=== PATIENT | female | born 1965 | race American Indian/Alaskan Native ===

== ENCOUNTER 2021-01-27 16:50 | Inpatient (IN) | payer OTHER, SELFPAY ==
--- NOTE | 2021-01-27 17:47 | XRay Report ---
CHEST 1 VIEW 01/27/2021 5:25 PM INDICATION / CLINICAL INFORMATION: Altered Mental Status, covid +. COMPARISON: None available. FINDINGS: SUPPORT DEVICES: None. HEART / MEDIASTINUM: The cardiac silhouette is mildly enlarged. There is mild aortic atherosclerosis. LUNGS / PLEURA: No significant pulmonary abnormality. No significant pleural effusion. No pneumothora x. ADDITIONAL FINDINGS: No significant additional findings. IMPRESSION: Mild cardiomegaly without other acute findings. Signer Name: Ronnell Joseph MD Signed: 01/27/2021 5:42 PM Workstation Name: [id number]
[2021-01-27 17:48] LABS: Basophils % (Auto) 0.6 % (0.0-1.8); Eosinophils % (Auto) 0.1 % (0.0-4.3); Hematocrit 28.6 % (30.3-42.9); Hemoglobin 8.6 gm/dl (10.1-14.3); Lymphocytes # (Auto) 0.7 K/mm3 (1.2-5.4); Lymphocytes % (Auto) 8.4 % (13.4-35.0); Mean Corpuscular HGB Conc 30 % (30-34); Mean Corpuscular Volume 75 fl (79-97); Monocytes # (Auto) 0.6 K/mm3 (0.0-0.8); Monocytes % (Auto) 7.2 % (0.0-7.3); Platelet Count 314 K/mm3 (140-440); Red Blood Count 3.83 M/mm3 (3.65-5.03); Red Cell Distribution Width 16.3 % (13.2-15.2)
[2021-01-27 17:57] LABS: INR 1.15 (0.87-1.13); Partial Thromboplastin Time 25.2 Sec. (24.2-36.6)
[2021-01-27 18:07] LABS: Albumin 3.6 g/dL (3.9-5); C-Reactive Protein 6.7 mg/dL (0.00-1.30); Calcium 6.6 mg/dL (8.4-10.2)
--- NOTE | 2021-01-27 18:15 | Cat Scan Report ---
CT head/brain wo con INDICATION / CLINICAL INFORMATION: 55 years Female; Altered Mental Status covid +. TECHNIQUE: Routine CT head without contrast. All CT scans at this location are performed using CT dos e reduction for ALARA by means of automated exposure control. COMPARISON: None. 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 Otherwise, no acute hemorrhage, mass effect, midline shift, hydrocephalus, or acute, large territori al infarct. No signs of significant atrophy or chronic infarct. There are mild areas of decreased attenuation in the white matter of the cerebral hemispheres. These are nonspecific findings and may be related to microangiopathy (hypertension, diabetes, atheroscleros is), given the patient's age. CRANIOCERVICAL JUNCTION: No significant abnormality. ORBITS: No significant abnormality of visualized orbits. SINUSES / MASTOIDS: Mild to moderate mucosal thickening in the ethmoids. Small mucous retention cyst/ polyps are seen in the maxillary antrum on the left. ADDITIONAL FINDINGS: None. IMPRESSION: 1. No focal mass, hemorrhage, hydrocephalus, or acute, large territorial infarct. 2. 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 Follow-up with diffusion imaging by MRI, as cli nically warranted. Signer Name: Obey Wright MD, III Signed: 01/27/2021 6:10 PM Workstation Name: [email or web address]USMiranda
[2021-01-27] MEDS ORDERED: ASPIRIN 81 MG TAB CHEW PO ONE (18:17)
--- NOTE | 2021-01-27 18:20 | Emergency Department Report ---
ED General Adult HPI - General Chief complaint: Altered Mental Status Stated complaint: im fine i have covid PUI?: Yes Time Seen by Provider: 01/27/21 16:56 Source: patient, EMS ( EMS documentation not available at time of chart dictation ), RN notes reviewed Mode of arrival: Stretcher Limitations: Altered Mental Status - History of Present Illness Initial comments: The patient was evaluated in the emergency department for symptoms described in the history of present illness. He/she was evaluated in the context of the global COVID-19 pandemic, which necessitated consideration that the patient might be at risk for infection with the virus that causes COVID-19. Institutional protocols and algorithms that pertain to the evaluation of patients at risk for COVID-19 are in a state of rapid change based on information released by regulatory bodies including the CDC and federal and state organizations. These policies and algorithms were followed during the patient's care in the emergency department. Please note that these policies, procedures and recommendations changed on a rapid basis. During the entire history and physical examination I had on complete personal protective equipment. The patient is a 55-year-old female. She is not known to myself previously. She tells me she was diagnosed with Covid on 01/20/2021. She is brought to the hospital by emergency medical services apparently because of erratic and unusual behavior. The patient is not currently accompanied by friends or family at this time for collateral information or additional history. The patient herself denies physical pain. She states that she was "fine", and that she went to [place] last week ([place]), has not received her Covid vaccination, and was subsequently diagnosed with COVID-19 last week. She endorses feeling generally weak, but she denies physical pain, she denies headache, neck pain, chest pain, abdominal pain, shortness of breath. Family felt that the patient was not acting her normal self (they are not avail able for me to interview at this time), and nursing team indicates the patient thinks it is 2008, and believes that Santosh Barnes is the current president. The patient told me that she lives at home with her 57-year-old daughter, Romelia, and she believes that this is an individual who called 911. The patient does not describe the qualitative nature of her symptoms, exacerbating factors, relieving factors, or aggravating factors. Her last known well time is not explicitly known at this time. She denies urinary symptoms. -: unknown - Related Data Allergies Allergy/AdvReac Type Severity Reaction Status Date / Time No Known Allergies Allergy Verified 01/27/21 18:08 ED Review of Systems ROS: Stated complaint: AMS/POSITIVE COVID Other details as noted in HPI Comment: Unobtainable due to pts medical conditions Constitutional: malaise, weakness. denies: fever Eyes: denies: eye discharge, vision change ENT: denies: epistaxis Respiratory: cough, shortness of breath Cardiovascular: denies: chest pain Gastrointestinal: denies: abdominal pain Genitourinary: denies: dysuria Musculoskeletal: myalgia Neurological: weakness, confusion. denies: headache ED Past Medical Hx - Past Medical History Previous Medical History?: Yes Hx Hypertension: Yes - Social History Smoking Status: Current Some Day Smoker ED Physical Exam - General Limitations: Other (The patient is awake, and alert to name. She knows that she is in the hospital.) General appearance: in no apparent distress, anxious, obese - Head Head exam: Present: atraumatic, normocephalic - Eye Eye exam: Present: normal appearance, EOMI. Absent: nystagmus - ENT ENT exam: Present: normal exam, normal orophraynx, mucous membranes moist, normal external ear exam - Neck Neck exam: Present: normal inspection, full ROM. Absent: tenderness, meningismus - Respiratory Respiratory exam: Present: other (Pulmonary auscultation not performed secondary to lack of disposable stethoscope). Absent: stridor - Cardiovascular Cardiovascular Exam: Present: regular rate (Regular rate and rhythm noted on radiation monitor. Auscultation not performed secondary to lack of disposable stethoscope), normal rhythm - GI/Abdominal GI/Abdominal exam: Present: soft. Absent: distended, tenderness, guarding, rebound, rigid, pulsatile mass - Extremities Exam Extremities exam: Present: normal inspection, full ROM, other (2+ pulses noted in the bilateral upper and lower extremities. There is no palpable cord. negative Homans sign. Muscular compartments are soft. The pelvis is stable.). Absent: pedal edema, calf tenderness - Back Exam Back exam: Present: normal inspection, full ROM. Absent: tenderness, CVA tenderness (R), CVA tenderness (L), paraspinal tenderness, vertebral tenderness - Neurological Exam Neurological exam: Present: alert (The patient is alert to name. She thinks is 2008. She does not know the day of the week. She believes that Santosh Barnes is the president.), other (No facial droop. Tongue midline. Extraocular movements intact bilaterally. Facial sensation intact to light touch in V1, V2, V3 distribution bilaterally. 5 and a 5 strength in 4 extremities. Sensation intact to light touch in 4 extremities.) - Psychiatric Psychiatric exam: Present: anxious - Skin Skin exam: Present: warm, dry, intact, normal color. Absent: rash ED Course Vital Signs 01/27/21 01/27/21 01/27/21 16:58 17:25 17:31 Temperature 98.2 F Pulse Rate 96 H 98 H Respiratory 18 18 Rate Blood Pressure 152/77 O2 Sat by Pulse 93 99 98 Oximetry 01/27/21 01/27/21 01/27/21 17:46 18:03 18:15 Temperature Pulse Rate 93 H Respiratory 17 16 16 Rate Blood Pressure O2 Sat by Pulse 98 97 Oximetry 01/27/21 01/27/21 01/27/21 18:31 18:45 19:01 Temperature Pulse Rate 97 H Respiratory 15 17 20 Rate Blood Pressure 155/101 159/79 O2 Sat by Pulse 99 97 93 Oximetry 01/27/21 01/27/21 01/27/21 19:15 19:31 19:45 Temperature Pulse Rate 93 H 94 H 91 H Respiratory 19 19 18 Rate Blood Pressure 159/79 165/87 155/101 O2 Sat by Pulse 98 99 98 Oximetry 01/27/21 01/27/21 01/27/21 20:00 20:15 20:31 Temperature Pulse Rate 106 H 85 107 H Respiratory 20 17 27 H Rate Blood Pressure 135/81 132/81 170/92 O2 Sat by Pulse 100 98 98 Oximetry 01/27/21 01/27/21 01/27/21 20:51 21:01 21:11 Temperature Pulse Rate 95 H 95 H 94 H Respiratory 15 17 17 Rate Blood Pressure 170/92 175/93 175/93 O2 Sat by Pulse 99 99 97 Oximetry 01/27/21 21:30 Temperature 98.2 F Pulse Rate 106 H Respiratory 24 Rate Blood Pressure 168/92 O2 Sat by Pulse 100 Oximetry - Reevaluation(s) Reevaluation #1: 01/27/21 18:22 Differential diagnosis, including but not limited to: Covid, bacteremia, viremia, pneumonia, urinary tract infection Assessment and plan: 55-year-old female, who was afebrile, with reassuring vital signs, no meningeal signs, with a nonfocal neurologic and motor/sensory examination, presenting with nonspecific alteration in mental status, with an exact last known well time that is not known. Her examination and history at this time and not suggestive of acute bacterial meningitis. Her examination at this time is not suggestive of a large vessel occlusion. Her last known well time is not explicitly known, therefore, this patient is not a TPA candidate. I recommended admission to the medical service for diagnostic and supportive care. I discussed this plan of care with the patient. She is amenable to this plan of care. We will discussed with the hospital physician once initial diagnostics have resulted. Continue supplemental oxygen, administer aspirin, give steroids empirically. Order Covid labs to risk stratify for cytokine storm. 01/27/21 18:30 Patient is found to have evidence of renal insufficiency, metabolic acidosis, hyperkalemia, azotemia, and uremia. Have requested emergent nephrology consultation. We will treat her medically. Newman catheter ordered. We will admit to the medical service once initial diagnostics have resulted. Altered mental status is likely secondary to uremic encephalopathy, as well as metabolic acidosis Elevated troponin is likely a type II troponin leak. Suspect that this is a Covid related Renal insufficiency and uremic encephalopathy. 01/27/21 18:31 01/27/21 18:32 01/27/21 18:45 Contacted nephrology on-call, Dr. Deshpande. Have discussed the patient's history, physical, laboratory studies, diagnostic imaging studies, and overall clinical impressions. He recommends D5 whole water, with 3 A of sodium bicarb, running at 100 cc an hour. We agreed to treat the patient's hyperkalemia 5.5 medically. Newman catheter ordered, and renal ultrasound ordered as per his recommendation. He indicates he would like to see how patient does after a vigorous medical resuscitation, prior to committing this patient to hemodialysis. Patient has clear lungs at this time. I will defer to the inpatient team to follow-up on repeat laboratory studies, as well as renal ultrasound. Hospital physician, Dr. Mary Marsh to admit to [facility] 01/27/21 19:20 Patient's daughter has contacted the hospital, [phone]; Ms. Romelia bower She tells me the patient has been acting erratically over the past few days to weeks. The patient fell and hit her head a few weeks ago. The patient's primary care doctor is Dr. Stoddard She believes the patient takes a water pill, states no known allergies, and that the patient has no history of renal insufficiency that she is aware of. Discussed patient's history, laboratory studies and imaging studies with patient's daughter. She has articulated understanding. At the moment, she will stay home, as she is currently sick with Covid, and has not been cleared to visit. All questions answered. Daughter endorses understanding. ED Medical Decision Making - Lab Data Result diagrams: 01/28/21 05:38 01/28/21 05:38 Vital Signs 01/27/21 01/27/21 01/27/21 16:58 17:25 17:31 Temperature 98.2 F Pulse Rate 96 H 98 H Respiratory 18 18 Rate Blood Pressure 152/77 O2 Sat by Pulse 93 99 98 Oximetry 01/27/21 18:03 Temperature Pulse Rate Respiratory 16 Rate Blood Pressure O2 Sat by Pulse Oximetry Lab Results 01/27/21 01/27/21 01/27/21 Range/Units 17:23 17:23 17:23 [place] % (Auto) 7.2 (0.0-7.3) % Eos % (Auto) 0.1 (0.0-4.3) % [place] # (Auto) 0.6 (0.0-0.8) K/mm3 Eos # (Auto) 0.0 (0.0-0.4) K/mm3 Baso # (Auto) 0.0 (0.0-0.1) K/mm3 Seg Neutrophils % 83.7 H (40.0-70.0) % Seg Neutrophils # 6.9 (1.8-7.7) K/mm3 PT 15.2 H (12.2-14.9) Sec. INR 1.15 H (0.87-1.13) APTT 25.2 (24.2-36.6) Sec. D-Dimer 826.21 H (0-234) ng/mlDDU Sodium 144 (137-145) mmol/L Potassium 5.5 H (3.6-5.0) mmol/L Chloride 106.5 (98-107) mmol/L Glucose 106 H (65-100) mg/dL Lactic Acid (0.7-2.0) mmol/L Calcium 6.6 L (8.4-10.2) mg/dL Magnesium 2.10 (1.7-2.3) mg/dL Total Bilirubin 0.20 (0.1-1.2) mg/dL AST 13 (5-40) units/L ALT 6 L (7-56) units/L Alkaline Phosphatase 157 H (35-129) units/L Ammonia (25-60) umol/L Lactate Dehydrogenase 357 H (91-180) units/L Total Creatine Kinase 322 H (30-135) units/L C-Reactive Protein 6.70 H (0.00-1.30) mg/dL Total Protein 7.0 (6.3-8.2) g/dL Albumin 3.6 L (3.9-5) g/dL Albumin/Globulin Ratio 1.1 % TSH (0.270-4.200) mlU/mL Salicylates (2.8-20.0) mg/dL Acetaminophen (10.0-30.0) ug/mL Plasma/Serum Alcohol (0-0.07) % 01/27/21 01/27/21 01/27/21 Range/Units 17:23 17:23 17:23 [place] % (Auto) (0.0-7.3) % Eos % (Auto) (0.0-4.3) % [place] # (Auto) (0.0-0.8) K/mm3 Eos # (Auto) (0.0-0.4) K/mm3 Baso # (Auto) (0.0-0.1) K/mm3 Seg Neutrophils % (40.0-70.0) % Seg Neutrophils # (1.8-7.7) K/mm3 PT (12.2-14.9) Sec. INR (0.87-1.13) APTT (24.2-36.6) Sec. D-Dimer (0-234) ng/mlDDU Sodium (137-145) mmol/L Potassium (3.6-5.0) mmol/L Chloride (98-107) mmol/L Glucose (65-100) mg/dL Lactic Acid 1.50 (0.7-2.0) mmol/L Calcium (8.4-10.2) mg/dL Magnesium (1.7-2.3) mg/dL Total Bilirubin (0.1-1.2) mg/dL AST (5-40) units/L ALT (7-56) units/L Alkaline Phosphatase (35-129) units/L Ammonia 19.0 L (25-60) umol/L Lactate Dehydrogenase (91-180) units/L Total Creatine Kinase (30-135) units/L C-Reactive Protein (0.00-1.30) mg/dL Total Protein (6.3-8.2) g/dL Albumin (3.9-5) g/dL Albumin/Globulin Ratio % TSH 1.180 (0.270-4.200) mlU/mL Salicylates (2.8-20.0) mg/dL Acetaminophen (10.0-30.0) ug/mL Plasma/Serum Alcohol (0-0.07) % 01/27/21 01/27/21 01/27/21 Range/Units 17:23 17:23 17:23 [place] % (Auto) (0.0-7.3) % Eos % (Auto) (0.0-4.3) % [place] # (Auto) (0.0-0.8) K/mm3 Eos # (Auto) (0.0-0.4) K/mm3 Baso # (Auto) (0.0-0.1) K/mm3 Seg Neutrophils % (40.0-70.0) % Seg Neutrophils # (1.8-7.7) K/mm3 PT (12.2-14.9) Sec. INR (0.87-1.13) APTT (24.2-36.6) Sec. D-Dimer (0-234) ng/mlDDU Sodium (137-145) mmol/L Potassium (3.6-5.0) mmol/L Chloride (98-107) mmol/L Glucose (65-100) mg/dL Lactic Acid (0.7-2.0) mmol/L Calcium (8.4-10.2) mg/dL Magnesium (1.7-2.3) mg/dL Total Bilirubin (0.1-1.2) mg/dL AST (5-40) units/L ALT (7-56) units/L Alkaline Phosphatase (35-129) units/L Ammonia (25-60) umol/L Lactate Dehydrogenase (91-180) units/L Total Creatine Kinase (30-135) units/L C-Reactive Protein (0.00-1.30) mg/dL Total Protein (6.3-8.2) g/dL Albumin (3.9-5) g/dL Albumin/Globulin Ratio % TSH (0.270-4.200) mlU/mL Salicylates < 0.3 L (2.8-20.0) mg/dL Acetaminophen 5.0 L (10.0-30.0) ug/mL Plasma/Serum Alcohol < 0.01 (0-0.07) % Lab Results 01/27/21 01/27/21 01/27/21 Range/Units 17:23 17:23 17:23 WBC 8.2 (4.5-11.0) K/mm3 RBC 3.83 (3.65-5.03) M/mm3 Hgb 8.6 L (10.1-14.3) gm/dl Hct 28.6 L (30.3-42.9) % MCV 75 L (79-97) fl MCH 22 L (28-32) pg MCHC 30 (30-34) % RDW 16.3 H (13.2-15.2) % Plt Count 314 (140-440) K/mm3 Lymph % (Auto) 8.4 L (13.4-35.0) % [place] % (Auto) 7.2 (0.0-7.3) % Eos % (Auto) 0.1 (0.0-4.3) % Baso % (Auto) 0.6 (0.0-1.8) % Lymph # (Auto) 0.7 L (1.2-5.4) K/mm3 [place] # (Auto) 0.6 (0.0-0.8) K/mm3 Eos # (Auto) 0.0 (0.0-0.4) K/mm3 Baso # (Auto) 0.0 (0.0-0.1) K/mm3 Seg Neutrophils % 83.7 H (40.0-70.0) % Seg Neutrophils # 6.9 (1.8-7.7) K/mm3 PT 15.2 H (12.2-14.9) Sec. INR 1.15 H (0.87-1.13) APTT 25.2 (24.2-36.6) Sec. D-Dimer 826.21 H (0-234) ng/mlDDU Sodium 144 (137-145) mmol/L Potassium 5.5 H (3.6-5.0) mmol/L Chloride 106.5 (98-107) mmol/L Carbon Dioxide 6 L* (22-30) mmol/L Anion Gap 37 mmol/L BUN 122 H (7-17) mg/dL Creatinine 15.9 H (0.6-1.2) mg/dL Estimated GFR 3 ml/min BUN/Creatinine Ratio 8 % Glucose 106 H (65-100) mg/dL Lactic Acid (0.7-2.0) mmol/L Calcium 6.6 L (8.4-10.2) mg/dL Magnesium 2.10 (1.7-2.3) mg/dL Ferritin (10.0-200.0) ng/mL Total Bilirubin 0.20 (0.1-1.2) mg/dL AST 13 (5-40) units/L ALT 6 L (7-56) units/L Alkaline Phosphatase 157 H (35-129) units/L Ammonia (25-60) umol/L Lactate Dehydrogenase 357 H (91-180) units/L Total Creatine Kinase 322 H (30-135) units/L Troponin T 0.143 H* (0.00-0.029) ng/mL C-Reactive Protein 6.70 H (0.00-1.30) mg/dL Total Protein 7.0 (6.3-8.2) g/dL Albumin 3.6 L (3.9-5) g/dL Albumin/Globulin Ratio 1.1 % TSH (0.270-4.200) mlU/mL Salicylates (2.8-20.0) mg/dL Acetaminophen (10.0-30.0) ug/mL Plasma/Serum Alcohol (0-0.07) % 01/27/21 01/27/21 01/27/21 Range/Units 17:23 17:23 17:23 WBC (4.5-11.0) K/mm3 RBC (3.65-5.03) M/mm3 Hgb (10.1-14.3) gm/dl Hct (30.3-42.9) % MCV (79-97) fl MCH (28-32) pg MCHC (30-34) % RDW (13.2-15.2) % Plt Count (140-440) K/mm3 Lymph % (Auto) (13.4-35.0) % [place] % (Auto) (0.0-7.3) % Eos % (Auto) (0.0-4.3) % Baso % (Auto) (0.0-1.8) % Lymph # (Auto) (1.2-5.4) K/mm3 [place] # (Auto) (0.0-0.8) K/mm3 Eos # (Auto) (0.0-0.4) K/mm3 Baso # (Auto) (0.0-0.1) K/mm3 Seg Neutrophils % (40.0-70.0) % Seg Neutrophils # (1.8-7.7) K/mm3 PT (12.2-14.9) Sec. INR (0.87-1.13) APTT (24.2-36.6) Sec. D-Dimer (0-234) ng/mlDDU Sodium (137-145) mmol/L Potassium (3.6-5.0) mmol/L Chloride (98-107) mmol/L Carbon Dioxide (22-30) mmol/L Anion Gap mmol/L BUN (7-17) mg/dL Creatinine (0.6-1.2) mg/dL Estimated GFR ml/min BUN/Creatinine Ratio % Glucose (65-100) mg/dL Lactic Acid 1.50 (0.7-2.0) mmol/L Calcium (8.4-10.2) mg/dL Magnesium (1.7-2.3) mg/dL Ferritin (10.0-200.0) ng/mL Total Bilirubin (0.1-1.2) mg/dL AST (5-40) units/L ALT (7-56) units/L Alkaline Phosphatase (35-129) units/L Ammonia 19.0 L (25-60) umol/L Lactate Dehydrogenase (91-180) units/L Total Creatine Kinase (30-135) units/L Troponin T (0.00-0.029) ng/mL C-Reactive Protein (0.00-1.30) mg/dL Total Protein (6.3-8.2) g/dL Albumin (3.9-5) g/dL Albumin/Globulin Ratio % TSH 1.180 (0.270-4.200) mlU/mL Salicylates (2.8-20.0) mg/dL Acetaminophen (10.0-30.0) ug/mL Plasma/Serum Alcohol (0-0.07) % 01/27/21 01/27/21 01/27/21 Range/Units 17:23 17:23 17:23 WBC (4.5-11.0) K/mm3 RBC (3.65-5.03) M/mm3 Hgb (10.1-14.3) gm/dl Hct (30.3-42.9) % MCV (79-97) fl MCH (28-32) pg MCHC (30-34) % RDW (13.2-15.2) % Plt Count (140-440) K/mm3 Lymph % (Auto) (13.4-35.0) % [place] % (Auto) (0.0-7.3) % Eos % (Auto) (0.0-4.3) % Baso % (Auto) (0.0-1.8) % Lymph # (Auto) (1.2-5.4) K/mm3 [place] # (Auto) (0.0-0.8) K/mm3 Eos # (Auto) (0.0-0.4) K/mm3 Baso # (Auto) (0.0-0.1) K/mm3 Seg Neutrophils % (40.0-70.0) % Seg Neutrophils # (1.8-7.7) K/mm3 PT (12.2-14.9) Sec. INR (0.87-1.13) APTT (24.2-36.6) Sec. D-Dimer (0-234) ng/mlDDU Sodium (137-145) mmol/L Potassium (3.6-5.0) mmol/L Chloride (98-107) mmol/L Carbon Dioxide (22-30) mmol/L Anion Gap mmol/L BUN (7-17) mg/dL Creatinine (0.6-1.2) mg/dL Estimated GFR ml/min BUN/Creatinine Ratio % Glucose (65-100) mg/dL Lactic Acid (0.7-2.0) mmol/L Calcium (8.4-10.2) mg/dL Magnesium (1.7-2.3) mg/dL Ferritin (10.0-200.0) ng/mL Total Bilirubin (0.1-1.2) mg/dL AST (5-40) units/L ALT (7-56) units/L Alkaline Phosphatase (35-129) units/L Ammonia (25-60) umol/L Lactate Dehydrogenase (91-180) units/L Total Creatine Kinase (30-135) units/L Troponin T (0.00-0.029) ng/mL C-Reactive Protein (0.00-1.30) mg/dL Total Protein (6.3-8.2) g/dL Albumin (3.9-5) g/dL Albumin/Globulin Ratio % TSH (0.270-4.200) mlU/mL Salicylates < 0.3 L (2.8-20.0) mg/dL Acetaminophen 5.0 L (10.0-30.0) ug/mL Plasma/Serum Alcohol < 0.01 (0-0.07) % / Range/Units 17:23 WBC (4.5-11.0) K/mm3 RBC (3.65-5.03) M/mm3 Hgb (10.1-14.3) gm/dl Hct (30.3-42.9) % MCV (79-97) fl MCH (28-32) pg MCHC (30-34) % RDW (13.2-15.2) % Plt Count (140-440) K/mm3 Lymph % (Auto) (13.4-35.0) % [place] % (Auto) (0.0-7.3) % Eos % (Auto) (0.0-4.3) % Baso % (Auto) (0.0-1.8) % Lymph # (Auto) (1.2-5.4) K/mm3 [place] # (Auto) (0.0-0.8) K/mm3 Eos # (Auto) (0.0-0.4) K/mm3 Baso # (Auto) (0.0-0.1) K/mm3 Seg Neutrophils % (40.0-70.0) % Seg Neutrophils # (1.8-7.7) K/mm3 PT (12.2-14.9) Sec. INR (0.87-1.13) APTT (24.2-36.6) Sec. D-Dimer (0-234) ng/mlDDU Sodium (137-145) mmol/L Potassium (3.6-5.0) mmol/L Chloride (98-107) mmol/L Carbon Dioxide (22-30) mmol/L Anion Gap mmol/L BUN (7-17) mg/dL Creatinine (0.6-1.2) mg/dL Estimated GFR ml/min BUN/Creatinine Ratio % Glucose (65-100) mg/dL Lactic Acid (0.7-2.0) mmol/L Calcium (8.4-10.2) mg/dL Magnesium (1.7-2.3) mg/dL Ferritin 404.7 H (10.0-200.0) ng/mL Total Bilirubin (0.1-1.2) mg/dL AST (5-40) units/L ALT (7-56) units/L Alkaline Phosphatase (35-129) units/L Ammonia (25-60) umol/L Lactate Dehydrogenase (91-180) units/L Total Creatine Kinase (30-135) units/L Troponin T (0.00-0.029) ng/mL C-Reactive Protein (0.00-1.30) mg/dL Total Protein (6.3-8.2) g/dL Albumin (3.9-5) g/dL Albumin/Globulin Ratio % TSH (0.270-4.200) mlU/mL Salicylates (2.8-20.0) mg/dL Acetaminophen (10.0-30.0) ug/mL Plasma/Serum Alcohol (0-0.07) % - EKG Data -: EKG Interpreted by [facility] EKG shows normal: sinus rhythm Rate: normal - EKG Data When compared to previous EKG there are: previous EKG unavailable 01/27/21 18:21 EKG interpreted at 17: 28 Sinus rhythm, 89 bpm. Normal P wave axis. QTC prolonged, 500 ms. Poor R wave progression. Motion artifact. Borderline left ventricular hypertrophy. Abnormal EKG. Not a STEMI. No prior for comparison. - Radiology Data Radiology results: report reviewed, image reviewed CT head/brain wo con INDICATION / CLINICAL INFORMATION: 55 years Female; Altered Mental Status covid +. TECHNIQUE: Routine CT head without contrast. All CT scans at this location are performed using CT dose reduction for ALARA by ar ans of automated exposure control. COMPARISON: None. FINDINGS: BRAIN / INTRACRANIAL CONTENTS: Small, branch PICA infarcts are seen in the left cerebellar [id number] without diffusion imaging by MRI. Otherwise, no acute hemorrhage, mass effect, midline shift, hydrocephalus, or a cute, large territorial infarct. No signs of significant atrophy or chronic infarct. There are mild areas of decreased attenuation in the white matter of the cerebral hemispheres. These are nonspecific findings and may be related to microangiopathy (hypertension, diabetes, atherosclerosis), given the patient's age. CRANIOCERVICAL JUNCTION: No significant abnormality. ORBITS: No significant abnormality of visualized orbits. SINUSES / MASTOIDS: Mild to moderate mucosal thickening in the ethmoids. Small mucous retention cyst/polyps are seen in the maxillary antrum on the left. ADDITIONAL FINDINGS: None. IMPRESSION: 1. No focal mass, hemorrhage, hydrocephalus, or acute, large territorial infarct. 2. 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 Follow-up with diffusion imaging by MRI, as clinically warranted. Signer Name: Obey Wright MD, III Signed: 01/27/2021 5:10 PM Workstation Name: [id number] [id number] CHEST 1 VIEW 01/27/2021 5:25 PM INDICATION / CLINICAL INFORMATION: Altered Mental Status, covid +. COMPARISON: None available. FINDINGS: SUPPORT DEVICES: None. HEART / MEDIASTINUM: The cardiac silhouette is mildly enlarged. There is mild aortic atherosclerosis. LUNGS / PLEURA: No significant pulmonary abnormality. No significant pleural effusion. No pneumothorax. ADDITIONAL FINDINGS: No significant additional findings. IMPRESSION: Mild cardiomegaly without other acute findings. Signer Name: Ronnell Joseph MD Signed: 01/27/2021 4:42 PM Workstation Name: [id number] Critical care time in (mins) excluding proc time.: 65 Critical care attestation.: If time is entered above; I have spent that time in minutes in the direct care of this critically ill patient, excluding procedure time. ED Disposition Clinical Impression: Suspected 2019 novel coronavirus infection, Acute encephalopathy, Metabolic acidosis, Acute renal insufficiency, Hyperkalemia, Azotemia, Uremia Disposition: DC09 OP ADMIT IP TO THIS HOSP Is pt being admited?: Yes Does the pt Need Aspirin: No Condition: Serious
[2021-01-27] MEDS ORDERED: dexAMETHasone 4 MG/ML VIAL IV ONE (18:30)
[2021-01-27] MEDS ORDERED: LACTATED RINGERS 1,000 ML IV ONE (18:32)
[2021-01-27 18:41] LABS: Chol/HDL Ratio 3.77 %
[2021-01-27] MEDS ORDERED: DEXTROSE 50% IN WATER (25GM) 50 ML SYRINGE IV ONE (18:41)
[2021-01-27] MEDS ORDERED: ALBUTEROL 2.5 MG/3 ML NEBU IH ONE (18:41)
[2021-01-27] MEDS ORDERED: SODIUM POLYSTYRENE 15 GM/60 ML ORAL LIQD PO ONE (18:41)
[2021-01-27] MEDS ORDERED: DEXTROSE 50% IN WATER (25GM) 50 ML SYRINGE IV PRN (18:41)
[2021-01-27] MEDS ORDERED: INSULIN REGULAR, HUMAN 100 UNITS/1 ML IV ONE (18:41)
[2021-01-27] MEDS ORDERED: CALCIUM GLUCONATE 1,000 MG in SODIUM CHLORIDE 0.9% 100 ML IV ONE (19:00)
[2021-01-27] MEDS ORDERED: SODIUM BICARBONATE 150 MEQ in DEXTROSE 5% IN WATER 1,000 ML IV SCH (19:00)
--- NOTE | 2021-01-27 21:19 | History and Physical Report ---
History of Present Illness Date of examination: 01/27/21 Date of admission: 01/27/21 18:47 Chief complaint: Altered Sensorium for one day History of present illness: 55-year-old female with past medical history significant for hypertension and chronic kidney disease comes in for altered sensorium. Patient was diagnosed with Covid 1 week ago on January 20, 2021. Patient brought by EMS for erratic and unusual behavior. No family at this point. Patient talks appropriately but that does not make sense. She states that she has chronic kidney disease but does not know who her kidney physician needs and when she was diagnosed with chronic kidney disease. Patient is alert but confused. Patient says that it is year 2008 and the current president is Santosh Barnes. No exacerbating or relieving factors. Patient did well after the Covid infection. No nausea vomit ing diarrhea or altered sense of smel or taste. No fever or chills. No muscle aches. In the ER patient was found to have a high creatinine of around 16 and BUN more than 100 - Past Medical History Previous Medical History?: Yes --Hypertension: Yes CKD Surgical history unavailable - Social History Smoking Status: Current Smoker Family history Htn Review of Systems ROS: Stated complaint: AMS/POSITIVE COVID Other details as noted in HPI Comment: Unobtainable due to pts medical conditions Constitutional: malaise, weakness. denies: fever Eyes: denies: eye discharge, vision change ENT: denies: epistaxis Respiratory: cough, shortness of breath Cardiovascular: denies: chest pain Gastrointestinal: denies: abdominal pain Genitourinary: denies: dysuria Musculoskeletal: myalgia Neurological: weakness, confusion. denies: headache Medications and Allergies Allergies Allergy/AdvReac Type Severity Reaction Status Date / Time No Known Allergies Allergy Verified 01/27/21 18:08 Active Meds: Active Medications Dextrose (Dextrose 50% In Water (25gm) 50 Ml Syringe) 50 ml IV Q30MIN PRN; Protocol PRN Reason: Hypoglycemia Sodium Bicarbonate 150 meq/ (Dextrose) 1,150 mls @ 100 mls/hr IV DIRECT MONICA Last Admin: 01/27/21 20:16 Dose: 100 mls/hr Documented by: Exam - Constitutional Vitals: Temp Pulse Resp BP Pulse Ox 98.2 F 107 H 27 H 170/92 98 01/27/21 16:58 01/27/21 20:31 01/27/21 20:31 01/27/21 20:31 01/27/21 20:31 General appearance: Present: no acute distress, well-nourished - EENT Eyes: Present: PERRL ENT: hearing intact, clear oral mucosa - Neck Neck: Present: supple, normal ROM - Respiratory Respiratory effort: normal Respiratory: bilateral: CTA - Cardiovascular Heart rate: 78 Rhythm: regular Heart Sounds: Present: S1 & S2. Absent: rub, click - Extremities Extremities: no ischemia, pulses intact, pulses symmetrical, No edema Peripheral Pulses: within normal limits - Abdominal General gastrointestinal: Present: soft, non-tender, non-distended, normal bowel sounds Female genitourinary: Present: normal - Rectal Rectal Exam: deferred - Integumentary Integumentary: Present: clear, warm, dry - Musculoskeletal Musculoskeletal: gait normal, strength equal bilaterally - Psychiatric Psychiatric: appropriate mood/affect, other (Altered sensorium) - Neurologic Neurologic: CNII-XII intact, moves all extremities, other (Alert but not oriente d to time. Oriented to place and person.) - Allied Health Allied health notes reviewed: nursing, case management HEART Score - HEART Score Troponin: Troponin T 0.143 ng/mL (0.00-0.029) H* 01/27/21 17:23 Results - Labs CBC & Chem 7: 01/27/21 17:23 01/27/21 17:23 Labs: Laboratory Last Values WBC 8.2 K/mm3 (4.5-11.0) 01/27/21 17:23 RBC 3.83 M/mm3 (3.65-5.03) 01/27/21 17:23 Hgb 8.6 gm/dl (10.1-14.3) L 01/27/21 17:23 Hct 28.6 % (30.3-42.9) L 01/27/21 17:23 MCV 75 fl (79-97) L 01/27/21 17:23 MCH 22 pg (28-32) L 01/27/21 17:23 MCHC 30 % (30-34) 01/27/21 17:23 RDW 16.3 % (13.2-15.2) H 01/27/21 17:23 Plt Count 314 K/mm3 (140-440) 01/27/21 17:23 Lymph % (Auto) 8.4 % (13.4-35.0) L 01/27/21 17:23 [place] % (Auto) 7.2 % (0.0-7.3) 01/27/21 17:23 Eos % (Auto) 0.1 % (0.0-4.3) 01/27/21 17:23 Baso % (Auto) 0.6 % (0.0-1.8) 01/27/21 17:23 Lymph # (Auto) 0.7 K/mm3 (1.2-5.4) L 01/27/21 17:23 [place] # (Auto) 0.6 K/mm3 (0.0-0.8) 01/27/21 17:23 Eos # (Auto) 0.0 K/mm3 (0.0-0.4) 01/27/21 17:23 Baso # (Auto) 0.0 K/mm3 (0.0-0.1) 01/27/21 17:23 Seg Neutrophils % 83.7 % (40.0-70.0) H 01/27/21 17:23 Seg Neutrophils # 6.9 K/mm3 (1.8-7.7) 01/27/21 17:23 PT 15.2 Sec. (12.2-14.9) H 01/27/21 17:23 INR 1.15 (0.87-1.13) H 01/27/21 17:23 APTT 25.2 Sec. (24.2-36.6) 01/27/21 17:23 D-Dimer 826.21 ng/mlDDU (0-234) H 01/27/21 17:23 Sodium 144 mmol/L (137-145) 01/27/21 17:23 Potassium 5.5 mmol/L (3.6-5.0) H 01/27/21 17:23 Chloride 106.5 mmol/L (98-107) 01/27/21 17:23 Carbon Dioxide 6 mmol/L (22-30) L* 01/27/21 17:23 Anion Gap 37 mmol/L 01/27/21 17:23 BUN 122 mg/dL (7-17) H 01/27/21 17:23 Creatinine 15.9 mg/dL (0.6-1.2) H 01/27/21 17:23 Estimated GFR 3 ml/min 01/27/21 17:23 BUN/Creatinine Ratio 8 % 01/27/21 17:23 Glucose 106 mg/dL (65-100) H 01/27/21 17:23 Lactic Acid 1.50 mmol/L (0.7-2.0) 01/27/21 17:23 Calcium 6.6 mg/dL (8.4-10.2) L 01/27/21 17:23 Magnesium 2.10 mg/dL (1.7-2.3) 01/27/21 17:23 Ferritin 404.7 ng/mL (10.0-200.0) H 01/27/21 17:23 Total Bilirubin 0.20 mg/dL (0.1-1.2) 01/27/21 17:23 AST 13 units/L (5-40) 01/27/21 17:23 ALT 6 units/L (7-56) L 01/27/21 17:23 Alkaline Phosphatase 157 units/L (35-129) H 01/27/21 17:23 Ammonia 19.0 umol/L (25-60) L 01/27/21 17:23 Lactate Dehydrogenase 357 units/L (91-180) H 01/27/21 17:23 Total Creatine Kinase 322 units/L (30-135) H 01/27/21 17:23 Troponin T 0.143 ng/mL (0.00-0.029) H* 01/27/21 17:23 C-Reactive Protein 6.70 mg/dL (0.00-1.30) H 01/27/21 17:23 Total Protein 7.0 g/dL (6.3-8.2) 01/27/21 17:23 Albumin 3.6 g/dL (3.9-5) L 01/27/21 17:23 Albumin/Globulin Ratio 1.1 % 01/27/21 17:23 Triglycerides 173 mg/dL (2-149) H 01/27/21 17:23 Cholesterol 181 mg/dL (50-199) 01/27/21 17:23 LDL Cholesterol Direct 101 mg/dL (50-130) 01/27/21 17:23 HDL Cholesterol 48 mg/dL (40-59) 01/27/21 17:23 Cholesterol/HDL Ratio 3.77 % 01/27/21 17:23 TSH 1.180 mlU/mL (0.270-4.200) 01/27/21 17:23 Salicylates < 0.3 mg/dL (2.8-20.0) L 01/27/21 17:23 Acetaminophen 5.0 ug/mL (10.0-30.0) L 01/27/21 17:23 Plasma/Serum Alcohol < 0.01 % (0-0.07) 01/27/21 17:23 Short CBC 01/27/21 Range/Units 17:23 WBC 8.2 (4.5-11.0) K/mm3 Hgb 8.6 L (10.1-14.3) gm/dl Hct 28.6 L (30.3-42.9) % Plt Count 314 (140-440) K/mm3 [facility] 01/27/21 17:23 Sodium 144 Potassium 5.5 H Chloride 106.5 Carbon Dioxide 6 L* BUN 122 H Creatinine 15.9 H Glucose 106 H Calcium 6.6 L Cardiac Enzymes 01/27/21 Range/Units 17:23 Total Creatine Kinase 322 H (30-135) units/L Troponin T 0.143 H* (0.00-0.029) ng/mL Liver Function 01/27/21 Range/Units 17:23 Total Bilirubin 0.20 (0.1-1.2) mg/dL AST 13 (5-40) units/L ALT 6 L (7-56) units/L Alkaline Phosphatase 157 H (35-129) units/L Albumin 3.6 L (3.9-5) g/dL Short CBC 01/27/21 Range/Units 17:23 WBC 8.2 (4.5-11.0) K/mm3 Hgb 8.6 L (10.1-14.3) gm/dl Hct 28.6 L (30.3-42.9) % Plt Count 314 (140-440) K/mm3 [facility] 01/27/21 17:23 Sodium 144 Potassium 5.5 H Chloride 106.5 Carbon Dioxide 6 L* BUN 122 H Creatinine 15.9 H Glucose 106 H Calcium 6.6 L Cardiac Enzymes 01/27/21 Range/Units 17:23 Total Creatine Kinase 322 H (30-135) units/L Troponin T 0.143 H* (0.00-0.029) ng/mL Liver Function 01/27/21 Range/Units 17:23 Total Bilirubin 0.20 (0.1-1.2) mg/dL AST 13 (5-40) units/L ALT 6 L (7-56) units/L Alkaline Phosphatase 157 H (35-129) units/L Albumin 3.6 L (3.9-5) g/dL Microbiology: Microbiology 01/27/21 17:23 Peripheral/Venous Blood Culture - Preliminary Culture in Progress 01/27/21 17:23 Peripheral/Venous Blood Culture - Preliminary Culture in Progress - Imaging and Cardiology EKG: report reviewed (Sinus rhythm no acute ST-T wave changes) CT Scan - head: report reviewed Imaging and Cardiology: Chest x-ray Mild cardiomegaly without other acute findings Head CT No focal mass hemorrhage hydrocephalus or acute large territorial infarct Small right PICA infarct suggested on the left. Follow-up with diffusion imaging by MRI as clinically warranted. Assessment and Plan Advance Directives: Yes (Full code) VTE prophylaxis?: Chemical Plan of care discussed with patient/family: Yes - Patient Problems (1) Uremic encephalopathy Current Visit: Yes Status: Acute Plan to address problem: Altered sensorium secondary to high creatinine and uremia Also severe metabolic acidosis secondary to uremia (2) End-stage renal disease needing dialysis Current Visit: Yes Status: Acute Plan to address problem: Newly diagnosed end-stage renal disease There may be some acute component Renal ultrasound IV fluids for 12 hours and then stop Patient may need a Vas-Cath and hemodialysis Dr. Scott MILLER consulted (3) Azotemia Current Visit: Yes Status: Acute Plan to address problem: Patient will need hemodialysis for visualization of encephalopathy (4) Hyperkalemia Current Visit: Yes Status: Acute (5) Metabolic acidosis Current Visit: Yes Status: Acute Plan to address problem: Hemodialysis for now (6) Suspected 2019 novel coronavirus infection Current Visit: Yes Status: Acute Plan to address problem: Patient was coronavirus positive last week on 01/20/2021 Patient has no shortness of breath Comfortable on room air We will get coronavirus PCR Consult ID if necessary (7) Hypertension Current Visit: Yes Status: Acute Qualifiers: Hypertension type: primary hypertension Qualified Code(s): I10 - Essential (primary) hypertension Plan to address problem: Newly diagnosed hypertension Patient started on hydralazine 50 mg every 8 hours Add other antihypertensives as necessary (8) Hyperkalemia Current Visit: Yes Status: Acute Plan to address problem: Treated in the emergency room with Kayexalate and calcium gluconate and sodium bicarbonate (9) Anemia Current Visit: Yes Status: Chronic Qualifiers: Anemia type: due to chronic kidney disease Chronic kidney disease stage: stage 5, not on chronic dialysis Qualified Code(s): N18.5 - Chronic kidney disease, stage 5; D63.1 - Anemia in chronic kidney disease Plan to address problem: Anemia secondary to chronic kidney disease and end-stage renal disease (10) DVT prophylaxis Current Visit: Yes Status: Acute Plan to address problem: On heparin and GI prophylaxis
[2021-01-27] MEDS ORDERED: ONDANSETRON 4 MG/2 ML INJ IV PRN (21:27)
[2021-01-27] MEDS ORDERED: ACETAMINOPHEN 325 MG TAB PO PRN (21:27)
[2021-01-27] MEDS ORDERED: oxyCODONE /ACETAMINOPHEN 5-325MG TAB PO PRN (21:29)
[2021-01-27] MEDS ORDERED: METOCLOPRAMIDE 10 MG/2 ML INJ IV PRN (21:29)
[2021-01-27] MEDS ORDERED: SODIUM CHLORIDE 0.9% 1000 ML 1,000 ML IV SCH (21:30)
[2021-01-27] MEDS: HEPARIN 5,000 UNIT/1 ML VIAL SUB-Q SCH (22:23)
[2021-01-27] MEDS: FAMOTIDINE 20 MG/2 ML INJ IV SCH (22:23)
[2021-01-28 06:34] LABS: Hematocrit 21.1 % (30.3-42.9); Hemoglobin 6.7 gm/dl (10.1-14.3); Mean Corpuscular HGB Conc 32 % (30-34); Mean Corpuscular Volume 73 fl (79-97); Platelet Count 278 K/mm3 (140-440); Red Cell Distribution Width 15.1 % (13.2-15.2)
[2021-01-28 06:42] LABS: Albumin 2.9 g/dL (3.9-5); Calcium 6.1 mg/dL (8.4-10.2)
[2021-01-28 06:48] LABS: % Iron Saturation 20.14 %
[2021-01-28] MEDS ORDERED: ENOXAPARIN 30 MG/0.3 ML INJ SUB-Q SCH (10:00)
--- NOTE | 2021-01-28 10:07 | Progress Note ---
Assessment and Plan Assessment and plan: -- Uremic encephalopathy Current Visit: Yes Status: Acute Plan to address problem: Altered sensorium secondary to high creatinine and uremia Also severe metabolic acidosis secondary to uremia --End-stage renal disease needing dialysis Current Visit: Yes Status: Acute Newly diagnosed end-stage renal disease Vas-Cath placement, initiated hemodialysis Renal ultrasound Nephrology following --Hyperkalemia Current Visit: Yes Status: Acute Resolved, hemodialysis after dialysis catheter placement -- Metabolic acidosis Current Visit: Yes Status: Acute Nephrology following , initiating hemodialysis --PUI/high suspicion for COVID-19 Current Visit: Yes Status: Acute Patient was coronavirus positive last week on 01/20/2021 Rog[place] PCR test requested Contact and droplet isolation Patient is asymptomatic ID consult if needed -- Hypertension Current Visit: Yes Status: Acute Newly diagnosed hypertension Patient started on hydralazine 50 mg every 8 hours Add other antihypertensives as necessary --Anemia of chronic disease Current Visit: Yes Status: Chronic Anemia secondary to chronic kidney disease and end-stage renal disease Procrit during dialysis, ferrous sulfate, monitor H&H, transfuse as needed -- prophylaxis Current Visit: Yes Status: Acute On heparin and GI prophylaxis We will closely monitor the patient and adjust management as needed Supervisor [employer] recommendations noted and appreciated Plan of care reviewed with the patient and her nurse History Interval history: I have seen and examined the patient at the bedside Patient's chart and medications reviewed Patient was admitted with uremic encephalopathy Vascular consulted for permacath placement Nephrology following Vital signs noted Hospitalist Physical - Constitutional Vitals: Temp Pulse Resp BP Pulse Ox 98.1 F 91 H 16 175/93 97 01/28/21 04:55 01/28/21 04:55 01/28/21 04:55 01/28/21 05:03 01/28/21 05:03 General appearance: Present: no acute distress, well-nourished - EENT Eyes: Present: PERRL, EOM intact - Neck Neck: Present: supple, normal ROM - Respiratory Respiratory effort: normal Respiratory: bilateral: diminished, rales, negative: rhonchi, wheezing - Cardiovascular Rhythm: regular Heart Sounds: Present: S1 & S2 - Extremities Extremities: no ischemia, No edema - Abdominal General gastrointestinal: soft, non-tender, non-distended, normal bowel sounds - Integumentary Integumentary: Present: clear, warm - Psychiatric Psychiatric: appropriate mood/affect, cooperative - Neurologic Neurologic: CNII-XII intact, moves all extremities HEART Score - HEART Score Troponin: Troponin T 0.143 ng/mL (0.00-0.029) H* 01/27/21 17:23 Results - Labs CBC & Chem 7: 01/28/21 05:38 01/28/21 05:38 Labs: Laboratory Last Values WBC 4.3 K/mm3 (4.5-11.0) L 01/28/21 05:38 RBC 2.90 M/mm3 (3.65-5.03) L 01/28/21 05:38 Hgb 6.7 gm/dl (10.1-14.3) L 01/28/21 05:38 Hct 21.1 % (30.3-42.9) L D 01/28/21 05:38 MCV 73 fl (79-97) L 01/28/21 05:38 MCH 23 pg (28-32) L 01/28/21 05:38 MCHC 32 % (30-34) 01/28/21 05:38 RDW 15.1 % (13.2-15.2) 01/28/21 05:38 Plt Count 278 K/mm3 (140-440) 01/28/21 05:38 Lymph % (Auto) Profiling Machine Setup Operator 01/28/21 05:38 [place] % (Auto) Profiling Machine Setup Operator 01/28/21 05:38 Eos % (Auto) Profiling Machine Setup Operator 01/28/21 05:38 Baso % (Auto) Profiling Machine Setup Operator 01/28/21 05:38 Lymph # (Auto) Profiling Machine Setup Operator 01/28/21 05:38 [place] # (Auto) Profiling Machine Setup Operator 01/28/21 05:38 Eos # (Auto) Profiling Machine Setup Operator 01/28/21 05:38 Baso # (Auto) Profiling Machine Setup Operator 01/28/21 05:38 Seg Neutrophils % Profiling Machine Setup Operator 01/28/21 05:38 Seg Neutrophils # Profiling Machine Setup Operator 01/28/21 05:38 PT 15.2 Sec. (12.2-14.9) H 01/27/21 17:23 INR 1.15 (0.87-1.13) H 01/27/21 17:23 APTT 25.2 Sec. (24.2-36.6) 01/27/21 17:23 D-Dimer 826.21 ng/mlDDU (0-234) H 01/27/21 17:23 Sodium 142 mmol/L (137-145) 01/28/21 05:38 Potassium 4.2 mmol/L (3.6-5.0) D 01/28/21 05:38 Chloride 104.4 mmol/L (98-107) 01/28/21 05:38 Carbon Dioxide 12 mmol/L (22-30) L 01/28/21 05:38 Anion Gap 30 mmol/L 01/28/21 05:38 BUN 117 mg/dL (7-17) H 01/28/21 05:38 Creatinine 14.8 mg/dL (0.6-1.2) H 01/28/21 05:38 Estimated GFR 3 ml/min 01/28/21 05:38 BUN/Creatinine Ratio 8 % 01/28/21 05:38 Glucose 129 mg/dL (65-100) H 01/28/21 05:38 Hemoglobin A1c 5.3 % (4-6) 01/27/21 17:23 Lactic Acid 1.50 mmol/L (0.7-2.0) 01/27/21 17:23 Calcium 6.1 mg/dL (8.4-10.2) L 01/28/21 05:38 Magnesium 2.10 mg/dL (1.7-2.3) 01/27/21 17:23 Iron 28 ug/dL (37-170) L 01/28/21 05:38 TIBC 139 mcg/dL (250-450) L 01/28/21 05:38 % Saturation 20.14 % 01/28/21 05:38 Transferrin 124 mg/dl (192-382) L 01/28/21 05:38 Ferritin 404.7 ng/mL (10.0-200.0) H 01/27/21 17:23 Total Bilirubin 0.20 mg/dL (0.1-1.2) 01/28/21 05:38 AST 11 units/L (5-40) 01/28/21 05:38 ALT 5 units/L (7-56) L 01/28/21 05:38 Alkaline Phosphatase 127 units/L (35-129) 01/28/21 05:38 Ammonia 19.0 umol/L (25-60) L 01/27/21 17:23 Lactate Dehydrogenase 357 units/L (91-180) H 01/27/21 17:23 Total Creatine Kinase 322 units/L (30-135) H 01/27/21 17:23 Troponin T 0.143 ng/mL (0.00-0.029) H* 01/27/21 17:23 C-Reactive Protein 6.70 mg/dL (0.00-1.30) H 01/27/21 17:23 Total Protein 5.9 g/dL (6.3-8.2) L 01/28/21 05:38 Albumin 2.9 g/dL (3.9-5) L 01/28/21 05:38 Albumin/Globulin Ratio 1.0 % 01/28/21 05:38 Triglycerides 173 mg/dL (2-149) H 01/27/21 17:23 Cholesterol 181 mg/dL (50-199) 01/27/21 17:23 LDL Cholesterol Direct 101 mg/dL (50-130) 01/27/21 17:23 HDL Cholesterol 48 mg/dL (40-59) 01/27/21 17:23 Cholesterol/HDL Ratio 3.77 % 01/27/21 17:23 Vitamin B12 2000 pg/mL (211-911) H 01/28/21 05:38 TSH 1.180 mlU/mL (0.270-4.200) 01/27/21 17:23 Salicylates < 0.3 mg/dL (2.8-20.0) L 01/27/21 17:23 Acetaminophen 5.0 ug/mL (10.0-30.0) L 01/27/21 17:23 Plasma/Serum Alcohol < 0.01 % (0-0.07) 01/27/21 17:23 Microbiology: Microbiology 01/27/21 17:23 Peripheral/Venous Blood Culture - Preliminary Culture in Progress 01/27/21 17:23 Peripheral/Venous Blood Culture - Preliminary Culture in Progress Newman/IV: Voiding Method Toilet Active Medications - Current Medications Current Medications: Generic Name Dose Route Start Last Admin Trade Name Freq PRN Reason Stop Dose Admin Acetaminophen 650 mg 01/27/21 21:27 Acetaminophen 325 Mg Tab PO Q4H PRN Pain MILD(1-3)/Fever >100.5/MALCOLM Dextrose 50 ml 01/27/21 18:41 Dextrose 50% In Water (25gm) 50 Ml Syringe IV Q30MIN PRN Hypoglycemia Protocol Famotidine 10 mg 01/27/21 22:00 01/27/21 22:23 Famotidine 20 Mg/2 Ml Inj IV 10 mg BID MONICA Administration Heparin Sodium (Porcine) 5,000 unit 01/27/21 22:00 01/27/21 22:23 Heparin 5,000 Unit/1 Ml Vial SUB-Q 5,000 unit Q12HR MONICA Administration Sodium Bicarbonate 150 meq/ 1,150 mls @ 100 mls/hr 01/27/21 19:00 01/27/21 20:16 Dextrose IV 100 mls/hr DIRECT MONICA Administration Sodium Chloride 1,000 mls @ 75 mls/hr 01/27/21 21:30 01/28/21 05:55 Nacl 0.9% 1000 Ml IV 01/28/21 21:00 75 mls/hr DIRECT MONICA Administration Metoclopramide HCl 10 mg 01/27/21 21:29 Metoclopramide 10 Mg/2 Ml Inj IV Q6H PRN Nausea And Vomiting Ondansetron HCl 4 mg 01/27/21 21:27 Ondansetron 4 Mg/2 Ml Inj IV Q8H PRN Nausea And Vomiting Oxycodone/Acetaminophen 1 tab 01/27/21 21:29 Oxycodone /Acetaminophen 5-325mg Tab PO Q6H PRN Pain, Moderate (4-6) Sodium Chloride 10 ml 01/27/21 22:00 01/27/21 22:24 Sodium Chloride 0.9% 10 Ml Flush Syringe IV 10 ml BID MONICA Administration Sodium Chloride 10 ml 01/27/21 21:27 Sodium Chloride 0.9% 10 Ml Flush Syringe IV PRN PRN LINE FLUSH Nutrition/Malnutrition Assess - Dietary Evaluation Nutrition/Malnutrition Findings: Nutrition Notes Start: 01/28/21 08:54 Freq: Status: Active Protocol: Document 01/28/21 08:54 MARCO (Rec: 01/28/21 08:58 MARCO [id number]) Nutrition Notes Need for Assessment generated from: disc inspector,MST Initial or Follow up Assessment Current Diagnosis CKD (stage V CKD),Hypertension Other Pertinent Diagnosis Uremic encephalopathy, r/o COVID-19 Current Diet Renal Labs/Tests BUN 117 Cr 14.8 Ca 6.1 (adjusted Ca 6.98) Pertinent Medications Reviewed Height 5 ft 5 in Weight 64.7 kg [place] Body Weight (kg) 56.81 BMI 23.7 Weight Status Appropriate Subjective/Other Information Pt screened for malnutrition risk. Pt confused at this time; newly diagnosed ESRD requiring dialysis. Burn Absent Trauma Absent Minimum of two criteria No #1 Nutrition Diagnosis Predicted suboptimal energy intake Etiology uremia As Evidenced by Signs and Symptoms pt admitted with confusion and newly diagnosed ESRD Is patient on ventilator? No Is Patient Ambulatory and/or Out of Bed Yes REE-([facility]-ambulatory/OOB) [ 1602.744 [id number]] Calculation Used for Recommendations [facility] Additional Notes Pro needs >1.2g/kg: >78g/day Fluid needs 1-1.5L/day Nutrition Intervention Change Diet Order: Continue current diet order Goal #1 PO intake to meet at least 75% energy and pro needs Anticipated Discharge Needs: Renal diet Follow-Up By: 01/31/21 Additional Comments F/U: intakes
[2021-01-28] MEDS: HEPARIN 5,000 UNIT/1 ML VIAL SUB-Q SCH ×2 (10:12→22:56)
--- NOTE | 2021-01-28 10:21 | Electrocardiograph Report ---
[facility] Test Date: 2021-01-27 Test Time: 17:28:56 Pat Name: MAULIK FOWLER Department: Room: A364 1 Gender: F [employer]: [place] : 1965 Requested By: ROSCOE GRAY Order Number: [id number] Reading MD: Mina Pacheco Measurements Intervals [place] Rate: 89 P: 58 GA: 132 QRS: 31 QRSD: 79 T: 103 QT: 411 QTc: 500 Interpretive Statements Sinus rhythm Probable left atrial enlargement Probable LVH with secondary repol abnrm No previous ECG available for comparison Electronically Signed On 01-28-2021 10:21:30 EDT by Mina Pacheco
--- NOTE | 2021-01-28 10:26 | Consultation ---
History of Present Illness - Reason for Consult Consult date: 01/28/21 chronic renal failure Requesting physician: ROSCOE GRAY - History of Present Illness 55-year-old lady admitted on account of altered mental status. Patient noted by family to have erratic behavior. She has a history of hypertension and chronic kidney disease stage unknown. She was diagnosed with COVID-19 January 20 but her condition worsened and so she was brought to the hospital for further management. 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 I reviewed multidisciplinary notes and discussed with staff and physicians as needed. Past History Past Medical History: hypertension, renal failure Past Surgical History: Other (Unable to obtain) Social history: other (Unable to obtain) Family history: other (Unable to obtain) Medications and Allergies Allergies Allergy/AdvReac Type Severity Reaction Status Date / Time No Known Allergies Allergy Verified 01/27/21 18:08 Active Meds: Active Medications Acetaminophen (Acetaminophen 325 Mg Tab) 650 mg PO Q4H PRN PRN Reason: Pain MILD(1-3)/Fever >100.5/MALCOLM Dextrose (Dextrose 50% In Water (25gm) 50 Ml Syringe) 50 ml IV Q30MIN PRN; Protocol PRN Reason: Hypoglycemia Famotidine (Famotidine 20 Mg/2 Ml Inj) 10 mg IV BID MONICA Last Admin: 01/27/21 22:23 Dose: 10 mg Documented by: Heparin Sodium (Porcine) (Heparin 5,000 Unit/1 Ml Vial) 5,000 unit SUB-Q Q12HR MONICA Last Admin: 01/28/21 10:12 Dose: 5,000 unit Documented by: Sodium Bicarbonate 150 meq/ (Dextrose) 1,150 mls @ 100 mls/hr IV DIRECT MONICA Last Admin: 01/27/21 20:16 Dose: 100 mls/hr Documented by: Sodium Chloride (Nacl 0.9% 1000 Ml) 1,000 mls @ 75 mls/hr IV DIRECT MONICA Stop: 01/28/21 21:00 Last Admin: 01/28/21 05:55 Dose: 75 mls/hr Documented by: Metoclopramide HCl (Metoclopramide 10 Mg/2 Ml Inj) 10 mg IV Q6H PRN PRN Reason: Nausea And Vomiting Ondansetron HCl (Ondansetron 4 Mg/2 Ml Inj) 4 mg IV Q8H PRN PRN Reason: Nausea And Vomiting Oxycodone/Acetaminophen (Oxycodone /Acetaminophen 5-325mg Tab) 1 tab PO Q6H PRN PRN Reason: Pain, Moderate (4-6) Sodium Chloride (Sodium Chloride 0.9% 10 Ml Flush Syringe) 10 ml IV BID MONICA Last Admin: 01/27/21 22:24 Dose: 10 ml Documented by: Sodium Chloride (Sodium Chloride 0.9% 10 Ml Flush Syringe) 10 ml IV PRN PRN PRN Reason: LINE FLUSH Review of Systems ROS unobtainable: due to mental status Exam - Vital Signs Vital signs: Vital Signs Temp BP Pulse Ox 98.2 F 152/77 93 01/27/21 16:58 01/27/21 16:58 01/27/21 16:58 - Physical Exam Narrative exam: I patient was not examined at the bedside today due to personal protective equipment preservation during the COVID-19 pandemic Results - Lab Results 01/28/21 05:38 01/28/21 05:38 Most recent lab results Calcium 6.1 mg/dL (8.4-10.2) L 01/28/21 05:38 Magnesium 2.10 mg/dL (1.7-2.3) 01/27/21 17:23 Assessment and Plan - Patient Problems (1) Chronic kidney disease, stage 5 Current Visit: Yes Status: Acute Plan to address problem: Chronic kidney disease presumably secondary to hypertensive nephrosclerosis. Unclear if patient has progressed to stage V or if this is acute on chronic kidney disease Covid associated nephropathy. Get urine studies. Get renal ultrasound. Patient needs dialysis given hyperkalemia, metabolic acidosis and uremic encephalopathy. Consulted vascular for access placement. Will initiate dialysis thereafter. (2) Hypocalcemia Current Visit: Yes Status: Acute Plan to address problem: Supplement calcium. Check serum intact PTH (3) Uremic encephalopathy Current Visit: Yes Status: Acute Plan to address problem: Hemodialysis for solute clearance (4) Hyperkalemia Current Visit: Yes Status: Acute Plan to address problem: Hyperkalemia treated medically. Dialyze today. Follow-up potassium (5) Metabolic acidosis Current Visit: Yes Status: Acute Plan to address problem: Uremic acidosis. Hemodialysis (6) Hypertensive chronic kidney disease with stage 5 chronic kidney disease or end stage renal disease Current Visit: Yes Status: Acute Plan to address problem: Follow-up blood pressure (7) Pneumonia due to COVID-19 virus Current Visit: Yes Status: Acute Plan to address problem: IV/ Dexamethasone Supplemental oxygen/Respiratory support as needed Proning as tolerated Remdesevir Prophylactic anticoagulation Trend inflammatory markers to assess disease progression and prognosis. Management by infectious disease (8) Anemia Current Visit: Yes Status: Chronic Qualifiers: Anemia type: due to chronic kidney disease Chronic kidney disease stage: stage 5, not on chronic dialysis Qualified Code(s): N18.5 - Chronic kidney disease, stage 5; D63.1 - Anemia in chronic kidney disease Plan to address problem: Check iron stores. Give erythropoietin on dialysis. pRBC Transfusion per Primary attending
[2021-01-28] MEDS ORDERED: EPOETIN ALFA-EPBX 20,000 UNIT/1 ML VIAL IV PRN (11:06)
[2021-01-28] MEDS ORDERED: HEPARIN 10,000 UNIT/1 ML VIAL IV PRN (11:06)
[2021-01-28] MEDS ORDERED: SODIUM CHLORIDE 0.9% 100 ML IV PRN (11:06)
--- NOTE | 2021-01-28 11:40 | Ultrasound Report ---
ULTRASOUND RENAL ULTRASOUND BLADDER RESIDUAL INDICATION / CLINICAL INFORMATION: oliver. COMPARISON: None available. FINDINGS: RIGHT KIDNEY: Length = 6.5 cm. [normal > 9 cm] - Parenchymal Thickness = 1.3 cm. [normal > 1.5 cm] - Echogenicity: Increased - Hydronephrosis: None. - Cyst or mass: No significant abnormality. - Stones: None seen. LEFT KIDNEY: Length = 9.0 cm. [normal > 9 cm] - Parenchymal Thickness = 1.3 cm. [normal > 1.5 cm] - Echogenicity: Increased - Hydronephrosis: None. - Cyst or mass: 1.8 cm cyst near mid pole. - Stones: None seen. URINARY BLADDER: The bladder is only partially distended. Prevoid bladder volume measures 50 cc. Smal l post void residual measures 38 cc. No gross bladder abnormality or mass. FREE FLUID: None. ADDITIONAL FINDINGS: None. IMPRESSION: Atrophic and echogenic kidneys consistent with nonspecific chronic renal parenchymal disease. No hyd ronephrosis. 1.8 cm simple left renal cyst. Small post void residual measuring 38 cc. Signer Name: Andrew James Jr, MD Signed: 01/28/2021 11:36 AM Workstation Name: [id number]
--- NOTE | 2021-01-28 11:44 | Consultation ---
History of Present Illness - Reason for Consult Consult date: 01/28/21 Permacath Insertion Requesting physician: MARYAN BENNETT - History of Present Illness The patient is a 55-year-old female with a past medical history significant for hypertension and a report of renal insufficiency although she states she was not followed by a assistant corporate secretary. She recently went on a trip to [place] with her family and upon returning she states one of the family members was diagnosed with COVID-19. She was contacted by the family member and all family members began to get tested and had resulting positive test. She eventually had a positive test results approximately 1 week ago. She began having some mental status changes, by report from her family who stated she was not acting right so the called 911 and the patient was transported to [facility] [place] emergency department. Upon arrival the patient was found to be in renal failure with an increased creatinine and a BUN greater than 100. She currently denies any pain, fever, chill, or shortness of breath. She has no additional complaints at this time. Past History Past Medical History: hypertension, renal failure, other (COVID-19) Past Surgical History: No surgical history Social history: lives with family, smoking Medications and Allergies Allergies Allergy/AdvReac Type Severity Reaction Status Date / Time No Known Allergies Allergy Verified 01/27/21 18:08 Active Meds: Active Medications Acetaminophen (Acetaminophen 325 Mg Tab) 650 mg PO Q4H PRN PRN Reason: Pain MILD(1-3)/Fever >100.5/MALCOLM Dextrose (Dextrose 50% In Water (25gm) 50 Ml Syringe) 50 ml IV Q30MIN PRN; Protocol PRN Reason: Hypoglycemia Famotidine (Famotidine 20 Mg/2 Ml Inj) 10 mg IV BID [facility] Last Admin: 01/27/21 22:23 Dose: 10 mg Documented by: Heparin Sodium (Porcine) (Heparin 5,000 Unit/1 Ml Vial) 5,000 unit SUB-Q Q12HR [facility] Last Admin: 01/28/21 10:12 Dose: 5,000 unit Documented by: Heparin Sodium (Porcine) (Heparin 10,000 Unit/1 Ml Vial) 5,000 unit IV HANNAH PRN PRN Reason: hemodialysis Sodium Bicarbonate 150 meq/ (Dextrose) 1,150 mls @ 100 mls/hr IV DIRECT [facility] Last Admin: 01/27/21 20:16 Dose: 100 mls/hr Documented by: Sodium Chloride (Nacl 0.9% 1000 Ml) 1,000 mls @ 75 mls/hr IV DIRECT MONICA Stop: 01/28/21 21:00 Last Admin: 01/28/21 05:55 Dose: 75 mls/hr Documented by: Sodium Chloride (Nacl 0.9%) 100 mls @ 999 mls/hr IV HANNAH PRN PRN Reason: Hypotension Metoclopramide HCl (Metoclopramide 10 Mg/2 Ml Inj) 10 mg IV Q6H PRN PRN Reason: Nausea And Vomiting Ondansetron HCl (Ondansetron 4 Mg/2 Ml Inj) 4 mg IV Q8H PRN PRN Reason: Nausea And Vomiting Oxycodone/Acetaminophen (Oxycodone /Acetaminophen 5-325mg Tab) 1 tab PO Q6H PRN PRN Reason: Pain, Moderate (4-6) Sodium Chloride (Sodium Chloride 0.9% 10 Ml Flush Syringe) 10 ml IV BID [facility] Last Admin: 01/27/21 22:24 Dose: 10 ml Documented by: Sodium Chloride (Sodium Chloride 0.9% 10 Ml Flush Syringe) 10 ml IV PRN PRN PRN Reason: LINE FLUSH Review of Systems All systems: negative Exam - Constitutional Vitals: Temp Pulse Resp BP Pulse Ox 98.1 F 91 H 16 175/93 97 01/28/21 04:55 01/28/21 04:55 01/28/21 04:55 01/28/21 05:03 01/28/21 05:03 General appearance: Present: no acute distress - Neck Neck: Present: supple - Respiratory Respiratory effort: normal - Cardiovascular Rhythm: regular - Extremities Extremities: no ischemia, pulses intact - Abdominal General gastrointestinal: Present: soft, non-tender - Rectal Rectal Exam: deferred - Psychiatric Psychiatric: appropriate mood/affect Results - Labs CBC & Chem 7: 01/28/21 05:38 01/28/21 05:38 Labs: Abnormal lab results 01/27/21 01/27/21 01/27/21 Range/Units 17:23 17:23 17:23 WBC (4.5-11.0) K/mm3 RBC (3.65-5.03) M/mm3 Hgb 8.6 L (10.1-14.3) gm/dl Hct 28.6 L (30.3-42.9) % MCV 75 L (79-97) fl MCH 22 L (28-32) pg RDW 16.3 H (13.2-15.2) % Lymph % (Auto) 8.4 L (13.4-35.0) % Lymph # (Auto) 0.7 L (1.2-5.4) K/mm3 Seg Neutrophils % 83.7 H (40.0-70.0) % PT 15.2 H (12.2-14.9) Sec. INR 1.15 H (0.87-1.13) D-Dimer 826.21 H (0-234) ng/mlDDU Potassium 5.5 H (3.6-5.0) mmol/L Carbon Dioxide 6 L* (22-30) mmol/L BUN 122 H (7-17) mg/dL Creatinine 15.9 H (0.6-1.2) mg/dL Glucose 106 H (65-100) mg/dL Calcium 6.6 L (8.4-10.2) mg/dL Iron (37-170) ug/dL TIBC (250-450) mcg/dL Transferrin (192-382) mg/dl Ferritin (10.0-200.0) ng/mL ALT 6 L (7-56) units/L Alkaline Phosphatase 157 H (35-129) units/L Ammonia (25-60) umol/L Lactate Dehydrogenase 357 H (91-180) units/L Total Creatine Kinase 322 H (30-135) units/L Troponin T 0.143 H* (0.00-0.029) ng/mL C-Reactive Protein 6.70 H (0.00-1.30) mg/dL Total Protein (6.3-8.2) g/dL Albumin 3.6 L (3.9-5) g/dL Triglycerides 173 H (2-149) mg/dL Vitamin B12 (211-911) pg/mL Salicylates (2.8-20.0) mg/dL Acetaminophen (10.0-30.0) ug/mL 01/27/21 01/27/21 01/27/21 Range/Units 17:23 17:23 17:23 WBC (4.5-11.0) K/mm3 RBC (3.65-5.03) M/mm3 Hgb (10.1-14.3) gm/dl Hct (30.3-42.9) % MCV (79-97) fl MCH (28-32) pg RDW (13.2-15.2) % Lymph % (Auto) (13.4-35.0) % Lymph # (Auto) (1.2-5.4) K/mm3 Seg Neutrophils % (40.0-70.0) % PT (12.2-14.9) Sec. INR (0.87-1.13) D-Dimer (0-234) ng/mlDDU Potassium (3.6-5.0) mmol/L Carbon Dioxide (22-30) mmol/L BUN (7-17) mg/dL Creatinine (0.6-1.2) mg/dL Glucose (65-100) mg/dL Calcium (8.4-10.2) mg/dL Iron (37-170) ug/dL TIBC (250-450) mcg/dL Transferrin (192-382) mg/dl Ferritin (10.0-200.0) ng/mL ALT (7-56) units/L Alkaline Phosphatase (35-129) units/L Ammonia 19.0 L (25-60) umol/L Lactate Dehydrogenase (91-180) units/L Total Creatine Kinase (30-135) units/L Troponin T (0.00-0.029) ng/mL C-Reactive Protein (0.00-1.30) mg/dL Total Protein (6.3-8.2) g/dL Albumin (3.9-5) g/dL Triglycerides (2-149) mg/dL Vitamin B12 (211-911) pg/mL Salicylates < 0.3 L (2.8-20.0) mg/dL Acetaminophen 5.0 L (10.0-30.0) ug/mL 01/27/21 01/28/21 01/28/21 Range/Units 17:23 05:38 05:38 WBC (4.5-11.0) K/mm3 RBC (3.65-5.03) M/mm3 Hgb (10.1-14.3) gm/dl Hct (30.3-42.9) % MCV (79-97) fl MCH (28-32) pg RDW (13.2-15.2) % Lymph % (Auto) (13.4-35.0) % Lymph # (Auto) (1.2-5.4) K/mm3 Seg Neutrophils % (40.0-70.0) % PT (12.2-14.9) Sec. INR (0.87-1.13) D-Dimer (0-234) ng/mlDDU Potassium (3.6-5.0) mmol/L Carbon Dioxide (22-30) mmol/L BUN (7-17) mg/dL Creatinine (0.6-1.2) mg/dL Glucose (65-100) mg/dL Calcium (8.4-10.2) mg/dL Iron 28 L (37-170) ug/dL TIBC 139 L (250-450) mcg/dL Transferrin 124 L (192-382) mg/dl Ferritin 404.7 H (10.0-200.0) ng/mL ALT (7-56) units/L Alkaline Phosphatase (35-129) units/L Ammonia (25-60) umol/L Lactate Dehydrogenase (91-180) units/L Total Creatine Kinase (30-135) units/L Troponin T (0.00-0.029) ng/mL C-Reactive Protein (0.00-1.30) mg/dL Total Protein (6.3-8.2) g/dL Albumin (3.9-5) g/dL Triglycerides (2-149) mg/dL Vitamin B12 2000 H (211-911) pg/mL Salicylates (2.8-20.0) mg/dL Acetaminophen (10.0-30.0) ug/mL 01/28/21 01/28/21 Range/Units 05:38 05:38 WBC 4.3 L (4.5-11.0) K/mm3 RBC 2.90 L (3.65-5.03) M/mm3 Hgb 6.7 L (10.1-14.3) gm/dl Hct 21.1 L D (30.3-42.9) % MCV 73 L (79-97) fl MCH 23 L (28-32) pg RDW (13.2-15.2) % Lymph % (Auto) (13.4-35.0) % Lymph # (Auto) (1.2-5.4) K/mm3 Seg Neutrophils % (40.0-70.0) % PT (12.2-14.9) Sec. INR (0.87-1.13) D-Dimer (0-234) ng/mlDDU Potassium (3.6-5.0) mmol/L Carbon Dioxide 12 L (22-30) mmol/L BUN 117 H (7-17) mg/dL Creatinine 14.8 H (0.6-1.2) mg/dL Glucose 129 H (65-100) mg/dL Calcium 6.1 L (8.4-10.2) mg/dL Iron (37-170) ug/dL TIBC (250-450) mcg/dL Transferrin (192-382) mg/dl Ferritin (10.0-200.0) ng/mL ALT 5 L (7-56) units/L Alkaline Phosphatase (35-129) units/L Ammonia (25-60) umol/L Lactate Dehydrogenase (91-180) units/L Total Creatine Kinase (30-135) units/L Troponin T (0.00-0.029) ng/mL C-Reactive Protein (0.00-1.30) mg/dL Total Protein 5.9 L (6.3-8.2) g/dL Albumin 2.9 L (3.9-5) g/dL Triglycerides (2-149) mg/dL Vitamin B12 (211-911) pg/mL Salicylates (2.8-20.0) mg/dL Acetaminophen (10.0-30.0) ug/mL Assessment and Plan The patient is a 55-year old female with COVID-19 and renal failure. She is in need of urgent hemodialysis and requires a permacath. She has been given the risk, benefits, and alternative procedures and has decides to proceed.
[2021-01-28] MEDS: FAMOTIDINE 20 MG/2 ML INJ IV SCH ×2 (12:23→22:57)
[2021-01-28] MEDS ORDERED: MIDAZOLAM 2 MG/2 ML INJ ONE (14:29)
[2021-01-28] MEDS ORDERED: fentaNYL 100 MCG/2 ML INJ ONE (14:29)
[2021-01-28] MEDS ORDERED: HEPARIN/NS 5000 UNIT/500ML 500 ML IR ONE (14:30)
[2021-01-28] MEDS ORDERED: LIDOCAINE (2%) 20 MG/1 ML VIAL 20 ML MDV INFILTRATI ONE (14:30)
[2021-01-28] MEDS ORDERED: SODIUM CHLORIDE 0.9% 250ML 250 ML ONE (14:31)
[2021-01-28] MEDS: HEPARIN 10,000 UNITS/10 ML VIAL ONE ×3 (15:04→15:09)
--- NOTE | 2021-01-28 15:43 | Operative Report ---
Operative Report Operative Report: Date of procedure: 01/28/2021 Pre-operative diagnosis: Acute on Chronic Renal Failure Post-operative diagnosis: Same Procedure(s): 1. Ultrasound-Guided Access Right Internal Vein 2. Placement of 19 cm GlidePath Permacath 3. Radiologic Supervision with Interpretation 4. Monitored Moderate Sedation (Total Anesthesia Time: 24 Minutes) Surgeon: Rafat Cook MD Mechanical Test Engineer: None Anesthesia: Local/Monitored Moderate Sedation Total Anesthesia Time: 24 Minutes EBL: Minimal Counts: Correct Complications: None Condition: Stable Findings: Successful placement of right IJ permacath with the distal tip in the right atrium and no evidence of pneumothorax at the completion of the case. Specimen: None Indication: The patient is a 55-year old female with acute on chronic renal failure who requires urgent dialysis. She is in need of a permacath. She has been given the risk, benefits, and alternative procedures and consented to the procedure. Description of Procedure: The patient was brought to the livestock laborer and laid in supine position and the right neck and chest were prepped and draped in normal sterile fashion. Ultrasound was used to identify the right internal jugular vein and the overlying skin and soft tissue was anesthetized with lidocaine. An 11 blade was used to make a small stab incision and a 21-gauge micropuncture needle was used with ultrasound guidance to enter the right internal jugular vein. A 0.018 micropuncture wire was advanced into the inferior vena cava under fluoroscopy and after removing the needle the micropuncture sheath was advanced into the internal jugular vein by Seldinger technique. The wire and inner cannula were removed and a 0.035 J-wire was advanced into the inferior vena cava under direct fluoroscopic visualization. The tract was serially dilated up to a 16 Qatari peel-away safety sheath. An exit site on the chest was then chosen and the presumed tunnel was anesthetized with lidocaine. A small stab incision was made on the chest and then the permacath was connected to the tunneler and pulled antegrade through the tunnel. The J-wire and inner cannula from the SafeSheath were removed and the catheter was inserted into the safe sheath. The safe sheath was then peeled away while advancing the catheter. The catheter was positioned under fluoroscopy with the distal tip in the right atrium. Once in adequate position, both ports were aspirated, flushed, and primed with the appropriate amount of heparin. The neck incision was then closed with 4-0 Monocryl in interrupted subcuticular fashion and dressed with Dermabond. The permacath was secured in place with a 2-0 Ethilon in interrupted fashion and dressed with a sterile dressing. Final fluoroscopy demonstrated the catheter was in adequate position with the distal tip in the right atrium and no evidence of pneumothorax. The patient tolerated the procedure well. All sponge, needle, and instrument counts were correct. The patient was taken to recovery in stable condition.
[2021-01-28 19:53] LABS: Hepatitis B Surface Antigen Non-Reactive (Negative); Hepatitis C Virus Antibody Non-Reactive (NonReactive)
[2021-01-29 07:17] LABS: Hematocrit 21.8 % (30.3-42.9); Hemoglobin 6.9 gm/dl (10.1-14.3); Mean Corpuscular HGB Conc 32 % (30-34); Mean Corpuscular Volume 73 fl (79-97); Platelet Count 264 K/mm3 (140-440); Red Cell Distribution Width 14.6 % (13.2-15.2)
[2021-01-29 07:24] LABS: Calcium 6.2 mg/dL (8.4-10.2)
[2021-01-29] MEDS ORDERED: METOCLOPRAMIDE 10 MG/2 ML INJ IV PRN (08:00)
[2021-01-29] MEDS: FAMOTIDINE 10 MG TAB PO SCH ×2 (09:01→22:49)
[2021-01-29] MEDS: HEPARIN 5,000 UNIT/1 ML VIAL SUB-Q SCH ×2 (09:01→22:50)
--- NOTE | 2021-01-29 09:59 | Progress Note ---
Assessment and Plan Assessment and plan: --COVID-19 test positive continue isolation precautions, oxygen evaluation, inflammatory markers, ID consult Prone positioning Home O2 evaluation, discharge Patient is saturating well on room air No indication for remdesivir --Anemia of chronic disease Hb 6.9 today Current Visit: Yes Status: Chronic Anemia secondary to chronic kidney disease and end-stage renal disease, Procrit during dialysis, ferrous sulfate, monitor H&H, transfuse as needed If Hb remains less than 7 tomorrow, will transfuse 1 unit of PRBC during d ialysis Closely monitor H&H -- Uremic encephalopathy Current Visit: Yes Status: Acute Plan to address problem: Altered sensorium secondary to high creatinine and uremia Also severe metabolic acidosis secondary to uremia --End-stage renal disease needing dialysis Current Visit: Yes Status: Acute Newly diagnosed end-stage renal disease Vas-Cath placement, initiated hemodialysis Renal ultrasound Nephrology following --Hyperkalemia Current Visit: Yes Status: Acute Resolved, hemodialysis after dialysis catheter placement -- Metabolic acidosis Current Visit: Yes Status: Acute Nephrology following , initiating hemodialysis --COVID-19 positive Current Visit: Yes Status: Acute Patient was coronavirus positive last week on 01/20/2021 Rogel PCR test requested Contact and droplet isolation Patient is asymptomatic ID consult if needed -- Hypertension Current Visit: Yes Status: Acute Newly diagnosed hypertension Patient started on hydralazine 50 mg every 8 hours Add other antihypertensives as necessary -- prophylaxis Current Visit: Yes Status: Acute On heparin and GI prophylaxis We will closely monitor the patient and adjust management as needed Consulting Project Director recommendations noted and appreciated Plan of care reviewed with the patient and her nurse History Interval history: I have seen and examined the patient at the bedside Patient's chart and medications reviewed COVID-19 positive Isolation precautions and PPE protocol strictly followed Vital signs noted Hospitalist Physical - Constitutional Vitals: Temp Pulse Resp BP Pulse Ox 97.5 F L 60 16 138/90 97 01/28/21 22:49 01/28/21 22:49 01/28/21 22:49 01/28/21 22:49 01/28/21 22:49 General appearance: Present: no acute distress, well-nourished - EENT Eyes: Present: PERRL, EOM intact - Neck Neck: Present: supple, normal ROM - Respiratory Respiratory effort: normal Respiratory: bilateral: diminished, rhonchi, negative: rales, wheezing - Cardiovascular Rhythm: regular Heart Sounds: Present: S1 & S2 - Extremities Extremities: no ischemia, No edema - Abdominal General gastrointestinal: soft, non-tender, non-distended, normal bowel sounds - Integumentary Integumentary: Present: clear, warm - Psychiatric Psychiatric: appropriate mood/affect, cooperative - Neurologic Neurologic: CNII-XII intact, moves all extremities HEART Score - HEART Score Troponin: Troponin T 0.143 ng/mL (0.00-0.029) H* 01/27/21 17:23 Results - Labs CBC & Chem 7: 01/29/21 06:24 01/29/21 06:24 Labs: Laboratory Last Values WBC 6.1 K/mm3 (4.5-11.0) 01/29/21 06:24 RBC 3.00 M/mm3 (3.65-5.03) L 01/29/21 06:24 Hgb 6.9 gm/dl (10.1-14.3) L 01/29/21 06:24 Hct 21.8 % (30.3-42.9) L 01/29/21 06:24 MCV 73 fl (79-97) L 01/29/21 06:24 MCH 23 pg (28-32) L 01/29/21 06:24 MCHC 32 % (30-34) 01/29/21 06:24 RDW 14.6 % (13.2-15.2) 01/29/21 06:24 Plt Count 264 K/mm3 (140-440) 01/29/21 06:24 Lymph % (Auto) [place] 01/28/21 05:38 [place] % (Auto) [place] 01/28/21 05:38 Eos % (Auto) [place] 01/28/21 05:38 Baso % (Auto) [place] 01/28/21 05:38 Lymph # (Auto) [place] 01/28/21 05:38 [place] # (Auto) [place] 01/28/21 05:38 Eos # (Auto) [place] 01/28/21 05:38 Baso # (Auto) [place] 01/28/21 05:38 Seg Neutrophils % [place] 01/28/21 05:38 Seg Neutrophils # [place] 01/28/21 05:38 PT 15.2 Sec. (12.2-14.9) H 01/27/21 17:23 INR 1.15 (0.87-1.13) H 01/27/21 17:23 APTT 25.2 Sec. (24.2-36.6) 01/27/21 17:23 D-Dimer 826.21 ng/mlDDU (0-234) H 01/27/21 17:23 Sodium 145 mmol/L (137-145) 01/29/21 06:24 Potassium 3.1 mmol/L (3.6-5.0) L D 01/29/21 06:24 Chloride 103.8 mmol/L (98-107) 01/29/21 06:24 Carbon Dioxide 21 mmol/L (22-30) L D 01/29/21 06:24 Anion Gap 23 mmol/L 01/29/21 06:24 BUN 62 mg/dL (7-17) H 01/29/21 06:24 Creatinine 9.9 mg/dL (0.6-1.2) H 01/29/21 06:24 Estimated GFR 5 ml/min 01/29/21 06:24 BUN/Creatinine Ratio 6 % 01/29/21 06:24 Glucose 110 mg/dL (65-100) H 01/29/21 06:24 Hemoglobin A1c 5.3 % (4-6) 01/27/21 17:23 Lactic Acid 1.50 mmol/L (0.7-2.0) 01/27/21 17:23 Calcium 6.2 mg/dL (8.4-10.2) L 01/29/21 06:24 Magnesium 2.10 mg/dL (1.7-2.3) 01/27/21 17:23 Iron 28 ug/dL (37-170) L 01/28/21 05:38 TIBC 139 mcg/dL (250-450) L 01/28/21 05:38 % Saturation 20.14 % 01/28/21 05:38 Transferrin 124 mg/dl (192-382) L 01/28/21 05:38 Ferritin 404.7 ng/mL (10.0-200.0) H 01/27/21 17:23 Total Bilirubin 0.20 mg/dL (0.1-1.2) 01/28/21 05:38 AST 11 units/L (5-40) 01/28/21 05:38 ALT 5 units/L (7-56) L 01/28/21 05:38 Alkaline Phosphatase 127 units/L (35-129) 01/28/21 05:38 Ammonia 19.0 umol/L (25-60) L 01/27/21 17:23 Lactate Dehydrogenase 357 units/L (91-180) H 01/27/21 17:23 Total Creatine Kinase 322 units/L (30-135) H 01/27/21 17:23 Troponin T 0.143 ng/mL (0.00-0.029) H* 01/27/21 17:23 C-Reactive Protein 6.70 mg/dL (0.00-1.30) H 01/27/21 17:23 Total Protein 5.9 g/dL (6.3-8.2) L 01/28/21 05:38 Albumin 2.9 g/dL (3.9-5) L 01/28/21 05:38 Albumin/Globulin Ratio 1.0 % 01/28/21 05:38 Triglycerides 173 mg/dL (2-149) H 01/27/21 17:23 Cholesterol 181 mg/dL (50-199) 01/27/21 17:23 LDL Cholesterol Direct 101 mg/dL (50-130) 01/27/21 17:23 HDL Cholesterol 48 mg/dL (40-59) 01/27/21 17:23 Cholesterol/HDL Ratio 3.77 % 01/27/21 17:23 Vitamin B12 2000 pg/mL (211-911) H 01/28/21 05:38 Procalcitonin 1.57 ng/mL (<0.15) 01/27/21 17:23 TSH 1.180 mlU/mL (0.270-4.200) 01/27/21 17:23 PTH Intact 1617 pg/mL (15-65) H 01/28/21 18:42 Salicylates < 0.3 mg/dL (2.8-20.0) L 01/27/21 17:23 Acetaminophen 5.0 ug/mL (10.0-30.0) L 01/27/21 17:23 Plasma/Serum Alcohol < 0.01 % (0-0.07) 01/27/21 17:23 Coronavirus (PCR) Positive (Negative) A 01/27/21 Unknown Hepatitis A IgM Ab Non-reactive (NonReactive) 01/28/21 18:42 Hep Bs Antigen Non-reactive (Negative) 01/28/21 18:42 Hep B Core IgM Ab Non-reactive (NonReactive) 01/28/21 18:42 Hepatitis C Antibody Non-reactive (NonReactive) 01/28/21 18:42 Microbiology: Microbiology 01/27/21 17:23 Peripheral/Venous Blood Culture - Preliminary NO GROWTH AFTER 24 HOURS 01/27/21 17:23 Peripheral/Venous Blood Culture - Preliminary NO GROWTH AFTER 24 HOURS Newman/IV: Voiding Method Toilet Active Medications - Current Medications Current Medications: Generic Name Dose Route Start Last Admin Trade Name Freq PRN Reason Stop Dose Admin Acetaminophen 650 mg 01/27/21 21:27 Acetaminophen 325 Mg Tab PO Q4H PRN Pain MILD(1-3)/Fever >100.5/MALCOLM Dextrose 50 ml 01/27/21 18:41 Dextrose 50% In Water (25gm) 50 Ml Syringe IV Q30MIN PRN Hypoglycemia Protocol Famotidine 10 mg 01/29/21 10:00 01/29/21 09:01 Famotidine 10 Mg Tab PO 10 mg BID MONICA Administration Heparin Sodium (Porcine) 5,000 unit 01/27/21 22:00 01/29/21 09:01 Heparin 5,000 Unit/1 Ml Vial SUB-Q 5,000 unit Q12HR MONICA Administration Heparin Sodium (Porcine) 5,000 unit 01/28/21 11:06 Heparin 10,000 Unit/1 Ml Vial IV HANNAH PRN hemodialysis Sodium Bicarbonate 150 meq/ 1,150 mls @ 100 mls/hr 01/27/21 19:00 01/27/21 20:16 Dextrose IV 100 mls/hr DIRECT MONICA Administration Sodium Chloride 100 mls @ 999 mls/hr 01/28/21 11:06 Nacl 0.9% IV HANNAH PRN Hypotension Metoclopramide HCl 2.5 mg 01/29/21 08:00 Metoclopramide 10 Mg/2 Ml Inj IV Q6H PRN Nausea And Vomiting Ondansetron HCl 4 mg 01/27/21 21:27 Ondansetron 4 Mg/2 Ml Inj IV Q8H PRN Nausea And Vomiting Oxycodone/Acetaminophen 1 tab 01/27/21 21:29 Oxycodone /Acetaminophen 5-325mg Tab PO Q6H PRN Pain, Moderate (4-6) Sodium Chloride 10 ml 01/27/21 22:00 01/29/21 09:01 Sodium Chloride 0.9% 10 Ml Flush Syringe IV 10 ml BID MONICA Administration Sodium Chloride 10 ml 01/27/21 21:27 Sodium Chloride 0.9% 10 Ml Flush Syringe IV PRN PRN LINE FLUSH Nutrition/Malnutrition Assess - Dietary Evaluation Nutrition/Malnutrition Findings: Nutrition Notes Start: 01/28/21 08:54 Freq: Status: Active Protocol: Document 01/28/21 08:54 MARCO (Rec: 01/28/21 08:58 MARCO [id number]) Nutrition Notes Need for Assessment generated from: cigar bander,MST Initial or Follow up Assessment Current Diagnosis CKD (stage V CKD),Hypertension Other Pertinent Diagnosis Uremic encephalopathy, r/o COVID-19 Current Diet Renal Labs/Tests BUN 117 Cr 14.8 Ca 6.1 (adjusted Ca 6.98) Pertinent Medications Reviewed Height 5 ft 5 in Weight 64.7 kg [place] Body Weight (kg) 56.81 BMI 23.7 Weight Status Appropriate Subjective/Other Information Pt screened for malnutrition risk. Pt confused at this time; newly diagnosed ESRD requiring dialysis. Burn Absent Trauma Absent Minimum of two criteria No #1 Nutrition Diagnosis Predicted suboptimal energy intake Etiology uremia As Evidenced by Signs and Symptoms pt admitted with confusion and newly diagnosed ESRD Is patient on ventilator? No Is Patient Ambulatory and/or Out of Bed Yes REE-([facility]-ambulatory/OOB) [ 1602.744 [id number]] Calculation Used for Recommendations [facility] Additional Notes Pro needs >1.2g/kg: >78g/day Fluid needs 1-1.5L/day Nutrition Intervention Change Diet Order: Continue current diet order Goal #1 PO intake to meet at least 75% energy and pro needs Anticipated Discharge Needs: Renal diet Follow-Up By: 01/31/21 Additional Comments F/U: intakes
[2021-01-29 11:05] LABS: Band Neutrophils # (Manual) 0.1 K/mm3; Hypochromasia 1+; Platelet Estimate Consistent w Auto; Total Cells Counted 100
--- NOTE | 2021-01-29 11:13 | Progress Note ---
Assessment and Plan - Patient Problems (1) Chronic kidney disease, stage 5 Current Visit: Yes Status: Acute Plan to address problem: Chronic kidney disease presumably secondary to hypertensive nephrosclerosis. Unclear if patient has progressed to stage V or if this is acute on chronic kidney disease Covid associated nephropathy. Get urine studies. Get renal ultrasound. Dialysis started on January 28 for hyperkalemia, metabolic acidosis and uremic encephalopathy. Tolerated treatment with no complications. Continue dialysis and follow-up work-up (2) Hypocalcemia Current Visit: Yes Status: Acute Plan to address problem: Supplement calcium. Start calcitriol since PTH is extremely high (3) Uremic encephalopathy Current Visit: Yes Status: Acute Plan to address problem: Hemodialysis for solute clearance (4) Hyperkalemia Current Visit: Yes Status: Acute Plan to address problem: Hyperkalemia treated medically. Improved with dialysis. Follow-up potassium (5) Metabolic acidosis Current Visit: Yes Status: Acute Plan to address problem: Uremic acidosis. Improved with dialysis. Continue hemodialysis (6) Hypertensive chronic kidney disease with stage 5 chronic kidney disease or end stage renal disease Current Visit: Yes Status: Acute Plan to address problem: Follow-up blood pressure (7) Pneumonia due to COVID-19 virus Current Visit: Yes Status: Acute Plan to address problem: IV/ Dexamethasone Supplemental oxygen/Respiratory support as needed Proning as tolerated Remdesevir Prophylactic anticoagulation Trend inflammatory markers to assess disease progression and prognosis. Management by infectious disease (8) Anemia Current Visit: Yes Status: Chronic Qualifiers: Anemia type: due to chronic kidney disease Chronic kidney disease stage: stage 5, not on chronic dialysis Qualified Code(s): N18.5 - Chronic kidney disease, stage 5; D63.1 - Anemia in chronic kidney disease Plan to address problem: Check iron stores. Give erythropoietin on dialysis. pRBC Transfusion per Primary attending (9) Secondary hyperparathyroidism (of renal origin) Current Visit: Yes Status: Acute Plan to address problem: PTH 1617. Start calcitriol and follow-up PTH at the outpatient dialysis clinic Subjective Date of service: 01/29/21 Principal diagnosis: End-stage renal disease Interval history: Patient was not evaluated at the bedside today due to the COVID-19 status to limit exposure of the consulting bullard operator and also for PPE preservation during the COVID-19 pandemic. I reviewed multidisciplinary notes and discussed with staff and physicians as needed. Objective - Exam Narrative Exam: I patient was not examined at the bedside today due to personal protective equipment preservation during the COVID-19 pandemic - Lab 01/29/21 06:24 01/29/21 06:24 Most recent lab results Calcium 6.2 mg/dL (8.4-10.2) L 01/29/21 06:24 Magnesium 2.10 mg/dL (1.7-2.3) 01/27/21 17:23 Medications & Allergies - Medications Allergies/Adverse Reactions: Allergies No Known Allergies Allergy (Verified 01/27/21 18:08) Home Medications: Home Medications Medication Instructions Recorded Confirmed Last Taken Type Furosemide [Lasix] 40 mg PO QDAY 01/29/21 01/29/21 Unknown History Meloxicam [Mobic] 15 mg PO QDAY 01/29/21 01/29/21 Unknown History Active Medications: Generic Name Dose Route Start Last Admin Trade Name Freq PRN Reason Stop Dose Admin Acetaminophen 650 mg 01/27/21 21:27 Acetaminophen 325 Mg Tab PO Q4H PRN Pain MILD(1-3)/Fever >100.5/MALCOLM Dextrose 50 ml 01/27/21 18:41 Dextrose 50% In Water (25gm) 50 Ml Syringe IV Q30MIN PRN Hypoglycemia Protocol Famotidine 10 mg 01/29/21 10:00 01/29/21 09:01 Famotidine 10 Mg Tab PO 10 mg BID MONICA Administration Heparin Sodium (Porcine) 5,000 unit 01/27/21 22:00 01/29/21 09:01 Heparin 5,000 Unit/1 Ml Vial SUB-Q 5,000 unit Q12HR MONICA Administration Heparin Sodium (Porcine) 5,000 unit 01/28/21 11:06 Heparin 10,000 Unit/1 Ml Vial IV HANNAH PRN hemodialysis Sodium Bicarbonate 150 meq/ 1,150 mls @ 100 mls/hr 01/27/21 19:00 01/27/21 20:16 Dextrose IV 100 mls/hr DIRECT MONICA Administration Sodium Chloride 100 mls @ 999 mls/hr 01/28/21 11:06 Nacl 0.9% IV HANNAH PRN Hypotension Metoclopramide HCl 2.5 mg 01/29/21 08:00 Metoclopramide 10 Mg/2 Ml Inj IV Q6H PRN Nausea And Vomiting Ondansetron HCl 4 mg 01/27/21 21:27 Ondansetron 4 Mg/2 Ml Inj IV Q8H PRN Nausea And Vomiting Oxycodone/Acetaminophen 1 tab 01/27/21 21:29 Oxycodone /Acetaminophen 5-325mg Tab PO Q6H PRN Pain, Moderate (4-6) Sodium Chloride 10 ml 01/27/21 22:00 01/29/21 09:01 Sodium Chloride 0.9% 10 Ml Flush Syringe IV 10 ml BID MONICA Administration Sodium Chloride 10 ml 01/27/21 21:27 Sodium Chloride 0.9% 10 Ml Flush Syringe IV PRN PRN LINE FLUSH
[2021-01-29] MEDS: CALCITRIOL 0.5 MCG CAP PO SCH (17:52)
--- NOTE | 2021-01-30 08:49 | Progress Note ---
Assessment and Plan - Patient Problems (1) Chronic kidney disease, stage 5 Current Visit: Yes Status: Acute Plan to address problem: Chronic kidney disease presumably secondary to hypertensive nephrosclerosis. Unclear if patient has progressed to stage V or if this is acute on chronic kidney disease Covid associated nephropathy. Get urine studies. Get renal ultrasound. Dialysis started on January 28 for hyperkalemia, metabolic acidosis and uremic encephalopathy. Tolerated treatment with no complications. Continue dialysis and follow-up work-up (2) Hypocalcemia Current Visit: Yes Status: Acute Plan to address problem: Supplement calcium. Dialyze on a high calcium bath. Started on calcitriol since PTH is extremely high (3) Uremic encephalopathy Current Visit: Yes Status: Acute Plan to address problem: Hemodialysis for solute clearance (4) Hyperkalemia Current Visit: Yes Status: Acute Plan to address problem: Hyperkalemia treated medically. Improved with dialysis. Follow-up potassium (5) Metabolic acidosis Current Visit: Yes Status: Acute Plan to address problem: Uremic acidosis. Improved with dialysis. Continue hemodialysis (6) Hypertensive chronic kidney disease with stage 5 chronic kidney disease or end stage renal disease Current Visit: Yes Status: Acute Plan to address problem: Follow-up blood pressure (7) Pneumonia due to COVID-19 virus Current Visit: Yes Status: Acute Plan to address problem: IV/ Dexamethasone Supplemental oxygen/Respiratory support as needed Proning as tolerated Remdesevir Prophylactic anticoagulation Trend inflammatory markers to assess disease progression and prognosis. Management by infectious disease (8) Anemia Current Visit: Yes Status: Chronic Qualifiers: Anemia type: due to chronic kidney disease Chronic kidney disease stage: stage 5, not on chronic dialysis Qualified Code(s): N18.5 - Chronic kidney disease, stage 5; D63.1 - Anemia in chronic kidney disease Plan to address problem: Check iron stores. Give erythropoietin on dialysis. pRBC Transfusion per Primary attending (9) Secondary hyperparathyroidism (of renal origin) Current Visit: Yes Status: Acute Plan to address problem: PTH 1617. Started on calcitriol and follow-up PTH at the outpatient dialysis clinic Subjective Date of service: 01/30/21 Principal diagnosis: End-stage renal disease Interval history: Patient was not evaluated at the bedside today due to the COVID-19 status to limit exposure of the consulting movement assembler and also for PPE preservation during the COVID-19 pandemic. I reviewed multidisciplinary notes and discussed with staff and physicians as needed. Objective - Exam Narrative Exam: I patient was not examined at the bedside today due to personal protective equipment preservation during the COVID-19 pandemic - Vital Signs Vital signs: Vital Signs - 12hr 01/30/21 01/30/21 06:16 06:20 Temperature 98.4 F Pulse Rate 86 Respiratory 18 Rate Blood Pressure 149/98 [Left] O2 Sat by Pulse 96 Oximetry - Lab 01/30/21 15:14 01/30/21 08:51 Most recent lab results Calcium 6.2 mg/dL (8.4-10.2) L 01/29/21 06:24 Magnesium 2.10 mg/dL (1.7-2.3) 01/27/21 17:23 Medications & Allergies - Medications Allergies/Adverse Reactions: Allergies No Known Allergies Allergy (Verified 01/27/21 18:08) Home Medications: Home Medications Medication Instructions Recorded Confirmed Last Taken Type Furosemide [Lasix] 40 mg PO QDAY 01/29/21 01/29/21 Unknown History Meloxicam [Mobic] 15 mg PO QDAY 01/29/21 01/29/21 Unknown History Active Medications: Generic Name Dose Route Start Last Admin Trade Name Freq PRN Reason Stop Dose Admin Acetaminophen 650 mg 01/27/21 21:27 Acetaminophen 325 Mg Tab PO Q4H PRN Pain MILD(1-3)/Fever >100.5/MALCOLM Calcitriol 0.5 mcg 01/29/21 12:00 01/29/21 17:52 Calcitriol 0.5 Mcg Cap PO 0.5 mcg QDAY MONICA Administration Dextrose 50 ml 01/27/21 18:41 Dextrose 50% In Water (25gm) 50 Ml Syringe IV Q30MIN PRN Hypoglycemia Protocol Famotidine 10 mg 01/29/21 10:00 01/29/21 22:49 Famotidine 10 Mg Tab PO 10 mg BID MONICA Administration Heparin Sodium (Porcine) 5,000 unit 01/27/21 22:00 01/29/21 22:50 Heparin 5,000 Unit/1 Ml Vial SUB-Q 5,000 unit Q12HR MONICA Administration Heparin Sodium (Porcine) 5,000 unit 01/28/21 11:06 Heparin 10,000 Unit/1 Ml Vial IV HANNAH PRN hemodialysis Sodium Bicarbonate 150 meq/ 1,150 mls @ 100 mls/hr 01/27/21 19:00 01/27/21 20:16 Dextrose IV 100 mls/hr DIRECT MONICA Administration Sodium Chloride 100 mls @ 999 mls/hr 01/28/21 11:06 Nacl 0.9% IV HANNAH PRN Hypotension Metoclopramide HCl 2.5 mg 01/29/21 08:00 Metoclopramide 10 Mg/2 Ml Inj IV Q6H PRN Nausea And Vomiting Ondansetron HCl 4 mg 01/27/21 21:27 Ondansetron 4 Mg/2 Ml Inj IV Q8H PRN Nausea And Vomiting Oxycodone/Acetaminophen 1 tab 01/27/21 21:29 Oxycodone /Acetaminophen 5-325mg Tab PO Q6H PRN Pain, Moderate (4-6) Sodium Chloride 10 ml 01/27/21 22:00 01/29/21 22:54 Sodium Chloride 0.9% 10 Ml Flush Syringe IV 10 ml BID MONICA Administration Sodium Chloride 10 ml 01/27/21 21:27 Sodium Chloride 0.9% 10 Ml Flush Syringe IV PRN PRN LINE FLUSH
[2021-01-30 09:57] LABS: Calcium 5.8 mg/dL (8.4-10.2)
[2021-01-30] MEDS: FAMOTIDINE 10 MG TAB PO SCH ×2 (09:59→22:32)
[2021-01-30] MEDS: HEPARIN 5,000 UNIT/1 ML VIAL SUB-Q SCH ×2 (09:59→22:32)
[2021-01-30] MEDS: CALCITRIOL 0.5 MCG CAP PO SCH (09:59)
[2021-01-30] MEDS: CALCIUM CARBONATE 500 MG TAB CHEW PO SCH ×2 (10:00→22:33)
[2021-01-30] MEDS ORDERED: POTASSIUM CHLORIDE ER 20 MEQ TAB PO NR (10:30)
--- NOTE | 2021-01-30 11:30 | Progress Note ---
Assessment and Plan Assessment and plan: --COVID-19 test positive continue isolation precautions, oxygen evaluation, inflammatory markers, ID consult Prone positioning Home O2 evaluation, discharge Patient is saturating well on room air No indication for remdesivir --Elevated D-dimers; COVID-19 check VQ scan to evaluate for PE Check lower extremity venous Doppler, to rule out DVT --Anemia of chronic disease Hb 6.9 today Current Visit: Yes Status: Chronic Anemia secondary to chronic kidney disease and end-stage renal disease, Procrit during dialysis, ferrous sulfate, monitor H&H, transfuse as needed If Hb remains less than 7 tomorrow, will transfuse 1 unit of PRBC during dialysis Closely monitor H&H -- Uremic encephalopathy Current Visit: Yes Status: Acute Altered sensorium secondary to high creatinine and uremia Also severe metabolic acidosis secondary to uremia. --Encephalopathy, abnormal CT head Check MRI without contrast --End-stage renal disease needing dialysis Current Visit: Yes Status: Acute Newly diagnosed end-stage renal disease Vas-Cath placement, initiated hemodialysis Renal ultrasound, Nephrology following --Hyperkalemia Current Visit: Yes Status: Acute Resolved, hemodialysis after dialysis catheter placement -- Metabolic acidosis Current Visit: Yes Status: Acute Nephrology following , initiating hemodialysis --COVID-19 positive Current Visit: Yes Status: Acute Patient was coronavirus positive last week on 01/20/2021 Rogel PCR test requested Contact and droplet isolation Patient is asymptomatic ID consult if needed -- Hypertension Current Visit: Yes Status: Acute Newly diagnosed hypertension Patient started on hydralazine 50 mg every 8 hours Add other antihypertensives as necessary -- prophylaxis Current Visit: Yes Status: Acute On heparin and GI prophylaxis We will closely monitor the patient and adjust management as needed Teletype Telegrapher recommendations noted and appreciated Plan of care reviewed with the patient and her nurse 01/30/2021; follow ID evaluation recommendations Elevated D-dimers,, lower extremity Doppler to rule out PE and DVT We will closely monitor the patient and adjust management as needed Plan of care reviewed with the patient and her nurse History Interval history: Have seen and examined the patient at the bedside Strict isolation precautions and PPE protocols followed per COVID-19 guidelines Patient feels slightly better saturating well room air No hypoxia ESRD on hemodialysis, Vital signs noted Hospitalist Physical - Constitutional Vitals: Temp Pulse Resp BP Pulse Ox 98.4 F 86 18 149/98 96 01/30/21 06:20 01/30/21 06:16 01/30/21 06:20 01/30/21 06:20 01/30/21 06:16 General appearance: Present: no acute distress, well-nourished - EENT Eyes: Present: PERRL, EOM intact - Neck Neck: Present: supple, normal ROM - Respiratory Respiratory effort: normal Respiratory: bilateral: diminished, negative: rales, rhonchi, wheezing - Cardiovascular Rhythm: regular - Extremities Extremities: no ischemia, No edema - Abdominal General gastrointestinal: soft, non-tender, non-distended, normal bowel sounds - Integumentary Integumentary: Present: clear, warm - Psychiatric Psychiatric: appropriate mood/affect, cooperative - Neurologic Neurologic: CNII-XII intact, moves all extremities HEART Score - HEART Score Troponin: Troponin T 0.143 ng/mL (0.00-0.029) H* 01/27/21 17:23 Results - Labs CBC & Chem 7: 01/30/21 15:14 01/30/21 08:51 Labs: Laboratory Last Values WBC 6.1 K/mm3 (4.5-11.0) 01/29/21 06:24 RBC 3.00 M/mm3 (3.65-5.03) L 01/29/21 06:24 Hgb 6.9 gm/dl (10.1-14.3) L 01/29/21 06:24 Hct 21.8 % (30.3-42.9) L 01/29/21 06:24 MCV 73 fl (79-97) L 01/29/21 06:24 MCH 23 pg (28-32) L 01/29/21 06:24 MCHC 32 % (30-34) 01/29/21 06:24 RDW 14.6 % (13.2-15.2) 01/29/21 06:24 Plt Count 264 K/mm3 (140-440) 01/29/21 06:24 Lymph % (Auto) Electrical Engineering Director 01/28/21 05:38 Graves % (Auto) Electrical Engineering Director 01/28/21 05:38 Eos % (Auto) Electrical Engineering Director 01/28/21 05:38 Baso % (Auto) Electrical Engineering Director 01/28/21 05:38 Lymph # (Auto) Electrical Engineering Director 01/28/21 05:38 Graves # (Auto) Electrical Engineering Director 01/28/21 05:38 Eos # (Auto) Electrical Engineering Director 01/28/21 05:38 Baso # (Auto) Electrical Engineering Director 01/28/21 05:38 Add Manual Diff Complete 01/29/21 06:24 Total Counted 100 01/29/21 06:24 Seg Neutrophils % Electrical Engineering Director 01/28/21 05:38 Seg Neuts % (Manual) 84.0 % (40.0-70.0) H 01/29/21 06:24 Band Neutrophils % 2.0 % 01/29/21 06:24 Lymphocytes % (Manual) 5.0 % (13.4-35.0) L 01/29/21 06:24 Reactive Lymphs % (Man) 1.0 % 01/29/21 06:24 Monocytes % (Manual) 4.0 % (0.0-7.3) 01/29/21 06:24 Eosinophils % (Manual) 3.0 % (0.0-4.3) 01/29/21 06:24 Metamyelocytes % 1.0 % 01/29/21 06:24 Nucleated RBC % 1.0 % (0.0-0.9) H 01/29/21 06:24 Seg Neutrophils # Electrical Engineering Director 01/28/21 05:38 Seg Neutrophils # Man 5.1 K/mm3 (1.8-7.7) 01/29/21 06:24 Band Neutrophils # 0.1 K/mm3 01/29/21 06:24 Lymphocytes # (Manual) 0.3 K/mm3 (1.2-5.4) L 01/29/21 06:24 Abs React Lymphs (Man) 0.1 K/mm3 01/29/21 06:24 Monocytes # (Manual) 0.2 K/mm3 (0.0-0.8) 01/29/21 06:24 Eosinophils # (Manual) 0.2 K/mm3 (0.0-0.4) 01/29/21 06:24 Basophils # (Manual) 0.0 K/mm3 (0.0-0.1) 01/29/21 06:24 Metamyelocytes # 0.1 K/mm3 01/29/21 06:24 Myelocytes # 0.0 K/mm3 01/29/21 06:24 Promyelocytes # 0.0 K/mm3 01/29/21 06:24 Blast Cells # 0.0 K/mm3 01/29/21 06:24 WBC Morphology Not Reportable 01/29/21 06:24 Hypersegmented Neuts Not Reportable 01/29/21 06:24 Hyposegmented Neuts Not Reportable 01/29/21 06:24 Hypogranular Neuts Not Reportable 01/29/21 06:24 Smudge Cells Not Reportable 01/29/21 06:24 Toxic Granulation Not Reportable 01/29/21 06:24 Toxic Vacuolation Not Reportable 01/29/21 06:24 Dohle Bodies Not Reportable 01/29/21 06:24 Pelger-Huet Anomaly Not Reportable 01/29/21 06:24 Papa Rods Not Reportable 01/29/21 06:24 Platelet Estimate Consistent w auto 01/29/21 06:24 Clumped Platelets Not Reportable 01/29/21 06:24 Plt Clumps, EDTA Not Reportable 01/29/21 06:24 Large Platelets Not Reportable 01/29/21 06:24 Giant Platelets Not Reportable 01/29/21 06:24 Platelet Satelliting Not Reportable 01/29/21 06:24 Plt Morphology Comment Not Reportable 01/29/21 06:24 RBC Morphology Not Reportable 01/29/21 06:24 Dimorphic RBCs Not Reportable 01/29/21 06:24 Polychromasia Not Reportable 01/29/21 06:24 Hypochromasia 1+ 01/29/21 06:24 Poikilocytosis Not Reportable 01/29/21 06:24 Anisocytosis Not Reportable 01/29/21 06:24 Microcytosis Few 01/29/21 06:24 Macrocytosis Not Reportable 01/29/21 06:24 Spherocytes Not Reportable 01/29/21 06:24 Pappenheimer Bodies Not Reportable 01/29/21 06:24 Sickle Cells Not Reportable 01/29/21 06:24 Target Cells Not Reportable 01/29/21 06:24 Tear Drop Cells Not Reportable 01/29/21 06:24 Ovalocytes Not Reportable 01/29/21 06:24 Helmet Cells Not Reportable 01/29/21 06:24 [place] Bodies Not Reportable 01/29/21 06:24 [place] Rings Not Reportable 01/29/21 06:24 [place] Cells Not Reportable 01/29/21 06:24 Bite Cells Not Reportable 01/29/21 06:24 Crenated Cell Not Reportable 01/29/21 06:24 Elliptocytes Not Reportable 01/29/21 06:24 Acanthocytes (Spur) Not Reportable 01/29/21 06:24 Rouleaux Not Reportable 01/29/21 06:24 Hemoglobin C Crystals Not Reportable 01/29/21 06:24 Schistocytes Not Reportable 01/29/21 06:24 Malaria parasites Not Reportable 01/29/21 06:24 [place] Bodies Not Reportable 01/29/21 06:24 Hem Pathologist Commnt No 01/29/21 06:24 PT 15.2 Sec. (12.2-14.9) H 01/27/21 17:23 INR 1.15 (0.87-1.13) H 01/27/21 17:23 APTT 25.2 Sec. (24.2-36.6) 01/27/21 17:23 D-Dimer 826.21 ng/mlDDU (0-234) H 01/27/21 17:23 Sodium 141 mmol/L (137-145) 01/30/21 08:51 Potassium 3.2 mmol/L (3.6-5.0) L 01/30/21 08:51 Chloride 99.9 mmol/L (98-107) 01/30/21 08:51 Carbon Dioxide 27 mmol/L (22-30) 01/30/21 08:51 Anion Gap 17 mmol/L 01/30/21 08:51 BUN 28 mg/dL (7-17) H 01/30/21 08:51 Creatinine 6.0 mg/dL (0.6-1.2) H 01/30/21 08:51 Estimated GFR 9 ml/min 01/30/21 08:51 BUN/Creatinine Ratio 5 % 01/30/21 08:51 Glucose 96 mg/dL (65-100) 01/30/21 08:51 Hemoglobin A1c 5.3 % (4-6) 01/27/21 17:23 Lactic Acid 1.50 mmol/L (0.7-2.0) 01/27/21 17:23 Calcium 5.8 mg/dL (8.4-10.2) L* 01/30/21 08:51 Magnesium 2.10 mg/dL (1.7-2.3) 01/27/21 17:23 Iron 28 ug/dL (37-170) L 01/28/21 05:38 TIBC 139 mcg/dL (250-450) L 01/28/21 05:38 % Saturation 20.14 % 01/28/21 05:38 Transferrin 124 mg/dl (192-382) L 01/28/21 05:38 Ferritin 404.7 ng/mL (10.0-200.0) H 01/27/21 17:23 Total Bilirubin 0.20 mg/dL (0.1-1.2) 01/28/21 05:38 AST 11 units/L (5-40) 01/28/21 05:38 ALT 5 units/L (7-56) L 01/28/21 05:38 Alkaline Phosphatase 127 units/L (35-129) 01/28/21 05:38 Ammonia 19.0 umol/L (25-60) L 01/27/21 17:23 Lactate Dehydrogenase 357 units/L (91-180) H 01/27/21 17:23 Total Creatine Kinase 322 units/L (30-135) H 01/27/21 17:23 Troponin T 0.143 ng/mL (0.00-0.029) H* 01/27/21 17:23 C-Reactive Protein 6.70 mg/dL (0.00-1.30) H 01/27/21 17:23 Total Protein 5.9 g/dL (6.3-8.2) L 01/28/21 05:38 Albumin 2.9 g/dL (3.9-5) L 01/28/21 05:38 Albumin/Globulin Ratio 1.0 % 01/28/21 05:38 Triglycerides 173 mg/dL (2-149) H 01/27/21 17:23 Cholesterol 181 mg/dL (50-199) 01/27/21 17:23 LDL Cholesterol Direct 101 mg/dL (50-130) 01/27/21 17:23 HDL Cholesterol 48 mg/dL (40-59) 01/27/21 17:23 Cholesterol/HDL Ratio 3.77 % 01/27/21 17:23 Vitamin B12 2000 pg/mL (211-911) H 01/28/21 05:38 Procalcitonin 1.57 ng/mL (<0.15) 01/27/21 17:23 TSH 1.180 mlU/mL (0.270-4.200) 01/27/21 17:23 PTH Intact 1617 pg/mL (15-65) H 01/28/21 18:42 Salicylates < 0.3 mg/dL (2.8-20.0) L 01/27/21 17:23 Acetaminophen 5.0 ug/mL (10.0-30.0) L 01/27/21 17:23 Plasma/Serum Alcohol < 0.01 % (0-0.07) 01/27/21 17:23 Coronavirus (PCR) Positive (Negative) A 01/27/21 Unknown Hepatitis A IgM Ab Non-reactive (NonReactive) 01/28/21 18:42 Hep Bs Antigen Non-reactive (Negative) 01/28/21 18:42 Hep B Core IgM Ab Non-reactive (NonReactive) 01/28/21 18:42 Hepatitis C Antibody Non-reactive (NonReactive) 01/28/21 18:42 Microbiology: Microbiology 01/27/21 17:23 Peripheral/Venous Blood Culture - Preliminary NO GROWTH AFTER 48 HOURS 01/27/21 17:23 Peripheral/Venous Blood Culture - Preliminary NO GROWTH AFTER 48 HOURS Newman/IV: Voiding Method Toilet Active Medications - Current Medications Current Medications: Generic Name Dose Route Start Last Admin Trade Name Freq PRN Reason Stop Dose Admin Acetaminophen 650 mg 01/27/21 21:27 Acetaminophen 325 Mg Tab PO Q4H PRN Pain MILD(1-3)/Fever >100.5/MALCOLM Calcitriol 0.5 mcg 01/29/21 12:00 01/30/21 09:59 Calcitriol 0.5 Mcg Cap PO 0.5 mcg QDAY MONICA Administration Calcium Carbonate/Glycine 500 mg 01/30/21 10:30 Calcium Carbonate 500 Mg Tab Chew PO BID MONICA Dextrose 50 ml 01/27/21 18:41 Dextrose 50% In Water (25gm) 50 Ml Syringe IV Q30MIN PRN Hypoglycemia Protocol Famotidine 10 mg 01/29/21 10:00 01/30/21 09:59 Famotidine 10 Mg Tab PO 10 mg BID MONICA Administration Heparin Sodium (Porcine) 5,000 unit 01/27/21 22:00 01/30/21 09:59 Heparin 5,000 Unit/1 Ml Vial SUB-Q 5,000 unit Q12HR MONICA Administration Heparin Sodium (Porcine) 5,000 unit 01/28/21 11:06 Heparin 10,000 Unit/1 Ml Vial IV HANNAH PRN hemodialysis Sodium Bicarbonate 150 meq/ 1,150 mls @ 100 mls/hr 01/27/21 19:00 01/27/21 20:16 Dextrose IV 100 mls/hr DIRECT MONICA Administration Sodium Chloride 100 mls @ 999 mls/hr 01/28/21 11:06 Nacl 0.9% IV HANNAH PRN Hypotension Metoclopramide HCl 2.5 mg 01/29/21 08:00 Metoclopramide 10 Mg/2 Ml Inj IV Q6H PRN Nausea And Vomiting Ondansetron HCl 4 mg 01/27/21 21:27 Ondansetron 4 Mg/2 Ml Inj IV Q8H PRN Nausea And Vomiting Oxycodone/Acetaminophen 1 tab 01/27/21 21:29 Oxycodone /Acetaminophen 5-325mg Tab PO Q6H PRN Pain, Moderate (4-6) Potassium Chloride 40 meq 01/30/21 10:30 Potassium Chloride Er 20 Meq Tab PO 01/30/21 13:00 ONCE@1030 NR Sodium Chloride 10 ml 01/27/21 22:00 01/30/21 10:00 Sodium Chloride 0.9% 10 Ml Flush Syringe IV 10 ml BID MONICA Administration Sodium Chloride 10 ml 01/27/21 21:27 Sodium Chloride 0.9% 10 Ml Flush Syringe IV PRN PRN LINE FLUSH Nutrition/Malnutrition Assess - Dietary Evaluation Nutrition/Malnutrition Findings: Nutrition Notes Start: 01/28/21 08:54 Freq: Status: Active Protocol: Document 01/28/21 08:54 MARCO (Rec: 01/28/21 08:58 MARCO [id number]) Nutrition Notes Need for Assessment generated from: hot dipper,MST Initial or Follow up Assessment Current Diagnosis CKD (stage V CKD),Hypertension Other Pertinent Diagnosis Uremic encephalopathy, r/o COVID-19 Current Diet Renal Labs/Tests BUN 117 Cr 14.8 Ca 6.1 (adjusted Ca 6.98) Pertinent Medications Reviewed Height 5 ft 5 in Weight 64.7 kg [place] Body Weight (kg) 56.81 BMI 23.7 Weight Status Appropriate Subjective/Other Information Pt screened for malnutrition risk. Pt confused at this time; newly diagnosed ESRD requiring dialysis. Burn Absent Trauma Absent Minimum of two criteria No #1 Nutrition Diagnosis Predicted suboptimal energy intake Etiology uremia As Evidenced by Signs and Symptoms pt admitted with confusion and newly diagnosed ESRD Is patient on ventilator? No Is Patient Ambulatory and/or Out of Bed Yes REE-([facility]-ambulatory/OOB) [ 1602.744 [id number]] Calculation Used for Recommendations [facility] Additional Notes Pro needs >1.2g/kg: >78g/day Fluid needs 1-1.5L/day Nutrition Intervention Change Diet Order: Continue current diet order Goal #1 PO intake to meet at least 75% energy and pro needs Anticipated Discharge Needs: Renal diet Follow-Up By: 01/31/21 Additional Comments F/U: intakes
[2021-01-30 15:52] LABS: Hematocrit 22.3 % (30.3-42.9); Hemoglobin 6.9 gm/dl (10.1-14.3)
[2021-01-30 16:13] LABS: C-Reactive Protein 5.5 mg/dL (0.00-1.30)
--- NOTE | 2021-01-30 17:20 | Consultation ---
History of Present Illness - Reason for Consult Consult date: 01/30/21 COVID Requesting physician: ZACH TORO - History of Present Illness 55-year-old female with history of hypertension and chronic kidney disease admitted on 01/27/2021 secondary to altered mental status, erratic behavior, incoherent speech for unclear period of this time. She reports that she went to [place], [place] for vacation on 01/08/2021 and was exposed to COVID-19 during a family reunion. It seems like she tested positive for COVID-19 as an outpatient however is unclear how long ago. On arrival, temperature 98.2, HR 96, RR 18, O2 sat 93%, BP 152/77. Initial WBC 8.2. Hemoglobin 8.6. Platelets 314. D-dimer 826--> 3764. Creatinine 15.9. Potassium 5.5. Troponin 0 0.143. CRP 6.7. Ferritin 404. Procalcitonin 1.57. SARS-CoV-2 PCR positive. Blood culture 01/27/2021 no growth today. Chest x-ray shows mild cardiomegaly. CT of the head shows small PICA infarctions on the left. Patient is currently on room air. Review of Systems: Unable to obtain due to altered mental status. Past History Past Medical History: hypertension, renal failure Past Surgical History: Other (Unable to obtain) Social history: other (Unable to obtain) Family history: other (Unable to obtain) Medications and Allergies Allergies Allergy/AdvReac Type Severity Reaction Status Date / Time No Known Allergies Allergy Verified 01/27/21 18:08 Home Medications Medication Instructions Recorded Confirmed Last Taken Type Furosemide [Lasix] 40 mg PO QDAY 01/29/21 01/29/21 Unknown History Meloxicam [Mobic] 15 mg PO QDAY 01/29/21 01/29/21 Unknown History Active Meds: Active Medications Acetaminophen (Acetaminophen 325 Mg Tab) 650 mg PO Q4H PRN PRN Reason: Pain MILD(1-3)/Fever >100.5/MALCOLM Calcitriol (Calcitriol 0.5 Mcg Cap) 0.5 mcg PO QDAY [facility] Last Admin: 01/30/21 09:59 Dose: 0.5 mcg Documented by: Calcium Carbonate/Glycine (Calcium Carbonate 500 Mg Tab Chew) 500 mg PO BID [facility] Last Admin: 01/30/21 10:00 Dose: 500 mg Documented by: Dextrose (Dextrose 50% In Water (25gm) 50 Ml Syringe) 50 ml IV Q30MIN PRN; Prot ocol PRN Reason: Hypoglycemia Famotidine (Famotidine 10 Mg Tab) 10 mg PO BID [facility] Last Admin: 01/30/21 09:59 Dose: 10 mg Documented by: Heparin Sodium (Porcine) (Heparin 5,000 Unit/1 Ml Vial) 5,000 unit SUB-Q Q12HR [facility] Last Admin: 01/30/21 09:59 Dose: 5,000 unit Documented by: Heparin Sodium (Porcine) (Heparin 10,000 Unit/1 Ml Vial) 5,000 unit IV HANNAH PRN PRN Reason: hemodialysis Sodium Bicarbonate 150 meq/ (Dextrose) 1,150 mls @ 100 mls/hr IV DIRECT [facility] Last Admin: 01/27/21 20:16 Dose: 100 mls/hr Documented by: Sodium Chloride (Nacl 0.9%) 100 mls @ 999 mls/hr IV HANNAH PRN PRN Reason: Hypotension Metoclopramide HCl (Metoclopramide 10 Mg/2 Ml Inj) 2.5 mg IV Q6H PRN PRN Reason: Nausea And Vomiting Ondansetron HCl (Ondansetron 4 Mg/2 Ml Inj) 4 mg IV Q8H PRN PRN Reason: Nausea And Vomiting Oxycodone/Acetaminophen (Oxycodone /Acetaminophen 5-325mg Tab) 1 tab PO Q6H PRN PRN Reason: Pain, Moderate (4-6) Sodium Chloride (Sodium Chloride 0.9% 10 Ml Flush Syringe) 10 ml IV BID [facility] Last Admin: 01/30/21 10:00 Dose: 10 ml Documented by: Sodium Chloride (Sodium Chloride 0.9% 10 Ml Flush Syringe) 10 ml IV PRN PRN PRN Reason: LINE FLUSH Physical Examination - Physical Exam Narrative exam: General appearance: Alert in NAD pleasant Eyes: anicteric sclerae, moist conjunctivae; no lid-lag; PERRLA HENT: Normocephalic, Atraumatic; normal external ears, nares open, oropharynx clear Neck: supple, tracheal midline, no JVD Lungs: CTA, with normal respiratory effort and no intercostal retractions CV: RRR no murmur Abdomen: Soft, non-tender; no masses or hepatosplenomegaly Extremities: no edema, no cyanosis Skin: No rash. Psych: no agitated Neuro: alert and confused. - Constitutional Vitals: Vital Signs Temp Pulse Resp BP Pulse Ox 98.9 F 89 18 170/95 96 01/30/21 11:34 01/30/21 11:34 01/30/21 11:34 01/30/21 11:34 01/30/21 11:34 Temperature -Last 24 Hours Temperature 98.9 F Temperature 98.4 F Results - Labs CBC & Chem 7: 01/30/21 15:14 01/30/21 08:51 Labs: Abnormal lab results 01/30/21 01/30/21 01/30/21 Range/Units 08:51 15:14 15:14 Hgb 6.9 L (10.1-14.3) gm/dl Hct 22.3 L (30.3-42.9) % D-Dimer 3764.21 H (0-234) ng/mlDDU Potassium 3.2 L (3.6-5.0) mmol/L BUN 28 H (7-17) mg/dL Creatinine 6.0 H (0.6-1.2) mg/dL Calcium 5.8 L* (8.4-10.2) mg/dL Ferritin (10.0-200.0) ng/mL Lactate Dehydrogenase (91-180) units/L C-Reactive Protein (0.00-1.30) mg/dL 01/30/21 01/30/21 Range/Units 15:14 15:14 Hgb (10.1-14.3) gm/dl Hct (30.3-42.9) % D-Dimer (0-234) ng/mlDDU Potassium (3.6-5.0) mmol/L BUN (7-17) mg/dL Creatinine (0.6-1.2) mg/dL Calcium (8.4-10.2) mg/dL Ferritin 442.8 H (10.0-200.0) ng/mL Lactate Dehydrogenase 338 H (91-180) units/L C-Reactive Protein 5.50 H (0.00-1.30) mg/dL Assessment and Plan Cultures: SARS-CoV-2 PCR positive. Blood culture 01/27/2021 no growth today. Assessment: 55-year-old female with history of hypertension and chronic kidney disease admitted on 01/27/2021 secondary to altered mental status, erratic be havior, incoherent speech for unclear period of this time: #COVID-19 infection: Of unclear duration. Patient was exposed to COVID-19 during a family reunion in [facility] on 01/08/2021. Patient can not elaborate about symptoms, she reports that she tested positive for COVID-19 before. Inflammatory markers CRP 6.7. Ferritin 404. D-dimer 826--> 3764. Should evaluate for PE. Patient is not hypoxic. Currently on room air. Noted elevated procalcitonin 1.57 likely due to renal failure. Patient without fever. #Acute on chronic renal failure: Initial creatinine 15.9, potassium 5.5. P atient started on hemodialysis. 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 Recommendations: -Obtain 6 minutes oximetry walking test -No indication for remdesivir or dexamethasone, patient is not hypoxic, also unclear duration of symptoms. -Evaluation for pulmonary embolism, elevated D-dimer -Neurology consult for CVA -Renal on board for IRASEMA on CKD requiring dialysis, PermCath was placed Will follow. Amina Moya MD Infectious Diseases Library Manager [facility] ([facility] M [phone] O [phone]
[2021-01-30] MEDS ORDERED: SODIUM CHLORIDE 0.9% 500 ML 500 ML IV SCH (17:56)
--- NOTE | 2021-01-30 19:25 | Progress Note ---
Assessment and Plan Assessment and plan: --Anemia of chronic disease Hb 6.9 today Current Visit: Yes Status: Chronic Transfused 1 unit of PRBC, check H&H and transfuse additional PRBC as neede Procrit during dialysis, ferrous sulfate, monitor H&H, transfuse as needed If Hb remains less than 7 tomorrow, will transfuse 1 unit of PRBC during dialysis Closely monitor H&H --COVID-19 test positive continue isolation precautions, oxygen evaluation, inflammatory markers, ID consult Prone positioning Home O2 evaluation, discharge Patient is saturating well on room air No indication for remdesivir --Elevated D-dimers; COVID-19 check VQ scan to evaluate for PE Check lower extremity venous Doppler, to rule out DVT -- Uremic encephalopathy Current Visit: Yes Status: Acute Altered sensorium secondary to high creatinine and uremia Also severe metabolic acidosis secondary to uremia. --Encephalopathy, abnormal CT head Check MRI without contrast --End-stage renal disease needing dialysis Current Visit: Yes Status: Acute Newly diagnosed end-stage renal disease Vas-Cath placement, initiated hemodialysis Renal ultrasound, Nephrology following --Hyperkalemia Current Visit: Yes Status: Acute Resolved, hemodialysis after dialysis catheter placement -- Metabolic acidosis Current Visit: Yes Status: Acute Nephrology following , initiating hemodialysis --COVID-19 positive Current Visit: Yes Status: Acute Patient was coronavirus positive last week on 01/20/2021 Alejandre PCR test requested Contact and droplet isolation Patient is asymptomatic ID consult if needed -- Hypertension Current Visit: Yes Status: Acute Newly diagnosed hypertension Patient started on hydralazine 50 mg every 8 hours Add other antihypertensives as necessary --DVT prophylaxis Current Visit: Yes Status: Acute On heparin and GI prophylaxis We will closely monitor the patient and adjust management as needed Sales And Service Associate recommendations noted and appreciated Plan of care reviewed with the patient and her nurse Brief history; 55-year-old female patient was admitted with uremic encephalopathy end-stage renal disease Nephrology evaluated initiated hemodialysis, patient is PUI alejandre PCR test is positive, inflammatory markers are high Patient is being treated per protocols of COVID-19, ID and nephrology following 01/30/2021; follow ID evaluation recommendations Elevated D-dimers,, lower extremity Doppler to rule out PE and DVT 01/31/2021; patient received 1 unit PRBC for anemia, monitor H&H Also schedule for VQ scan and lower extremity venous Doppler to rule out PE and DVT As patient is Covid positive and very high D-dimers Abnormal CT scan on admission for encephalopathy Requested MRI brain without contrast Disposition; follow MRI, follow VQ scan History Interval history: I have seen and examined the patient at the bedside Patient's chart and medications reviewed Strict isolation precautions and PPE protocols followed Patient complains of some shortness of breath Vital signs noted Hospitalist Physical - Constitutional Vitals: Temp Pulse Resp BP Pulse Ox 98.6 F 83 18 182/108 99 01/30/21 16:08 01/30/21 16:08 01/30/21 16:08 01/30/21 16:08 01/30/21 16:08 General appearance: Present: mild distress, well-nourished - EENT Eyes: Present: PERRL, EOM intact - Neck Neck: Present: supple, normal ROM - Respiratory Respiratory effort: normal Respiratory: bilateral: diminished, rhonchi, negative: rales, wheezing - Cardiovascular Rhythm: regular Heart Sounds: Present: S1 & S2 - Extremities Extremities: no ischemia, No edema - Abdominal General gastrointestinal: soft, non-tender, non-distended, normal bowel sounds - Integumentary Integumentary: Present: clear, warm - Psychiatric Psychiatric: appropriate mood/affect, cooperative - Neurologic Neurologic: moves all extremities HEART Score - HEART Score Troponin: Troponin T 0.143 ng/mL (0.00-0.029) H* 01/27/21 17:23 Results - Labs CBC & Chem 7: 01/30/21 15:14 01/30/21 08:51 Labs: Laboratory Last Values WBC 6.1 K/mm3 (4.5-11.0) 01/29/21 06:24 RBC 3.00 M/mm3 (3.65-5.03) L 01/29/21 06:24 Hgb 6.9 gm/dl (10.1-14.3) L 01/30/21 15:14 Hct 22.3 % (30.3-42.9) L 01/30/21 15:14 MCV 73 fl (79-97) L 01/29/21 06:24 MCH 23 pg (28-32) L 01/29/21 06:24 MCHC 32 % (30-34) 01/29/21 06:24 RDW 14.6 % (13.2-15.2) 01/29/21 06:24 Plt Count 264 K/mm3 (140-440) 01/29/21 06:24 Lymph % (Auto) Medical Grade Sho[place] 01/28/21 05:38 [place] % (Auto) Medical Grade Shoemaker 01/28/21 05:38 Eos % (Auto) Medical Grade Shoemaker 01/28/21 05:38 Baso % (Auto) Medical Grade Shoemaker 01/28/21 05:38 Lymph # (Auto) Medical Grade Shoemaker 01/28/21 05:38 [place] # (Auto) Medical Grade Shoemaker 01/28/21 05:38 Eos # (Auto) Medical Grade Shoemaker 01/28/21 05:38 Baso # (Auto) Medical Grade Shoemaker 01/28/21 05:38 Add Manual Diff Complete 01/29/21 06:24 Total Counted 100 01/29/21 06:24 Seg Neutrophils % Medical Grade Shoemaker 01/28/21 05:38 Seg Neuts % (Manual) 84.0 % (40.0-70.0) H 01/29/21 06:24 Band Neutrophils % 2.0 % 01/29/21 06:24 Lymphocytes % (Manual) 5.0 % (13.4-35.0) L 01/29/21 06:24 Reactive Lymphs % (Man) 1.0 % 01/29/21 06:24 Monocytes % (Manual) 4.0 % (0.0-7.3) 01/29/21 06:24 Eosinophils % (Manual) 3.0 % (0.0-4.3) 01/29/21 06:24 Metamyelocytes % 1.0 % 01/29/21 06:24 Nucleated RBC % 1.0 % (0.0-0.9) H 01/29/21 06:24 Seg Neutrophils # Medical Grade Shoemaker 01/28/21 05:38 Seg Neutrophils # Man 5.1 K/mm3 (1.8-7.7) 01/29/21 06:24 Band Neutrophils # 0.1 K/mm3 01/29/21 06:24 Lymphocytes # (Manual) 0.3 K/mm3 (1.2-5.4) L 01/29/21 06:24 Abs React Lymphs (Man) 0.1 K/mm3 01/29/21 06:24 Monocytes # (Manual) 0.2 K/mm3 (0.0-0.8) 01/29/21 06:24 Eosinophils # (Manual) 0.2 K/mm3 (0.0-0.4) 01/29/21 06:24 Basophils # (Manual) 0.0 K/mm3 (0.0-0.1) 01/29/21 06:24 Metamyelocytes # 0.1 K/mm3 01/29/21 06:24 Myelocytes # 0.0 K/mm3 01/29/21 06:24 Promyelocytes # 0.0 K/mm3 01/29/21 06:24 Blast Cells # 0.0 K/mm3 01/29/21 06:24 WBC Morphology Not Reportable 01/29/21 06:24 Hypersegmented Neuts Not Reportable 01/29/21 06:24 Hyposegmented Neuts Not Reportable 01/29/21 06:24 Hypogranular Neuts Not Reportable 01/29/21 06:24 Smudge Cells Not Reportable 01/29/21 06:24 Toxic Granulation Not Reportable 01/29/21 06:24 Toxic Vacuolation Not Reportable 01/29/21 06:24 Dohle Bodies Not Reportable 01/29/21 06:24 Pelger-Huet Anomaly Not Reportable 01/29/21 06:24 Papa Rods Not Reportable 01/29/21 06:24 Platelet Estimate Consistent w auto 01/29/21 06:24 Clumped Platelets Not Reportable 01/29/21 06:24 Plt Clumps, EDTA Not Reportable 01/29/21 06:24 Large Platelets Not Reportable 01/29/21 06:24 Giant Platelets Not Reportable 01/29/21 06:24 Platelet Satelliting Not Reportable 01/29/21 06:24 Plt Morphology Comment Not Reportable 01/29/21 06:24 RBC Morphology Not Reportable 01/29/21 06:24 Dimorphic RBCs Not Reportable 01/29/21 06:24 Polychromasia Not Reportable 01/29/21 06:24 Hypochromasia 1+ 01/29/21 06:24 Poikilocytosis Not Reportable 01/29/21 06:24 Anisocytosis Not Reportable 01/29/21 06:24 Microcytosis Few 01/29/21 06:24 Macrocytosis Not Reportable 01/29/21 06:24 Spherocytes Not Reportable 01/29/21 06:24 Pappenheimer Bodies Not Reportable 01/29/21 06:24 Sickle Cells Not Reportable 01/29/21 06:24 Target Cells Not Reportable 01/29/21 06:24 Tear Drop Cells Not Reportable 01/29/21 06:24 Ovalocytes Not Reportable 01/29/21 06:24 Helmet Cells Not Reportable 01/29/21 06:24 [place] Bodies Not Reportable 01/29/21 06:24 [place] Rings Not Reportable 01/29/21 06:24 Samm Cells Not Reportable 01/29/21 06:24 Bite Cells Not Reportable 01/29/21 06:24 Crenated Cell Not Reportable 01/29/21 06:24 Elliptocytes Not Reportable 01/29/21 06:24 Acanthocytes (Spur) Not Reportable 01/29/21 06:24 Rouleaux Not Reportable 01/29/21 06:24 Hemoglobin C Crystals Not Reportable 01/29/21 06:24 Schistocytes Not Reportable 01/29/21 06:24 Malaria parasites Not Reportable 01/29/21 06:24 [place] Bodies Not Reportable 01/29/21 06:24 Hem Pathologist Commnt No 01/29/21 06:24 PT 15.2 Sec. (12.2-14.9) H 01/27/21 17:23 INR 1.15 (0.87-1.13) H 01/27/21 17:23 APTT 25.2 Sec. (24.2-36.6) 01/27/21 17:23 D-Dimer 3764.21 ng/mlDDU (0-234) H 01/30/21 15:14 Sodium 141 mmol/L (137-145) 01/30/21 08:51 Potassium 3.2 mmol/L (3.6-5.0) L 01/30/21 08:51 Chloride 99.9 mmol/L (98-107) 01/30/21 08:51 Carbon Dioxide 27 mmol/L (22-30) 01/30/21 08:51 Anion Gap 17 mmol/L 01/30/21 08:51 BUN 28 mg/dL (7-17) H 01/30/21 08:51 Creatinine 6.0 mg/dL (0.6-1.2) H 01/30/21 08:51 Estimated GFR 9 ml/min 07/22/21 08:51 BUN/Creatinine Ratio 5 % 01/30/21 08:51 Glucose 96 mg/dL (65-100) 01/30/21 08:51 Hemoglobin A1c 5.3 % (4-6) 01/27/21 17:23 Lactic Acid 1.50 mmol/L (0.7-2.0) 01/27/21 17:23 Calcium 5.8 mg/dL (8.4-10.2) L* 01/30/21 08:51 Magnesium 2.10 mg/dL (1.7-2.3) 01/27/21 17:23 Iron 28 ug/dL (37-170) L 01/28/21 05:38 TIBC 139 mcg/dL (250-450) L 01/28/21 05:38 % Saturation 20.14 % 01/28/21 05:38 Transferrin 124 mg/dl (192-382) L 01/28/21 05:38 Ferritin 442.8 ng/mL (10.0-200.0) H 01/30/21 15:14 Total Bilirubin 0.20 mg/dL (0.1-1.2) 01/28/21 05:38 AST 11 units/L (5-40) 01/28/21 05:38 ALT 5 units/L (7-56) L 01/28/21 05:38 Alkaline Phosphatase 127 units/L (35-129) 01/28/21 05:38 Ammonia 19.0 umol/L (25-60) L 01/27/21 17:23 Lactate Dehydrogenase 338 units/L (91-180) H 01/30/21 15:14 Total Creatine Kinase 322 units/L (30-135) H 01/27/21 17:23 Troponin T 0.143 ng/mL (0.00-0.029) H* 01/27/21 17:23 C-Reactive Protein 5.50 mg/dL (0.00-1.30) H 01/30/21 15:14 Total Protein 5.9 g/dL (6.3-8.2) L 01/28/21 05:38 Albumin 2.9 g/dL (3.9-5) L 01/28/21 05:38 Albumin/Globulin Ratio 1.0 % 01/28/21 05:38 Triglycerides 173 mg/dL (2-149) H 01/27/21 17:23 Cholesterol 181 mg/dL (50-199) 01/27/21 17:23 LDL Cholesterol Direct 101 mg/dL (50-130) 01/27/21 17:23 HDL Cholesterol 48 mg/dL (40-59) 01/27/21 17:23 Cholesterol/HDL Ratio 3.77 % 01/27/21 17:23 Vitamin B12 2000 pg/mL (211-911) H 01/28/21 05:38 Procalcitonin 1.57 ng/mL (<0.15) 01/27/21 17:23 TSH 1.180 mlU/mL (0.270-4.200) 01/27/21 17:23 PTH Intact 1617 pg/mL (15-65) H 01/28/21 18:42 Salicylates < 0.3 mg/dL (2.8-20.0) L 01/27/21 17:23 Acetaminophen 5.0 ug/mL (10.0-30.0) L 01/27/21 17:23 Plasma/Serum Alcohol < 0.01 % (0-0.07) 01/27/21 17:23 Coronavirus (PCR) Positive (Negative) A 01/27/21 Unknown Hepatitis A IgM Ab Non-reactive (NonReactive) 01/28/21 18:42 Hep Bs Antigen Non-reactive (Negative) 01/28/21 18:42 Hep B Core IgM Ab Non-reactive (NonReactive) 01/28/21 18:42 Hepatitis C Antibody Non-reactive (NonReactive) 01/28/21 18:42 Blood Type O POSITIVE 01/30/21 18:19 Antibody Screen Negative 01/30/21 18:19 Crossmatch See Detail 01/30/21 18:19 Microbiology: Microbiology 01/27/21 17:23 Peripheral/Venous Blood Culture - Preliminary NO GROWTH AFTER 72 HOURS 01/27/21 17:23 Peripheral/Venous Blood Culture - Preliminary NO GROWTH AFTER 72 HOURS Newman/IV: Voiding Method Toilet Active Medications - Current Medications Current Medications: Generic Name Dose Route Start Last Admin Trade Name Freq PRN Reason Stop Dose Admin Acetaminophen 650 mg 01/27/21 21:27 Acetaminophen 325 Mg Tab PO Q4H PRN Pain MILD(1-3)/Fever >100.5/MALCOLM Calcitriol 0.5 mcg 01/29/21 12:00 01/30/21 09:59 Calcitriol 0.5 Mcg Cap PO 0.5 mcg QDAY MONICA Administration Calcium Carbonate/Glycine 500 mg 01/30/21 10:30 01/30/21 10:00 Calcium Carbonate 500 Mg Tab Chew PO 500 mg BID MONICA Administration Dextrose 50 ml 01/27/21 18:41 Dextrose 50% In Water (25gm) 50 Ml Syringe IV Q30MIN PRN Hypoglycemia Protocol Famotidine 10 mg 01/29/21 10:00 01/30/21 09:59 Famotidine 10 Mg Tab PO 10 mg BID MONICA Administration Heparin Sodium (Porcine) 5,000 unit 01/27/21 22:00 01/30/21 09:59 Heparin 5,000 Unit/1 Ml Vial SUB-Q 5,000 unit Q12HR MONICA Administration Heparin Sodium (Porcine) 5,000 unit 01/28/21 11:06 Heparin 10,000 Unit/1 Ml Vial IV HANNAH PRN hemodialysis Sodium Bicarbonate 150 meq/ 1,150 mls @ 100 mls/hr 01/27/21 19:00 01/27/21 20:16 Dextrose IV 100 mls/hr DIRECT MONICA Administration Sodium Chloride 100 mls @ 999 mls/hr 01/28/21 11:06 Nacl 0.9% IV HANNAH PRN Hypotension Sodium Chloride 500 mls @ 0 mls/hr 01/30/21 17:56 Nacl 0.9% 500 Ml IV 01/31/21 17:55 ONCE MONICA As Directed Metoclopramide HCl 2.5 mg 01/29/21 08:00 Metoclopramide 10 Mg/2 Ml Inj IV Q6H PRN Nausea And Vomiting Ondansetron HCl 4 mg 01/27/21 21:27 Ondansetron 4 Mg/2 Ml Inj IV Q8H PRN Nausea And Vomiting Oxycodone/Acetaminophen 1 tab 01/27/21 21:29 Oxycodone /Acetaminophen 5-325mg Tab PO Q6H PRN Pain, Moderate (4-6) Sodium Chloride 10 ml 01/27/21 22:00 01/30/21 10:00 Sodium Chloride 0.9% 10 Ml Flush Syringe IV 10 ml BID MONICA Administration Sodium Chloride 10 ml 01/27/21 21:27 Sodium Chloride 0.9% 10 Ml Flush Syringe IV PRN PRN LINE FLUSH Nutrition/Malnutrition Assess - Dietary Evaluation Nutrition/Malnutrition Findings: Nutrition Notes Start: 01/28/21 08:54 Freq: Status: Active Protocol: Document 01/28/21 08:54 MARCO (Rec: 01/28/21 08:58 MARCO [id number]) Nutrition Notes Need for Assessment generated from: art installer,MST Initial or Follow up Assessment Current Diagnosis CKD (stage V CKD),Hypertension Other Pertinent Diagnosis Uremic encephalopathy, r/o COVID-19 Current Diet Renal Labs/Tests BUN 117 Cr 14.8 Ca 6.1 (adjusted Ca 6.98) Pertinent Medications Reviewed Height 5 ft 5 in Weight 64.7 kg [place] Body Weight (kg) 56.81 BMI 23.7 Weight Status Appropriate Subjective/Other Information Pt screened for malnutrition risk. Pt confused at this time; newly diagnosed ESRD requiring dialysis. Burn Absent Trauma Absent Minimum of two criteria No #1 Nutrition Diagnosis Predicted suboptimal energy intake Etiology uremia As Evidenced by Signs and Symptoms pt admitted with confusion and newly diagnosed ESRD Is patient on ventilator? No Is Patient Ambulatory and/or Out of Bed Yes REE-([place] Jeor-ambulatory/OOB) [ 1602.744 [id number]] Calculation Used for Recommendations [place] Jeor Additional Notes Pro needs >1.2g/kg: >78g/day Fluid needs 1-1.5L/day Nutrition Intervention Change Diet Order: Continue current diet order Goal #1 PO intake to meet at least 75% energy and pro needs Anticipated Discharge Needs: Renal diet Follow-Up By: 01/31/21 Additional Comments F/U: intakes
[2021-01-30] MEDS ORDERED: hydrALAZINE 20 MG/1 ML INJ IV ONE (21:00)
[2021-01-30] MEDS ORDERED: hydrALAZINE 20 MG/1 ML INJ IV PRN (21:35)
[2021-01-30] MEDS: FUROSEMIDE 40 MG TAB PO SCH (22:32)
[2021-01-31] MEDS ORDERED: hydrALAZINE 20 MG/1 ML INJ IV ONE (06:18)
--- NOTE | 2021-01-31 08:45 | XRay Report ---
CHEST 1 VIEW INDICATION: For lung scan comparison, elevated d-dimer, rule out pulmonary embolus, Covid patient. COMPARISON: 01/27/2021 FINDINGS: Support devices: A right IJ permacath has been inserted since the previous exam which terminates in g ood position at the cavoatrial junction. Heart: Stable mild cardiomegaly. Lungs/Pleura: The lungs are clear with no evidence for infiltrate, pleural fluid or pneumothorax. Additional findings: None. IMPRESSION: No acute findings. Stable mild cardiomegaly. Lungs clear. Signer Name: Andrew James Jr, MD Signed: 01/31/2021 8:40 AM Workstation Name: [id number]
--- NOTE | 2021-01-31 08:52 | Progress Note ---
Assessment and Plan - Patient Problems (1) Chronic kidney disease, stage 5 Current Visit: Yes Status: Acute Plan to address problem: Chronic kidney disease presumably secondary to hypertensive nephrosclerosis. Unclear if patient has progressed to stage V or if this is acute on chronic kidney disease Covid associated nephropathy. Get urine studies. Get renal ultrasound. Dialysis started on January 28 for hyperkalemia, metabolic acidosis and uremic encephalopathy. Tolerated treatment with no complications. Continue dialysis and follow-up work-up. Arrange outpatient dialysis at [facility] though will temporarily have to go to a COVID-19 clinic. (2) Hypocalcemia Current Visit: Yes Status: Acute Plan to address problem: Supplement calcium. Dialyze on a high calcium bath. Started on calcitriol since PTH is extremely high (3) Uremic encephalopathy Current Visit: Yes Status: Acute Plan to address problem: Hemodialysis for solute clearance (4) Hyperkalemia Current Visit: Yes Status: Acute Plan to address problem: Hyperkalemia treated medically. Improved with dialysis. Follow-up potassium (5) Metabolic acidosis Current Visit: Yes Status: Acute Plan to address problem: Uremic acidosis. Improved with dialysis. Continue hemodialysis (6) Hypertensive chronic kidney disease with stage 5 chronic kidney disease or end stage renal disease Current Visit: Yes Status: Acute Plan to address problem: Follow-up blood pressure (7) Pneumonia due to COVID-19 virus Current Visit: Yes Status: Acute Plan to address problem: IV/ Dexamethasone Supplemental oxygen/Respiratory support as needed Proning as tolerated Remdesevir Prophylactic anticoagulation Trend inflammatory markers to assess disease progression and prognosis. Management by infectious disease (8) Anemia Current Visit: Yes Status: Chronic Qualifiers: Anemia type: due to chronic kidney disease Chronic kidney disease stage: stage 5, not on chronic dialysis Qualified Code(s): N18.5 - Chronic kidney disease, stage 5; D63.1 - Anemia in chronic kidney disease Plan to address problem: Check iron stores. Give erythropoietin on dialysis. pRBC Transfusion per Primary attending (9) Secondary hyperparathyroidism (of renal origin) Current Visit: Yes Status: Acute Plan to address problem: PTH 1617. Started on calcitriol and follow-up PTH at the outpatient dialysis clinic Subjective Date of service: 01/31/21 Principal diagnosis: End-stage renal disease Interval history: Patient was seen lying in bed. She has no complaints. She appears uncomfortable. She is not dyspneic at rest. While being evaluated, she became nauseated and started vomiting. Nurse provided assistance. Objective - Exam Narrative Exam: Middle-aged -[place] female lying in bed in no acute distress but appears uncomfortable HEENT: NCAT, pink conjunctiva Neck: Supple, no venous distention CVS: S1S2 RRR with no murmur, rub or gallop Chest: Clear to auscultation Abdomen: Protuberant, soft, nontender, no organomegaly, bowel sounds are present Extremities: Trace edema Genitourinary deferred Skin warm and dry Neuro: Awake, a bit dull, - Vital Signs Vital signs: Vital Signs - 12hr 01/30/21 01/30/21 01/31/21 21:10 21:45 02:41 Temperature 97.9 F 97.8 F Pulse Rate 93 H 87 Respiratory 16 18 Rate Blood Pressure 173/110 176/108 Blood Pressure 167/104 [Left] O2 Sat by Pulse 96 98 Oximetry 01/31/21 01/31/21 01/31/21 04:03 04:18 04:48 Temperature 97.8 F 98.0 F 98.0 F Pulse Rate 87 76 79 Respiratory 18 18 18 Rate Blood Pressure 167/104 174/111 174/107 Blood Pressure [Left] O2 Sat by Pulse 98 98 98 Oximetry 01/31/21 01/31/21 01/31/21 05:18 05:48 06:48 Temperature 98.0 F 98.1 F 98.3 F Pulse Rate 81 85 83 Respiratory 18 18 20 Rate Blood Pressure 170/112 155/100 160/110 Blood Pressure [Left] O2 Sat by Pulse 96 98 97 Oximetry 01/31/21 07:30 Temperature 98 F Pulse Rate 81 Respiratory 20 Rate Blood Pressure 146/83 Blood Pressure [Left] O2 Sat by Pulse 98 Oximetry - Lab 01/30/21 15:14 01/30/21 08:51 Most recent lab results Calcium 5.8 mg/dL (8.4-10.2) L* 01/30/21 08:51 Magnesium 2.10 mg/dL (1.7-2.3) 01/27/21 17:23 Medications & Allergies - Medications Allergies/Adverse Reactions: Allergies No Known Allergies Allergy (Verified 01/27/21 18:08) Home Medications: Home Medications Medication Instructions Recorded Confirmed Last Taken Type Furosemide [Lasix] 40 mg PO QDAY 01/29/21 01/29/21 Unknown History Meloxicam [Mobic] 15 mg PO QDAY 01/29/21 01/29/21 Unknown History Active Medications: Generic Name Dose Route Start Last Admin Trade Name Tamara PRN Reason Stop Dose Admin Acetaminophen 650 mg 01/27/21 21:27 Acetaminophen 325 Mg Tab PO Q4H PRN Pain MILD(1-3)/Fever >100.5/MALCOLM Calcitriol 0.5 mcg 01/29/21 12:00 01/30/21 09:59 Calcitriol 0.5 Mcg Cap PO 0.5 mcg QDAY MONICA Administration Calcium Carbonate/Glycine 500 mg 01/30/21 10:30 01/30/21 22:33 Calcium Carbonate 500 Mg Tab Chew PO 500 mg BID MONICA Administration Dextrose 50 ml 01/27/21 18:41 Dextrose 50% In Water (25gm) 50 Ml Syringe IV Q30MIN PRN Hypoglycemia Protocol Famotidine 10 mg 01/29/21 10:00 01/30/21 22:32 Famotidine 10 Mg Tab PO 10 mg BID MONICA Administration Furosemide 40 mg 01/30/21 22:00 01/30/21 22:32 Furosemide 40 Mg Tab PO 40 mg QDAY MONICA Administration Heparin Sodium (Porcine) 5,000 unit 01/27/21 22:00 01/30/21 22:32 Heparin 5,000 Unit/1 Ml Vial SUB-Q 5,000 unit Q12HR MONICA Administration Heparin Sodium (Porcine) 5,000 unit 01/28/21 11:06 Heparin 10,000 Unit/1 Ml Vial IV HANNAH PRN hemodialysis Hydralazine HCl 5 mg 01/30/21 21:35 Hydralazine 20 Mg/1 Ml Inj IV Q4H PRN Hypertension Sodium Bicarbonate 150 meq/ 1,150 mls @ 100 mls/hr 01/27/21 19:00 01/27/21 20:16 Dextrose IV 100 mls/hr DIRECT MONICA Administration Sodium Chloride 100 mls @ 999 mls/hr 01/28/21 11:06 Nacl 0.9% IV HANNAH PRN Hypotension Sodium Chloride 500 mls @ 0 mls/hr 01/30/21 17:56 Nacl 0.9% 500 Ml IV 01/31/21 17:55 ONCE MONICA As Directed Metoclopramide HCl 2.5 mg 01/29/21 08:00 Metoclopramide 10 Mg/2 Ml Inj IV Q6H PRN Nausea And Vomiting Ondansetron HCl 4 mg 01/27/21 21:27 Ondansetron 4 Mg/2 Ml Inj IV Q8H PRN Nausea And Vomiting Oxycodone/Acetaminophen 1 tab 01/27/21 21:29 Oxycodone /Acetaminophen 5-325mg Tab PO Q6H PRN Pain, Moderate (4-6) Sodium Chloride 10 ml 01/27/21 22:00 01/30/21 22:54 Sodium Chloride 0.9% 10 Ml Flush Syringe IV 10 ml BID MONICA Administration Sodium Chloride 10 ml 01/27/21 21:27 01/30/21 22:40 Sodium Chloride 0.9% 10 Ml Flush Syringe IV 10 ml PRN PRN Administration LINE FLUSH
[2021-01-31] MEDS: FUROSEMIDE 40 MG TAB PO SCH (10:00)
[2021-01-31] MEDS: CALCITRIOL 0.5 MCG CAP PO SCH (10:00)
[2021-01-31] MEDS: CALCIUM CARBONATE 500 MG TAB CHEW PO SCH ×2 (10:00→21:37)
[2021-01-31] MEDS: HEPARIN 5,000 UNIT/1 ML VIAL SUB-Q SCH ×2 (10:00→21:37)
[2021-01-31] MEDS: FAMOTIDINE 10 MG TAB PO SCH ×2 (10:00→21:37)
--- NOTE | 2021-01-31 11:12 | Magnetic Resonance Report ---
MR brain wo con INDICATION / CLINICAL INFORMATION: 55 years Female; Encephalopathy/abnormal CT head/evaluate CVA. TECHNIQUE: Multiplanar, multisequence MR images of the brain were obtained. COMPARISON: CT-01/27/2021 FINDINGS: BRAIN / INTRACRANIAL CONTENTS: Punctate focus of increased diffusion signal is seen in the deep white matter near the frontal horn the right lateral ventricle. This finding is mildly positive on the ADC map, suggesting acute/early subacute ischemia. There may be a similar, subtle finding in the white m atter near the frontal horn the left lateral ventricle. Punctate focus of similar type finding is see n in the white matter just superior to the gangliocapsular region, at the level of the body of the ri ght lateral ventricle. Susceptibility weighted imaging demonstrates scattered punctate foci of decreased signal, predominant ly peripheral in location. However, mild involvement of the gangliocapsular regions noted. Amyloid an giopathy would be the most likely etiology. Multiple cavernous malformations or even hypertensive sena rohemorrhages could be considered as well. Multiple, small, branch PICA infarcts suggested bilaterally. None of these are acute on diffusion galo ging. Otherwise No acute hemorrhage, mass effect, midline shift, hydrocephalus, or acute, large territorial infarct. No chronic infarct or atrophy. There are moderate, somewhat confluent areas of increased signal intensity on FLAIR imaging in the wh ite matter of the cerebral hemispheres, as well as the gangliocapsular regions. These are nonspecific findings and may be related to microangiopathy (hypertension, diabetes, atherosclerosis), given the patient's age. CRANIOCERVICAL JUNCTION: No significant abnormality. VASCULAR FLOW-VOIDS: No significant abnormality. ORBITS: No significant abnormality of visualized orbits. SINUSES / MASTOIDS: Moderate opacification of the ethmoids seen today. Mucous tension cyst seen in th e left maxillary antrum. ADDITIONAL FINDINGS: None. IMPRESSION: 1. A few punctate foci of ischemia suggested. Embolic phenomenon should be considered. 2. Findings would suggest amyloid angiopathy, as described above. Signer Name: Obey Wright MD, III Signed: 01/31/2021 11:07 AM Workstation Name: [id number]
--- NOTE | 2021-01-31 11:13 | Nuclear Medicine Report ---
NUCLEAR MEDICINE PERFUSION LUNG SCAN INDICATION / CLINICAL INFORMATION: Elevated D-dimers/rule out PE/Covid patient. TECHNIQUE: 5.0 mCi of Tc-99m MAA were given by IV. COMPARISON: Chest radiograph dated 01/31/2021. FINDINGS: PERFUSION: No significant perfusion defects. ADDITIONAL FINDINGS: None. IMPRESSION: 1. Low probability for pulmonary embolism. Signer Name: Franklin Medina MD Signed: 01/31/2021 11:09 AM Workstation Name: [id number]
[2021-02-01 08:59] LABS: Basophils # (Auto) 0.1 K/mm3 (0.0-0.1); Basophils % (Auto) 0.6 % (0.0-1.8); Eosinophils # (Auto) 0.1 K/mm3 (0.0-0.4); Eosinophils % (Auto) 0.9 % (0.0-4.3); Hematocrit 25.1 % (30.3-42.9); Hemoglobin 8.1 gm/dl (10.1-14.3); Lymphocytes # (Auto) 1.2 K/mm3 (1.2-5.4); Lymphocytes % (Auto) 12.4 % (13.4-35.0); Mean Corpuscular HGB Conc 32 % (30-34); Mean Corpuscular Volume 74 fl (79-97); Monocytes # (Auto) 1.1 K/mm3 (0.0-0.8); Platelet Count 258 K/mm3 (140-440); Red Cell Distribution Width 14.2 % (13.2-15.2)
[2021-02-01 09:21] LABS: Calcium 7.2 mg/dL (8.4-10.2)
[2021-02-01] MEDS ORDERED: SODIUM CHLORIDE 0.9% 100 ML IV PRN (10:23)
--- NOTE | 2021-02-01 10:38 | Progress Note ---
Assessment and Plan - Patient Problems (1) End-stage renal disease needing dialysis Current Visit: Yes Status: Acute Plan to address problem: Chronic kidney disease presumably secondary to hypertensive nephrosclerosis. Unclear if patient has progressed to stage V or if this is acute on chronic kidney disease Covid associated nephropathy. Get urine studies. Get renal ultrasound. Dialysis started on January 28 for hyperkalemia, metabolic acidosis and uremic encephalopathy. Tolerated treatment with no complications. Continue dialysis and follow-up work-up. Arrange outpatient dialysis at [facility] though will temporarily have to go to a COVID-19 clinic. (2) Hypertensive chronic kidney disease with stage 5 chronic kidney disease or end stage renal disease Current Visit: Yes Status: Acute Plan to address problem: Follow-up blood pressure (3) Hyperkalemia Current Visit: Yes Status: Acute Plan to address problem: Improved with dialysis. Follow-up potassium (4) Hypocalcemia Current Visit: Yes Status: Acute Plan to address problem: Supplement calcium. Dialyze on a high calcium bath. Started on calcitriol since PTH is extremely high (5) Uremia Current Visit: Yes Status: Acute Plan to address problem: Hemodialysis for solute clearance (6) Metabolic acidosis Current Visit: Yes Status: Acute Plan to address problem: Uremic acidosis. Improved with dialysis. Continue hemodialysis (7) Pneumonia due to COVID-19 virus Current Visit: Yes Status: Acute Plan to address problem: IV/ Dexamethasone Supplemental oxygen/Respiratory support as needed Proning as tolerated Remdesevir Prophylactic anticoagulation Trend inflammatory markers to assess disease progression and prognosis. Management by infectious disease (8) Secondary hyperparathyroidism (of renal origin) Current Visit: Yes Status: Acute Plan to address problem: PTH 1617. Started on calcitriol and follow-up PTH at the outpatient dialysis clinic (9) Anemia Current Visit: Yes Status: Chronic Qualifiers: Anemia type: due to chronic kidney disease Chronic kidney disease stage: stage 5, not on chronic dialysis Qualified Code(s): N18.5 - Chronic kidney disease, stage 5; D63.1 - Anemia in chronic kidney disease Plan to address problem: Check iron stores. Give erythropoietin on dialysis. pRBC Transfusion per Primary attending Subjective Date of service: 02/01/21 Principal diagnosis: End-stage renal disease Interval history: Patient awake, alert, in no acute distress Objective - Vital Signs Vital signs: Vital Signs - 12hr 02/01/21 05:08 Temperature 97.4 F L Pulse Rate 101 H Respiratory 20 Rate Blood Pressure 168/100 O2 Sat by Pulse 97 Oximetry - General Appearance General appearance: well-developed, well-nourished, appears stated age EENT: ATNC, PERRL, mucous membranes moist Neck: no JVD Respiratory: Present: Clear to Ascultation Cardiology: regular, S1S2 Gastrointestinal: normoactive bowel sounds Integumentary: no rash, other (no edema ) Neurologic: no focal deficit, alert and oriented x3, strength 5/5, CN 3-12 intact Psychiatric: mood/affect appropriate, cooperative - Lab 02/01/21 08:47 02/01/21 08:47 Most recent lab results Calcium 7.2 mg/dL (8.4-10.2) L D 02/01/21 08:47 Magnesium 2.10 mg/dL (1.7-2.3) 01/27/21 17:23 Medications & Allergies - Medications Allergies/Adverse Reactions: Allergies No Known Allergies Allergy (Verified 01/27/21 18:08) Home Medications: Home Medications Medication Instructions Recorded Confirmed Last Taken Type Furosemide [Lasix] 40 mg PO QDAY 01/29/21 01/29/21 Unknown History Meloxicam [Mobic] 15 mg PO QDAY 01/29/21 01/29/21 Unknown History Active Medications: Generic Name Dose Route Start Last Admin Trade Name Freq PRN Reason Stop Dose Admin Acetaminophen 650 mg 01/27/21 21:27 Acetaminophen 325 Mg Tab PO Q4H PRN Pain MILD(1-3)/Fever >100.5/MALCOLM Calcitriol 0.5 mcg 01/29/21 12:00 01/31/21 10:00 Calcitriol 0.5 Mcg Cap PO 0.5 mcg QDAY MONIAC Administration Calcium Carbonate/Glycine 500 mg 01/30/21 10:30 01/31/21 21:37 Calcium Carbonate 500 Mg Tab Chew PO 500 mg BID MONICA Administration Dextrose 50 ml 01/27/21 18:41 Dextrose 50% In Water (25gm) 50 Ml Syringe IV Q30MIN PRN Hypoglycemia Protocol Famotidine 10 mg 01/29/21 10:00 01/31/21 21:37 Famotidine 10 Mg Tab PO 10 mg BID MONICA Administration Furosemide 40 mg 01/30/21 22:00 01/31/21 10:00 Furosemide 40 Mg Tab PO 40 mg QDAY MONICA Administration Heparin Sodium (Porcine) 5,000 unit 01/27/21 22:00 01/31/21 21:37 Heparin 5,000 Unit/1 Ml Vial SUB-Q 5,000 unit Q12HR MONICA Administration Heparin Sodium (Porcine) 5,000 unit 01/28/21 11:06 Heparin 10,000 Unit/1 Ml Vial IV HANNAH PRN hemodialysis Hydralazine HCl 5 mg 01/30/21 21:35 01/31/21 16:10 Hydralazine 20 Mg/1 Ml Inj IV 5 mg Q4H PRN Administration Hypertension Sodium Chloride 100 mls @ 999 mls/hr 01/28/21 11:06 Nacl 0.9% IV HANNAH PRN Hypotension Sodium Chloride 100 mls @ 999 mls/hr 02/01/21 10:23 Nacl 0.9% IV HANNAH PRN Hypotension Metoclopramide HCl 2.5 mg 01/29/21 08:00 Metoclopramide 10 Mg/2 Ml Inj IV Q6H PRN Nausea And Vomiting Ondansetron HCl 4 mg 01/27/21 21:27 01/31/21 09:02 Ondansetron 4 Mg/2 Ml Inj IV 4 mg Q8H PRN Administration Nausea And Vomiting Oxycodone/Acetaminophen 1 tab 01/27/21 21:29 Oxycodone /Acetaminophen 5-325mg Tab PO Q6H PRN Pain, Moderate (4-6) Sodium Chloride 10 ml 01/27/21 22:00 01/31/21 22:07 Sodium Chloride 0.9% 10 Ml Flush Syringe IV 10 ml BID MONICA Administration Sodium Chloride 10 ml 01/27/21 21:27 01/30/21 22:40 Sodium Chloride 0.9% 10 Ml Flush Syringe IV 10 ml PRN PRN Administration LINE FLUSH
[2021-02-01] MEDS: FUROSEMIDE 40 MG TAB PO SCH (10:52)
[2021-02-01] MEDS: CALCIUM CARBONATE 500 MG TAB CHEW PO SCH ×2 (10:52→22:01)
[2021-02-01] MEDS: FAMOTIDINE 10 MG TAB PO SCH ×2 (10:52→22:01)
[2021-02-01] MEDS: CALCITRIOL 0.5 MCG CAP PO SCH (10:52)
[2021-02-01] MEDS: HEPARIN 5,000 UNIT/1 ML VIAL SUB-Q SCH ×2 (11:29→22:01)
--- NOTE | 2021-02-01 11:43 | Progress Note ---
Assessment and Plan - Patient Problems (1) Uremic encephalopathy Current Visit: Yes Status: Acute Plan to address problem: Altered sensorium secondary to high creatinine and uremia Also severe metabolic acidosis secondary to uremia Improving (2) End-stage renal disease needing dialysis Current Visit: Yes Status: Acute Plan to address problem: Newly diagnosed end-stage renal disease There may be some acute component Renal ultrasound IV fluids for 12 hours and then stop Patient may need a Vas-Cath and hemodialysis Patient has a Vas-Cath Undergoing hemodialysis (3) Azotemia Current Visit: Yes Status: Acute Plan to address problem: Azotemia improving secondary to hemodialysis (4) Hyperkalemia Current Visit: Yes Status: Acute Plan to address problem: Hyperkalemia corrected (5) Metabolic acidosis Current Visit: Yes Status: Acute Plan to address problem: Hemodialysis for now (6) Suspected 2019 novel coronavirus infection Current Visit: Yes Status: Acute Plan to address problem: Patient was coronavirus positive last week on 01/20/2021 Patient has no shortness of breath Comfortable on room air Coronavirus PCR positive Patient is on room air (7) Hypertension Current Visit: Yes Status: Acute Qualifiers: Hypertension type: primary hypertension Qualified Code(s): I10 - Essential (primary) hypertension Plan to address problem: Newly diagnosed hypertension Patient started on hydralazine 50 mg every 8 hours Add other antihypertensives as necessary (8) Hyperkalemia Current Visit: Yes Status: Acute Plan to address problem: Treated in the emergency room with Kayexalate and calcium gluconate and sodium bicarbonate (9) Anemia Current Visit: Yes Status: Chronic Qualifiers: Anemia type: due to chronic kidney disease Chronic kidney disease stage: stage 5, not on chronic dialysis Qualified Code(s): N18.5 - Chronic kidney disease, stage 5; D63.1 - Anemia in chronic kidney disease Plan to address problem: Anemia secondary to chronic kidney disease and end-stage renal disease (10) DVT prophylaxis Current Visit: Yes Status: Acute Plan to address problem: On heparin and GI prophylaxis Subjective Date of service: 02/01/21 Principal diagnosis: End-stage renal disease Interval history: 55-year-old female with past medical history significant for hypertension and chronic kidney disease comes in for altered sensorium. Patient was diagnosed with Covid 1 week ago on January 20, 2021. Patient brought by EMS for erratic and unusual behavior. No family at this point. Patient talks appropriately but that does not make sense. She states that she has chronic kidney disease but does not know who her kidney physician needs and when she was diagnosed with chronic kidney disease. Patient is alert but confused. Patient says that it is year 2008 and the current president is Santosh Barnes. No exacerbating or relieving factors. Patient did well after the Covid infection. No nausea vomiting diarrhea or altered sense of smel or taste. No fever or chills. No muscle aches. In the ER patient was found to have a high creatinine of around 16 and BUN more than 100 01/30/2021; follow ID evaluation recommendations Elevated D-dimers,, lower extremity Doppler to rule out PE and DVT 01/31/2021; patient received 1 unit PRBC for anemia, monitor H&H Also schedule for VQ scan and lower extremity venous Doppler to rule out PE and DVT As patient is Covid positive and very high D-dimers Abnormal CT scan on admission for encephalopathy Requested MRI brain without contrast Disposition; follow MRI, follow VQ scan 02/01/2021 Patient on room air Doing well Patient is receiving hemodialysis Symptomatically a lot better Objective - Constitutional Vitals: Vital Signs - 12hr 02/01/21 05:08 Temperature 97.4 F L Pulse Rate 101 H Respiratory 20 Rate Blood Pressure 168/100 O2 Sat by Pulse 97 Oximetry General appearance: Present: no acute distress, well-nourished - EENT Eyes: PERRL, EOM intact ENT: hearing intact, clear oral mucosa Ears: bilateral: normal - Neck Neck: supple, normal ROM - Respiratory Respiratory effort: normal Respiratory: bilateral: CTA - Breasts Breasts: normal - Cardiovascular Heart rate: 78 Rhythm: regular Heart Sounds: Present: S1 & S2. Absent: gallop, rub Extremities: pulses intact, No edema, normal color, Full ROM - Gastrointestinal General gastrointestinal: Present: soft, non-tender, non-distended, normal bowel sounds - Genitourinary Female genitourinary: normal - Integumentary Integumentary: clear, warm, dry - Musculoskeletal Musculoskeletal: 1, strength equal bilaterally - Neurologic Neurologic: moves all extremities - Psychiatric Psychiatric: memory intact, appropriate mood/affect, intact judgment & insight - Labs CBC & Chem 7: 02/02/21 07:00 02/02/21 07:00 Labs: Abnormal lab results 02/01/21 02/01/21 Range/Units 08:47 08:47 RBC 3.40 L (3.65-5.03) M/mm3 Hgb 8.1 L (10.1-14.3) gm/dl Hct 25.1 L (30.3-42.9) % MCV 74 L (79-97) fl MCH 24 L (28-32) pg Lymph % (Auto) 12.4 L (13.4-35.0) % [place] % (Auto) 11.0 H (0.0-7.3) % [place] # (Auto) 1.1 H (0.0-0.8) K/mm3 Seg Neutrophils % 75.1 H (40.0-70.0) % Sodium 136 L (137-145) mmol/L Chloride 94.3 L (98-107) mmol/L BUN 25 H (7-17) mg/dL Creatinine 5.4 H (0.6-1.2) mg/dL Calcium 7.2 L D (8.4-10.2) mg/dL HEART Score - HEART Score Troponin: Troponin T 0.143 ng/mL (0.00-0.029) H* 01/27/21 17:23
--- NOTE | 2021-02-01 12:36 | Progress Note ---
Assessment and Plan Cultures: SARS-CoV-2 PCR positive. Blood culture 01/27/2021 no growth today. Assessment: 55-year-old female with history of hypertension and chronic kidney disease admitted on 01/27/2021 secondary to altered mental status, erratic behavior, incoherent speech for unclear period of this time: #COVID-19 infection: Of unclear duration. Patient was exposed to COVID-19 during a family reunion in [facility] on 01/08/2021. Patient can not elaborate about symptoms, she reports that she tested positive for COVID-19 before. Inflammatory markers CRP 6.7. Ferritin 404. D-dimer 826--> 3764. Should evaluate for PE. Patient is not hypoxic. Currently on room air. Noted elevated procalcitonin 1.57 likely due to renal failure. Patient without fever. #Acute on chronic renal failure: Initial creatinine 15.9, potassium 5.5. Patient started on hemodialysis. 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 Recommendations: -Obtain 6 minutes oximetry walking test -No indication for remdesivir or dexamethasone, patient is not hypoxic, also unclear duration of symptoms. -Evaluation for pulmonary embolism, elevated D-dimer -Neurology consult for CVA -Renal on board for IARSEMA on CKD requiring dialysis, PermCath was placed will sign off Amina Moya MD Infectious Diseases Set Up Technician [facility] M [phone] O [phone] Subjective Date of service: 02/01/21 Principal diagnosis: End-stage renal disease Interval history: Feels better. No complaints. Patient on room air. Objective - Exam Narrative Exam: General appearance: Alert in NAD pleasant Eyes: anicteric sclerae, moist conjunctivae; no lid-lag; PERRLA HENT: Normocephalic, Atraumatic; normal external ears, nares open, oropharynx clear Neck: supple, tracheal midline, no JVD Lungs: CTA, with normal respiratory effort and no intercostal retractions CV: RRR no murmur Abdomen: Soft, non-tender; no masses or hepatosplenomegaly Extremities: no edema, no cyanosis Skin: No rash. Psych: no agitated Neuro: alert and confused. - Constitutional Vitals: Vital Signs Temp Pulse Resp BP Pulse Ox 97.4 F L 101 H 20 168/100 97 07/24/21 05:08 02/01/21 05:08 02/01/21 05:08 02/01/21 05:08 02/01/21 05:08 Temperature -Last 24 Hours Temperature 97.4 F Temperature 98.8 F Temperature 98.6 F Temperature 98.0 F - Labs CBC & Chem 7: 02/01/21 08:47 02/01/21 08:47 Labs: Abnormal lab results 02/01/21 02/01/21 Range/Units 08:47 08:47 RBC 3.40 L (3.65-5.03) M/mm3 Hgb 8.1 L (10.1-14.3) gm/dl Hct 25.1 L (30.3-42.9) % MCV 74 L (79-97) fl MCH 24 L (28-32) pg Lymph % (Auto) 12.4 L (13.4-35.0) % [place] % (Auto) 11.0 H (0.0-7.3) % [place] # (Auto) 1.1 H (0.0-0.8) K/mm3 Seg Neutrophils % 75.1 H (40.0-70.0) % Sodium 136 L (137-145) mmol/L Chloride 94.3 L (98-107) mmol/L BUN 25 H (7-17) mg/dL Creatinine 5.4 H (0.6-1.2) mg/dL Calcium 7.2 L D (8.4-10.2) mg/dL
[2021-02-02 07:39] LABS: Basophils # (Auto) 0.1 K/mm3 (0.0-0.1); Basophils % (Auto) 0.7 % (0.0-1.8); Eosinophils # (Auto) 0.1 K/mm3 (0.0-0.4); Eosinophils % (Auto) 1.4 % (0.0-4.3); Hematocrit 25.7 % (30.3-42.9); Hemoglobin 8.2 gm/dl (10.1-14.3); Lymphocytes # (Auto) 1.5 K/mm3 (1.2-5.4); Mean Corpuscular HGB Conc 32 % (30-34); Mean Corpuscular Volume 76 fl (79-97); Monocytes % (Auto) 11.2 % (0.0-7.3); Platelet Count 244 K/mm3 (140-440); Red Blood Count 3.38 M/mm3 (3.65-5.03); Red Cell Distribution Width 14.3 % (13.2-15.2)
[2021-02-02 08:01] LABS: Albumin 2.9 g/dL (3.9-5); Calcium 7.4 mg/dL (8.4-10.2)
--- NOTE | 2021-02-02 08:13 | Progress Note ---
Assessment and Plan - Patient Problems (1) End-stage renal disease needing dialysis Current Visit: Yes Status: Acute Plan to address problem: Chronic kidney disease presumably secondary to hypertensive nephrosclerosis. Unclear if patient has progressed to stage V or if this is acute on chronic kidney disease Covid associated nephropathy. Get urine studies. Get renal ultrasound. Dialysis started on January 28 for hyperkalemia, metabolic acidosis and uremic encephalopathy. Tolerated treatment with no complications. Continue dialysis and follow-up work-up. Arrange outpatient dialysis at [facility] though will temporarily have to go to a COVID-19 clinic. (2) Hypertensive chronic kidney disease with stage 5 chronic kidney disease or end stage renal disease Current Visit: Yes Status: Acute Plan to address problem: Follow-up blood pressure (3) Hyperkalemia Current Visit: Yes Status: Acute Plan to address problem: Improved with dialysis. Follow-up potassium (4) Hypocalcemia Current Visit: Yes Status: Acute Plan to address problem: Supplement calcium. Dialyze on a high calcium bath. Started on calcitriol since PTH is extremely high (5) Uremia Current Visit: Yes Status: Acute Plan to address problem: Hemodialysis for solute clearance (6) Metabolic acidosis Current Visit: Yes Status: Acute Plan to address problem: Uremic acidosis. Improved with dialysis. Continue hemodialysis (7) Pneumonia due to COVID-19 virus Current Visit: Yes Status: Acute Plan to address problem: IV/ Dexamethasone Supplemental oxygen/Respiratory support as needed Proning as tolerated Remdesevir Prophylactic anticoagulation Trend inflammatory markers to assess disease progression and prognosis. Management by infectious disease (8) Secondary hyperparathyroidism (of renal origin) Current Visit: Yes Status: Acute Plan to address problem: PTH 1617. Started on calcitriol and follow-up PTH at the outpatient dialysis clinic (9) Anemia Current Visit: Yes Status: Chronic Qualifiers: Anemia type: due to chronic kidney disease Chronic kidney disease stage: stage 5, not on chronic dialysis Qualified Code(s): N18.5 - Chronic kidney disease, stage 5; D63.1 - Anemia in chronic kidney disease Plan to address problem: Check iron stores. Give erythropoietin on dialysis. pRBC Transfusion per Primary attending Subjective Date of service: 02/02/21 Principal diagnosis: End-stage renal disease Interval history: Patient awake, alert, in no acute distress Objective - Vital Signs Vital signs: Vital Signs - 12hr 02/01/21 02/02/21 20:22 03:16 Temperature 98.9 F 98.1 F Pulse Rate 99 H 90 Respiratory 16 16 Rate Blood Pressure 139/93 143/95 O2 Sat by Pulse 96 95 Oximetry - General Appearance General appearance: well-developed, well-nourished, appears stated age EENT: ATNC, PERRL, mucous membranes moist Neck: no JVD Respiratory: Present: Clear to Ascultation Cardiology: regular, S1S2 Gastrointestinal: normoactive bowel sounds Integumentary: no rash, other (no edema ) Neurologic: no focal deficit, alert and oriented x3, strength 5/5, CN 3-12 intact - Lab 02/02/21 07:00 02/02/21 07:00 Most recent lab results Calcium 7.4 mg/dL (8.4-10.2) L 02/02/21 07:00 Magnesium 2.10 mg/dL (1.7-2.3) 01/27/21 17:23 Medications & Allergies - Medications Allergies/Adverse Reactions: Allergies No Known Allergies Allergy (Verified 01/27/21 18:08) Home Medications: Home Medications Medication Instructions Recorded Confirmed Last Taken Type Furosemide [Lasix] 40 mg PO QDAY 01/29/21 01/29/21 Unknown History Meloxicam [Mobic] 15 mg PO QDAY 01/29/21 01/29/21 Unknown History Active Medications: Generic Name Dose Route Start Last Admin Trade Name Freq PRN Reason Stop Dose Admin Acetaminophen 650 mg 01/27/21 21:27 Acetaminophen 325 Mg Tab PO Q4H PRN Pain MILD(1-3)/Fever >100.5/MALCOLM Calcitriol 0.5 mcg 01/29/21 12:00 02/01/21 10:52 Calcitriol 0.5 Mcg Cap PO 0.5 mcg QDAY MONICA Administration Calcium Carbonate/Glycine 500 mg 01/30/21 10:30 02/01/21 22:01 Calcium Carbonate 500 Mg Tab Chew PO 500 mg BID MONICA Administration Dextrose 50 ml 01/27/21 18:41 Dextrose 50% In Water (25gm) 50 Ml Syringe IV Q30MIN PRN Hypoglycemia Protocol Famotidine 10 mg 01/29/21 10:00 02/01/21 22:01 Famotidine 10 Mg Tab PO 10 mg BID MONICA Administration Furosemide 40 mg 01/30/21 22:00 02/01/21 10:52 Furosemide 40 Mg Tab PO 40 mg QDAY MONICA Administration Heparin Sodium (Porcine) 5,000 unit 01/27/21 22:00 02/01/21 22:01 Heparin 5,000 Unit/1 Ml Vial SUB-Q 5,000 unit Q12HR MONICA Administration Heparin Sodium (Porcine) 5,000 unit 01/28/21 11:06 Heparin 10,000 Unit/1 Ml Vial IV HANNAH PRN hemodialysis Hydralazine HCl 5 mg 01/30/21 21:35 01/31/21 16:10 Hydralazine 20 Mg/1 Ml Inj IV 5 mg Q4H PRN Administration Hypertension Sodium Chloride 100 mls @ 999 mls/hr 01/28/21 11:06 Nacl 0.9% IV HANNAH PRN Hypotension Sodium Chloride 100 mls @ 999 mls/hr 02/01/21 10:23 Nacl 0.9% IV HANNAH PRN Hypotension Metoclopramide HCl 2.5 mg 01/29/21 08:00 Metoclopramide 10 Mg/2 Ml Inj IV Q6H PRN Nausea And Vomiting Ondansetron HCl 4 mg 01/27/21 21:27 01/31/21 09:02 Ondansetron 4 Mg/2 Ml Inj IV 4 mg Q8H PRN Administration Nausea And Vomiting Oxycodone/Acetaminophen 1 tab 01/27/21 21:29 Oxycodone /Acetaminophen 5-325mg Tab PO Q6H PRN Pain, Moderate (4-6) Sodium Chloride 10 ml 01/27/21 22:00 02/01/21 22:01 Sodium Chloride 0.9% 10 Ml Flush Syringe IV 10 ml BID MONICA Administration Sodium Chloride 10 ml 01/27/21 21:27 01/30/21 22:40 Sodium Chloride 0.9% 10 Ml Flush Syringe IV 10 ml PRN PRN Administration LINE FLUSH
[2021-02-02] MEDS: FAMOTIDINE 10 MG TAB PO SCH ×2 (11:11→22:54)
[2021-02-02] MEDS: HEPARIN 5,000 UNIT/1 ML VIAL SUB-Q SCH ×2 (11:11→22:54)
[2021-02-02] MEDS: CALCIUM CARBONATE 500 MG TAB CHEW PO SCH ×2 (11:11→22:54)
[2021-02-02] MEDS: CALCITRIOL 0.5 MCG CAP PO SCH (11:11)
[2021-02-02] MEDS: FUROSEMIDE 40 MG TAB PO SCH (11:12)
--- NOTE | 2021-02-02 13:45 | Progress Note ---
Assessment and Plan - Patient Problems (1) Uremic encephalopathy Current Visit: Yes Status: Acute Plan to address problem: Altered sensorium secondary to high creatinine and uremia Also severe metabolic acidosis secondary to uremia (2) End-stage renal disease needing dialysis Current Visit: Yes Status: Acute Plan to address problem: Newly diagnosed end-stage renal disease There may be some acute component Renal ultrasound IV fluids for 12 hours and then stop Patient may need a Vas-Cath and hemodialysis Dr. Scott MILLER consulted (3) Azotemia Current Visit: Yes Status: Acute Plan to address problem: Patient will need hemodialysis for visualization of encephalopathy (4) Hyperkalemia Current Visit: Yes Status: Acute Plan to address problem: Hyperkalemia corrected (5) Metabolic acidosis Current Visit: Yes Status: Acute Plan to address problem: Hemodialysis for now (6) Suspected 2019 novel coronavirus infection Current Visit: Yes Status: Acute Plan to address problem: Patient was coronavirus positive last week on 01/20/2021 Patient has no shortness of breath Comfortable on room air We will get coronavirus PCR Consult ID if necessary (7) Hypertension Current Visit: Yes Status: Acute Qualifiers: Hypertension type: primary hypertension Qualified Code(s): I10 - Essential (primary) hypertension Plan to address problem: Newly diagnosed hypertension Patient started on hydralazine 50 mg every 8 hours Add other antihypertensives as necessary (8) Anemia Current Visit: Yes Status: Chronic Qualifiers: Anemia type: due to chronic kidney disease Chronic kidney disease stage: stage 5, not on chronic dialysis Qualified Code(s): N18.5 - Chronic kidney disease, stage 5; D63.1 - Anemia in chronic kidney disease Plan to address problem: Anemia secondary to chronic kidney disease and end-stage renal disease (9) DVT prophylaxis Current Visit: Yes Status: Acute Plan to address problem: On heparin and GI prophylaxis Subjective Date of service: 02/02/21 Principal diagnosis: End-stage renal disease Interval history: 55-year-old female with past medical history significant for hypertension and chronic kidney disease comes in for altered sensorium. Patient was diagnosed with Covid 1 week ago on January 20, 2021. Patient brought by EMS for erratic and unusual behavior. No family at this point. Patient talks appropriately but that does not make sense. She states that she has chronic kidney disease but does not know who her kidney physician needs and when she was diagnosed with chronic kidney disease. Patient is alert but confused. Patient says that it is year 2008 and the current president is Santosh Barnes. No exacerbating or relieving factors. Patient did well after the Covid infection. No nausea vomiting diarrhea or altered sense of smel or taste. No fever or chills. No muscle aches. In the ER patient was found to have a high creatinine of around 16 and BUN more than 100 01/30/2021; follow ID evaluation recommendations Elevated D-dimers,, lower extremity Doppler to rule out PE and DVT 01/31/2021; patient received 1 unit PRBC for anemia, monitor H&H Also schedule for VQ scan and lower extremity venous Doppler to rule out PE and DVT As patient is Covid positive and very high D-dimers Abnormal CT scan on admission for encephalopathy Requested MRI brain without contrast Disposition; follow MRI, follow VQ scan 02/01/2021 Patient on room air Doing well Patient is receiving hemodialysis Symptomatically a lot better 02/02/2021 Patient on room air Patient waiting for hemodialysis placement Patient doing well otherwise Confusion has resolved Objective - Constitutional Vitals: Vital Signs - 12hr 02/02/21 02/02/21 03:16 10:00 Temperature 98.1 F Pulse Rate 90 Respiratory 16 24 Rate Blood Pressure 143/95 O2 Sat by Pulse 95 95 Oximetry General appearance: Present: no acute distress, well-nourished - EENT Eyes: PERRL, EOM intact ENT: hearing intact, clear oral mucosa Ears: bilateral: normal - Neck Neck: supple, normal ROM - Respiratory Respiratory effort: normal Respiratory: bilateral: CTA - Breasts Breasts: normal - Cardiovascular Heart rate: 78 Rhythm: regular Heart Sounds: Present: S1 & S2. Absent: gallop, rub Extremities: pulses intact, No edema, normal color, Full ROM - Gastrointestinal General gastrointestinal: Present: soft, non-tender, non-distended, normal bowel sounds - Genitourinary Female genitourinary: normal - Integumentary Integumentary: clear, warm, dry - Musculoskeletal Musculoskeletal: 1, strength equal bilaterally - Neurologic Neurologic: moves all extremities - Psychiatric Psychiatric: memory intact, appropriate mood/affect, intact judgment & insight - Labs CBC & Chem 7: 02/02/21 07:00 02/02/21 07:00 Labs: Abnormal lab results 01/28/21 02/02/21 02/02/21 Range/Units 05:38 07:00 07:00 RBC 3.38 L (3.65-5.03) M/mm3 Hgb 8.2 L (10.1-14.3) gm/dl Hct 25.7 L (30.3-42.9) % MCV 76 L (79-97) fl MCH 24 L (28-32) pg [place] % (Auto) 11.2 H (0.0-7.3) % [place] # (Auto) 1.0 H (0.0-0.8) K/mm3 Seg Neutrophils % 70.7 H (40.0-70.0) % Chloride 97.5 L (98-107) mmol/L BUN 43 H (7-17) mg/dL Creatinine 7.1 H (0.6-1.2) mg/dL Calcium 7.4 L (8.4-10.2) mg/dL Albumin 2.9 L (3.9-5) g/dL RBC Folic Acid 197 L (>280) ng/mL HEART Score - HEART Score Troponin: Troponin T 0.143 ng/mL (0.00-0.029) H* 01/27/21 17:23
--- NOTE | 2021-02-03 10:34 | Progress Note ---
Assessment and Plan - Patient Problems (1) End-stage renal disease needing dialysis Current Visit: Yes Status: Acute Plan to address problem: Chronic kidney disease presumably secondary to hypertensive nephrosclerosis. Unclear if patient has progressed to stage V or if this is acute on chronic kidney disease Covid associated nephropathy. Dialysis started on January 28 for hyperkalemia, metabolic acidosis and uremic encephalopathy. Tolerating treatment with no complications. Continue dialysis on [facility] schedule and follow-up work-up. Arrange outpatient dialysis at [facility] though will temporarily have to go to a COVID-19 clinic. (2) Hypertensive chronic kidney disease with stage 5 chronic kidney disease or end stage renal disease Current Visit: Yes Status: Acute Plan to address problem: Follow-up blood pressure (3) Hyperkalemia Current Visit: Yes Status: Acute Plan to address problem: Improved with dialysis. Follow-up potassium (4) Hypocalcemia Current Visit: Yes Status: Acute Plan to address problem: Supplement calcium. Dialyze on a high calcium bath. Started on calcitriol since PTH is extremely high (5) Uremia Current Visit: Yes Status: Acute Plan to address problem: Hemodialysis for solute clearance (6) Metabolic acidosis Current Visit: Yes Status: Acute Plan to address problem: Uremic acidosis. Improved with dialysis. Continue hemodialysis (7) Pneumonia due to COVID-19 virus Current Visit: Yes Status: Acute Plan to address problem: IV/ Dexamethasone Supplemental oxygen/Respiratory support as needed Proning as tolerated Remdesevir Prophylactic anticoagulation Trend inflammatory markers to assess disease progression and prognosis. Management by infectious disease (8) Secondary hyperparathyroidism (of renal origin) Current Visit: Yes Status: Acute Plan to address problem: PTH 1617. Started on calcitriol and follow-up PTH at the outpatient dialysis clinic (9) Anemia Current Visit: Yes Status: Chronic Qualifiers: Anemia type: due to chronic kidney disease Chronic kidney disease stage: stage 5, not on chronic dialysis Qualified Code(s): N18.5 - Chronic kidney disease, stage 5; D63.1 - Anemia in chronic kidney disease Plan to address problem: Check iron stores. Give erythropoietin on dialysis. pRBC Transfusion prn to target Hb > 7 Subjective Date of service: 02/03/21 Principal diagnosis: End-stage renal disease Interval history: Patient awake, alert, in no acute distress Objective - Vital Signs Vital signs: Vital Signs - 12hr 02/02/21 02/02/21 22:32 22:39 Temperature 98.4 F Pulse Rate 88 Respiratory 17 Rate Blood Pressure 129/89 O2 Sat by Pulse 93 Oximetry - General Appearance General appearance: well-developed, well-nourished, appears stated age EENT: ATNC, PERRL, mucous membranes moist Neck: no JVD Respiratory: Present: Clear to Ascultation Cardiology: regular, S1S2 Gastrointestinal: normoactive bowel sounds Integumentary: no rash, other (no edema ) Neurologic: no focal deficit, alert and oriented x3, strength 5/5, CN 3-12 intact Psychiatric: mood/affect appropriate, cooperative - Lab 02/02/21 07:00 02/02/21 07:00 Most recent lab results Calcium 7.4 mg/dL (8.4-10.2) L 02/02/21 07:00 Magnesium 2.10 mg/dL (1.7-2.3) 01/27/21 17:23 Medications & Allergies - Medications Allergies/Adverse Reactions: Allergies No Known Allergies Allergy (Verified 01/27/21 18:08) Home Medications: Home Medications Medication Instructions Recorded Confirmed Last Taken Type Furosemide [Lasix] 40 mg PO QDAY 01/29/21 01/29/21 Unknown History Meloxicam [Mobic] 15 mg PO QDAY 01/29/21 01/29/21 Unknown History Active Medications: Generic Name Dose Route Start Last Admin Trade Name Freq PRN Reason Stop Dose Admin Acetaminophen 650 mg 01/27/21 21:27 Acetaminophen 325 Mg Tab PO Q4H PRN Pain MILD(1-3)/Fever >100.5/MALCOLM Calcitriol 0.5 mcg 01/29/21 12:00 02/02/21 11:11 Calcitriol 0.5 Mcg Cap PO 0.5 mcg QDAY MONICA Administration Calcium Carbonate/Glycine 500 mg 01/30/21 10:30 02/02/21 22:54 Calcium Carbonate 500 Mg Tab Chew PO 500 mg BID MONICA Administration Dextrose 50 ml 01/27/21 18:41 Dextrose 50% In Water (25gm) 50 Ml Syringe IV Q30MIN PRN Hypoglycemia Protocol Famotidine 10 mg 01/29/21 10:00 02/02/21 22:54 Famotidine 10 Mg Tab PO 10 mg BID MONICA Administration Furosemide 40 mg 01/30/21 22:00 02/02/21 11:12 Furosemide 40 Mg Tab PO 40 mg QDAY MONICA Administration Heparin Sodium (Porcine) 5,000 unit 01/27/21 22:00 02/02/21 22:54 Heparin 5,000 Unit/1 Ml Vial SUB-Q 5,000 unit Q12HR MONICA Administration Heparin Sodium (Porcine) 5,000 unit 01/28/21 11:06 Heparin 10,000 Unit/1 Ml Vial IV HANNAH PRN hemodialysis Hydralazine HCl 5 mg 01/30/21 21:35 01/31/21 16:10 Hydralazine 20 Mg/1 Ml Inj IV 5 mg Q4H PRN Administration Hypertension Sodium Chloride 100 mls @ 999 mls/hr 01/28/21 11:06 Nacl 0.9% IV HANNAH PRN Hypotension Sodium Chloride 100 mls @ 999 mls/hr 02/01/21 10:23 Nacl 0.9% IV HANNAH PRN Hypotension Metoclopramide HCl 2.5 mg 01/29/21 08:00 Metoclopramide 10 Mg/2 Ml Inj IV Q6H PRN Nausea And Vomiting Ondansetron HCl 4 mg 01/27/21 21:27 01/31/21 09:02 Ondansetron 4 Mg/2 Ml Inj IV 4 mg Q8H PRN Administration Nausea And Vomiting Oxycodone/Acetaminophen 1 tab 01/27/21 21:29 Oxycodone /Acetaminophen 5-325mg Tab PO Q6H PRN Pain, Moderate (4-6) Sodium Chloride 10 ml 01/27/21 22:00 02/02/21 22:54 Sodium Chloride 0.9% 10 Ml Flush Syringe IV 10 ml BID MONICA Administration Sodium Chloride 10 ml 01/27/21 21:27 01/30/21 22:40 Sodium Chloride 0.9% 10 Ml Flush Syringe IV 10 ml PRN PRN Administration LINE FLUSH
[2021-02-03] MEDS ORDERED: EPOETIN ALFA-EPBX 10,000 UNIT/1 ML VIAL SUB-Q SCH (11:00)
[2021-02-03] MEDS ORDERED: CALCIUM GLUCONATE 2,000 MG in SODIUM CHLORIDE 0.9% 100 ML IV ONE (14:00)
[2021-02-03 14:56] VITALS: BP 105/69
--- NOTE | 2021-02-03 15:09 | Discharge Summary ---
Providers - Providers Date of Admission: 01/27/21 18:47 Date of discharge: 02/03/21 Attending physician: ELO PARK 01/27/21 18:29 Consult to Physician [CONS] Urgent Comment: Dr. Cheney spoke with Dr. Deshpande @ [id number] Consulting Provider: ADRIAN SMALLS Physician Instructions: Reason For Exam: oliver 01/27/21 21:29 Consult to Physician [CONS] Routine Comment: Consulting Provider: KHUSHI GAMA Physician Instructions: Reason For Exam: Uremic encephalopathy 01/28/21 11:08 Consult to Case Management [CONS] Routine Services Needed at Discharge: Other Notified:: CM Comment:: Arrange for outpatient dialysis at [facility] [place] 01/28/21 11:49 Physical Therapy Evaluation and Treat [CONS] Urgent Comment: Reason For Exam: To cary mobility status 01/28/21 11:50 Occupational Therapy Evaluate and Treat [CONS] Urgent Comment: Reason For Exam: To assess ability to perform ADL 01/30/21 11:32 Consult to Physician [CONS] Routine Comment: Consulting Provider: KIESHA FISH Physician Instructions: Reason For Exam: COVID-19 positive/dialysis/O2 sats good room air Primary care physician: BLOCKER METAL BASE Hospitalization Condition: Serious Hospital course: Subjective Date of service: 02/03/21 Principal diagnosis: End-stage renal disease Interval history: 55-year-old female with past medical history significant for hypertension and chronic kidney disease comes in for altered sensorium. Patient was diagnosed wi th Covid 1 week ago on January 20, 2021. Patient brought by EMS for erratic and unusual behavior. No family at this point. Patient talks appropriately but that does not make sense. She states that she has chronic kidney disease but does not know who her kidney physician needs and when she was diagnosed with chronic kidney disease. Patient is alert but confused. Patient says that it is year 2008 and the current president is Santosh Barnes. No exacerbating or relieving factors. Patient did well after the Covid infection. No nausea vomiting diarrhea or altered sense of smel or taste. No fever or chills. No muscle aches. In the ER patient was found to have a high creatinine of around 16 and BUN more than 100 01/30/2021; follow ID evaluation recommendations Elevated D-dimers,, lower extremity Doppler to rule out PE and DVT 01/31/2021; patient received 1 unit PRBC for anemia, monitor H&H Also schedule for VQ scan and lower extremity venous Doppler to rule out PE and DVT As patient is Covid positive and very high D-dimers Abnormal CT scan on admission for encephalopathy Requested MRI brain without contrast Disposition; follow MRI, follow VQ scan 02/01/2021 Patient on room air Doing well Patient is receiving hemodialysis Symptomatically a lot better 02/02/2021 Patient on room air Patient waiting for hemodialysis placement Patient doing well otherwise Confusion has resolved 02/03/2021 Patient will discharge today Patient to get outpatient hemodialysis on Wednesdays and Saturdays and through the emergency room Dr. Smalls will be the consulting enrollment management vice president Assessment and Plan - Patient Problems (1) Uremic encephalopathy Current Visit: Yes Status: Acute Plan to address problem: Encephalopathy improved after hemodialysis Encephalopathy secondary to uremia (2) End-stage renal disease needing dialysis Current Visit: Yes Status: Acute Plan to address problem: Patient needs hemodialysis at least twice a week (3) Azotemia Current Visit: Yes Status: Acute Plan to address problem: Azotemia is improved (4) Hyperkalemia Current Visit: Yes Status: Acute Plan to address problem: Hyperkalemia corrected (5) Metabolic acidosis Current Visit: Yes Status: Acute Plan to address problem: Metabolic acidosis improved (6) Suspected 2019 novel coronavirus infection Current Visit: Yes Status: Acute Plan to address problem: Patient on room air Patient had Covid for at least 10 to 12 days To quarantine for another 1 week for safety reasons (7) Hypertension Current Visit: Yes Status: Acute Qualifiers: Hypertension type: primary hypertension Qualified Code(s): I10 - Essential (primary) hypertension Plan to address problem: Continue antihypertensives (8) Anemia Current Visit: Yes Status: Chronic Qualifiers: Anemia type: due to chronic kidney disease Chronic kidney disease stage: stage 5, not on chronic dialysis Qualified Code(s): N18.5 - Chronic kidney disease, stage 5; D63.1 - Anemia in chronic kidney disease Plan to address problem: Anemia secondary to chronic kidney disease and end-stage renal disease (9) DVT prophylaxis Current Visit: Yes Status: Acute Plan to address problem: On heparin and GI prophylaxis Disposition: TO HOME OR SELFCARE Final Discharge Diagnosis (Prints w/discharge instructions): Uremic encephalopathy. End-stage renal disease needing hemodialysis. Azotemia. Metabolic acidosis. Covid positive. Anemia. Hypertension Time spent for discharge: 35 minutes - Discharge Diagnoses (1) Uremic encephalopathy Status: Acute (2) End-stage renal disease needing dialysis Status: Acute (3) Azotemia Status: Acute (4) Hyperkalemia Status: Acute (5) Metabolic acidosis Status: Acute (6) Suspected 2019 novel coronavirus infection Status: Acute (7) Hypertension Status: Acute Qualifiers: Hypertension type: primary hypertension Qualified Code(s): I10 - Essential (primary) hypertension (8) Hyperkalemia Status: Deleted (9) Anemia Status: Chronic Qualifiers: Anemia type: due to chronic kidney disease Chronic kidney disease stage: stage 5, not on chronic dialysis Qualified Code(s): N18.5 - Chronic kidney disease, stage 5; D63.1 - Anemia in chronic kidney disease (10) DVT prophylaxis Status: Acute Core Measure Documentation - Palliative Care Palliative Care/ Comfort Measures: Not Applicable - Core Measures Any of the following diagnoses?: none Exam - Constitutional Vitals: Temp Pulse Resp BP Pulse Ox 98.4 F 107 H 18 104/43 93 02/03/21 10:30 02/03/21 14:04 02/03/21 10:30 02/03/21 14:04 02/02/21 22:39 General appearance: Present: no acute distress, well-nourished - EENT Eyes: Present: PERRL ENT: hearing intact, clear oral mucosa - Neck Neck: Present: supple, normal ROM - Respiratory Respiratory effort: normal Respiratory: bilateral: CTA - Cardiovascular Heart rate: 78 Rhythm: regular Heart Sounds: Present: S1 & S2. Absent: rub, click - Extremities Extremities: no ischemia, pulses intact, pulses symmetrical, No edema Peripheral Pulses: within normal limits - Abdominal General gastrointestinal: Present: soft, non-tender, non-distended, normal bowel sounds Female genitourinary: Present: normal - Integumentary Integumentary: Present: clear, warm, dry - Musculoskeletal Musculoskeletal: gait normal, strength equal bilaterally - Psychiatric Psychiatric: appropriate mood/affect, intact judgment & insight - Neurologic Neurologic: CNII-XII intact, moves all extremities - Allied Health Allied health notes reviewed: nursing, case management Plan Activity: no restrictions Diet: renal Follow up with: FRANKIE CALLAHAN MD [Primary Care Provider] - 3-5 Days ADRIAN SMALLS MD [Staff Physician] - 7 Days
[2021-02-03] MEDS: HEPARIN 5,000 UNIT/1 ML VIAL SUB-Q SCH (15:47)
[2021-02-03] MEDS: FAMOTIDINE 10 MG TAB PO SCH (15:47)
[2021-02-03] MEDS: CALCITRIOL 0.5 MCG CAP PO SCH (15:47)
[2021-02-03] MEDS: CALCIUM CARBONATE 500 MG TAB CHEW PO SCH (15:47)
[2021-02-03] MEDS: FUROSEMIDE 40 MG TAB PO SCH (15:48)
== END 2021-02-03 19:26 | disposition home or self-care (01) | DRG 177 ==
LOC: ED 16:50 → 3A 18:47
PROVIDERS: ADMIT Internal Medicine; ATTEND Internal Medicine
PROC: 0JH63XZ Insertion of Tunneled Vascular Access Device into Chest Subcutaneous Tissue and Fascia, Percutaneous Approach (ICD-10-PCS; 2021-01-28)
PROC: 5A1D70Z Performance of Urinary Filtration, Intermittent, Less than 6 Hours Per Day (ICD-10-PCS; 2021-01-28)
PROC: 02H633Z Insertion of Infusion Device into Right Atrium, Percutaneous Approach (ICD-10-PCS; 2021-01-28)
PROC: B548ZZA Ultrasonography of Superior Vena Cava, Guidance (ICD-10-PCS; 2021-01-28)
PROC: 5A1D70Z Performance of Urinary Filtration, Intermittent, Less than 6 Hours Per Day (ICD-10-PCS; 2021-01-29)
PROC: 30233N1 Transfusion of Nonautologous Red Blood Cells into Peripheral Vein, Percutaneous Approach (ICD-10-PCS; principal; 2021-01-31)
PROC: 5A1D70Z Performance of Urinary Filtration, Intermittent, Less than 6 Hours Per Day (ICD-10-PCS; 2021-01-31)
PROC: 5A1D70Z Performance of Urinary Filtration, Intermittent, Less than 6 Hours Per Day (ICD-10-PCS; 2021-02-03)
DX: U07.1 COVID-19 (principal); N18.6 End stage renal disease; N17.9 Acute kidney failure, unspecified; G93.40 Encephalopathy, unspecified; E87.2 Acidosis; I12.0 Hypertensive chronic kidney disease with stage 5 chronic kidney disease or end stage renal disease; N25.81 Secondary hyperparathyroidism of renal origin; R79.89 Other specified abnormal findings of blood chemistry; E87.5 Hyperkalemia; F17.200 Nicotine dependence, unspecified, uncomplicated; D63.1 Anemia in chronic kidney disease; E83.51 Hypocalcemia
CPT/HCPCS: 36415; 36558; 70450; 70551; 71045; 76770; 76857; 77001; 78580; 80048; 80053; 80061; 80074; 80320; 82140; 82550; 82607; 82728; 82747; 83036; 83550; 83615; 83735; 83970; 84145; 84443; 84484; 85007; 85014; 85018; 85025; 85379; 85610; 85730; 86140; 86850; 86900; 86901; 86920; 87040; 93005; G0378; A9540; C1750; G0480; J0360; J0610; J0885; J1100; J1644; J1815; J2250; J2405; J3010; J7030; J7050; J7070; J7120; P9016; U0003

== ENCOUNTER 2021-02-05 10:40 | Emergency (ER) | payer SELFPAY ==
[2021-02-05 10:53] VITALS: BP 113/71
[2021-02-05 11:37] LABS: Basophils # (Auto) 0.2 K/mm3 (0.0-0.1); Basophils % (Auto) 1.6 % (0.0-1.8); Eosinophils # (Auto) 0.2 K/mm3 (0.0-0.4); Hematocrit 25.5 % (30.3-42.9); Hemoglobin 7.8 gm/dl (10.1-14.3); Lymphocytes # (Auto) 1.2 K/mm3 (1.2-5.4); Lymphocytes % (Auto) 11.7 % (13.4-35.0); Mean Corpuscular HGB Conc 31 % (30-34); Mean Corpuscular Volume 77 fl (79-97); Monocytes # (Auto) 0.9 K/mm3 (0.0-0.8); Monocytes % (Auto) 9.5 % (0.0-7.3); Platelet Count 302 K/mm3 (140-440); Red Blood Count 3.32 M/mm3 (3.65-5.03); Red Cell Distribution Width 14.1 % (13.2-15.2)
[2021-02-05 12:03] LABS: Calcium 8.8 mg/dL (8.4-10.2)
== END 2021-02-05 10:56 | disposition left against medical advice (07) ==
LOC: ED 10:40
DX: Z00.8 Encounter for other general examination (principal); Z53.21 Procedure and treatment not carried out due to patient leaving prior to being seen by health care provider
CPT/HCPCS: 36415; 80048; 85025

== ENCOUNTER 2021-02-08 18:28 | Inpatient (IN) | payer OTHER ==
--- NOTE | 2021-02-08 18:44 | Event Note ---
ED Screening Note Date of service: 02/08/21 Time: 18:44 ED Screening Note: Patient states after being discharged from [facility] 6 days ago she was informed to return for dialysis Also complains of right foot pain since her discharge without injury or swelling This initial assessment/diagnostic orders/clinical plan/treatment(s) is/are subject to change based on patients health status, clinical progression and re- assessment by fellow clinical providers in the ED. Further treatment and workup at subsequent clinical providers discretion. Patient/guardian urged not to elope from the ED as their condition may be serious if not clinically assessed and managed. Initial orders include: Labs X-ray
[2021-02-08 19:23] LABS: Basophils # (Auto) 0.1 K/mm3 (0.0-0.1); Basophils % (Auto) 0.7 % (0.0-1.8); Eosinophils # (Auto) 0.1 K/mm3 (0.0-0.4); Eosinophils % (Auto) 0.6 % (0.0-4.3); Hematocrit 23.9 % (30.3-42.9); Hemoglobin 7.6 gm/dl (10.1-14.3); Lymphocytes # (Auto) 1.1 K/mm3 (1.2-5.4); Lymphocytes % (Auto) 12.3 % (13.4-35.0); Mean Corpuscular HGB Conc 32 % (30-34); Mean Corpuscular Volume 77 fl (79-97); Monocytes # (Auto) 1.1 K/mm3 (0.0-0.8); Monocytes % (Auto) 12.1 % (0.0-7.3); Platelet Count 256 K/mm3 (140-440); Red Cell Distribution Width 15.2 % (13.2-15.2)
--- NOTE | 2021-02-08 19:24 | XRay Report ---
RIGHT FOOT 3 VIEWS INDICATION: 1st, 3nd 3rd mtp/tarsal pain, no injury. COMPARISON: No relevant prior imaging study available. FINDINGS: No acute skeletal abnormality. There is mild IP joint space narrowing consistent with mild osteoarthr osis. No erosions are seen. There is mild flatfoot deformity. No foreign bodies are seen. There is mild forefoot soft tissue swelling. IMPRESSION: 1. No acute skeletal abnormality. Signer Name: Eugene Valencia MD Signed: 02/08/2021 7:20 PM Workstation Name: [id number]
[2021-02-08 19:32] LABS: Calcium 8.1 mg/dL (8.4-10.2)
--- NOTE | 2021-02-09 16:00 | Emergency Department Report ---
ED General Adult HPI - General Chief complaint: Medical Clearance Stated complaint: DIALYSIS PUI?: No Time Seen by Provider: 02/08/21 18:43 Source: patient, RN notes reviewed, old records reviewed Mode of arrival: Ambulatory Limitations: No Limitations - History of Present Illness Initial comments: The patient was evaluated in the emergency department for symptoms described in the history of present illness. He/she was evaluated in the context of the global COVID-19 pandemic, which necessitated consideration that the patient might be at risk for infection with the virus that causes COVID-19. Institutional protocols and algorithms that pertain to the evaluation of patients at risk for COVID-19 are in a state of rapid change based on information released by regulatory bodies including the CDC and federal and state organizations. These policies and algorithms were followed during the patient's care in the emergency department. Please note that these policies, procedures and recommendations changed on a rapid basis. Nephrology: Dr. Chen The patient is a 55-year-old female. I am familiar with this patient. I admitted this patient to the hospital a few weeks ago for Covid, and renal insufficiency. The patient was discharged from the hospital, and unfortunately, reports that she does not have a hemodialysis clinic. She states she has been coming to this emergency room for evaluation for hemodialysis. It is currently Wednesday, and she last received hemodialysis this past Wednesday; February 03. The patient denies physical pain. The patient denies loss of taste and smell. She denies urinary symptoms. She has mild lower extremity swelling. The patient denies focal extremity weakness or numbness. The patient denies urinary symptoms. The patient states this is her third visit to the department since being discharged within the past week for evaluation for suitability for hemodialysis. Improves with: other (Hemodialysis) Worsens with: other (Not having hemodialysis) - Related Data Previous Rx's Medication Instructions Recorded Last Taken Type Calcium Carbonate [Tums 500MG CHEW] 500 mg PO BID #60 tablet 02/03/21 Unknown Rx Famotidine [Pepcid] 10 mg PO BID #60 tablet 02/03/21 Unknown Rx Furosemide [Lasix TAB] 40 mg PO QDAY 30 Days #30 tablet 02/03/21 Unknown Rx Valsartan [Diovan] 160 mg PO BID #60 tablet 02/03/21 Unknown Rx calcitrioL [Rocaltrol] 0.5 mcg PO QDAY #30 capsule 02/03/21 Unknown Rx carvediloL [Coreg] 6.25 mg PO BID #60 tablet 02/03/21 Unknown Rx Allergies Allergy/AdvReac Type Severity Reaction Status Date / Time No Known Allergies Allergy Verified 02/05/21 10:49 ED Review of Systems ROS: Stated complaint: DIALYSIS Other details as noted in HPI Constitutional: denies: fever Eyes: denies: vision change ENT: denies: epistaxis Respiratory: denies: cough, SOB with exertion Cardiovascular: edema. denies: chest pain Gastrointestinal: denies: abdominal pain Genitourinary: denies: dysuria Musculoskeletal: denies: back pain Neurological: denies: weakness, confusion ED Past Medical Hx - Past Medical History Previous Medical History?: Yes Hx Hypertension: Yes Hx Congestive Heart Failure: No Hx Diabetes: No Hx Renal Disease: Yes Hx Asthma: No Hx COPD: No - Surgical History Past Surgical History?: No - Social History Smoking Status: Never Smoker Substance Use Type: None - Medications Home Medications: Home Medications Medication Instructions Recorded Confirmed Last Taken Type Calcium Carbonate [Tums 500MG CHEW] 500 mg PO BID #60 tablet 02/03/21 Unknown Rx Famotidine [Pepcid] 10 mg PO BID #60 tablet 02/03/21 Unknown Rx Furosemide [Lasix TAB] 40 mg PO QDAY 30 Days #30 tablet 02/03/21 Unknown Rx Valsartan [Diovan] 160 mg PO BID #60 tablet 02/03/21 Unknown Rx calcitrioL [Rocaltrol] 0.5 mcg PO QDAY #30 capsule 02/03/21 Unknown Rx carvediloL [Coreg] 6.25 mg PO BID #60 tablet 02/03/21 Unknown Rx ED Physical Exam - General Limitations: No Limitations General appearance: alert, in no apparent distress - Head Head exam: Present: atraumatic, normocephalic - Eye Eye exam: Present: normal appearance, EOMI. Absent: nystagmus - ENT ENT exam: Present: normal exam, normal orophraynx, mucous membranes moist, normal external ear exam - Neck Neck exam: Present: normal inspection, full ROM. Absent: tenderness, meningismus - Respiratory Respiratory exam: Present: normal lung sounds bilaterally, other (There is a right-sided thoracic vascular access catheter noted, without redness, pus or streaking). Absent: respiratory distress, wheezes, rales, rhonchi, stridor - Cardiovascular Cardiovascular Exam: Present: regular rate, normal rhythm, normal heart sounds. Absent: bradycardia, tachycardia, irregular rhythm, systolic murmur, diastolic murmur, rubs, gallop - GI/Abdominal GI/Abdominal exam: Present: soft. Absent: distended, tenderness, guarding, rebound, rigid, pulsatile mass - Extremities Exam Extremities exam: Present: normal inspection, full ROM, pedal edema, other (2+ pulses noted in the bilateral upper and lower extremities. There is no palpable cord. negative Homans sign. Muscular compartments are soft. The pelvis is stable.). Absent: calf tenderness - Back Exam Back exam: Present: normal inspection, full ROM. Absent: tenderness, CVA tenderness (R), CVA tenderness (L), paraspinal tenderness, vertebral tenderness - Neurological Exam Neurological exam: Present: alert, oriented X3, normal gait, other (No facial droop. Tongue midline. Extraocular movements intact bilaterally. Facial sensation intact to light touch in V1, V2, V3 distribution bilaterally. 5 and a 5 strength in 4 extremities. Sensation intact to light touch in 4 extremities.). Absent: motor sensory deficit - Psychiatric Psychiatric exam: Present: normal affect, normal mood - Skin Skin exam: Present: warm, dry, intact, normal color. Absent: rash ED Course Vital Signs 02/08/21 02/09/21 02/09/21 18:40 11:25 18:14 Temperature 98.4 F 98.8 F Pulse Rate 80 79 Respiratory 18 18 Rate Blood Pressure 109/69 115/75 O2 Sat by Pulse 99 99 Oximetry O2 Sat by Pulse 99 Oximetry [ Digit-Finger] - Reevaluation(s) Reevaluation #1: 02/09/21 20:27 Potassium 5.3 appreciated. Kayexalate ordered. Have re discussed with Dr. Deshpande. He is in agreement with this plan of care. Arrange for dialysis in the morning. - Pulse Oximetry Interpretation Digit-Finger Initial Pulse Oximetry Readin O2 Sat by Pulse Oximetry: 99 Actions Taken: none ED Medical Decision Making - Lab Data Result diagrams: 02/08/21 18:47 02/09/21 18:16 Vital Signs 02/08/21 02/09/21 18:40 11:25 Temperature 98.4 F 98.8 F Pulse Rate 80 79 Respiratory 18 18 Rate Blood Pressure 109/69 115/75 O2 Sat by Pulse 99 99 Oximetry Lab Results 02/08/21 02/08/21 Range/Units 18:47 18:47 WBC 8.7 (4.5-11.0) K/mm3 RBC 3.10 L (3.65-5.03) M/mm3 Hgb 7.6 L (10.1-14.3) gm/dl Hct 23.9 L (30.3-42.9) % MCV 77 L (79-97) fl MCH 25 L (28-32) pg MCHC 32 (30-34) % RDW 15.2 (13.2-15.2) % Plt Count 256 (140-440) K/mm3 Lymph % (Auto) 12.3 L (13.4-35.0) % [place] % (Auto) 12.1 H (0.0-7.3) % Eos % (Auto) 0.6 (0.0-4.3) % Baso % (Auto) 0.7 (0.0-1.8) % Lymph # (Auto) 1.1 L (1.2-5.4) K/mm3 [place] # (Auto) 1.1 H (0.0-0.8) K/mm3 Eos # (Auto) 0.1 (0.0-0.4) K/mm3 Baso # (Auto) 0.1 (0.0-0.1) K/mm3 Seg Neutrophils % 74.3 H (40.0-70.0) % Seg Neutrophils # 6.5 (1.8-7.7) K/mm3 Sodium 136 L (137-145) mmol/L Potassium 4.7 (3.6-5.0) mmol/L Chloride 97.0 L (98-107) mmol/L Carbon Dioxide 17 L (22-30) mmol/L Anion Gap 27 mmol/L BUN 77 H (7-17) mg/dL Creatinine 12.1 H (0.6-1.2) mg/dL Estimated GFR 4 ml/min BUN/Creatinine Ratio 6 % Glucose 146 H (65-100) mg/dL Calcium 8.1 L (8.4-10.2) mg/dL - EKG Data -: EKG Interpreted by Id EKG shows normal: sinus rhythm Rate: normal - EKG Data 02/09/21 18:14 EKG interpreted at 18: 04 Sinus rhythm, 72 bpm. Normal axis, QTC prolonged, 456 ms. Atrial enlargement. T wave inversion aVL. Abnormal EKG. Not a STEMI. - Medical Decision Making Differential diagnosis, including but not limited to: Anemia of chronic disease, end-stage renal disease needing hemodialysis, azotemia, uremia, metabolic acidosis, dependent edema Assessment and plan: 55-year-old female, who is awake, alert, oriented, sober, with a GCS of 15, with request for evaluation for hemodialysis. She is found to have evidence of renal disease, manifested by anemia, presumably of chronic disease, azotemia, uremia, metabolic acidosis. The patient is awake, alert, oriented not encephalopathic at this time. However, she does require urgent hemodialysis given the aforementioned abnormalities. Contacted nephrology on- call, Dr. Deshpande. Have discussed the patient's history, physical, pertinent laboratory studies. His group will follow in consultation. This patient presented last night, and thus, nephrology has requested repeat laboratory studies, to determine if patient requires emergent hemodialysis this evening, or urgent hemodialysis tomorrow morning. Have ordered repeat laboratory studies. Have requested EKG. Have advised patient on the recommended plan of care, and she is agreeable to admission and hospitalization. Hospital physician, Dr. Mary Marsh to admit to IMS Once laboratory studies have resulted, will rediscuss with Dr. Deshpande. I have also discussed with case management, Lisa, and patient case management recommendations are appreciated, to assist this patient with obtaining outpatient hemodialysis facilities Critical care attestation.: If time is entered above; I have spent that time in minutes in the direct care of this critically ill patient, excluding procedure time. ED Disposition Clinical Impression: End-stage renal disease needing dialysis, Metabolic acidosis, Azotemia, Uremia, Anemia Disposition: OP ADMIT IP TO THIS HOSP Is pt being admited?: Yes Does the pt Need Aspirin: No Condition: Stable Referrals: PRIMARY CARE, [Primary Care Provider] - 3-5 Days
[2021-02-09 18:46] LABS: Calcium 8.1 mg/dL (8.4-10.2)
--- NOTE | 2021-02-09 19:43 | History and Physical Report ---
History of Present Illness Date of examination: 02/09/21 Date of admission: 02/09/2021 Chief complaint: Missed hemodialysis for 6 days Shortness of breath for 2 days History of present illness: 55-year-old -[place] female with history of hypertension and GERD well- known to me from the previous admission and newly diagnosed end-stage renal disease comes in for shortness of breath and missed hemodialysis for 6 days. Patient was discharged home without any hemodialysis chair and patient was asked to come to the emergency room twice a week for hemodialysis till she gets her hemodialysis placement. Case management working on hemodialysis chair placement and patient is in communication with Social Security office and the case management. Patient has slightly increased shortness of breath but otherwise comfortable. Patient is compliant with her blood pressure medications. No fever or chills. Review of systems ROS Constitutional shortness of breath present HEENT no sore throat no post nasal drip no diplopia Neck no neck stiffness no lymph gland enlargement Chest and lungs shortness of breath present CVS no chest pain no diaphoresis no palpitations GI no nausea no vomiting no diarrhea Genitourinary system no dysuria no flank pain Musculoskeletal system no muscle pains no joint pains [employer] no syncope no seizures Skin no rash no itching Psychiatric no depression no homicidal or suicidal tendencies Hematologic no lymphedema or bruising Endocrine no polydipsia no polyuria no cold intolerance no heat intolerance Past History Past Medical History: ESRD, hypertension, hyperlipidemia Past Surgical History: Other (Right chest/subclavian Vas-Cath) Social history: lives with family Family history: hypertension Medications and Allergies Allergies Allergy/AdvReac Type Severity Reaction Status Date / Time No Known Allergies Allergy Verified 02/05/21 10:49 Home Medications Medication Instructions Recorded Confirmed Last Taken Type Calcium Carbonate [Tums 500MG CHEW] 500 mg PO BID #60 tablet 02/03/21 Unknown Rx Famotidine [Pepcid] 10 mg PO BID #60 tablet 02/03/21 Unknown Rx Furosemide [Lasix TAB] 40 mg PO QDAY 30 Days #30 tablet 02/03/21 Unknown Rx Valsartan [Diovan] 160 mg PO BID #60 tablet 02/03/21 Unknown Rx calcitrioL [Rocaltrol] 0.5 mcg PO QDAY #30 capsule 02/03/21 Unknown Rx carvediloL [Coreg] 6.25 mg PO BID #60 tablet 02/03/21 Unknown Rx Review of Systems All systems: negative Exam - Constitutional Vitals: Temp Pulse Resp BP Pulse Ox 98.8 F 79 18 115/75 99 02/09/21 11:25 02/09/21 11:25 02/09/21 11:25 02/09/21 11:25 02/09/21 18:14 General appearance: Present: mild distress, well-nourished - EENT Eyes: Present: PERRL ENT: hearing intact, clear oral mucosa - Neck Neck: Present: supple, normal ROM - Respiratory Respiratory effort: normal Respiratory: bilateral: CTA - Cardiovascular Heart rate: 78 Rhythm: regular Heart Sounds: Present: S1 & S2. Absent: rub, click - Extremities Extremities: pulses symmetrical, No edema Peripheral Pulses: within normal limits - Abdominal General gastrointestinal: Present: soft, non-tender, non-distended, normal bowel sounds Female genitourinary: Present: normal - Integumentary Integumentary: Present: clear, warm, dry - Musculoskeletal Musculoskeletal: gait normal, strength equal bilaterally - Psychiatric Psychiatric: appropriate mood/affect, intact judgment & insight - Neurologic Neurologic: CNII-XII intact, moves all extremities Results - Labs CBC & Chem 7: 02/10/21 05:00 02/10/21 05:00 Labs: Laboratory Last Values WBC 8.7 K/mm3 (4.5-11.0) 02/08/21 18:47 RBC 3.10 M/mm3 (3.65-5.03) L 02/08/21 18:47 Hgb 7.6 gm/dl (10.1-14.3) L 02/08/21 18:47 Hct 23.9 % (30.3-42.9) L 02/08/21 18:47 MCV 77 fl (79-97) L 02/08/21 18:47 MCH 25 pg (28-32) L 02/08/21 18:47 MCHC 32 % (30-34) 02/08/21 18:47 RDW 15.2 % (13.2-15.2) 02/08/21 18:47 Plt Count 256 K/mm3 (140-440) 02/08/21 18:47 Lymph % (Auto) 12.3 % (13.4-35.0) L 02/08/21 18:47 [place] % (Auto) 12.1 % (0.0-7.3) H 02/08/21 18:47 Eos % (Auto) 0.6 % (0.0-4.3) 02/08/21 18:47 Baso % (Auto) 0.7 % (0.0-1.8) 02/08/21 18:47 Lymph # (Auto) 1.1 K/mm3 (1.2-5.4) L 02/08/21 18:47 [place] # (Auto) 1.1 K/mm3 (0.0-0.8) H 02/08/21 18:47 Eos # (Auto) 0.1 K/mm3 (0.0-0.4) 02/08/21 18:47 Baso # (Auto) 0.1 K/mm3 (0.0-0.1) 02/08/21 18:47 Seg Neutrophils % 74.3 % (40.0-70.0) H 02/08/21 18:47 Seg Neutrophils # 6.5 K/mm3 (1.8-7.7) 02/08/21 18:47 Sodium 134 mmol/L (137-145) L 02/09/21 18:16 Potassium 5.3 mmol/L (3.6-5.0) H 02/09/21 18:16 Chloride 96.7 mmol/L (98-107) L 02/09/21 18:16 Carbon Dioxide 17 mmol/L (22-30) L 02/09/21 18:16 Anion Gap 26 mmol/L 02/09/21 18:16 BUN 83 mg/dL (7-17) H 02/09/21 18:16 Creatinine 11.9 mg/dL (0.6-1.2) H 02/09/21 18:16 Estimated GFR 4 ml/min 02/09/21 18:16 BUN/Creatinine Ratio 7 % 02/09/21 18:16 Glucose 112 mg/dL (65-100) H 02/09/21 18:16 Calcium 8.1 mg/dL (8.4-10.2) L 02/09/21 18:16 Magnesium 2.20 mg/dL (1.7-2.3) 02/09/21 18:16 Total Creatine Kinase 81 units/L (30-135) 02/09/21 18:16 NT-Pro-B Natriuret Pep 4740 pg/mL (0-900) H 02/09/21 18:16 - Imaging and Cardiology Chest x-ray: report reviewed Imaging and Cardiology: Foot x-ray No acute findings Assessment and Plan Advance Directives: Yes - Patient Problems (1) Volume overload Current Visit: Yes Status: Acute Plan to address problem: Needs hemodialysis at least twice a week Case management working on hemodialysis placement Patient following with Dr. April kimball (2) End-stage renal disease needing dialysis Current Visit: Yes Status: Chronic Plan to address problem: Patient needs emergent hemodialysis and possible discharge home after dialysis (3) Uremia Current Visit: Yes Status: Acute Plan to address problem: Hemodialysis requested (4) Hyperkalemia Current Visit: No Status: Acute Plan to address problem: Treated with Kayexalate and calcium gluconate (5) Hypertension Current Visit: No Status: Chronic Qualifiers: Hypertension type: primary hypertension Qualified Code(s): I10 - Essential (primary) hypertension Plan to address problem: Continue antihypertensives (6) Anemia Current Visit: Yes Status: Chronic Qualifiers: Anemia type: due to chronic kidney disease Plan to address problem: Secondary to chronic kidney disease Will defer to nephrology regarding Epogen (7) DVT prophylaxis Current Visit: Yes Status: Acute Plan to address problem: On heparin and GI prophylaxis (8) Discharge planning issues Current Visit: Yes Status: Acute Plan to address problem: Patient may be discharged after hemodialysis Patient is working on getting Medicare and hemodialysis placement
[2021-02-09] MEDS ORDERED: SODIUM POLYSTYRENE 15 GM/60 ML ORAL LIQD PO ONE (20:27)
[2021-02-09] MEDS ORDERED: HYDROmorphone 1 MG/1 ML INJ IV PRN (21:27)
[2021-02-09] MEDS ORDERED: ONDANSETRON 4 MG/2 ML INJ IV PRN (21:27)
[2021-02-09] MEDS ORDERED: ACETAMINOPHEN 325 MG TAB PO PRN (21:27)
[2021-02-09] MEDS ORDERED: CALCIUM GLUCONATE 2,000 MG in SODIUM CHLORIDE 0.9% 100 ML IV ONE (21:33)
[2021-02-09] MEDS: carvediloL 6.25 MG TAB PO SCH (22:15)
[2021-02-09] MEDS: HEPARIN 5,000 UNIT/1 ML VIAL SUB-Q SCH (22:16)
[2021-02-09] MEDS: CALCIUM CARBONATE 500 MG TAB CHEW PO SCH (23:57)
[2021-02-09] MEDS: VALSARTAN 160MG TAB PO SCH (23:57)
[2021-02-09] MEDS: FUROSEMIDE 40 MG TAB PO SCH (23:57)
[2021-02-09] MEDS: FAMOTIDINE 10 MG TAB PO SCH (23:58)
[2021-02-09] MEDS: CALCITRIOL 0.5 MCG CAP PO SCH (23:58)
[2021-02-10] MEDS: oxyCODONE /ACETAMINOPHEN 5-325MG TAB PO PRN (00:35)
[2021-02-10 05:45] LABS: Basophils # (Auto) 0.1 K/mm3 (0.0-0.1); Basophils % (Auto) 1.3 % (0.0-1.8); Eosinophils # (Auto) 0.1 K/mm3 (0.0-0.4); Eosinophils % (Auto) 1.1 % (0.0-4.3); Hematocrit 22.6 % (30.3-42.9); Hemoglobin 6.9 gm/dl (10.1-14.3); Lymphocytes # (Auto) 1.5 K/mm3 (1.2-5.4); Lymphocytes % (Auto) 16.9 % (13.4-35.0); Mean Corpuscular HGB Conc 31 % (30-34); Mean Corpuscular Volume 77 fl (79-97); Monocytes # (Auto) 0.9 K/mm3 (0.0-0.8); Monocytes % (Auto) 10.4 % (0.0-7.3); Platelet Count 300 K/mm3 (140-440); Red Blood Count 2.93 M/mm3 (3.65-5.03)
[2021-02-10 05:55] LABS: Calcium 8.8 mg/dL (8.4-10.2)
[2021-02-10] MEDS ORDERED: SODIUM CHLORIDE 0.9% 100 ML IV PRN (08:49)
--- NOTE | 2021-02-10 09:02 | Consultation ---
History of Present Illness - Reason for Consult chronic renal failure, hyperkalemia - History of Present Illness 55-year-old female with past medical history of hypertension and unknown baseline chronic kidney disease, who had a recent admission here at [facility] secondary to worsening mentation with findings concerning for progressive renal failure. Secondary to altered mental status, hyperkalemia, severe renal failure, and concerns for uremia, she was emergently initiated on hemodialysis during her most recent hospital stay. She has since been hemodialysis dependent but is pending outpatient hemodialysis clinic placement. She came into the emergency department for her hemodialysis needs. Also during the last admission she was found to have COVID-19 pneumonia and she is in need of getting placed temporarily at a Covla-19 hemodialysis outpatient clinic. Nephrology is consulted at this time secondary to dialysis needs. Past History Past Medical History: ESRD, hypertension, hyperlipidemia Past Surgical History: Other (Right chest/subclavian Vas-Cath) Social history: lives with family Family history: hypertension Medications and Allergies Allergies Allergy/AdvReac Type Severity Reaction Status Date / Time No Known Allergies Allergy Verified 02/05/21 10:49 Home Medications Medication Instructions Recorded Confirmed Last Taken Type Calcium Carbonate [Tums 500MG CHEW] 500 mg PO BID #60 tablet 02/03/21 Unknown Rx Famotidine [Pepcid] 10 mg PO BID #60 tablet 02/03/21 Unknown Rx Furosemide [Lasix TAB] 40 mg PO QDAY 30 Days #30 tablet 02/03/21 Unknown Rx Valsartan [Diovan] 160 mg PO BID #60 tablet 02/03/21 Unknown Rx calcitrioL [Rocaltrol] 0.5 mcg PO QDAY #30 capsule 02/03/21 Unknown Rx carvediloL [Coreg] 6.25 mg PO BID #60 tablet 02/03/21 Unknown Rx Active Meds: Active Medications Acetaminophen (Acetaminophen 325 Mg Tab) 650 mg PO Q4H PRN PRN Reason: Pain MILD(1-3)/Fever >100.5/[place] Calcitriol (Calcitriol 0.5 Mcg Cap) 0.5 mcg PO QDAY COUNTS INCLUDE 234 BEDS AT THE [facility] Last Admin: 02/09/21 23:58 Dose: 0.5 mcg Documented by: Calcium Carbonate/Glycine (Calcium Carbonate 500 Mg Tab Chew) 500 mg PO BID COUNTS INCLUDE 234 BEDS AT THE [facility] Last Admin: 02/09/21 23:57 Dose: 500 mg Documented by: Carvedilol (Carvedilol 6.25 Mg Tab) 6.25 mg PO BID COUNTS INCLUDE 234 BEDS AT THE [facility] Last Admin: 02/09/21 22:15 Dose: 6.25 mg Documented by: Famotidine (Famotidine 10 Mg Tab) 10 mg PO BID COUNTS INCLUDE 234 BEDS AT THE [facility] Last Admin: 02/09/21 23:58 Dose: 10 mg Documented by: Furosemide (Furosemide 40 Mg Tab) 40 mg PO QDAY COUNTS INCLUDE 234 BEDS AT THE [facility] Last Admin: 02/09/21 23:57 Dose: 40 mg Documented by: Heparin Sodium (Porcine) (Heparin 5,000 Unit/1 Ml Vial) 5,000 unit SUB-Q Q12HR COUNTS INCLUDE 234 BEDS AT THE [facility] Last Admin: 02/09/21 22:16 Dose: 5,000 unit Documented by: Hydromorphone HCl (Hydromorphone 1 Mg/1 Ml Inj) 0.5 mg IV Q3H PRN PRN Reason: Pain , Severe (7-10) Sodium Chloride (Nacl 0.9%) 100 mls @ 999 mls/hr IV HANNAH PRN PRN Reason: Hypotension Ondansetron HCl (Ondansetron 4 Mg/2 Ml Inj) 4 mg IV Q8H PRN PRN Reason: Nausea And Vomiting Last Admin: 02/09/21 22:15 Dose: 4 mg Documented by: Oxycodone/Acetaminophen (Oxycodone /Acetaminophen 5-325mg Tab) 1 tab PO Q6H PRN PRN Reason: Pain, Moderate (4-6) Last Admin: 02/10/21 00:35 Dose: 1 tab Documented by: Sodium Chloride (Sodium Chloride 0.9% 10 Ml Flush Syringe) 10 ml IV BID COUNTS INCLUDE 234 BEDS AT THE [facility] Last Admin: 02/09/21 23:58 Dose: 10 ml Documented by: Sodium Chloride (Sodium Chloride 0.9% 10 Ml Flush Syringe) 10 ml IV PRN PRN PRN Reason: LINE FLUSH Valsartan (Valsartan 160mg Tab) 160 mg PO BID COUNTS INCLUDE 234 BEDS AT THE [facility] Last Admin: 02/09/21 23:57 Dose: 160 mg Documented by: Review of Systems Constitutional: fatigue, weakness Exam - Vital Signs Vital signs: Vital Signs Temp Pulse Resp BP Pulse Ox 98.4 F 80 18 109/69 99 02/08/21 18:40 02/08/21 18:40 02/08/21 18:40 02/08/21 18:40 02/08/21 18:40 - General Appearance General appearance: chronically ill EENT: ATNC Neck: Present: neck supple Respiratory: Clear to Ascultation Heart: regular Gastrointestinal: Present: normal Integumentary: no rash Neurologic: no focal deficit Musculoskeletal: Present: deferred Psychiatric: cooperative Results - Lab Results 02/10/21 05:00 02/10/21 05:00 Most recent lab results Calcium 8.8 mg/dL (8.4-10.2) 02/10/21 05:00 Magnesium 2.20 mg/dL (1.7-2.3) 02/09/21 18:16 Assessment and Plan - Patient Problems (1) Hyperkalemia Current Visit: No Status: Acute Plan to address problem: Treat with dialysis. Counseled patient on the importance of low potassium diet. (2) Volume overload Current Visit: Yes Status: Acute Plan to address problem: Will address with adequate fluid removal via UF with HD. (3) End-stage renal disease needing dialysis Current Visit: Yes Status: Chronic Plan to address problem: Have placed on a MWF inpatient HD schedule. (4) Anemia Current Visit: Yes Status: Chronic Qualifiers: Anemia type: due to chronic kidney disease Chronic kidney disease stage: on chronic dialysis Qualified Code(s): N18.6 - End stage renal disease; D63.1 - Anemia in chronic kidney disease; Z99.2 - Dependence on renal dialysis Plan to address problem: DAVON therapy with HD (5) Hypertensive chronic kidney disease with stage 5 chronic kidney disease or end stage renal disease Current Visit: No Status: Chronic Plan to address problem: Monitor under current regimen.
--- NOTE | 2021-02-10 10:39 | Electrocardiograph Report ---
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
--- NOTE | 2021-02-10 12:58 | Progress Note ---
Assessment and Plan Assessment and plan: 55-year-old -Beninese female with history of hypertension and GERD well- known to me from the previous admission and newly diagnosed end-stage renal disease comes in for shortness of breath and missed hemodialysis for 6 days. Patient was discharged home without any hemodialysis chair and patient was asked to come to the emergency room twice a week for hemodialysis till she gets her hemodialysis placement. Case management working on hemodialysis chair placement and patient is in communication with Social Security office and the case management. Patient has slightly increased shortness of breath but otherwise comfortable. Patient is compliant with her blood pressure medications. No fever or chills. 02/10: Patient seen and examined, resting in the ER, awaiting HD. Repeat renal function to ensure resolution of Hyperkalemia. Case management working on Outpatient placement for HD (1) Volume overload Current Visit: Yes Status: Acute Plan to address problem: Needs hemodialysis at least twice a week Case management working on hemodialysis placement Patient following with Dr. April kimball (2) End-stage renal disease needing dialysis Current Visit: Yes Status: Chronic Plan to address problem: Patient needs emergent hemodialysis and possible discharge home after dialysis (3) Uremia Current Visit: Yes Status: Acute Plan to address problem: Hemodialysis requested (4) Hyperkalemia Current Visit: No Status: Acute Plan to address problem: Treated with Kayexalate and calcium gluconate (5) Hypertension Current Visit: No Status: Chronic Qualifiers: Hypertension type: primary hypertension Qualified Code(s): I10 - Essential (primary) hypertension Plan to address problem: Continue antihypertensives (6) Anemia Current Visit: Yes Status: Chronic Qualifiers: Anemia type: due to chronic kidney disease Plan to address problem: Secondary to chronic kidney disease Will defer to nephrology regarding Epogen (7) Metabolic Acidosis Except correction with Dialysis (8) DVT prophylaxis Current Visit: Yes Status: Acute Plan to address problem: On heparin and GI prophylaxis (9) Discharge planning issues Current Visit: Yes Status: Acute Plan to address problem: Case management to assess outpatient HD, the current system in place does not appear sustainable. Patient is working on getting Medicare and hemodialysis placement History Interval history: Patient seen and examined still reports some mild shortness of breath, electrolytes shows worsening hyperkalemia Hospitalist Physical - Physical exam Narrative exam: General appearance: Present: mild distress, well-nourished - EENT Eyes: Present: PERRL ENT: hearing intact, clear oral mucosa - Neck Neck: Present: supple, normal ROM - Respiratory Respiratory effort: normal Respiratory: bilateral: CTA - Cardiovascular Heart rate: 78 Rhythm: regular Heart Sounds: Present: S1 & S2. Absent: rub, click - Extremities Extremities: pulses symmetrical, trace edema Peripheral Pulses: within normal limits - Abdominal General gastrointestinal: Present: soft, non-tender, non-distended, normal bowel sounds Female genitourinary: Present: normal - Integumentary Integumentary: Present: clear, warm, dry - Musculoskeletal Musculoskeletal: gait normal, strength equal bilaterally - Psychiatric Psychiatric: appropriate mood/affect, intact judgment & insight - Neurologic Neurologic: CNII-XII intact, moves all extremities - Constitutional Vitals: Temp Pulse Resp BP Pulse Ox 98.8 F 79 18 115/75 99 02/09/21 11:25 02/09/21 11:25 02/09/21 11:25 02/09/21 11:25 02/09/21 20:27 General appearance: Present: mild distress, well-nourished Results - Labs CBC & Chem 7: 02/10/21 05:00 02/10/21 05:00 Labs: Laboratory Last Values WBC 8.7 K/mm3 (4.5-11.0) 02/10/21 05:00 RBC 2.93 M/mm3 (3.65-5.03) L 02/10/21 05:00 Hgb 6.9 gm/dl (10.1-14.3) L 02/10/21 05:00 Hct 22.6 % (30.3-42.9) L 02/10/21 05:00 MCV 77 fl (79-97) L 02/10/21 05:00 MCH 24 pg (28-32) L 02/10/21 05:00 MCHC 31 % (30-34) 02/10/21 05:00 RDW 15.0 % (13.2-15.2) 02/10/21 05:00 Plt Count 300 K/mm3 (140-440) 02/10/21 05:00 Lymph % (Auto) 16.9 % (13.4-35.0) 02/10/21 05:00 [place] % (Auto) 10.4 % (0.0-7.3) H 02/10/21 05:00 Eos % (Auto) 1.1 % (0.0-4.3) 02/10/21 05:00 Baso % (Auto) 1.3 % (0.0-1.8) 02/10/21 05:00 Lymph # (Auto) 1.5 K/mm3 (1.2-5.4) 02/10/21 05:00 [place] # (Auto) 0.9 K/mm3 (0.0-0.8) H 02/10/21 05:00 Eos # (Auto) 0.1 K/mm3 (0.0-0.4) 02/10/21 05:00 Baso # (Auto) 0.1 K/mm3 (0.0-0.1) 02/10/21 05:00 Seg Neutrophils % 70.3 % (40.0-70.0) H 02/10/21 05:00 Seg Neutrophils # 6.1 K/mm3 (1.8-7.7) 02/10/21 05:00 Sodium 136 mmol/L (137-145) L 02/10/21 05:00 Potassium 5.7 mmol/L (3.6-5.0) H 02/10/21 05:00 Chloride 98.2 mmol/L (98-107) 02/10/21 05:00 Carbon Dioxide 18 mmol/L (22-30) L 02/10/21 05:00 Anion Gap 26 mmol/L 02/10/21 05:00 BUN 84 mg/dL (7-17) H 02/10/21 05:00 Creatinine 12.7 mg/dL (0.6-1.2) H 02/10/21 05:00 Estimated GFR 4 ml/min 02/10/21 05:00 BUN/Creatinine Ratio 7 % 02/10/21 05:00 Glucose 103 mg/dL (65-100) H 02/10/21 05:00 Calcium 8.8 mg/dL (8.4-10.2) 02/10/21 05:00 Magnesium 2.20 mg/dL (1.7-2.3) 02/09/21 18:16 Total Creatine Kinase 81 units/L (30-135) 02/09/21 18:16 NT-Pro-B Natriuret Pep 4740 pg/mL (0-900) H 02/09/21 18:16 Active Medications - Current Medications Current Medications: Generic Name Dose Route Start Last Admin Trade Name Freq PRN Reason Stop Dose Admin Acetaminophen 650 mg 02/09/21 21:27 Acetaminophen 325 Mg Tab PO Q4H PRN Pain MILD(1-3)/Fever >100.5/MALCOLM Calcitriol 0.5 mcg 02/09/21 22:00 02/09/21 23:58 Calcitriol 0.5 Mcg Cap PO 0.5 mcg QDAY [facility]ICA Administration Calcium Carbonate/Glycine 500 mg 02/09/21 22:00 02/09/21 23:57 Calcium Carbonate 500 Mg Tab Chew PO 500 mg BID MONICA Administration Carvedilol 6.25 mg 02/09/21 22:00 02/09/21 22:15 Carvedilol 6.25 Mg Tab PO 6.25 mg BID MONICA Administration Famotidine 10 mg 02/09/21 22:00 02/09/21 23:58 Famotidine 10 Mg Tab PO 10 mg BID MONICA Administration Furosemide 40 mg 02/09/21 22:00 02/09/21 23:57 Furosemide 40 Mg Tab PO 40 mg QDAY [facility] Administration Heparin Sodium (Porcine) 5,000 unit 02/09/21 22:00 02/09/21 22:16 Heparin 5,000 Unit/1 Ml Vial SUB-Q 5,000 unit Q12HR [facility]ICA Administration Hydromorphone HCl 0.5 mg 02/09/21 21:27 Hydromorphone 1 Mg/1 Ml Inj IV Q3H PRN Pain , Severe (7-10) Sodium Chloride 100 mls @ 999 mls/hr 02/10/21 08:49 Nacl 0.9% IV HANNAH PRN Hypotension Ondansetron HCl 4 mg 02/09/21 21:27 02/09/21 22:15 Ondansetron 4 Mg/2 Ml Inj IV 4 mg Q8H PRN Administration Nausea And Vomiting Oxycodone/Acetaminophen 1 tab 02/09/21 21:27 02/10/21 00:35 Oxycodone /Acetaminophen 5-325mg Tab PO 1 tab Q6H PRN Administration Pain, Moderate (4-6) Sodium Chloride 10 ml 02/09/21 22:00 02/09/21 23:58 Sodium Chloride 0.9% 10 Ml Flush Syringe IV 10 ml BID MONICA Administration Sodium Chloride 10 ml 02/09/21 21:27 Sodium Chloride 0.9% 10 Ml Flush Syringe IV PRN PRN LINE FLUSH Valsartan 160 mg 02/09/21 22:00 02/09/21 23:57 Valsartan 160mg Tab PO 160 mg BID MONICA Administration
[2021-02-10] MEDS: VALSARTAN 160MG TAB PO SCH (23:35)
[2021-02-10] MEDS: HEPARIN 5,000 UNIT/1 ML VIAL SUB-Q SCH (23:35)
[2021-02-10] MEDS: CALCIUM CARBONATE 500 MG TAB CHEW PO SCH (23:35)
[2021-02-10] MEDS: carvediloL 6.25 MG TAB PO SCH (23:36)
[2021-02-10] MEDS: FAMOTIDINE 10 MG TAB PO SCH (23:37)
[2021-02-11] MEDS: VALSARTAN 160MG TAB PO SCH ×3 (02:13→22:28)
[2021-02-11] MEDS: carvediloL 6.25 MG TAB PO SCH ×3 (02:13→22:28)
[2021-02-11] MEDS: HEPARIN 5,000 UNIT/1 ML VIAL SUB-Q SCH ×3 (02:13→22:28)
[2021-02-11] MEDS: FUROSEMIDE 40 MG TAB PO SCH ×3 (02:13→22:30)
[2021-02-11] MEDS: CALCITRIOL 0.5 MCG CAP PO SCH ×2 (02:14→12:57)
[2021-02-11] MEDS: FAMOTIDINE 10 MG TAB PO SCH ×3 (02:14→22:28)
[2021-02-11] MEDS: CALCIUM CARBONATE 500 MG TAB CHEW PO SCH ×3 (02:14→22:28)
--- NOTE | 2021-02-11 12:20 | Progress Note ---
Assessment and Plan Assessment and plan: 55-year-old -Filipino female with history of hypertension and GERD well- known to me from the previous admission and newly diagnosed end-stage renal disease comes in for shortness of breath and missed hemodialysis for 6 days. Patient was discharged home without any hemodialysis chair and patient was asked to come to the emergency room twice a week for hemodialysis till she gets her hemodialysis placement. Case management working on hemodialysis chair placement and patient is in communication with Social Security office and the case management. Patient has slightly increased shortness of breath but otherwise comfortable. Patient is compliant with her blood pressure medications. No fever or chills. 02/10: Patient seen and examined, resting in the ER, awaiting HD. Repeat renal function to ensure resolution of Hyperkalemia. Case management working on Outpatient placement for HD 02/11: Patient still does not have a dialysis place to go to outpatient and is therefore not a safe discharge considering electrolyte abnormalities. We will recheck BMP today. Patient also was recently diagnosed with Covid we will move the patient with isolation controlled. She is not hypoxic at this time but will monitor oxygen with every shift. She verbalized understanding to the treatment plan and have discussed this with case management also. (1) Volume overload Current Visit: Yes Status: Acute Plan to address problem: Needs hemodialysis at least twice a week Case management working on hemodialysis placement Patient following with Dr. April kimball (2) End-stage renal disease needing dialysis Current Visit: Yes Status: Chronic Plan to address problem: Patient needs emergent hemodialysis and possible discharge home after dialysis (3) Uremia Current Visit: Yes Status: Acute Plan to address problem: Hemodialysis requested (4) Hyperkalemia Current Visit: No Status: Acute Plan to address problem: Treated with Kayexalate and calcium gluconate (5) Hypertension Current Visit: No Status: Chronic Qualifiers: Hypertension type: primary hypertension Qualified Code(s): I10 - Essential (primary) hypertension Plan to address problem: Continue antihypertensives (6) Anemia Current Visit: Yes Status: Chronic Qualifiers: Anemia type: due to chronic kidney disease Plan to address problem: Secondary to chronic kidney disease Will defer to nephrology regarding Epogen (7) Metabolic Acidosis Except correction with Dialysis (8) COVID 19 (9) DVT prophylaxis Current Visit: Yes Status: Acute Plan to address problem: On heparin and GI prophylaxis (10) Discharge planning issues Current Visit: Yes Status: Acute Plan to address problem: Case management to assess outpatient HD, the current system in place does not appear sustainable. Patient is working on getting Medicare and hemodialysis placement History Interval history: Patient seen and examined, underwent dialysis, clinical improving, awaiting repeat COVID testing Hospitalist Physical - Physical exam Narrative exam: General appearance: Present: No distress, well-nourished - EENT Eyes: Present: PERRL ENT: hearing intact, clear oral mucosa - Neck Neck: Present: supple, normal ROM - Respiratory Respiratory effort: normal Respiratory: bilateral: CTA - Cardiovascular Heart rate: 78 Rhythm: regular Heart Sounds: Present: S1 & S2. Absent: rub, click - Extremities Extremities: pulses symmetrical, trace edema Peripheral Pulses: within normal limits - Abdominal General gastrointestinal: Present: soft, non-tender, non-distended, normal bowel sounds Female genitourinary: Present: normal - Integumentary Integumentary: Present: clear, warm, dry - Musculoskeletal Musculoskeletal: gait normal, strength equal bilaterally - Psychiatric Psychiatric: appropriate mood/affect, intact judgment & insight - Neurologic Neurologic: CNII-XII intact, moves all extremities - Constitutional Vitals: Temp Pulse Resp BP Pulse Ox 98.2 F 84 18 86/62 98 02/10/21 23:15 02/10/21 23:15 02/10/21 23:15 02/10/21 23:15 02/10/21 23:15 General appearance: Present: mild distress, well-nourished Results - Labs CBC & Chem 7: 02/10/21 05:00 02/10/21 05:00 Labs: Laboratory Last Values WBC 8.7 K/mm3 (4.5-11.0) 02/10/21 05:00 RBC 2.93 M/mm3 (3.65-5.03) L 02/10/21 05:00 Hgb 6.9 gm/dl (10.1-14.3) L 02/10/21 05:00 Hct 22.6 % (30.3-42.9) L 02/10/21 05:00 MCV 77 fl (79-97) L 02/10/21 05:00 MCH 24 pg (28-32) L 02/10/21 05:00 MCHC 31 % (30-34) 02/10/21 05:00 RDW 15.0 % (13.2-15.2) 02/10/21 05:00 Plt Count 300 K/mm3 (140-440) 02/10/21 05:00 Lymph % (Auto) 16.9 % (13.4-35.0) 02/10/21 05:00 [place] % (Auto) 10.4 % (0.0-7.3) H 02/10/21 05:00 Eos % (Auto) 1.1 % (0.0-4.3) 02/10/21 05:00 Baso % (Auto) 1.3 % (0.0-1.8) 02/10/21 05:00 Lymph # (Auto) 1.5 K/mm3 (1.2-5.4) 02/10/21 05:00 [place] # (Auto) 0.9 K/mm3 (0.0-0.8) H 02/10/21 05:00 Eos # (Auto) 0.1 K/mm3 (0.0-0.4) 02/10/21 05:00 Baso # (Auto) 0.1 K/mm3 (0.0-0.1) 02/10/21 05:00 Seg Neutrophils % 70.3 % (40.0-70.0) H 02/10/21 05:00 Seg Neutrophils # 6.1 K/mm3 (1.8-7.7) 02/10/21 05:00 Sodium 136 mmol/L (137-145) L 02/10/21 05:00 Potassium 5.7 mmol/L (3.6-5.0) H 02/10/21 05:00 Chloride 98.2 mmol/L (98-107) 02/10/21 05:00 Carbon Dioxide 18 mmol/L (22-30) L 02/10/21 05:00 Anion Gap 26 mmol/L 02/10/21 05:00 BUN 84 mg/dL (7-17) H 02/10/21 05:00 Creatinine 12.7 mg/dL (0.6-1.2) H 02/10/21 05:00 Estimated GFR 4 ml/min 02/10/21 05:00 BUN/Creatinine Ratio 7 % 02/10/21 05:00 Glucose 103 mg/dL (65-100) H 02/10/21 05:00 Calcium 8.8 mg/dL (8.4-10.2) 02/10/21 05:00 Magnesium 2.20 mg/dL (1.7-2.3) 02/09/21 18:16 Total Creatine Kinase 81 units/L (30-135) 02/09/21 18:16 NT-Pro-B Natriuret Pep 4740 pg/mL (0-900) H 02/09/21 18:16 Newman/IV: Voiding Method Toilet Active Medications - Current Medications Current Medications: Generic Name Dose Route Start Last Admin Trade Name Freq PRN Reason Stop Dose Admin Acetaminophen 650 mg 02/09/21 21:27 Acetaminophen 325 Mg Tab PO Q4H PRN Pain MILD(1-3)/Fever >100.5/MALCOLM Calcitriol 0.5 mcg 02/09/21 22:00 02/11/21 02:14 Calcitriol 0.5 Mcg Cap PO Not Given QDAY [facility] Calcium Carbonate/Glycine 500 mg 02/09/21 22:00 02/11/21 02:14 Calcium Carbonate 500 Mg Tab Chew PO Not Given BID [facility] Carvedilol 6.25 mg 02/09/21 22:00 02/11/21 02:13 Carvedilol 6.25 Mg Tab PO Not Given BID MONICA Famotidine 10 mg 02/09/21 22:00 02/11/21 02:14 Famotidine 10 Mg Tab PO Not Given BID MONICA Furosemide 40 mg 02/12/21 22:00 Furosemide 40 Mg Tab PO QDAY [facility] Heparin Sodium (Porcine) 5,000 unit 02/09/21 22:00 02/11/21 02:13 Heparin 5,000 Unit/1 Ml Vial SUB-Q Not Given Q12HR [facility] Hydromorphone HCl 0.5 mg 02/09/21 21:27 Hydromorphone 1 Mg/1 Ml Inj IV Q3H PRN Pain , Severe (7-10) Sodium Chloride 100 mls @ 999 mls/hr 02/10/21 08:49 Nacl 0.9% IV HANNAH PRN Hypotension Ondansetron HCl 4 mg 02/09/21 21:27 02/09/21 22:15 Ondansetron 4 Mg/2 Ml Inj IV 4 mg Q8H PRN Administration Nausea And Vomiting Oxycodone/Acetaminophen 1 tab 02/09/21 21:27 02/10/21 00:35 Oxycodone /Acetaminophen 5-325mg Tab PO 1 tab Q6H PRN Administration Pain, Moderate (4-6) Sodium Chloride 10 ml 02/09/21 22:00 02/11/21 02:14 Sodium Chloride 0.9% 10 Ml Flush Syringe IV Not Given BID MONICA Sodium Chloride 10 ml 02/09/21 21:27 Sodium Chloride 0.9% 10 Ml Flush Syringe IV PRN PRN LINE FLUSH Valsartan 160 mg 02/09/21 22:00 02/11/21 02:13 Valsartan 160mg Tab PO Not Given BID MONICA
--- NOTE | 2021-02-11 16:15 | Progress Note ---
Assessment and Plan - Patient Problems (1) Hyperkalemia Current Visit: No Status: Acute Plan to address problem: Treat with dialysis. Counseled patient on the importance of low potassium diet. (2) Volume overload Current Visit: Yes Status: Acute Plan to address problem: Will address with adequate fluid removal via UF with HD. (3) End-stage renal disease needing dialysis Current Visit: Yes Status: Chronic Plan to address problem: Have placed on a MWF inpatient HD schedule. (4) Anemia Current Visit: Yes Status: Chronic Qualifiers: Anemia type: due to chronic kidney disease Chronic kidney disease stage: on chronic dialysis Qualified Code(s): N18.6 - End stage renal disease; D63.1 - Anemia in chronic kidney disease; Z99.2 - Dependence on renal dialysis Plan to address problem: DAVON therapy with HD (5) Hypertensive chronic kidney disease with stage 5 chronic kidney disease or end stage renal disease Current Visit: No Status: Chronic Plan to address problem: Monitor under current regimen. Subjective Date of service: 02/11/21 Interval history: patient tolerated hemodialysis without any acute issues. Next hemodialysis treatment for tomorrow. Working with case management in order for outpatient dialysis placement. Objective - Exam Narrative Exam: patient not directly examined in order to preserve PPE at this time. - Vital Signs Vital signs: Vital Signs - 12hr 02/11/21 02/11/21 12:41 12:52 Temperature 98.3 F Pulse Rate 94 H 94 H Respiratory 19 Rate Blood Pressure 111/72 111/72 O2 Sat by Pulse 97 Oximetry - Lab 02/10/21 05:00 02/10/21 05:00 Most recent lab results Calcium 8.8 mg/dL (8.4-10.2) 02/10/21 05:00 Magnesium 2.20 mg/dL (1.7-2.3) 02/09/21 18:16 Medications & Allergies - Medications Allergies/Adverse Reactions: Allergies No Known Allergies Allergy (Verified 02/05/21 10:49) Home Medications: Home Medications Medication Instructions Recorded Confirmed Last Taken Type Calcium Carbonate [Tums 500MG CHEW] 500 mg PO BID #60 tablet 02/03/21 02/11/21 Unknown Rx Famotidine [Pepcid] 10 mg PO BID #60 tablet 02/03/21 02/11/21 Unknown Rx Furosemide [Lasix TAB] 40 mg PO QDAY 30 Days #30 tablet 02/03/21 02/11/21 Unknown Rx Valsartan [Diovan] 160 mg PO BID #60 tablet 02/03/21 02/11/21 Unknown Rx calcitrioL [Rocaltrol] 0.5 mcg PO QDAY #30 capsule 02/03/21 02/11/21 Unknown Rx carvediloL [Coreg] 6.25 mg PO BID #60 tablet 02/03/21 02/11/21 Unknown Rx Active Medications: Generic Name Dose Route Start Last Admin Trade Name Freq PRN Reason Stop Dose Admin Acetaminophen 650 mg 02/09/21 21:27 Acetaminophen 325 Mg Tab PO Q4H PRN Pain MILD(1-3)/Fever >100.5/MALCOLM Calcitriol 0.5 mcg 02/09/21 22:00 02/11/21 12:57 Calcitriol 0.5 Mcg Cap PO 0.5 mcg QDAY MONICA Administration Calcium Carbonate/Glycine 500 mg 02/09/21 22:00 02/11/21 12:57 Calcium Carbonate 500 Mg Tab Chew PO 500 mg BID MONICA Administration Carvedilol 6.25 mg 02/09/21 22:00 02/11/21 12:52 Carvedilol 6.25 Mg Tab PO Not Given BID MONICA Famotidine 10 mg 02/09/21 22:00 02/11/21 12:56 Famotidine 10 Mg Tab PO 10 mg BID MONICA Administration Furosemide 40 mg 02/11/21 13:00 02/11/21 15:25 Furosemide 40 Mg Tab PO 40 mg QDAY MONICA Administration Heparin Sodium (Porcine) 5,000 unit 02/09/21 22:00 02/11/21 12:56 Heparin 5,000 Unit/1 Ml Vial SUB-Q 5,000 unit Q12HR [facility] Administration Hydromorphone HCl 0.5 mg 02/09/21 21:27 Hydromorphone 1 Mg/1 Ml Inj IV Q3H PRN Pain , Severe (7-10) Sodium Chloride 100 mls @ 999 mls/hr 02/10/21 08:49 Nacl 0.9% IV HANNAH PRN Hypotension Ondansetron HCl 4 mg 02/09/21 21:27 02/09/21 22:15 Ondansetron 4 Mg/2 Ml Inj IV 4 mg Q8H PRN Administration Nausea And Vomiting Oxycodone/Acetaminophen 1 tab 02/09/21 21:27 02/10/21 00:35 Oxycodone /Acetaminophen 5-325mg Tab PO 1 tab Q6H PRN Administration Pain, Moderate (4-6) Sodium Chloride 10 ml 02/09/21 22:00 02/11/21 12:52 Sodium Chloride 0.9% 10 Ml Flush Syringe IV 10 ml BID MONICA Administration Sodium Chloride 10 ml 02/09/21 21:27 Sodium Chloride 0.9% 10 Ml Flush Syringe IV PRN PRN LINE FLUSH Valsartan 160 mg 02/09/21 22:00 02/11/21 12:52 Valsartan 160mg Tab PO Not Given BID MONICA
[2021-02-12] MEDS: oxyCODONE /ACETAMINOPHEN 5-325MG TAB PO PRN (05:25)
[2021-02-12 08:03] LABS: Hematocrit 21.8 % (30.3-42.9); Mean Corpuscular HGB Conc 32 % (30-34); Mean Corpuscular Volume 76 fl (79-97); Platelet Count 260 K/mm3 (140-440); Red Blood Count 2.86 M/mm3 (3.65-5.03); Red Cell Distribution Width 14.4 % (13.2-15.2)
[2021-02-12 08:51] LABS: Alanine Aminotransferase < 5 units/L (7-56); Albumin 3.3 g/dL (3.9-5); BUN/Creatinine Ratio 6; Blood Urea Nitrogen 52 mg/dL (7-17); Hemolysis Index 1
[2021-02-12] MEDS: CALCITRIOL 0.5 MCG CAP PO SCH (11:15)
[2021-02-12] MEDS: FUROSEMIDE 40 MG TAB PO SCH (11:15)
[2021-02-12] MEDS: FAMOTIDINE 10 MG TAB PO SCH ×2 (11:15→23:10)
[2021-02-12] MEDS: CALCIUM CARBONATE 500 MG TAB CHEW PO SCH ×2 (11:15→23:10)
[2021-02-12] MEDS: HEPARIN 5,000 UNIT/1 ML VIAL SUB-Q SCH ×2 (11:16→23:11)
[2021-02-12] MEDS: carvediloL 6.25 MG TAB PO SCH ×2 (11:16→23:17)
[2021-02-12] MEDS: VALSARTAN 160MG TAB PO SCH ×2 (11:17→23:18)
[2021-02-12] MEDS ORDERED: SODIUM CHLORIDE 0.9% 100 ML IV PRN (11:22)
--- NOTE | 2021-02-12 11:28 | Progress Note ---
Assessment and Plan - Patient Problems (1) Hyperkalemia Current Visit: No Status: Acute Plan to address problem: Treat with dialysis. Counseled patient on the importance of low potassium diet. (2) Volume overload Current Visit: Yes Status: Acute Plan to address problem: Will address with adequate fluid removal via UF with HD. (3) End-stage renal disease needing dialysis Current Visit: Yes Status: Chronic Plan to address problem: Have adjusted her to TTS inpatient HD schedule. Pending OP HD placement. (4) Anemia Current Visit: Yes Status: Chronic Qualifiers: Anemia type: due to chronic kidney disease Chronic kidney disease stage: on chronic dialysis Qualified Code(s): N18.6 - End stage renal disease; D63.1 - Anemia in chronic kidney disease; Z99.2 - Dependence on renal dialysis Plan to address problem: DAVON therapy with HD (5) Hypertensive chronic kidney disease with stage 5 chronic kidney disease or end stage renal disease Current Visit: No Status: Chronic Plan to address problem: Monitor under current regimen. Subjective Date of service: 02/12/21 Interval history: No acute issues. She has now tested (-) for COVID-19. Pending OP HD placement. Objective - Vital Signs Vital signs: Vital Signs - 12hr 02/12/21 02/12/21 01:28 11:16 Respiratory 20 Rate Blood Pressure 101/52 O2 Sat by Pulse 99 Oximetry - General Appearance General appearance: well-developed, appears stated age EENT: ATNC Neck: no JVD, no thyromegaly Respiratory: Present: Clear to Ascultation, Normal Exam Cardiology: regular Gastrointestinal: normal Integumentary: no rash, warm and dry Neurologic: no focal deficit Musculoskeletal: deferred Psychiatric: cooperative - Lab 02/12/21 07:32 02/12/21 07:32 Most recent lab results Calcium 8.0 mg/dL (8.4-10.2) L 02/12/21 07:32 Magnesium 2.20 mg/dL (1.7-2.3) 02/09/21 18:16 - Allied health notes Allied health notes reviewed: nursing Medications & Allergies - Medications Allergies/Adverse Reactions: Allergies No Known Allergies Allergy (Verified 02/05/21 10:49) Home Medications: Home Medications Medication Instructions Recorded Confirmed Last Taken Type Calcium Carbonate [Tums 500MG CHEW] 500 mg PO BID #60 tablet 02/03/21 02/11/21 Unknown Rx Famotidine [Pepcid] 10 mg PO BID #60 tablet 02/03/21 02/11/21 Unknown Rx Furosemide [Lasix TAB] 40 mg PO QDAY 30 Days #30 tablet 02/03/21 02/11/21 Unknown Rx Valsartan [Diovan] 160 mg PO BID #60 tablet 02/03/21 02/11/21 Unknown Rx calcitrioL [Rocaltrol] 0.5 mcg PO QDAY #30 capsule 02/03/21 02/11/21 Unknown Rx carvediloL [Coreg] 6.25 mg PO BID #60 tablet 02/03/21 02/11/21 Unknown Rx Active Medications: Generic Name Dose Route Start Last Admin Trade Name Freq PRN Reason Stop Dose Admin Acetaminophen 650 mg 02/09/21 21:27 Acetaminophen 325 Mg Tab PO Q4H PRN Pain MILD(1-3)/Fever >100.5/M[facility]M Calcitriol 0.5 mcg 02/09/21 22:00 02/12/21 11:15 Calcitriol 0.5 Mcg Cap PO 0.5 mcg QDAY [facility] Administration Calcium Carbonate/Glycine 500 mg 02/09/21 22:00 02/12/21 11:15 Calcium Carbonate 500 Mg Tab Chew PO 500 mg BID [facility] Administration Carvedilol 6.25 mg 02/09/21 22:00 02/12/21 11:16 Carvedilol 6.25 Mg Tab PO Not Given BID [facility] Famotidine 10 mg 02/09/21 22:00 02/12/21 11:15 Famotidine 10 Mg Tab PO 10 mg BID [facility] Administration Furosemide 40 mg 02/11/21 13:00 02/12/21 11:15 Furosemide 40 Mg Tab PO 40 mg QDAY [facility] Administration Heparin Sodium (Porcine) 5,000 unit 02/09/21 22:00 02/12/21 11:16 Heparin 5,000 Unit/1 Ml Vial SUB-Q 5,000 unit Q12HR [facility] Administration Hydromorphone HCl 0.5 mg 02/09/21 21:27 Hydromorphone 1 Mg/1 Ml Inj IV Q3H PRN Pain , Severe (7-10) Sodium Chloride 100 mls @ 999 mls/hr 02/10/21 08:49 Nacl 0.9% IV HANNAH PRN Hypotension Sodium Chloride 100 mls @ 999 mls/hr 02/12/21 11:22 Nacl 0.9% IV HANNAH PRN Hypotension Ondansetron HCl 4 mg 02/09/21 21:27 02/09/21 22:15 Ondansetron 4 Mg/2 Ml Inj IV 4 mg Q8H PRN Administration Nausea And Vomiting Oxycodone/Acetaminophen 1 tab 02/09/21 21:27 02/12/21 05:25 Oxycodone /Acetaminophen 5-325mg Tab PO 1 tab Q6H PRN Administration Pain, Moderate (4-6) Sodium Chloride 10 ml 02/09/21 22:00 02/12/21 11:16 Sodium Chloride 0.9% 10 Ml Flush Syringe IV 10 ml BID MONICA Administration Sodium Chloride 10 ml 02/09/21 21:27 Sodium Chloride 0.9% 10 Ml Flush Syringe IV PRN PRN LINE FLUSH Valsartan 160 mg 02/09/21 22:00 02/12/21 11:17 Valsartan 160mg Tab PO Not Given BID [facility]
--- NOTE | 2021-02-12 12:48 | Discharge Summary ---
Providers - Providers Date of Admission: 02/11/21 12:17 Attending physician: MARQUISE SLATER MD 02/09/21 16:28 Consult to Physician [CONS] Urgent Comment: Consulting Provider: BRANDEN MARTÍNEZ Physician Instructions: Reason For Exam: esrd 02/09/21 17:15 Consult to Case Management [CONS] Urgent Services Needed at Discharge: [employer] Notified:: yes Primary care physician: [facility] Hospitalization Reason for admission: esrd, volume overload Condition: Stable Hospital course: 55-year-old -[place] female with history of hypertension and GERD well- known to me from the previous admission and newly diagnosed end-stage renal disease comes in for shortness of breath and missed hemodialysis for 6 days. Patient was discharged home without any hemodialysis chair and patient was asked to come to the emergency room twice a week for hemodialysis till she gets her hemodialysis placement. Case management working on hemodialysis chair placement and patient is in communication with Social Security office and the case management. Patient has slightly increased shortness of breath but otherwise comfortable. Patient is compliant with her blood pressure medications. No fever or chills. 02/10: Patient seen and examined, resting in the ER, awaiting HD. Repeat renal function to ensure resolution of Hyperkalemia. Case management working on Outpatient placement for HD 02/11: Patient still does not have a dialysis place to go to outpatient and is therefore not a safe discharge considering electrolyte abnormalities. We will recheck BMP today. Patient also was recently diagnosed with Covid we will move the patient with isolation controlled. She is not hypoxic at this time but will monitor oxygen with every shift. She verbalized understanding to the treatment plan and have discussed this with case management also. 02/12: Patient seen and examined, COVID 19 NEGATIVE, AWAITING FOR Second negative test result to get assigned Chair time. 02/13: COVID TESTING NEGATIVE X 2. Case management working on placement. Patient otherwise clinically stable. No Encephalopathy 02/14: Patient continues to show improvements. Awaiting hemodialysis chair time so that she can be discharged home. 02/15: Patient with mild Hypomagnesemia, will replace, await cardiology, Anemia still persist, will monitor may benefit from 1 unit PRBC. 02/16: No acute events noted yesterday. Mild decrease in hemoglobin to 6.8. Will go ahead with transfusion of 1 unit packed red blood cell this has been discussed with the patient and she is agreeable to that. Cardiology input is noted patient did not have an SVT rhythm artifacts were noted. Continue awaiting chair time for discharge. 02/17: Patient had appropriate response to transfusion, no complaints of fatigue, will continue care, awaiting chair time for HD for discharge. (1) Volume overload Current Visit: Yes Status: Acute Plan to address problem: Needs hemodialysis at least twice a week Case management working on hemodialysis placement Patient following with Dr. April kimball (2) End-stage renal disease needing dialysis Current Visit: Yes Status: Chronic Plan to address problem: Patient needs emergent hemodialysis and possible discharge home after dialysis (3) Uremia Current Visit: Yes Status: Acute Plan to address problem: Hemodialysis requested (4) Hyperkalemia Current Visit: No Status: Acute Plan to address problem: Treated with Kayexalate and calcium gluconate (5) Hypertension Current Visit: No Status: Chronic Qualifiers: Hypertension type: primary hypertension Qualified Code(s): I10 - Essential (primary) hypertension Plan to address problem: Continue antihypertensives (6) Anemia Current Visit: Yes Status: Chronic Qualifiers: Anemia type: due to chronic kidney disease Plan to address problem: Secondary to chronic kidney disease Will defer to nephrology regarding Epogen (7) Metabolic Acidosis Except correction with Dialysis (8) COVID 19 (9) Hypomagnesia (10) Discharge planning issues Current Visit: Yes Status: Acute Plan to address problem: Case management to assess outpatient HD, the current system in place does not appear sustainable. Patient is working on [employer] Medicare and hemodialysis placement Disposition: DC-01 TO HOME OR SELFCARE Final Discharge Diagnosis (Prints w/discharge instructions): ESRD with volume overload Time spent for discharge: 35 MINS Core Measure Documentation - Palliative Care Palliative Care/ Comfort Measures: Not Applicable - Core Measures Any of the following diagnoses?: none Exam - Physical Exam Narrative exam: General appearance: Present: No distress, well-nourished - EENT Eyes: Present: PERRL ENT: hearing intact, clear oral mucosa - Neck Neck: Present: supple, normal ROM - Respiratory Respiratory effort: normal Respiratory: bilateral: CTA - Cardiovascular Heart rate: 78 Rhythm: regular Heart Sounds: Present: S1 & S2. Absent: rub, click - Extremities Extremities: pulses symmetrical, trace edema Peripheral Pulses: within normal limits - Abdominal General gastrointestinal: Present: soft, non-tender, non-distended, normal bowel sounds Female genitourinary: Present: normal - Integumentary Integumentary: Present: clear, warm, dry - Musculoskeletal Musculoskeletal: gait normal, strength equal bilaterally - Psychiatric Psychiatric: appropriate mood/affect, intact judgment & insight - Neurologic Neurologic: CNII-XII intact, moves all extremities - Constitutional Vitals: Temp Pulse Resp BP Pulse Ox 98.2 F 59 L 20 101/52 99 02/11/21 23:02 02/11/21 23:02 02/12/21 01:28 02/12/21 11:16 02/12/21 01:28 Plan Activity: advance as tolerated, up only with assistance Diet: renal Special Instructions: restrict fluid intake to (1000 CC/DAY), record daily weights, record daily BP diary Follow up with: ADRIAN SMALLS MD [Staff Physician] - 7 Days PRIMARY CAREMD [Primary Care Provider] - 3-5 Days
--- NOTE | 2021-02-12 12:54 | Progress Note ---
Assessment and Plan Assessment and plan: 55-year-old -[place] female with history of hypertension and GERD well- known to me from the previous admission and newly diagnosed end-stage renal disease comes in for shortness of breath and missed hemodialysis for 6 days. Patient was discharged home without any hemodialysis chair and patient was asked to come to the emergency room twice a week for hemodialysis till she gets her hemodialysis placement. Case management working on hemodialysis chair placement and patient is in communication with Social Security office and the case management. Patient has slightly increased shortness of breath but otherwise comfortable. Patient is compliant with her blood pressure medications. No fever or chills. 02/10: Patient seen and examined, resting in the ER, awaiting HD. Repeat renal function to ensure resolution of Hyperkalemia. Case management working on Outpatient placement for HD 02/11: Patient still does not have a dialysis place to go to outpatient and is therefore not a safe discharge considering electrolyte abnormalities. We will recheck BMP today. Patient also was recently diagnosed with Covid we will move the patient with isolation controlled. She is not hypoxic at this time but will monitor oxygen with every shift. She verbalized understanding to the treatment plan and have discussed this with case management also. 02/12: Patient seen and examined, COVID 19 NEGATIVE, AWAITING FOR Second negative test result to get assigned Chair time. (1) Volume overload Current Visit: Yes Status: Acute Plan to address problem: Needs hemodialysis at least twice a week Case management working on hemodialysis placement Patient following with Dr. April kimball (2) End-stage renal disease needing dialysis Current Visit: Yes Status: Chronic Plan to address problem: Patient needs emergent hemodialysis and possible discharge home after dialysis (3) Uremia Current Visit: Yes Status: Acute Plan to address problem: Hemodialysis requested (4) Hyperkalemia Current Visit: No Status: Acute Plan to address problem: Treated with Kayexalate and calcium gluconate (5) Hypertension Current Visit: No Status: Chronic Qualifiers: Hypertension type: primary hypertension Qualified Code(s): I10 - Essential (primary) hypertension Plan to address problem: Continue antihypertensives (6) Anemia Current Visit: Yes Status: Chronic Qualifiers: Anemia type: due to chronic kidney disease Plan to address problem: Secondary to chronic kidney disease Will defer to nephrology regarding Epogen (7) Metabolic Acidosis Except correction with Dialysis (8) COVID 19 (9) Discharge planning issues Current Visit: Yes Status: Acute Plan to address problem: Case management to assess outpatient HD, the current system in place does not appear sustainable. Patient is working on getting Medicare and hemodialysis placement History Interval history: Patient seen and examined, underwent dialysis, clinical improving, awaiting repeat COVID testing Hospitalist Physical - Physical exam Narrative exam: General appearance: Present: No distress, well-nourished - EENT Eyes: Present: PERRL ENT: hearing intact, clear oral mucosa - Neck Neck: Present: supple, normal ROM - Respiratory Respiratory effort: normal Respiratory: bilateral: CTA - Cardiovascular Heart rate: 78 Rhythm: regular Heart Sounds: Present: S1 & S2. Absent: rub, click - Extremities Extremities: pulses symmetrical, trace edema Peripheral Pulses: within normal limits - Abdominal General gastrointestinal: Present: soft, non-tender, non-distended, normal bowel sounds Female genitourinary: Present: normal - Integumentary Integumentary: Present: clear, warm, dry - Musculoskeletal Musculoskeletal: gait normal, strength equal bilaterally - Psychiatric Psychiatric: appropriate mood/affect, intact judgment & insight - Neurologic Neurologic: CNII-XII intact, moves all extremities - Constitutional Vitals: Temp Pulse Resp BP Pulse Ox 98.2 F 59 L 20 101/52 99 02/11/21 23:02 02/11/21 23:02 02/12/21 01:28 02/12/21 11:16 02/12/21 01:28 General appearance: Present: mild distress, well-nourished Results - Labs CBC & Chem 7: 02/12/21 07:32 02/12/21 07:32 Labs: Laboratory Last Values WBC 6.4 K/mm3 (4.5-11.0) 02/12/21 07:32 RBC 2.86 M/mm3 (3.65-5.03) L 02/12/21 07:32 Hgb 7.0 gm/dl (10.1-14.3) L 02/12/21 07:32 Hct 21.8 % (30.3-42.9) L 02/12/21 07:32 MCV 76 fl (79-97) L 02/12/21 07:32 MCH 25 pg (28-32) L 02/12/21 07:32 MCHC 32 % (30-34) 02/12/21 07:32 RDW 14.4 % (13.2-15.2) 02/12/21 07:32 Plt Count 260 K/mm3 (140-440) 02/12/21 07:32 Lymph % (Auto) 16.9 % (13.4-35.0) 02/10/21 05:00 Osborne % (Auto) 10.4 % (0.0-7.3) H 02/10/21 05:00 Eos % (Auto) 1.1 % (0.0-4.3) 02/10/21 05:00 Baso % (Auto) 1.3 % (0.0-1.8) 02/10/21 05:00 Lymph # (Auto) 1.5 K/mm3 (1.2-5.4) 02/10/21 05:00 Osborne # (Auto) 0.9 K/mm3 (0.0-0.8) H 02/10/21 05:00 Eos # (Auto) 0.1 K/mm3 (0.0-0.4) 02/10/21 05:00 Baso # (Auto) 0.1 K/mm3 (0.0-0.1) 02/10/21 05:00 Seg Neutrophils % 70.3 % (40.0-70.0) H 02/10/21 05:00 Seg Neutrophils # 6.1 K/mm3 (1.8-7.7) 02/10/21 05:00 Sodium 137 mmol/L (137-145) 02/12/21 07:32 Potassium 4.0 mmol/L (3.6-5.0) D 02/12/21 07:32 Chloride 94.7 mmol/L (98-107) L 02/12/21 07:32 Carbon Dioxide 24 mmol/L (22-30) 02/12/21 07:32 Anion Gap 22 mmol/L 02/12/21 07:32 BUN 52 mg/dL (7-17) H 02/12/21 07:32 Creatinine 9.0 mg/dL (0.6-1.2) H 02/12/21 07:32 Estimated GFR 5 ml/min 02/12/21 07:32 BUN/Creatinine Ratio 6 % 02/12/21 07:32 Glucose 89 mg/dL (65-100) 02/12/21 07:32 Calcium 8.0 mg/dL (8.4-10.2) L 02/12/21 07:32 Magnesium 2.20 mg/dL (1.7-2.3) 02/09/21 18:16 Total Bilirubin 0.30 mg/dL (0.1-1.2) 02/12/21 07:32 AST 9 units/L (5-40) 02/12/21 07:32 ALT < 5 units/L (7-56) L 02/12/21 07:32 Alkaline Phosphatase 127 units/L (35-129) 02/12/21 07:32 Total Creatine Kinase 81 units/L (30-135) 02/09/21 18:16 NT-Pro-B Natriuret Pep 4740 pg/mL (0-900) H 02/09/21 18:16 Total Protein 6.3 g/dL (6.3-8.2) 02/12/21 07:32 Albumin 3.3 g/dL (3.9-5) L 02/12/21 07:32 Albumin/Globulin Ratio 1.1 % 02/12/21 07:32 Coronavirus (PCR) Negative (Negative) 02/10/21 Unknown Newman/IV: Voiding Method Toilet Active Medications - Current Medications Current Medications: Generic Name Dose Route Start Last Admin Trade Name Freq PRN Reason Stop Dose Admin Acetaminophen 650 mg 02/09/21 21:27 Acetaminophen 325 Mg Tab PO Q4H PRN Pain MILD(1-3)/Fever >100.5/MALCOLM Calcitriol 0.5 mcg 02/09/21 22:00 02/12/21 11:15 Calcitriol 0.5 Mcg Cap PO 0.5 mcg QDAY MONICA Administration Calcium Carbonate/Glycine 500 mg 02/09/21 22:00 02/12/21 11:15 Calcium Carbonate 500 Mg Tab Chew PO 500 mg BID MONICA Administration Carvedilol 6.25 mg 02/09/21 22:00 02/12/21 11:16 Carvedilol 6.25 Mg Tab PO Not Given BID MONICA Famotidine 10 mg 02/09/21 22:00 02/12/21 11:15 Famotidine 10 Mg Tab PO 10 mg BID MONICA Administration Fluconazole 200 mg 02/12/21 14:00 Fluconazole 200 Mg Tab PO 02/12/21 17:00 ONCE@1400 NR Protocol Furosemide 40 mg 02/11/21 13:00 02/12/21 11:15 Furosemide 40 Mg Tab PO 40 mg QDAY MONICA Administration Heparin Sodium (Porcine) 5,000 unit 02/09/21 22:00 02/12/21 11:16 Heparin 5,000 Unit/1 Ml Vial SUB-Q 5,000 unit Q12HR MONICA Administration Hydromorphone HCl 0.5 mg 02/09/21 21:27 Hydromorphone 1 Mg/1 Ml Inj IV Q3H PRN Pain , Severe (7-10) Sodium Chloride 100 mls @ 999 mls/hr 02/12/21 11:22 Nacl 0.9% IV HANNAH PRN Hypotension Ondansetron HCl 4 mg 02/09/21 21:27 02/09/21 22:15 Ondansetron 4 Mg/2 Ml Inj IV 4 mg Q8H PRN Administration Nausea And Vomiting Oxycodone/Acetaminophen 1 tab 02/09/21 21:27 02/12/21 05:25 Oxycodone /Acetaminophen 5-325mg Tab PO 1 tab Q6H PRN Administration Pain, Moderate (4-6) Sodium Chloride 10 ml 02/09/21 22:00 02/12/21 11:16 Sodium Chloride 0.9% 10 Ml Flush Syringe IV 10 ml BID MONICA Administration Sodium Chloride 10 ml 02/09/21 21:27 Sodium Chloride 0.9% 10 Ml Flush Syringe IV PRN PRN LINE FLUSH Valsartan 160 mg 02/09/21 22:00 02/12/21 11:17 Valsartan 160mg Tab PO Not Given BID MONICA
[2021-02-12] MEDS ORDERED: FLUCONAZOLE 200 MG TAB PO NR (14:00)
[2021-02-12 16:47] LABS: Calcium 7.6 mg/dL (8.4-10.2)
--- NOTE | 2021-02-13 07:02 | Progress Note ---
Assessment and Plan - Patient Problems (1) Hyperkalemia Current Visit: No Status: Acute Plan to address problem: Treat with dialysis. Counseled patient on the importance of low potassium diet. (2) Volume overload Current Visit: Yes Status: Acute Plan to address problem: Will address with adequate fluid removal via UF with HD. (3) End-stage renal disease needing dialysis Current Visit: Yes Status: Chronic Plan to address problem: Have adjusted her to TTS inpatient HD schedule. Pending OP HD placement. (4) Anemia Current Visit: Yes Status: Chronic Qualifiers: Anemia type: due to chronic kidney disease Chronic kidney disease stage: on chronic dialysis Qualified Code(s): N18.6 - End stage renal disease; D63.1 - Anemia in chronic kidney disease; Z99.2 - Dependence on renal dialysis Plan to address problem: DAVON therapy with HD (5) Hypertensive chronic kidney disease with stage 5 chronic kidney disease or end stage renal disease Current Visit: No Status: Chronic Plan to address problem: Monitor under current regimen. Subjective Date of service: 02/13/21 Interval history: No acute issues, pending HD today. Pending OP HD placement Objective - Vital Signs Vital signs: Vital Signs - 12hr 02/12/21 02/12/21 02/12/21 22:10 22:12 23:17 Temperature 98.1 F Pulse Rate 79 79 Respiratory 18 18 Rate Blood Pressure 97/61 97/61 O2 Sat by Pulse 100 Oximetry 02/12/21 02/13/21 23:18 02:00 Temperature Pulse Rate 79 Respiratory Rate Blood Pressure 97/61 O2 Sat by Pulse 99 Oximetry - General Appearance General appearance: well-developed, appears stated age EENT: ATNC Neck: no JVD Respiratory: Present: Normal Exam Cardiology: regular Gastrointestinal: normal Integumentary: no rash, warm and dry Neurologic: no focal deficit Musculoskeletal: deferred Psychiatric: mood/affect appropriate, cooperative - Lab 02/12/21 07:32 02/12/21 15:52 Most recent lab results Calcium 7.6 mg/dL (8.4-10.2) L 02/12/21 15:52 Magnesium 2.20 mg/dL (1.7-2.3) 02/09/21 18:16 - Imaging Chest x-ray: pending - Allied health notes Allied health notes reviewed: nursing Medications & Allergies - Medications Allergies/Adverse Reactions: Allergies No Known Allergies Allergy (Verified 02/05/21 10:49) Home Medications: Home Medications Medication Instructions Recorded Confirmed Last Taken Type Calcium Carbonate [Tums 500MG CHEW] 500 mg PO BID #60 tablet 02/03/21 02/11/21 Unknown Rx Famotidine [Pepcid] 10 mg PO BID #60 tablet 02/03/21 02/11/21 Unknown Rx Furosemide [Lasix TAB] 40 mg PO QDAY 30 Days #30 tablet 02/03/21 02/11/21 Unknown Rx Valsartan [Diovan] 160 mg PO BID #60 tablet 02/03/21 02/11/21 Unknown Rx calcitrioL [Rocaltrol] 0.5 mcg PO QDAY #30 capsule 02/03/21 02/11/21 Unknown Rx carvediloL [Coreg] 6.25 mg PO BID #60 tablet 02/03/21 02/11/21 Unknown Rx Active Medications: Generic Name Dose Route Start Last Admin Trade Name Freq PRN Reason Stop Dose Admin Acetaminophen 650 mg 02/09/21 21:27 Acetaminophen 325 Mg Tab PO Q4H PRN Pain MILD(1-3)/Fever >100.5/MALCOLM Calcitriol 0.5 mcg 02/09/21 22:00 02/12/21 11:15 Calcitriol 0.5 Mcg Cap PO 0.5 mcg QDAY MONICA Administration Calcium Carbonate/Glycine 500 mg 02/09/21 22:00 02/12/21 23:10 Calcium Carbonate 500 Mg Tab Chew PO 500 mg BID MONICA Administration Carvedilol 6.25 mg 02/09/21 22:00 02/12/21 23:17 Carvedilol 6.25 Mg Tab PO Not Given BID MONICA Famotidine 10 mg 02/09/21 22:00 02/12/21 23:10 Famotidine 10 Mg Tab PO 10 mg BID MONICA Administration Furosemide 40 mg 02/11/21 13:00 02/12/21 11:15 Furosemide 40 Mg Tab PO 40 mg QDAY MONICA Administration Heparin Sodium (Porcine) 5,000 unit 02/09/21 22:00 02/12/21 23:11 Heparin 5,000 Unit/1 Ml Vial SUB-Q 5,000 unit Q12HR MONICA Administration Hydromorphone HCl 0.5 mg 02/09/21 21:27 Hydromorphone 1 Mg/1 Ml Inj IV Q3H PRN Pain , Severe (7-10) Sodium Chloride 100 mls @ 999 mls/hr 02/12/21 11:22 Nacl 0.9% IV HANNAH PRN Hypotension Ondansetron HCl 4 mg 02/09/21 21:27 02/09/21 22:15 Ondansetron 4 Mg/2 Ml Inj IV 4 mg Q8H PRN Administration Nausea And Vomiting Oxycodone/Acetaminophen 1 tab 02/09/21 21:27 02/12/21 05:25 Oxycodone /Acetaminophen 5-325mg Tab PO 1 tab Q6H PRN Administration Pain, Moderate (4-6) Sodium Chloride 10 ml 02/09/21 22:00 02/12/21 23:12 Sodium Chloride 0.9% 10 Ml Flush Syringe IV 10 ml BID MONICA Administration Sodium Chloride 10 ml 02/09/21 21:27 Sodium Chloride 0.9% 10 Ml Flush Syringe IV PRN PRN LINE FLUSH Valsartan 160 mg 02/09/21 22:00 02/12/21 23:18 Valsartan 160mg Tab PO Not Given BID MONICA
--- NOTE | 2021-02-13 12:25 | Progress Note ---
Assessment and Plan Assessment and plan: 55-year-old -Iranian female with history of hypertension and GERD well- known to me from the previous admission and newly diagnosed end-stage renal disease comes in for shortness of breath and missed hemodialysis for 6 days. Patient was discharged home without any hemodialysis chair and patient was asked to come to the emergency room twice a week for hemodialysis till she gets her hemodialysis placement. Case management working on hemodialysis chair placement and patient is in communication with Social Security office and the case management. Patient has slightly increased shortness of breath but otherwise comfortable. Patient is compliant with her blood pressure medications. No fever or chills. 02/10: Patient seen and examined, resting in the ER, awaiting HD. Repeat renal function to ensure resolution of Hyperkalemia. Case management working on Outpatient placement for HD 02/11: Patient still does not have a dialysis place to go to outpatient and is therefore not a safe discharge considering electrolyte abnormalities. We will recheck BMP today. Patient also was recently diagnosed with Covid we will move the patient with isolation controlled. She is not hypoxic at this time but will monitor oxygen with every shift. She verbalized understanding to the treatment plan and have discussed this with case management also. 02/12: Patient seen and examined, COVID 19 NEGATIVE, AWAITING FOR Second negative test result to get assigned Chair time. 02/13: COVID TESTING NEGATIVE X 2. Case management working on placement. Patient otherwise clinically stable. No Encephalopathy (1) Volume overload Current Visit: Yes Status: Acute Plan to address problem: Needs hemodialysis at least twice a week Case management working on hemodialysis placement Patient following with Dr. April kimball (2) End-stage renal disease needing dialysis Current Visit: Yes Status: Chronic Plan to address problem: Patient needs emergent hemodialysis and possible discharge home after dialysis (3) Uremia Current Visit: Yes Status: Acute Plan to address problem: Hemodialysis requested (4) Hyperkalemia Current Visit: No Status: Acute Plan to address problem: Treated with Kayexalate and calcium gluconate (5) Hypertension Current Visit: No Status: Chronic Qualifiers: Hypertension type: primary hypertension Qualified Code(s): I10 - Essential (primary) hypertension Plan to address problem: Continue antihypertensives (6) Anemia Current Visit: Yes Status: Chronic Qualifiers: Anemia type: due to chronic kidney disease Plan to address problem: Secondary to chronic kidney disease Will defer to nephrology regarding Epogen (7) Metabolic Acidosis Except correction with Dialysis (8) COVID 19 (9) Discharge planning issues Current Visit: Yes Status: Acute Plan to address problem: Case management to assess outpatient HD, the current system in place does not appear sustainable. Patient is working on getting Medicare and hemodialysis placement History Interval history: Patient seen and examined, underwent dialysis, clinical improving, no new complaints Hospitalist Physical - Physical exam Narrative exam: General appearance: Present: No distress, well-nourished - EENT Eyes: Present: PERRL ENT: hearing intact, clear oral mucosa - Neck Neck: Present: supple, normal ROM - Respiratory Respiratory effort: normal Respiratory: bilateral: CTA - Cardiovascular Heart rate: 78 Rhythm: regular Heart Sounds: Present: S1 & S2. Absent: rub, click - Extremities Extremities: pulses symmetrical, trace edema Peripheral Pulses: within normal limits - Abdominal General gastrointestinal: Present: soft, non-tender, non-distended, normal bowel sounds Female genitourinary: Present: normal - Integumentary Integumentary: Present: clear, warm, dry - Musculoskeletal Musculoskeletal: gait normal, strength equal bilaterally - Psychiatric Psychiatric: appropriate mood/affect, intact judgment & insight - Neurologic Neurologic: CNII-XII intact, moves all extremities - Constitutional Vitals: Temp Pulse Resp BP Pulse Ox 98.1 F 79 18 97/61 99 02/12/21 22:12 02/12/21 23:18 02/12/21 22:12 02/12/21 23:18 02/13/21 02:00 General appearance: Present: mild distress, well-nourished Results - Labs CBC & Chem 7: 02/12/21 07:32 02/12/21 15:52 Labs: Laboratory Last Values WBC 6.4 K/mm3 (4.5-11.0) 02/12/21 07:32 RBC 2.86 M/mm3 (3.65-5.03) L 02/12/21 07:32 Hgb 7.0 gm/dl (10.1-14.3) L 02/12/21 07:32 Hct 21.8 % (30.3-42.9) L 02/12/21 07:32 MCV 76 fl (79-97) L 02/12/21 07:32 MCH 25 pg (28-32) L 02/12/21 07:32 MCHC 32 % (30-34) 02/12/21 07:32 RDW 14.4 % (13.2-15.2) 02/12/21 07:32 Plt Count 260 K/mm3 (140-440) 02/12/21 07:32 Lymph % (Auto) 16.9 % (13.4-35.0) 02/10/21 05:00 [place] % (Auto) 10.4 % (0.0-7.3) H 02/10/21 05:00 Eos % (Auto) 1.1 % (0.0-4.3) 02/10/21 05:00 Baso % (Auto) 1.3 % (0.0-1.8) 02/10/21 05:00 Lymph # (Auto) 1.5 K/mm3 (1.2-5.4) 02/10/21 05:00 [place] # (Auto) 0.9 K/mm3 (0.0-0.8) H 02/10/21 05:00 Eos # (Auto) 0.1 K/mm3 (0.0-0.4) 02/10/21 05:00 Baso # (Auto) 0.1 K/mm3 (0.0-0.1) 02/10/21 05:00 Seg Neutrophils % 70.3 % (40.0-70.0) H 02/10/21 05:00 Seg Neutrophils # 6.1 K/mm3 (1.8-7.7) 02/10/21 05:00 Sodium 131 mmol/L (137-145) L 02/12/21 15:52 Potassium 4.5 mmol/L (3.6-5.0) 02/12/21 15:52 Chloride 94.4 mmol/L (98-107) L 02/12/21 15:52 Carbon Dioxide 17 mmol/L (22-30) L D 02/12/21 15:52 Anion Gap 24 mmol/L 02/12/21 15:52 BUN 56 mg/dL (7-17) H 02/12/21 15:52 Creatinine 9.1 mg/dL (0.6-1.2) H 02/12/21 15:52 Estimated GFR 5 ml/min 02/12/21 15:52 BUN/Creatinine Ratio 6 % 02/12/21 15:52 Glucose 102 mg/dL (65-100) H 02/12/21 15:52 Calcium 7.6 mg/dL (8.4-10.2) L 02/12/21 15:52 Magnesium 2.20 mg/dL (1.7-2.3) 02/09/21 18:16 Total Bilirubin 0.30 mg/dL (0.1-1.2) 02/12/21 07:32 AST 9 units/L (5-40) 02/12/21 07:32 ALT < 5 units/L (7-56) L 02/12/21 07:32 Alkaline Phosphatase 127 units/L (35-129) 02/12/21 07:32 Total Creatine Kinase 81 units/L (30-135) 02/09/21 18:16 NT-Pro-B Natriuret Pep 4740 pg/mL (0-900) H 02/09/21 18:16 Total Protein 6.3 g/dL (6.3-8.2) 02/12/21 07:32 Albumin 3.3 g/dL (3.9-5) L 02/12/21 07:32 Albumin/Globulin Ratio 1.1 % 02/12/21 07:32 Coronavirus (PCR) Negative (Negative) 02/12/21 Unknown Newman/IV: Voiding Method Toilet Active Medications - Current Medications Current Medications: Generic Name Dose Route Start Last Admin Trade Name Freq PRN Reason Stop Dose Admin Acetaminophen 650 mg 02/09/21 21:27 Acetaminophen 325 Mg Tab PO Q4H PRN Pain MILD(1-3)/Fever >100.5/MALCOLM Calcitriol 0.5 mcg 02/09/21 22:00 02/12/21 11:15 Calcitriol 0.5 Mcg Cap PO 0.5 mcg QDAY MONICA Administration Calcium Carbonate/Glycine 500 mg 02/09/21 22:00 02/12/21 23:10 Calcium Carbonate 500 Mg Tab Chew PO 500 mg BID MONICA Administration Carvedilol 6.25 mg 02/09/21 22:00 02/12/21 23:17 Carvedilol 6.25 Mg Tab PO Not Given BID MONICA Famotidine 10 mg 02/09/21 22:00 02/12/21 23:10 Famotidine 10 Mg Tab PO 10 mg BID MONICA Administration Furosemide 40 mg 02/11/21 13:00 02/12/21 11:15 Furosemide 40 Mg Tab PO 40 mg QDAY MONICA Administration Heparin Sodium (Porcine) 5,000 unit 02/09/21 22:00 02/12/21 23:11 Heparin 5,000 Unit/1 Ml Vial SUB-Q 5,000 unit Q12HR MONICA Administration Hydromorphone HCl 0.5 mg 02/09/21 21:27 Hydromorphone 1 Mg/1 Ml Inj IV Q3H PRN Pain , Severe (7-10) Sodium Chloride 100 mls @ 999 mls/hr 02/12/21 11:22 Nacl 0.9% IV HANNAH PRN Hypotension Ondansetron HCl 4 mg 02/09/21 21:27 02/09/21 22:15 Ondansetron 4 Mg/2 Ml Inj IV 4 mg Q8H PRN Administration Nausea And Vomiting Oxycodone/Acetaminophen 1 tab 02/09/21 21:27 02/12/21 05:25 Oxycodone /Acetaminophen 5-325mg Tab PO 1 tab Q6H PRN Administration Pain, Moderate (4-6) Sodium Chloride 10 ml 02/09/21 22:00 02/12/21 23:12 Sodium Chloride 0.9% 10 Ml Flush Syringe IV 10 ml BID MONICA Administration Sodium Chloride 10 ml 02/09/21 21:27 Sodium Chloride 0.9% 10 Ml Flush Syringe IV PRN PRN LINE FLUSH Valsartan 160 mg 02/09/21 22:00 02/12/21 23:18 Valsartan 160mg Tab PO Not Given BID MONICA
[2021-02-13] MEDS: carvediloL 6.25 MG TAB PO SCH ×2 (14:13→22:04)
[2021-02-13] MEDS: FAMOTIDINE 10 MG TAB PO SCH ×2 (14:13→22:03)
[2021-02-13] MEDS: CALCIUM CARBONATE 500 MG TAB CHEW PO SCH ×2 (14:13→22:03)
[2021-02-13] MEDS: FUROSEMIDE 40 MG TAB PO SCH (14:13)
[2021-02-13] MEDS: CALCITRIOL 0.5 MCG CAP PO SCH (14:14)
[2021-02-13] MEDS: HEPARIN 5,000 UNIT/1 ML VIAL SUB-Q SCH ×2 (14:14→22:03)
[2021-02-13] MEDS: VALSARTAN 160MG TAB PO SCH ×2 (14:18→22:04)
--- NOTE | 2021-02-14 09:52 | Progress Note ---
Assessment and Plan - Patient Problems (1) Hyperkalemia Current Visit: No Status: Acute Plan to address problem: Treat with dialysis. Counseled patient on the importance of low potassium diet. (2) Volume overload Current Visit: Yes Status: Acute Plan to address problem: Will address with adequate fluid removal via UF with HD. (3) End-stage renal disease needing dialysis Current Visit: Yes Status: Chronic Plan to address problem: Have adjusted her to TTS inpatient HD schedule. Pending OP HD placement. (4) Anemia Current Visit: Yes Status: Chronic Qualifiers: Anemia type: due to chronic kidney disease Chronic kidney disease stage: on chronic dialysis Qualified Code(s): N18.6 - End stage renal disease; D63.1 - Anemia in chronic kidney disease; Z99.2 - Dependence on renal dialysis Plan to address problem: DAVON therapy with HD (5) Hypertensive chronic kidney disease with stage 5 chronic kidney disease or end stage renal disease Current Visit: No Status: Chronic Plan to address problem: Agree with holding antihypertensives today and to closely monitor given low blood pressures readings. Would recommend that if we need to restart, we can place back on valsartan 160 mg once a day. Subjective Date of service: 02/14/21 Interval history: No acute complaints, low blood pressures noted last night and early this am. Asymptomatic today. Had HD yesterday without any issues. Objective - Vital Signs Vital signs: Vital Signs - 12hr 02/13/21 02/13/21 02/13/21 21:58 22:00 22:04 Temperature 99.4 F Pulse Rate 85 85 Respiratory 18 Rate Respiratory 18 Rate [Right Foot] Blood Pressure 94/48 94/48 O2 Sat by Pulse 97 Oximetry 02/14/21 02:00 Temperature Pulse Rate Respiratory 17 Rate Respiratory Rate [Right Foot] Blood Pressure O2 Sat by Pulse 98 Oximetry - General Appearance General appearance: well-developed, appears stated age EENT: ATNC Neck: no JVD Respiratory: Present: Clear to Ascultation, Normal Exam Cardiology: regular Gastrointestinal: normal Integumentary: no rash Neurologic: no focal deficit, alert and oriented x3 Musculoskeletal: deferred Psychiatric: cooperative - Lab 02/12/21 07:32 02/12/21 15:52 Most recent lab results Calcium 7.6 mg/dL (8.4-10.2) L 02/12/21 15:52 Magnesium 2.20 mg/dL (1.7-2.3) 02/09/21 18:16 - Allied health notes Allied health notes reviewed: nursing Medications & Allergies - Medications Allergies/Adverse Reactions: Allergies No Known Allergies Allergy (Verified 02/05/21 10:49) Home Medications: Home Medications Medication Instructions Recorded Confirmed Last Taken Type Calcium Carbonate [Tums 500MG CHEW] 500 mg PO BID #60 tablet 02/03/21 02/11/21 Unknown Rx Famotidine [Pepcid] 10 mg PO BID #60 tablet 02/03/21 02/11/21 Unknown Rx Furosemide [Lasix TAB] 40 mg PO QDAY 30 Days #30 tablet 02/03/21 02/11/21 Unknown Rx Valsartan [Diovan] 160 mg PO BID #60 tablet 02/03/21 02/11/21 Unknown Rx calcitrioL [Rocaltrol] 0.5 mcg PO QDAY #30 capsule 02/03/21 02/11/21 Unknown Rx carvediloL [Coreg] 6.25 mg PO BID #60 tablet 02/03/21 02/11/21 Unknown Rx Active Medications: Generic Name Dose Route Start Last Admin Trade Name Freq PRN Reason Stop Dose Admin Acetaminophen 650 mg 02/09/21 21:27 Acetaminophen 325 Mg Tab PO Q4H PRN Pain MILD(1-3)/Fever >100.5/MALCOLM Calcitriol 0.5 mcg 02/09/21 22:00 02/13/21 14:14 Calcitriol 0.5 Mcg Cap PO 0.5 mcg QDAY MONICA Administration Calcium Carbonate/Glycine 500 mg 02/09/21 22:00 02/13/21 22:03 Calcium Carbonate 500 Mg Tab Chew PO 500 mg BID MONICA Administration Carvedilol 6.25 mg 02/09/21 22:00 02/13/21 22:04 Carvedilol 6.25 Mg Tab PO Not Given BID MONICA Famotidine 10 mg 02/09/21 22:00 02/13/21 22:03 Famotidine 10 Mg Tab PO 10 mg BID MONICA Administration Furosemide 40 mg 02/11/21 13:00 02/13/21 14:13 Furosemide 40 Mg Tab PO 40 mg QDAY MONICA Administration Heparin Sodium (Porcine) 5,000 unit 02/09/21 22:00 02/13/21 22:03 Heparin 5,000 Unit/1 Ml Vial SUB-Q 5,000 unit Q12HR MONICA Administration Hydromorphone HCl 0.5 mg 02/09/21 21:27 Hydromorphone 1 Mg/1 Ml Inj IV Q3H PRN Pain , Severe (7-10) Sodium Chloride 100 mls @ 999 mls/hr 02/12/21 11:22 Nacl 0.9% IV HANNAH PRN Hypotension Ondansetron HCl 4 mg 02/09/21 21:27 02/09/21 22:15 Ondansetron 4 Mg/2 Ml Inj IV 4 mg Q8H PRN Administration Nausea And Vomiting Oxycodone/Acetaminophen 1 tab 02/09/21 21:27 02/12/21 05:25 Oxycodone /Acetaminophen 5-325mg Tab PO 1 tab Q6H PRN Administration Pain, Moderate (4-6) Sodium Chloride 10 ml 02/09/21 22:00 02/13/21 22:04 Sodium Chloride 0.9% 10 Ml Flush Syringe IV 10 ml BID MONICA Administration Sodium Chloride 10 ml 02/09/21 21:27 Sodium Chloride 0.9% 10 Ml Flush Syringe IV PRN PRN LINE FLUSH Valsartan 160 mg 02/09/21 22:00 02/13/21 22:04 Valsartan 160mg Tab PO Not Given BID MONICA
[2021-02-14] MEDS: CALCIUM CARBONATE 500 MG TAB CHEW PO SCH ×2 (10:31→22:58)
[2021-02-14] MEDS: HEPARIN 5,000 UNIT/1 ML VIAL SUB-Q SCH ×2 (10:31→22:59)
[2021-02-14] MEDS: FUROSEMIDE 40 MG TAB PO SCH (10:31)
[2021-02-14] MEDS: CALCITRIOL 0.5 MCG CAP PO SCH (10:31)
[2021-02-14] MEDS: FAMOTIDINE 10 MG TAB PO SCH ×2 (10:31→22:58)
[2021-02-14] MEDS: carvediloL 6.25 MG TAB PO SCH ×2 (12:33→22:59)
[2021-02-14] MEDS: VALSARTAN 160MG TAB PO SCH ×3 (12:41→23:00)
--- NOTE | 2021-02-14 14:32 | Progress Note ---
Assessment and Plan Assessment and plan: 55-year-old -Stateless female with history of hypertension and GERD well- known to me from the previous admission and newly diagnosed end-stage renal disease comes in for shortness of breath and missed hemodialysis for 6 days. Patient was discharged home without any hemodialysis chair and patient was asked to come to the emergency room twice a week for hemodialysis till she gets her hemodialysis placement. Case management working on hemodialysis chair placement and patient is in communication with Social Security office and the case management. Patient has slightly increased shortness of breath but otherwise comfortable. Patient is compliant with her blood pressure medications. No fever or chills. 02/10: Patient seen and examined, resting in the ER, awaiting HD. Repeat renal function to ensure resolution of Hyperkalemia. Case management working on Outpatient placement for HD 02/11: Patient still does not have a dialysis place to go to outpatient and is therefore not a safe discharge considering electrolyte abnormalities. We will recheck BMP today. Patient also was recently diagnosed with Covid we will move the patient with isolation controlled. She is not hypoxic at this time but will monitor oxygen with every shift. She verbalized understanding to the treatment plan and have discussed this with case management also. 02/12: Patient seen and examined, COVID 19 NEGATIVE, AWAITING FOR Second negative test result to get assigned Chair time. 02/13: COVID TESTING NEGATIVE X 2. Case management working on placement. Patient otherwise clinically stable. No Encephalopathy 02/14: Patient continues to show improvements. Awaiting hemodialysis chair time so that she can be discharged home. (1) Volume overload Current Visit: Yes Status: Acute Plan to address problem: Needs hemodialysis at least twice a week Case management working on hemodialysis placement Patient following with Dr. April kimball (2) End-stage renal disease needing dialysis Current Visit: Yes Status: Chronic Plan to address problem: Patient needs emergent hemodialysis and possible discharge home after dialysis (3) Uremia Current Visit: Yes Status: Acute Plan to address problem: Hemodialysis requested (4) Hyperkalemia Current Visit: No Status: Acute Plan to address problem: Treated with Kayexalate and calcium gluconate (5) Hypertension Current Visit: No Status: Chronic Qualifiers: Hypertension type: primary hypertension Qualified Code(s): I10 - Essential (primary) hypertension Plan to address problem: Continue antihypertensives (6) Anemia Current Visit: Yes Status: Chronic Qualifiers: Anemia type: due to chronic kidney disease Plan to address problem: Secondary to chronic kidney disease Will defer to nephrology regarding Epogen (7) Metabolic Acidosis Except correction with Dialysis (8) COVID 19 (9) Discharge planning issues Current Visit: Yes Status: Acute Plan to address problem: Case management to assess outpatient HD, the current system in place does not appear sustainable. Patient is working on getting Medicare and hemodialysis placement History Interval history: Patient seen and examined, underwent dialysis, clinical improving, no new complaints, ambulating around without any difficulty Hospitalist Physical - Physical exam Narrative exam: General appearance: Present: No distress, well-nourished - EENT Eyes: Present: PERRL ENT: hearing intact, clear oral mucosa - Neck Neck: Present: supple, normal ROM - Respiratory Respiratory effort: normal Respiratory: bilateral: CTA - Cardiovascular Heart rate: 78 Rhythm: regular Heart Sounds: Present: S1 & S2. Absent: rub, click - Extremities Extremities: pulses symmetrical, trace edema Peripheral Pulses: within normal limits - Abdominal General gastrointestinal: Present: soft, non-tender, non-distended, normal bowel sounds Female genitourinary: Present: normal - Integumentary Integumentary: Present: clear, warm, dry - Musculoskeletal Musculoskeletal: gait normal, strength equal bilaterally - Psychiatric Psychiatric: appropriate mood/affect, intact judgment & insight - Neurologic Neurologic: CNII-XII intact, moves all extremities - Constitutional Vitals: Temp Pulse Resp BP Pulse Ox 98.6 F 85 18 113/76 99 02/14/21 11:09 02/14/21 12:41 02/14/21 11:09 02/14/21 12:41 02/14/21 11:09 General appearance: Present: mild distress, well-nourished Results - Labs CBC & Chem 7: 02/12/21 07:32 02/12/21 15:52 Labs: Laboratory Last Values WBC 6.4 K/mm3 (4.5-11.0) 02/12/21 07:32 RBC 2.86 M/mm3 (3.65-5.03) L 02/12/21 07:32 Hgb 7.0 gm/dl (10.1-14.3) L 02/12/21 07:32 Hct 21.8 % (30.3-42.9) L 02/12/21 07:32 MCV 76 fl (79-97) L 02/12/21 07:32 MCH 25 pg (28-32) L 02/12/21 07:32 MCHC 32 % (30-34) 02/12/21 07:32 RDW 14.4 % (13.2-15.2) 02/12/21 07:32 Plt Count 260 K/mm3 (140-440) 02/12/21 07:32 Lymph % (Auto) 16.9 % (13.4-35.0) 02/10/21 05:00 [place] % (Auto) 10.4 % (0.0-7.3) H 02/10/21 05:00 Eos % (Auto) 1.1 % (0.0-4.3) 02/10/21 05:00 Baso % (Auto) 1.3 % (0.0-1.8) 02/10/21 05:00 Lymph # (Auto) 1.5 K/mm3 (1.2-5.4) 02/10/21 05:00 [place] # (Auto) 0.9 K/mm3 (0.0-0.8) H 02/10/21 05:00 Eos # (Auto) 0.1 K/mm3 (0.0-0.4) 02/10/21 05:00 Baso # (Auto) 0.1 K/mm3 (0.0-0.1) 02/10/21 05:00 Seg Neutrophils % 70.3 % (40.0-70.0) H 02/10/21 05:00 Seg Neutrophils # 6.1 K/mm3 (1.8-7.7) 02/10/21 05:00 Sodium 131 mmol/L (137-145) L 02/12/21 15:52 Potassium 4.5 mmol/L (3.6-5.0) 02/12/21 15:52 Chloride 94.4 mmol/L (98-107) L 02/12/21 15:52 Carbon Dioxide 17 mmol/L (22-30) L D 02/12/21 15:52 Anion Gap 24 mmol/L 02/12/21 15:52 BUN 56 mg/dL (7-17) H 02/12/21 15:52 Creatinine 9.1 mg/dL (0.6-1.2) H 02/12/21 15:52 Estimated GFR 5 ml/min 02/12/21 15:52 BUN/Creatinine Ratio 6 % 02/12/21 15:52 Glucose 102 mg/dL (65-100) H 02/12/21 15:52 Calcium 7.6 mg/dL (8.4-10.2) L 02/12/21 15:52 Magnesium 2.20 mg/dL (1.7-2.3) 02/09/21 18:16 Total Bilirubin 0.30 mg/dL (0.1-1.2) 02/12/21 07:32 AST 9 units/L (5-40) 02/12/21 07:32 ALT < 5 units/L (7-56) L 02/12/21 07:32 Alkaline Phosphatase 127 units/L (35-129) 02/12/21 07:32 Total Creatine Kinase 81 units/L (30-135) 02/09/21 18:16 NT-Pro-B Natriuret Pep 4740 pg/mL (0-900) H 02/09/21 18:16 Total Protein 6.3 g/dL (6.3-8.2) 02/12/21 07:32 Albumin 3.3 g/dL (3.9-5) L 02/12/21 07:32 Albumin/Globulin Ratio 1.1 % 02/12/21 07:32 Coronavirus (PCR) Negative (Negative) 02/12/21 Unknown Newman/IV: Voiding Method Toilet Active Medications - Current Medications Current Medications: Generic Name Dose Route Start Last Admin Trade Name Freq PRN Reason Stop Dose Admin Acetaminophen 650 mg 02/09/21 21:27 Acetaminophen 325 Mg Tab PO Q4H PRN Pain MILD(1-3)/Fever >100.5/MALCOLM Calcitriol 0.5 mcg 02/09/21 22:00 02/14/21 10:31 Calcitriol 0.5 Mcg Cap PO 0.5 mcg QDAY MONICA Administration Calcium Carbonate/Glycine 500 mg 02/09/21 22:00 02/14/21 10:31 Calcium Carbonate 500 Mg Tab Chew PO 500 mg BID MONICA Administration Carvedilol 6.25 mg 02/09/21 22:00 02/14/21 12:33 Carvedilol 6.25 Mg Tab PO Not Given BID MONICA Famotidine 10 mg 02/09/21 22:00 02/14/21 10:31 Famotidine 10 Mg Tab PO 10 mg BID MONICA Administration Furosemide 40 mg 02/11/21 13:00 02/14/21 10:31 Furosemide 40 Mg Tab PO 40 mg QDAY MONICA Administration Heparin Sodium (Porcine) 5,000 unit 02/09/21 22:00 02/14/21 10:31 Heparin 5,000 Unit/1 Ml Vial SUB-Q 5,000 unit Q12HR MONICA Administration Hydromorphone HCl 0.5 mg 02/09/21 21:27 Hydromorphone 1 Mg/1 Ml Inj IV Q3H PRN Pain , Severe (7-10) Sodium Chloride 100 mls @ 999 mls/hr 02/12/21 11:22 Nacl 0.9% IV HANNAH PRN Hypotension Ondansetron HCl 4 mg 02/09/21 21:27 02/09/21 22:15 Ondansetron 4 Mg/2 Ml Inj IV 4 mg Q8H PRN Administration Nausea And Vomiting Oxycodone/Acetaminophen 1 tab 02/09/21 21:27 02/12/21 05:25 Oxycodone /Acetaminophen 5-325mg Tab PO 1 tab Q6H PRN Administration Pain, Moderate (4-6) Sodium Chloride 10 ml 02/09/21 22:00 02/14/21 10:32 Sodium Chloride 0.9% 10 Ml Flush Syringe IV 10 ml BID MONICA Administration Sodium Chloride 10 ml 02/09/21 21:27 Sodium Chloride 0.9% 10 Ml Flush Syringe IV PRN PRN LINE FLUSH Valsartan 160 mg 02/09/21 22:00 02/14/21 12:41 Valsartan 160mg Tab PO Not Given BID MONICA
[2021-02-14 21:42] LABS: Calcium 8.4 mg/dL (8.4-10.2)
[2021-02-15] MEDS ORDERED: MAGNESIUM SULFATE 1 GM in SODIUM CHLORIDE 0.9% 50 ML IV ONE (09:00)
[2021-02-15] MEDS: HEPARIN 5,000 UNIT/1 ML VIAL SUB-Q SCH ×2 (09:11→23:22)
[2021-02-15] MEDS: CALCITRIOL 0.5 MCG CAP PO SCH (09:12)
[2021-02-15] MEDS: FUROSEMIDE 40 MG TAB PO SCH (09:12)
[2021-02-15] MEDS: FAMOTIDINE 10 MG TAB PO SCH ×2 (09:12→23:23)
[2021-02-15] MEDS: CALCIUM CARBONATE 500 MG TAB CHEW PO SCH ×2 (09:12→23:25)
[2021-02-15] MEDS: carvediloL 6.25 MG TAB PO SCH ×2 (09:30→23:24)
[2021-02-15] MEDS: VALSARTAN 160MG TAB PO SCH ×2 (09:30→23:23)
--- NOTE | 2021-02-15 11:53 | Progress Note ---
Assessment and Plan Assessment and plan: 55-year-old -Citizen Of [place] female with history of hypertension and GERD well- known to me from the previous admission and newly diagnosed end-stage renal disease comes in for shortness of breath and missed hemodialysis for 6 days. Patient was discharged home without any hemodialysis chair and patient was asked to come to the emergency room twice a week for hemodialysis till she gets her hemodialysis placement. Case management working on hemodialysis chair placement and patient is in communication with Social Security office and the case management. Patient has slightly increased shortness of breath but otherwise comfortable. Patient is compliant with her blood pressure medications. No fever or chills. 02/10: Patient seen and examined, resting in the ER, awaiting HD. Repeat renal function to ensure resolution of Hyperkalemia. Case management working on Outpatient placement for HD 02/11: Patient still does not have a dialysis place to go to outpatient and is therefore not a safe discharge considering electrolyte abnormalities. We will recheck BMP today. Patient also was recently diagnosed with Covid we will move the patient with isolation controlled. She is not hypoxic at this time but will monitor oxygen with every shift. She verbalized understanding to the treatment plan and have discussed this with case management also. 02/12: Patient seen and examined, COVID 19 NEGATIVE, AWAITING FOR Second negative test result to get assigned Chair time. 02/13: COVID TESTING NEGATIVE X 2. Case management working on placement. Patient otherwise clinically stable. No Encephalopathy 02/14: Patient continues to show improvements. Awaiting hemodialysis chair time so that she can be discharged home. 02/15: Patient with mild Hypomagnesemia, will replace, await cardiology, Anemia still persist, will monitor may benefit from 1 unit PRBC. (1) Volume overload Current Visit: Yes Status: Acute Plan to address problem: Needs hemodialysis at least twice a week Case management working on hemodialysis placement Patient following with Dr. April kimball (2) End-stage renal disease needing dialysis Current Visit: Yes Status: Chronic Plan to address problem: Patient needs emergent hemodialysis and possible discharge home after dialysis (3) Uremia Current Visit: Yes Status: Acute Plan to address problem: Hemodialysis requested (4) Hyperkalemia Current Visit: No Status: Acute Plan to address problem: Treated with Kayexalate and calcium gluconate (5) Hypertension Current Visit: No Status: Chronic Qualifiers: Hypertension type: primary hypertension Qualified Code(s): I10 - Essential (primary) hypertension Plan to address problem: Continue antihypertensives (6) Anemia Current Visit: Yes Status: Chronic Qualifiers: Anemia type: due to chronic kidney disease Plan to address problem: Secondary to chronic kidney disease Will defer to nephrology regarding Epogen (7) Metabolic Acidosis Except correction with Dialysis (8) COVID 19 (9) Hypomagnesia (10) Discharge planning issues Current Visit: Yes Status: Acute Plan to address problem: Case management to assess outpatient HD, the current system in place does not appear sustainable. Patient is working on getting Medicare and hemodialysis placement History Interval history: Patient seen and examined, underwent dialysis, clinical improving, no new complaints, its reported that patient had 6 beats of svt, no symptoms Hospitalist Physical - Physical exam Narrative exam: General appearance: Present: No distress, well-nourished - EENT Eyes: Present: PERRL ENT: hearing intact, clear oral mucosa - Neck Neck: Present: supple, normal ROM - Respiratory Respiratory effort: normal Respiratory: bilateral: CTA - Cardiovascular Heart rate: 78 Rhythm: regular Heart Sounds: Present: S1 & S2. Absent: rub, click - Extremities Extremities: pulses symmetrical, trace edema Peripheral Pulses: within normal limits - Abdominal General gastrointestinal: Present: soft, non-tender, non-distended, normal bowel sounds Female genitourinary: Present: normal - Integumentary Integumentary: Present: clear, warm, dry - Musculoskeletal Musculoskeletal: gait normal, strength equal bilaterally - Psychiatric Psychiatric: appropriate mood/affect, intact judgment & insight - Neurologic Neurologic: CNII-XII intact, moves all extremities - Constitutional Vitals: Temp Pulse Resp BP Pulse Ox 99.0 F 81 18 114/72 97 02/15/21 04:27 02/15/21 04:27 02/15/21 04:27 02/15/21 04:27 02/15/21 04:27 General appearance: Present: mild distress, well-nourished Results - Labs CBC & Chem 7: 02/12/21 07:32 02/14/21 20:53 Labs: Laboratory Last Values WBC 6.4 K/mm3 (4.5-11.0) 02/12/21 07:32 RBC 2.86 M/mm3 (3.65-5.03) L 02/12/21 07:32 Hgb 7.0 gm/dl (10.1-14.3) L 02/12/21 07:32 Hct 21.8 % (30.3-42.9) L 02/12/21 07:32 MCV 76 fl (79-97) L 02/12/21 07:32 MCH 25 pg (28-32) L 02/12/21 07:32 MCHC 32 % (30-34) 02/12/21 07:32 RDW 14.4 % (13.2-15.2) 02/12/21 07:32 Plt Count 260 K/mm3 (140-440) 02/12/21 07:32 Lymph % (Auto) 16.9 % (13.4-35.0) 02/10/21 05:00 [place] % (Auto) 10.4 % (0.0-7.3) H 02/10/21 05:00 Eos % (Auto) 1.1 % (0.0-4.3) 02/10/21 05:00 Baso % (Auto) 1.3 % (0.0-1.8) 02/10/21 05:00 Lymph # (Auto) 1.5 K/mm3 (1.2-5.4) 02/10/21 05:00 [place] # (Auto) 0.9 K/mm3 (0.0-0.8) H 02/10/21 05:00 Eos # (Auto) 0.1 K/mm3 (0.0-0.4) 02/10/21 05:00 Baso # (Auto) 0.1 K/mm3 (0.0-0.1) 02/10/21 05:00 Seg Neutrophils % 70.3 % (40.0-70.0) H 02/10/21 05:00 Seg Neutrophils # 6.1 K/mm3 (1.8-7.7) 02/10/21 05:00 Sodium 133 mmol/L (137-145) L 02/14/21 20:53 Potassium 4.2 mmol/L (3.6-5.0) 02/14/21 20:53 Chloride 93.6 mmol/L (98-107) L 02/14/21 20:53 Carbon Dioxide 21 mmol/L (22-30) L 02/14/21 20:53 Anion Gap 23 mmol/L 02/14/21 20:53 BUN 41 mg/dL (7-17) H 02/14/21 20:53 Creatinine 6.9 mg/dL (0.6-1.2) H 02/14/21 20:53 Estimated GFR 7 ml/min 02/14/21 20:53 BUN/Creatinine Ratio 6 % 02/14/21 20:53 Glucose 122 mg/dL (65-100) H 02/14/21 20:53 Calcium 8.4 mg/dL (8.4-10.2) 02/14/21 20:53 Magnesium 1.80 mg/dL (1.7-2.3) 02/14/21 20:53 Total Bilirubin 0.30 mg/dL (0.1-1.2) 02/12/21 07:32 AST 9 units/L (5-40) 02/12/21 07:32 ALT < 5 units/L (7-56) L 02/12/21 07:32 Alkaline Phosphatase 127 units/L (35-129) 02/12/21 07:32 Total Creatine Kinase 81 units/L (30-135) 02/09/21 18:16 NT-Pro-B Natriuret Pep 4740 pg/mL (0-900) H 02/09/21 18:16 Total Protein 6.3 g/dL (6.3-8.2) 02/12/21 07:32 Albumin 3.3 g/dL (3.9-5) L 02/12/21 07:32 Albumin/Globulin Ratio 1.1 % 02/12/21 07:32 Coronavirus (PCR) Negative (Negative) 02/12/21 Unknown Newman/IV: Voiding Method Toilet Active Medications - Current Medications Current Medications: Generic Name Dose Route Start Last Admin Trade Name Freq PRN Reason Stop Dose Admin Acetaminophen 650 mg 02/09/21 21:27 Acetaminophen 325 Mg Tab PO Q4H PRN Pain MILD(1-3)/Fever >100.5/MALCOLM Calcitriol 0.5 mcg 02/09/21 22:00 02/15/21 09:12 Calcitriol 0.5 Mcg Cap PO 0.5 mcg QDAY MONICA Administration Calcium Carbonate/Glycine 500 mg 02/09/21 22:00 02/15/21 09:12 Calcium Carbonate 500 Mg Tab Chew PO 500 mg BID MONICA Administration Carvedilol 6.25 mg 02/09/21 22:00 02/15/21 09:30 Carvedilol 6.25 Mg Tab PO Not Given BID MONICA Famotidine 10 mg 02/09/21 22:00 02/15/21 09:12 Famotidine 10 Mg Tab PO 10 mg BID MONICA Administration Furosemide 40 mg 02/11/21 13:00 02/15/21 09:12 Furosemide 40 Mg Tab PO 40 mg QDAY MONICA Administration Heparin Sodium (Porcine) 5,000 unit 02/09/21 22:00 02/15/21 09:11 Heparin 5,000 Unit/1 Ml Vial SUB-Q 5,000 unit Q12HR MONICA Administration Hydromorphone HCl 0.5 mg 02/09/21 21:27 Hydromorphone 1 Mg/1 Ml Inj IV Q3H PRN Pain , Severe (7-10) Sodium Chloride 100 mls @ 999 mls/hr 02/12/21 11:22 Nacl 0.9% IV HANNAH PRN Hypotension Ondansetron HCl 4 mg 02/09/21 21:27 02/09/21 22:15 Ondansetron 4 Mg/2 Ml Inj IV 4 mg Q8H PRN Administration Nausea And Vomiting Oxycodone/Acetaminophen 1 tab 02/09/21 21:27 02/12/21 05:25 Oxycodone /Acetaminophen 5-325mg Tab PO 1 tab Q6H PRN Administration Pain, Moderate (4-6) Sodium Chloride 10 ml 02/09/21 22:00 02/15/21 09:25 Sodium Chloride 0.9% 10 Ml Flush Syringe IV 10 ml BID MONICA Administration Sodium Chloride 10 ml 02/09/21 21:27 Sodium Chloride 0.9% 10 Ml Flush Syringe IV PRN PRN LINE FLUSH Valsartan 160 mg 02/09/21 22:00 02/15/21 09:30 Valsartan 160mg Tab PO Not Given BID MONICA
--- NOTE | 2021-02-15 15:03 | Consultation ---
History of Present Illness Consult date: 02/15/21 Consult reason: arrhythmia History of present illness: The patient is a 55-year-old woman with end-stage renal disease, recently ini tiated on hemodialysis. She was re-admitted to this hospital following her dialysis initiation, because there was no availability for follow-up outpatient hemodialysis. She has been receiving inpatient dialysis since her readmission a week ago. During her course here, she has been on remote telemetry monitoring. Yesterday, she was reported to have had an asymptomatic run of nonsustained ventricular tachycardia which prompted a cardiac consultation. The patient has no chest pain, no shortness of breath, no palpitations, no edema, looks and feels well. My review of the culprit telemetry strip yesterday February 14 at 2:42 PM was baseline artifact, underlying which was a stable sinus rhythm. There was no ventricular tachycardia and no dysrhythmias. Otherwise, the patient's telemetry strips over the past several days was a stable sinus rhythm with an occasional PVC. Twelve-lead ECG was normal sinus rhythm, with nonspecific T wave changes, no acute ischemia or infarction. Past History Past Medical History: ESRD, hypertension, hyperlipidemia Past Surgical History: Other (Right chest/subclavian Vas-Cath) Social history: lives with family Family history: hypertension Medications and Allergies Allergies Allergy/AdvReac Type Severity Reaction Status Date / Time No Known Allergies Allergy Verified 02/05/21 10:49 Home Medications Medication Instructions Recorded Confirmed Last Taken Type Calcium Carbonate [Tums 500MG CHEW] 500 mg PO BID #60 tablet 02/03/21 02/11/21 U nknown Rx Famotidine [Pepcid] 10 mg PO BID #60 tablet 02/03/21 02/11/21 Unknown Rx Furosemide [Lasix TAB] 40 mg PO QDAY 30 Days #30 tablet 02/03/21 02/11/21 Unknown Rx Valsartan [Diovan] 160 mg PO BID #60 tablet 02/03/21 02/11/21 Unknown Rx calcitrioL [Rocaltrol] 0.5 mcg PO QDAY #30 capsule 02/03/21 02/11/21 Unknown Rx carvediloL [Coreg] 6.25 mg PO BID #60 tablet 02/03/21 02/11/21 Unknown Rx Active Meds: Active Medications Acetaminophen (Acetaminophen 325 Mg Tab) 650 mg PO Q4H PRN PRN Reason: Pain MILD(1-3)/Fever >100.5/MALCOLM Calcitriol (Calcitriol 0.5 Mcg Cap) 0.5 mcg PO QDAY [facility] Last Admin: 02/15/21 09:12 Dose: 0.5 mcg Documented by: Calcium Carbonate/Glycine (Calcium Carbonate 500 Mg Tab Chew) 500 mg PO BID [facility] Last Admin: 02/15/21 09:12 Dose: 500 mg Documented by: Carvedilol (Carvedilol 6.25 Mg Tab) 6.25 mg PO BID [facility] Last Admin: 02/15/21 09:30 Dose: Not Given Documented by: Famotidine (Famotidine 10 Mg Tab) 10 mg PO BID [facility] Last Admin: 02/15/21 09:12 Dose: 10 mg Documented by: Furosemide (Furosemide 40 Mg Tab) 40 mg PO QDAY [facility] Last Admin: 02/15/21 09:12 Dose: 40 mg Documented by: Heparin Sodium (Porcine) (Heparin 5,000 Unit/1 Ml Vial) 5,000 unit SUB-Q Q12HR [facility] Last Admin: 02/15/21 09:11 Dose: 5,000 unit Documented by: Hydromorphone HCl (Hydromorphone 1 Mg/1 Ml Inj) 0.5 mg IV Q3H PRN PRN Reason: Pain , Severe (7-10) Sodium Chloride (Nacl 0.9%) 100 mls @ 999 mls/hr IV HANNAH PRN PRN Reason: Hypotension Ondansetron HCl (Ondansetron 4 Mg/2 Ml Inj) 4 mg IV Q8H PRN PRN Reason: Nausea And Vomiting Last Admin: 02/09/21 22:15 Dose: 4 mg Documented by: Oxycodone/Acetaminophen (Oxycodone /Acetaminophen 5-325mg Tab) 1 tab PO Q6H PRN PRN Reason: Pain, Moderate (4-6) Last Admin: 02/12/21 05:25 Dose: 1 tab Documented by: Sodium Chloride (Sodium Chloride 0.9% 10 Ml Flush Syringe) 10 ml IV BID [facility] Last Admin: 02/15/21 09:25 Dose: 10 ml Documented by: Sodium Chloride (Sodium Chloride 0.9% 10 Ml Flush Syringe) 10 ml IV PRN PRN PRN Reason: LINE FLUSH Valsartan (Valsartan 160mg Tab) 160 mg PO BID [facility] Last Admin: 02/15/21 09:30 Dose: Not Given Documented by: Review of Systems Cardiovascular: no chest pain, no orthopnea, no palpitations, no rapid/irregular heart beat, no edema, no syncope, no lightheadedness, no shortness of breath Physical Examination Vital Signs Temp Pulse Resp BP Pulse Ox 98.4 F 80 18 109/69 99 02/08/21 18:40 02/08/21 18:40 02/08/21 18:40 02/08/21 18:40 02/08/21 18:40 General appearance: no acute distress HEENT: Positive: PERRL Neck: Positive: neck supple Cardiac: Positive: Reg Rate and Rhythm Lungs: Positive: clear to auscultation Neuro: Positive: Grossly Intact Abdomen: Positive: Soft Female genitourinary: deferred Skin: Positive: Clear Extremities: Absent: edema Results 02/12/21 07:32 02/14/21 20:53 Comprehensive Metabolic Panel 02/14/21 Range/Units 20:53 Sodium 133 L (137-145) mmol/L Potassium 4.2 (3.6-5.0) mmol/L Chloride 93.6 L (98-107) mmol/L Carbon Dioxide 21 L (22-30) mmol/L BUN 41 H (7-17) mg/dL Creatinine 6.9 H (0.6-1.2) mg/dL Glucose 122 H (65-100) mg/dL Calcium 8.4 (8.4-10.2) mg/dL EKG interpretations - Telemetry EKG Rhythm: Sinus Rhythm Assessment and Plan - Patient Problems (1) Arrhythmia Current Visit: Yes Status: Acute Plan to address problem: The reported arrhythmia seen on the patient's telemetry is baseline artifact, underlying which is a stable sinus rhythm, no ventricular tachycardia and no dysrhythmias. No further cardiac work-up is indicated, we will follow i ntermittently.
[2021-02-15] MEDS: EPOETIN ALFA-EPBX 10,000 UNIT/1 ML VIAL IV PRN (15:30)
[2021-02-15 16:48] LABS: Basophils # (Auto) 0.1 K/mm3 (0.0-0.1); Basophils % (Auto) 0.9 % (0.0-1.8); Eosinophils # (Auto) 0.1 K/mm3 (0.0-0.4); Eosinophils % (Auto) 1.1 % (0.0-4.3); Hematocrit 21.4 % (30.3-42.9); Hemoglobin 6.8 gm/dl (10.1-14.3); Lymphocytes % (Auto) 10.9 % (13.4-35.0); Mean Corpuscular HGB Conc 32 % (30-34); Mean Corpuscular Volume 77 fl (79-97); Monocytes # (Auto) 0.7 K/mm3 (0.0-0.8); Monocytes % (Auto) 7.4 % (0.0-7.3); Platelet Count 231 K/mm3 (140-440); Red Blood Count 2.78 M/mm3 (3.65-5.03); Red Cell Distribution Width 14.2 % (13.2-15.2)
--- NOTE | 2021-02-15 19:18 | Progress Note ---
Assessment and Plan - Patient Problems (1) Hyperkalemia Current Visit: No Status: Acute Plan to address problem: Treat with dialysis. Counseled patient on the importance of low potassium diet (2) End-stage renal disease needing dialysis Current Visit: Yes Status: Chronic Plan to address problem: Cont TTS inpatient HD schedule. Pending OP HD placement. (3) Anemia Current Visit: Yes Status: Chronic Qualifiers: Anemia type: due to chronic kidney disease Chronic kidney disease stage: on chronic dialysis Qualified Code(s): N18.6 - End stage renal disease; D63.1 - Anemia in chronic kidney disease; Z99.2 - Dependence on renal dialysis Plan to address problem: DAVON therapy with HD (4) Hypertensive chronic kidney disease with stage 5 chronic kidney disease or end stage renal disease Current Visit: No Status: Acute Plan to address problem: IF BP remains uncontrolled on HD can restart valsartan 160 mg once a day. Subjective Date of service: 02/15/21 Principal diagnosis: ESRD Interval history: Pt seen and examined during HD, no acute distress Objective - Vital Signs Vital signs: Vital Signs - 12hr 02/15/21 02/15/21 02/15/21 11:40 11:45 12:00 Temperature 97.9 F Pulse Rate 76 80 68 Respiratory 18 Rate Blood Pressure 126/82 119/78 117/63 O2 Sat by Pulse Oximetry O2 Sat by Pulse 98 Oximetry [ Anterior Bilateral Throughout] 02/15/21 02/15/21 02/15/21 12:15 12:30 12:45 Temperature Pulse Rate 96 H 99 H 85 Respiratory Rate Blood Pressure 138/84 125/77 130/82 O2 Sat by Pulse Oximetry O2 Sat by Pulse Oximetry [ Anterior Bilateral Throughout] 02/15/21 02/15/21 02/15/21 13:00 13:15 13:30 Temperature Pulse Rate 80 79 74 Respiratory Rate Blood Pressure 141/52 140/95 128/78 O2 Sat by Pulse Oximetry O2 Sat by Pulse Oximetry [ Anterior Bilateral Throughout] 02/15/21 02/15/21 02/15/21 13:45 14:00 14:15 Temperature Pulse Rate 86 78 76 Respiratory Rate Blood Pressure 155/84 118/88 133/80 O2 Sat by Pulse Oximetry O2 Sat by Pulse Oximetry [ Anterior Bilateral Throughout] 02/15/21 02/15/21 02/15/21 14:30 14:32 14:40 Temperature Pulse Rate 76 78 Respiratory Rate Blood Pressure 129/82 139/70 O2 Sat by Pulse 98 Oximetry O2 Sat by Pulse Oximetry [ Anterior Bilateral Throughout] 02/15/21 15:00 Temperature 98.0 F Pulse Rate 78 Respiratory 18 Rate Blood Pressure 139/78 O2 Sat by Pulse Oximetry O2 Sat by Pulse 98 Oximetry [ Anterior Bilateral Throughout] - General Appearance General appearance: well-developed, well-nourished, appears stated age EENT: ATNC, PERRL, mucous membranes moist Neck: no JVD Respiratory: Present: Clear to Ascultation Cardiology: regular, S1S2 Gastrointestinal: normoactive bowel sounds Integumentary: no rash Neurologic: no focal deficit, CN 3-12 intact - Lab 02/15/21 16:32 02/14/21 20:53 Most recent lab results Calcium 8.4 mg/dL (8.4-10.2) 02/14/21 20:53 Magnesium 1.80 mg/dL (1.7-2.3) 02/14/21 20:53 Medications & Allergies - Medications Allergies/Adverse Reactions: Allergies No Known Allergies Allergy (Verified 02/05/21 10:49) Home Medications: Home Medications Medication Instructions Recorded Confirmed Last Taken Type Calcium Carbonate [Tums 500MG CHEW] 500 mg PO BID #60 tablet 02/03/21 02/11/21 Unknown Rx Famotidine [Pepcid] 10 mg PO BID #60 tablet 02/03/21 02/11/21 Unknown Rx Furosemide [Lasix TAB] 40 mg PO QDAY 30 Days #30 tablet 02/03/21 02/11/21 Unknown Rx Valsartan [Diovan] 160 mg PO BID #60 tablet 02/03/21 02/11/21 Unknown Rx calcitrioL [Rocaltrol] 0.5 mcg PO QDAY #30 capsule 02/03/21 02/11/21 Unknown Rx carvediloL [Coreg] 6.25 mg PO BID #60 tablet 02/03/21 02/11/21 Unknown Rx Active Medications: Generic Name Dose Route Start Last Admin Trade Name Freq PRN Reason Stop Dose Admin Acetaminophen 650 mg 02/09/21 21:27 Acetaminophen 325 Mg Tab PO Q4H PRN Pain MILD(1-3)/Fever >100.5/MALCOLM Calcitriol 0.5 mcg 02/09/21 22:00 02/15/21 09:12 Calcitriol 0.5 Mcg Cap PO 0.5 mcg QDAY MONICA Administration Calcium Carbonate/Glycine 500 mg 02/09/21 22:00 02/15/21 09:12 Calcium Carbonate 500 Mg Tab Chew PO 500 mg BID MONICA Administration Carvedilol 6.25 mg 02/09/21 22:00 02/15/21 09:30 Carvedilol 6.25 Mg Tab PO Not Given BID MONICA Famotidine 10 mg 02/09/21 22:00 02/15/21 09:12 Famotidine 10 Mg Tab PO 10 mg BID MONICA Administration Furosemide 40 mg 02/11/21 13:00 02/15/21 09:12 Furosemide 40 Mg Tab PO 40 mg QDAY MONICA Administration Heparin Sodium (Porcine) 5,000 unit 02/09/21 22:00 02/15/21 09:11 Heparin 5,000 Unit/1 Ml Vial SUB-Q 5,000 unit Q12HR MONICA Administration Hydromorphone HCl 0.5 mg 02/09/21 21:27 Hydromorphone 1 Mg/1 Ml Inj IV Q3H PRN Pain , Severe (7-10) Sodium Chloride 100 mls @ 999 mls/hr 02/12/21 11:22 Nacl 0.9% IV HANNAH PRN Hypotension Ondansetron HCl 4 mg 02/09/21 21:27 02/09/21 22:15 Ondansetron 4 Mg/2 Ml Inj IV 4 mg Q8H PRN Administration Nausea And Vomiting Oxycodone/Acetaminophen 1 tab 02/09/21 21:27 02/12/21 05:25 Oxycodone /Acetaminophen 5-325mg Tab PO 1 tab Q6H PRN Administration Pain, Moderate (4-6) Sodium Chloride 10 ml 02/09/21 22:00 02/15/21 09:25 Sodium Chloride 0.9% 10 Ml Flush Syringe IV 10 ml BID MONICA Administration Sodium Chloride 10 ml 02/09/21 21:27 Sodium Chloride 0.9% 10 Ml Flush Syringe IV PRN PRN LINE FLUSH Valsartan 160 mg 02/09/21 22:00 02/15/21 09:30 Valsartan 160mg Tab PO Not Given BID MONICA
[2021-02-16] MEDS: FUROSEMIDE 40 MG TAB PO SCH (10:49)
[2021-02-16] MEDS: CALCIUM CARBONATE 500 MG TAB CHEW PO SCH ×2 (10:49→21:56)
[2021-02-16] MEDS: FAMOTIDINE 10 MG TAB PO SCH ×2 (10:49→21:55)
[2021-02-16] MEDS: HEPARIN 5,000 UNIT/1 ML VIAL SUB-Q SCH ×2 (10:49→21:56)
[2021-02-16] MEDS: CALCITRIOL 0.5 MCG CAP PO SCH (10:53)
[2021-02-16] MEDS: carvediloL 6.25 MG TAB PO SCH ×2 (10:55→21:56)
[2021-02-16] MEDS: VALSARTAN 160MG TAB PO SCH ×2 (10:55→21:55)
--- NOTE | 2021-02-16 11:06 | Progress Note ---
Assessment and Plan Assessment and plan: 55-year-old -Hungarian female with history of hypertension and GERD well- known to me from the previous admission and newly diagnosed end-stage renal disease comes in for shortness of breath and missed hemodialysis for 6 days. Patient was discharged home without any hemodialysis chair and patient was asked to come to the emergency room twice a week for hemodialysis till she gets her hemodialysis placement. Case management working on hemodialysis chair placement and patient is in communication with Social Security office and the case management. Patient has slightly increased shortness of breath but otherwise comfortable. Patient is compliant with her blood pressure medications. No fever or chills. 02/10: Patient seen and examined, resting in the ER, awaiting HD. Repeat renal function to ensure resolution of Hyperkalemia. Case management working on Outpatient placement for HD 02/11: Patient still does not have a dialysis place to go to outpatient and is therefore not a safe discharge considering electrolyte abnormalities. We will recheck BMP today. Patient also was recently diagnosed with Covid we will move the patient with isolation controlled. She is not hypoxic at this time but will monitor oxygen with every shift. She verbalized understanding to the treatment plan and have discussed this with case management also. 02/12: Patient seen and examined, COVID 19 NEGATIVE, AWAITING FOR Second negative test result to get assigned Chair time. 02/13: COVID TESTING NEGATIVE X 2. Case management working on placement. Patient otherwise clinically stable. No Encephalopathy 02/14: Patient continues to show improvements. Awaiting hemodialysis chair time so that she can be discharged home. 02/15: Patient with mild Hypomagnesemia, will replace, await cardiology, Anemia still persist, will monitor may benefit from 1 unit PRBC. 02/16: No acute events noted yesterday. Mild decrease in hemoglobin to 6.8. Will go ahead with transfusion of 1 unit packed red blood cell this has been discus sed with the patient and she is agreeable to that. Cardiology input is noted patient did not have an SVT rhythm artifacts were noted. Continue awaiting chair time for discharge. (1) Volume overload Current Visit: Yes Status: Acute Plan to address problem: Needs hemodialysis at least twice a week Case management working on hemodialysis placement Patient following with Dr. April kimball (2) End-stage renal disease needing dialysis Current Visit: Yes Status: Chronic Plan to address problem: Patient needs emergent hemodialysis and possible discharge home after dialysis (3) Uremia Current Visit: Yes Status: Acute Plan to address problem: Hemodialysis requested (4) Hyperkalemia Current Visit: No Status: Acute Plan to address problem: Treated with Kayexalate and calcium gluconate (5) Hypertension Current Visit: No Status: Chronic Qualifiers: Hypertension type: primary hypertension Qualified Code(s): I10 - Essential (primary) hypertension Plan to address problem: Continue antihypertensives (6) Anemia Current Visit: Yes Status: Chronic Qualifiers: Anemia type: due to chronic kidney disease Plan to address problem: Secondary to chronic kidney disease Will defer to nephrology regarding Epogen (7) Metabolic Acidosis Except correction with Dialysis (8) COVID 19 (9) Hypomagnesia (10) Discharge planning issues Current Visit: Yes Status: Acute Plan to address problem: Case management to assess outpatient HD, the current system in place does not appear sustainable. Patient is working on getting Medicare and hemodialysis placement History Interval history: Patient seen and examined, underwent dialysis, clinical improving, no new complaint Hospitalist Physical - Physical exam Narrative exam: General appearance: Present: No distress, well-nourished - EENT Eyes: Present: PERRL ENT: hearing intact, clear oral mucosa - Neck Neck: Present: supple, normal ROM - Respiratory Respiratory effort: normal Respiratory: bilateral: CTA - Cardiovascular Heart rate: 78 Rhythm: regular Heart Sounds: Present: S1 & S2. Absent: rub, click - Extremities Extremities: pulses symmetrical, trace edema Peripheral Pulses: within normal limits - Abdominal General gastrointestinal: Present: soft, non-tender, non-distended, normal bowel sounds Female genitourinary: Present: normal - Integumentary Integumentary: Present: clear, warm, dry - Musculoskeletal Musculoskeletal: gait normal, strength equal bilaterally - Psychiatric Psychiatric: appropriate mood/affect, intact judgment & insight - Neurologic Neurologic: CNII-XII intact, moves all extremities - Constitutional Vitals: Temp Pulse Resp BP Pulse Ox 98.2 F 77 20 157/88 99 02/16/21 04:45 02/16/21 04:45 02/16/21 04:45 02/16/21 04:45 02/16/21 04:45 General appearance: Present: no acute distress Results - Labs CBC & Chem 7: 02/15/21 16:32 02/14/21 20:53 Labs: Laboratory Last Values WBC 8.9 K/mm3 (4.5-11.0) 02/15/21 16:32 RBC 2.78 M/mm3 (3.65-5.03) L 02/15/21 16:32 Hgb 6.8 gm/dl (10.1-14.3) L 02/15/21 16:32 Hct 21.4 % (30.3-42.9) L 02/15/21 16:32 MCV 77 fl (79-97) L 02/15/21 16:32 MCH 24 pg (28-32) L 02/15/21 16:32 MCHC 32 % (30-34) 02/15/21 16:32 RDW 14.2 % (13.2-15.2) 02/15/21 16:32 Plt Count 231 K/mm3 (140-440) 02/15/21 16:32 Lymph % (Auto) 10.9 % (13.4-35.0) L 02/15/21 16:32 [place]pine % (Auto) 7.4 % (0.0-7.3) H 02/15/21 16:32 Eos % (Auto) 1.1 % (0.0-4.3) 02/15/21 16:32 Baso % (Auto) 0.9 % (0.0-1.8) 02/15/21 16:32 Lymph # (Auto) 1.0 K/mm3 (1.2-5.4) L 02/15/21 16:32 Alpine # (Auto) 0.7 K/mm3 (0.0-0.8) 02/15/21 16:32 Eos # (Auto) 0.1 K/mm3 (0.0-0.4) 02/15/21 16:32 Baso # (Auto) 0.1 K/mm3 (0.0-0.1) 02/15/21 16:32 Seg Neutrophils % 79.7 % (40.0-70.0) H 02/15/21 16:32 Seg Neutrophils # 7.1 K/mm3 (1.8-7.7) 02/15/21 16:32 Sodium 133 mmol/L (137-145) L 02/14/21 20:53 Potassium 4.2 mmol/L (3.6-5.0) 02/14/21 20:53 Chloride 93.6 mmol/L (98-107) L 02/14/21 20:53 Carbon Dioxide 21 mmol/L (22-30) L 02/14/21 20:53 Anion Gap 23 mmol/L 02/14/21 20:53 BUN 41 mg/dL (7-17) H 02/14/21 20:53 Creatinine 6.9 mg/dL (0.6-1.2) H 02/14/21 20:53 Estimated GFR 7 ml/min 02/14/21 20:53 BUN/Creatinine Ratio 6 % 02/14/21 20:53 Glucose 122 mg/dL (65-100) H 02/14/21 20:53 Calcium 8.4 mg/dL (8.4-10.2) 02/14/21 20:53 Magnesium 1.80 mg/dL (1.7-2.3) 02/14/21 20:53 Total Bilirubin 0.30 mg/dL (0.1-1.2) 02/12/21 07:32 AST 9 units/L (5-40) 02/12/21 07:32 ALT < 5 units/L (7-56) L 02/12/21 07:32 Alkaline Phosphatase 127 units/L (35-129) 02/12/21 07:32 Total Creatine Kinase 81 units/L (30-135) 02/09/21 18:16 NT-Pro-B Natriuret Pep 4740 pg/mL (0-900) H 02/09/21 18:16 Total Protein 6.3 g/dL (6.3-8.2) 02/12/21 07:32 Albumin 3.3 g/dL (3.9-5) L 02/12/21 07:32 Albumin/Globulin Ratio 1.1 % 02/12/21 07:32 Coronavirus (PCR) Negative (Negative) 02/12/21 Unknown Newman/IV: Voiding Method Toilet Active Medications - Current Medications Current Medications: Generic Name Dose Route Start Last Admin Trade Name Freq PRN Reason Stop Dose Admin Acetaminophen 650 mg 02/09/21 21:27 Acetaminophen 325 Mg Tab PO Q4H PRN Pain MILD(1-3)/Fever >100.5/MALCOLM Calcitriol 0.5 mcg 02/09/21 22:00 02/16/21 10:53 Calcitriol 0.5 Mcg Cap PO 0.5 mcg QDAY [facility] Administration Calcium Carbonate/Glycine 500 mg 02/09/21 22:00 02/16/21 10:49 Calcium Carbonate 500 Mg Tab Chew PO 500 mg BID [facility] Administration Carvedilol 6.25 mg 02/09/21 22:00 02/16/21 10:55 Carvedilol 6.25 Mg Tab PO Not Given BID MONICA Famotidine 10 mg 02/09/21 22:00 02/16/21 10:49 Famotidine 10 Mg Tab PO 10 mg BID MONICA Administration Furosemide 40 mg 02/11/21 13:00 02/16/21 10:49 Furosemide 40 Mg Tab PO 40 mg QDAY [facility] Administration Heparin Sodium (Porcine) 5,000 unit 02/09/21 22:00 02/16/21 10:49 Heparin 5,000 Unit/1 Ml Vial SUB-Q 5,000 unit Q12HR MONICA Administration Hydromorphone HCl 0.5 mg 02/09/21 21:27 Hydromorphone 1 Mg/1 Ml Inj IV Q3H PRN Pain , Severe (7-10) Sodium Chloride 100 mls @ 999 mls/hr 02/12/21 11:22 Nacl 0.9% IV HANNAH PRN Hypotension Sodium Chloride 500 mls @ 0 mls/hr 02/16/21 12:00 Nacl 0.9% 500 Ml IV 02/16/21 12:01 ONCE ONE As Directed Ondansetron HCl 4 mg 02/09/21 21:27 02/09/21 22:15 Ondansetron 4 Mg/2 Ml Inj IV 4 mg Q8H PRN Administration Nausea And Vomiting Oxycodone/Acetaminophen 1 tab 02/09/21 21:27 02/12/21 05:25 Oxycodone /Acetaminophen 5-325mg Tab PO 1 tab Q6H PRN Administration Pain, Moderate (4-6) Sodium Chloride 10 ml 02/09/21 22:00 02/16/21 10:49 Sodium Chloride 0.9% 10 Ml Flush Syringe IV 10 ml BID MONICA Administration Sodium Chloride 10 ml 02/09/21 21:27 Sodium Chloride 0.9% 10 Ml Flush Syringe IV PRN PRN LINE FLUSH Valsartan 160 mg 02/09/21 22:00 02/16/21 10:55 Valsartan 160mg Tab PO Not Given BID [facility]
[2021-02-16] MEDS ORDERED: SODIUM CHLORIDE 0.9% 500 ML 500 ML IV ONE ×2 (12:00→16:00)
[2021-02-16 13:28] LABS: Hemoglobin 6.4 gm/dl (10.1-14.3); Mean Corpuscular HGB Conc 32 % (30-34); Mean Corpuscular Volume 76 fl (79-97); Platelet Count 226 K/mm3 (140-440); Red Blood Count 2.64 M/mm3 (3.65-5.03); Red Cell Distribution Width 14.4 % (13.2-15.2)
[2021-02-16 13:39] LABS: Albumin 3.1 g/dL (3.9-5); Blood Urea Nitrogen 30 mg/dL (7-17); Calcium 8.3 mg/dL (8.4-10.2); Hemolysis Index 3
[2021-02-16 13:41] LABS: Alanine Aminotransferase < 5 units/L (7-56); BUN/Creatinine Ratio 5
--- NOTE | 2021-02-16 13:44 | Progress Note ---
Assessment and Plan - Patient Problems (1) Arrhythmia Current Visit: Yes Status: Acute Plan to address problem: The reported arrhythmia seen on the patient's telemetry is baseline artifact, underlying which is a stable sinus rhythm, no ventricular tachycardia and no dysrhythmias. No further cardiac work-up is indicated, we will sign off and follow on a as needed basis. Subjective Date of service: 02/16/21 Principal diagnosis: ESRD Interval history: Patient is comfortable, no acute distress, looks and feels well, no cardiac complaints. Objective Vital Signs Temp Pulse Resp Resp BP Pulse Ox Pulse Ox 02/16/21 04:45 98.2 F 77 20 157/88 99 02/16/21 02:00 16 100 02/15/21 23:24 90 150/86 02/15/21 23:23 90 150/86 02/15/21 22:00 17 02/15/21 21:32 98.9 F 90 20 150/86 100 02/15/21 15:00 98.0 F 78 18 139/78 98 02/15/21 14:40 78 139/70 02/15/21 14:32 98 02/15/21 14:30 76 129/82 02/15/21 14:15 76 133/80 02/15/21 14:00 78 118/88 02/15/21 13:45 86 155/84 - Physical Examination HEENT: Positive: PERRL Neck: Positive: neck supple Cardiac: Positive: Reg Rate and Rhythm Lungs: Positive: clear to auscultation Neuro: Positive: Grossly Intact Abdomen: Positive: Soft Skin: Positive: Clear Extremities: Absent: edema - Labs and Meds Cardiac Enzymes 02/16/21 Range/Units 12:59 AST 9 (5-40) units/L CBC 02/15/21 02/16/21 Range/Units 16:32 12:59 WBC 8.9 6.2 (4.5-11.0) K/mm3 RBC 2.78 L 2.64 L (3.65-5.03) M/mm3 Hgb 6.8 L 6.4 L (10.1-14.3) gm/dl Hct 21.4 L 20.0 L (30.3-42.9) % Plt Count 231 226 (140-440) K/mm3 Lymph # (Auto) 1.0 L (1.2-5.4) K/mm3 [place] # (Auto) 0.7 (0.0-0.8) K/mm3 Eos # (Auto) 0.1 (0.0-0.4) K/mm3 Baso # (Auto) 0.1 (0.0-0.1) K/mm3 Comprehensive Metabolic Panel 02/16/21 Range/Units 12:59 Sodium 135 L (137-145) mmol/L Potassium 4.2 (3.6-5.0) mmol/L Chloride 95.8 L (98-107) mmol/L Carbon Dioxide 26 (22-30) mmol/L BUN 30 H (7-17) mg/dL Creatinine 5.6 H (0.6-1.2) mg/dL Glucose 96 (65-100) mg/dL Calcium 8.3 L (8.4-10.2) mg/dL AST 9 (5-40) units/L ALT < 5 L (7-56) units/L Alkaline Phosphatase 134 H (35-129) units/L Total Protein 6.5 (6.3-8.2) g/dL Albumin 3.1 L (3.9-5) g/dL - Allied health notes Allied health notes reviewed: nursing
[2021-02-17 08:07] LABS: Hematocrit 26.2 % (30.3-42.9); Hemoglobin 8.3 gm/dl (10.1-14.3); Mean Corpuscular HGB Conc 32 % (30-34); Mean Corpuscular Volume 80 fl (79-97); Platelet Count 270 K/mm3 (140-440); Red Blood Count 3.26 M/mm3 (3.65-5.03); Red Cell Distribution Width 16.6 % (13.2-15.2)
[2021-02-17] MEDS: FAMOTIDINE 10 MG TAB PO SCH ×2 (10:34→21:42)
[2021-02-17] MEDS: FUROSEMIDE 40 MG TAB PO SCH (10:34)
[2021-02-17] MEDS: CALCITRIOL 0.5 MCG CAP PO SCH (10:34)
[2021-02-17] MEDS: HEPARIN 5,000 UNIT/1 ML VIAL SUB-Q SCH ×2 (10:35→21:43)
[2021-02-17] MEDS: CALCIUM CARBONATE 500 MG TAB CHEW PO SCH ×2 (10:35→21:42)
[2021-02-17] MEDS: VALSARTAN 160MG TAB PO SCH ×2 (10:41→21:42)
[2021-02-17] MEDS: carvediloL 6.25 MG TAB PO SCH ×2 (10:42→21:43)
--- NOTE | 2021-02-17 12:21 | Discharge Summary ---
Providers - Providers Date of Admission: 02/11/21 12:17 Attending physician: MARQUISE SLATER MD 02/09/21 16:28 Consult to Physician [CONS] Urgent Comment: Consulting Provider: BRANDEN MARTÍNEZ Physician Instructions: Reason For Exam: esrd 02/09/21 17:15 Consult to Case Management [CONS] Urgent Services Needed at Discharge: [employer] Notified:: yes 02/14/21 16:16 Consult to Cardiology [CONS] Routine Consulting Provider: DEMARIO ROGERS Reason For Exam: 8 beat run of vtach Primary care physician: FAMILY DEVELOPMENT SPECIALIST Hospitalization Reason for admission: ESRD Condition: Stable Hospital course: 55-year-old -Mexican female with history of hypertension and GERD well- known to me from the previous admission and newly diagnosed end-stage renal disease comes in for shortness of breath and missed hemodialysis for 6 days. Patient was discharged home without any hemodialysis chair and patient was asked to come to the emergency room twice a week for hemodialysis till she gets her hemodialysis placement. Case management working on hemodialysis chair placement and patient is in communication with Social Security office and the case management. Patient has slightly increased shortness of breath but otherwise comfortable. Patient is compliant with her blood pressure medications. No fever or chills. 02/10: Patient seen and examined, resting in the ER, awaiting HD. Repeat renal function to ensure resolution of Hyperkalemia. Case management working on Outpatient placement for HD 02/11: Patient still does not have a dialysis place to go to outpatient and is therefore not a safe discharge considering electrolyte abnormalities. We will recheck BMP today. Patient also was recently diagnosed with Covid we will move the patient with isolation controlled. She is not hypoxic at this time but will monitor oxygen with every shift. She verbalized understanding to the treatment plan and have discussed this with case management also. 02/12: Patient seen and examined, COVID 19 NEGATIVE, AWAITING FOR Second negative test result to get assigned Chair time. 02/13: COVID TESTING NEGATIVE X 2. Case management working on placement. Patient otherwise clinically stable. No Encephalopathy 02/14: Patient continues to show improvements. Awaiting hemodialysis chair time so that she can be discharged home. 02/15: Patient with mild Hypomagnesemia, will replace, await cardiology, Anemia still persist, will monitor may benefit from 1 unit PRBC. 02/16: No acute events noted yesterday. Mild decrease in hemoglobin to 6.8. Will go ahead with transfusion of 1 unit packed red blood cell this has been discussed with the patient and she is agreeable to that. Cardiology input is noted patient did not have an SVT rhythm artifacts were noted. Continue awaiting chair time for discharge. 02/17: Patient had appropriate response to transfusion, no complaints of fatigue, will continue care, awaiting chair time for HD for discharge. (1) Volume overload Current Visit: Yes Status: Acute Plan to address problem: Needs hemodialysis at least twice a week Case management working on hemodialysis placement Patient following with Dr. Smalls group (2) End-stage renal disease needing dialysis Current Visit: Yes Status: Chronic Plan to address problem: Patient needs emergent hemodialysis and possible discharge home after dialysis (3) Uremia Current Visit: Yes Status: Acute Plan to address problem: Hemodialysis requested (4) Hyperkalemia Current Visit: No Status: Acute Plan to address problem: Treated with Kayexalate and calcium gluconate (5) Hypertension Current Visit: No Status: Chronic Qualifiers: Hypertension type: primary hypertension Qualified Code(s): I10 - Essential (primary) hypertension Plan to address problem: Continue antihypertensives (6) Anemia Current Visit: Yes Status: Chronic Qualifiers: Anemia type: due to chronic kidney disease Plan to address problem: Secondary to chronic kidney disease Will defer to nephrology regarding Epogen (7) Metabolic Acidosis Except correction with Dialysis (8) COVID 19 (9) Hypomagnesia (10) Discharge planning issues Current Visit: Yes Status: Acute Plan to address problem: Case management to assess outpatient HD, the current system in place does not appear sustainable. Patient is working on getting Medicare and hemodialysis placement Disposition: DC-01 TO HOME OR SELFCARE Disposition: DC-01 TO HOME OR SELFCARE Final Discharge Diagnosis (Prints w/discharge instructions): ESRD WITH VOLUME OVERLOAD Time spent for discharge: 35 MINS Core Measure Documentation - Palliative Care Palliative Care/ Comfort Measures: Not Applicable - Core Measures Any of the following diagnoses?: none Exam - Physical Exam Narrative exam: General appearance: Present: No distress, well-nourished - EENT Eyes: Present: PERRL ENT: hearing intact, clear oral mucosa - Neck Neck: Present: supple, normal ROM - Respiratory Respiratory effort: normal Respiratory: bilateral: CTA - Cardiovascular Heart rate: 78 Rhythm: regular Heart Sounds: Present: S1 & S2. Absent: rub, click - Extremities Extremities: pulses symmetrical, trace edema Peripheral Pulses: within normal limits - Abdominal General gastrointestinal: Present: soft, non-tender, non-distended, normal bowel sounds Female genitourinary: Present: normal - Integumentary Integumentary: Present: clear, warm, dry - Musculoskeletal Musculoskeletal: gait normal, strength equal bilaterally - Psychiatric Psychiatric: appropriate mood/affect, intact judgment & insight - Neurologic Neurologic: CNII-XII intact, moves all extremities - Constitutional Vitals: Temp Pulse Resp BP Pulse Ox 98.5 F 78 18 137/90 96 02/17/21 10:32 02/17/21 10:42 02/17/21 10:32 02/17/21 10:42 02/17/21 10:32 Plan Activity: advance as tolerated, fall precautions Diet: renal Special Instructions: restrict fluid intake to (1000CC/DAY), record daily weights, record daily BP diary, record blood sugar diary Follow up with: ADRIAN SMALLS MD [Staff Physician] - 7 Days PRIMARY CAREMD [Primary Care Provider] - 3-5 Days
[2021-02-17] MEDS: FLUCONAZOLE 100 MG TAB PO SCH (22:14)
--- NOTE | 2021-02-18 09:02 | Progress Note ---
Assessment and Plan Assessment and plan: 55-year-old -[place] female with history of hypertension and GERD well- known to me from the previous admission and newly diagnosed end-stage renal disease comes in for shortness of breath and missed hemodialysis for 6 days. Patient was discharged home without any hemodialysis chair and patient was asked to come to the emergency room twice a week for hemodialysis till she gets her hemodialysis placement. Case management working on hemodialysis chair placement and patient is in communication with Social Security office and the case management. Patient has slightly increased shortness of breath but otherwise comfortable. Patient is compliant with her blood pressure medications. No fever or chills. 02/10: Patient seen and examined, resting in the ER, awaiting HD. Repeat renal function to ensure resolution of Hyperkalemia. Case management working on Outpatient placement for HD 02/11: Patient still does not have a dialysis place to go to outpatient and is therefore not a safe discharge considering electrolyte abnormalities. We will recheck BMP today. Patient also was recently diagnosed with Covid we will move the patient with isolation controlled. She is not hypoxic at this time but will monitor oxygen with every shift. She verbalized understanding to the treatment plan and have discussed this with case management also. 02/12: Patient seen and examined, COVID 19 NEGATIVE, AWAITING FOR Second negative test result to get assigned Chair time. 02/13: COVID TESTING NEGATIVE X 2. Case management working on placement. Patient otherwise clinically stable. No Encephalopathy 02/14: Patient continues to show improvements. Awaiting hemodialysis chair time so that she can be discharged home. 02/15: Patient with mild Hypomagnesemia, will replace, await cardiology, Anemia still persist, will monitor may benefit from 1 unit PRBC. 02/16: No acute events noted yesterday. Mild decrease in hemoglobin to 6.8. Will go ahead with transfusion of 1 unit packed red blood cell this has been discu ssed with the patient and she is agreeable to that. Cardiology input is noted patient did not have an SVT rhythm artifacts were noted. Continue awaiting chair time for discharge. 02/18; patient is pending outpatient dialysis chair. BP is uncontrolled and I added hydralazine 50 mg PO tid. (1) Volume overload Current Visit: Yes Status: Acute Plan to address problem: Needs hemodialysis at least twice a week Case management working on hemodialysis placement Patient following with Dr. April kimball (2) End-stage renal disease needing dialysis Current Visit: Yes Status: Chronic Plan to address problem: Patient needs emergent hemodialysis and possible discharge home after dialysis (3) Uremia Current Visit: Yes Status: Acute Plan to address problem: Hemodialysis requested (4) Hyperkalemia Current Visit: No Status: Acute Plan to address problem: Treated with Kayexalate and calcium gluconate (5) Hypertension Current Visit: No Status: Chronic Qualifiers: Hypertension type: primary hypertension Qualified Code(s): I10 - Essential (primary) hypertension Plan to address problem: Continue antihypertensives (6) Anemia Current Visit: Yes Status: Chronic Qualifiers: Anemia type: due to chronic kidney disease Plan to address problem: Secondary to chronic kidney disease Will defer to nephrology regarding Epogen (7) Metabolic Acidosis Except correction with Dialysis (8) COVID 19 (9) Hypomagnesia (10) Discharge planning issues Current Visit: Yes Status: Acute Plan to address problem: Case management to assess outpatient HD, the current system in place does not appear sustainable. Patient is working on getting Medicare and hemodialysis placement History Interval history: Patient was seen and evaluated this morning Patient does not have any complaints. Hospitalist Physical - Physical exam Narrative exam: Not in cardiopulmonary distress. The patient appeared well nourished and normally developed. Vital signs as documented. Head exam is unremarkable. No scleral icterus . Neck is without jugular venous distension, thyromegaly, or carotid bruits. Lungs are clear to auscultation. Cardiac exam reveals regular rate and Rhythm. Abdominal exam reveals normal bowel sounds, nontender, no organomegaly. Extremities are nonedematous and both femoral and pedal pulses are normal. 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 No focal weakness. - Constitutional Vitals: Temp Pulse Resp BP Pulse Ox 98.5 F 79 16 172/104 100 02/18/21 04:17 02/17/21 21:43 02/18/21 04:17 02/18/21 04:17 02/17/21 23:00 General appearance: Present: no acute distress Results - Labs CBC & Chem 7: 02/17/21 07:26 02/16/21 12:59 Labs: Laboratory Last Values WBC 7.1 K/mm3 (4.5-11.0) 02/17/21 07:26 RBC 3.26 M/mm3 (3.65-5.03) L 02/17/21 07:26 Hgb 8.3 gm/dl (10.1-14.3) L 02/17/21 07:26 Hct 26.2 % (30.3-42.9) L D 02/17/21 07:26 MCV 80 fl (79-97) 02/17/21 07:26 MCH 26 pg (28-32) L 02/17/21 07: MCHC 32 % (30-34) 02/17/21 07:26 RDW 16.6 % (13.2-15.2) H 02/17/21 07:26 Plt Count 270 K/mm3 (140-440) 02/17/21 07:26 Lymph % (Auto) 10.9 % (13.4-35.0) L 02/15/21 16:32 [place] % (Auto) 7.4 % (0.0-7.3) H 02/15/21 16:32 Eos % (Auto) 1.1 % (0.0-4.3) 02/15/21 16:32 Baso % (Auto) 0.9 % (0.0-1.8) 02/15/21 16:32 Lymph # (Auto) 1.0 K/mm3 (1.2-5.4) L 02/15/21 16:32 [place] # (Auto) 0.7 K/mm3 (0.0-0.8) 02/15/21 16:32 Eos # (Auto) 0.1 K/mm3 (0.0-0.4) 02/15/21 16:32 Baso # (Auto) 0.1 K/mm3 (0.0-0.1) 02/15/21 16:32 Seg Neutrophils % 79.7 % (40.0-70.0) H 02/15/21 16:32 Seg Neutrophils # 7.1 K/mm3 (1.8-7.7) 02/15/21 16:32 Sodium 135 mmol/L (137-145) L 02/16/21 12:59 Potassium 4.2 mmol/L (3.6-5.0) 02/16/21 12:59 Chloride 95.8 mmol/L (98-107) L 02/16/21 12:59 Carbon Dioxide 26 mmol/L (22-30) 02/16/21 12:59 Anion Gap 17 mmol/L 02/16/21 12:59 BUN 30 mg/dL (7-17) H 02/16/21 12:59 Creatinine 5.6 mg/dL (0.6-1.2) H 02/16/21 12:59 Estimated GFR 9 ml/min 02/16/21 12:59 BUN/Creatinine Ratio 5 % 02/16/21 12:59 Glucose 96 mg/dL (65-100) 02/16/21 12:59 Calcium 8.3 mg/dL (8.4-10.2) L 02/16/21 12:59 Magnesium 1.80 mg/dL (1.7-2.3) 02/14/21 20:53 Total Bilirubin 0.20 mg/dL (0.1-1.2) 02/16/21 12:59 AST 9 units/L (5-40) 02/16/21 12:59 ALT < 5 units/L (7-56) L 02/16/21 12:59 Alkaline Phosphatase 134 units/L (35-129) H 02/16/21 12:59 Total Creatine Kinase 81 units/L (30-135) 02/09/21 18:16 NT-Pro-B Natriuret Pep 4740 pg/mL (0-900) H 02/09/21 18:16 Total Protein 6.5 g/dL (6.3-8.2) 02/16/21 12:59 Albumin 3.1 g/dL (3.9-5) L 02/16/21 12:59 Albumin/Globulin Ratio 0.9 % 02/16/21 12:59 Coronavirus (PCR) Negative (Negative) 02/12/21 Unknown Blood Type O POSITIVE 02/16/21 13:02 Antibody Screen Negative 02/16/21 13:02 Crossmatch See Detail 02/16/21 13:02 Newman/IV: Voiding Method Toilet Active Medications - Current Medications Current Medications: Generic Name Dose Route Start Last Admin Trade Name Freq PRN Reason Stop Dose Admin Acetaminophen 650 mg 02/09/21 21:27 Acetaminophen 325 Mg Tab PO Q4H PRN Pain MILD(1-3)/Fever >100.5/MALCOLM Calcitriol 0.5 mcg 02/09/21 22:00 02/17/21 10:34 Calcitriol 0.5 Mcg Cap PO 0.5 mcg QDAY MONICA Administration Calcium Carbonate/Glycine 500 mg 02/09/21 22:00 02/17/21 21:42 Calcium Carbonate 500 Mg Tab Chew PO 500 mg BID MONICA Administration Carvedilol 6.25 mg 02/09/21 22:00 02/17/21 21:43 Carvedilol 6.25 Mg Tab PO 6.25 mg BID MONICA Administration Famotidine 10 mg 02/09/21 22:00 02/17/21 21:42 Famotidine 10 Mg Tab PO 10 mg BID MONICA Administration Fluconazole 100 mg 02/17/21 22:00 02/17/21 22:14 Fluconazole 100 Mg Tab PO 100 mg QDAY MONICA Administration Protocol Furosemide 40 mg 02/11/21 13:00 02/17/21 10:34 Furosemide 40 Mg Tab PO 40 mg QDAY MONICA Administration Heparin Sodium (Porcine) 5,000 unit 02/09/21 22:00 02/17/21 21:43 Heparin 5,000 Unit/1 Ml Vial SUB-Q 5,000 unit Q12HR MONICA Administration Hydralazine HCl 50 mg 02/18/21 10:00 Hydralazine 25 Mg Tab PO Q8HR MONICA Hydromorphone HCl 0.5 mg 02/09/21 21:27 Hydromorphone 1 Mg/1 Ml Inj IV Q3H PRN Pain , Severe (7-10) Sodium Chloride 100 mls @ 999 mls/hr 02/12/21 11:22 Nacl 0.9% IV HANNAH PRN Hypotension Ondansetron HCl 4 mg 02/09/21 21:27 02/09/21 22:15 Ondansetron 4 Mg/2 Ml Inj IV 4 mg Q8H PRN Administration Nausea And Vomiting Oxycodone/Acetaminophen 1 tab 02/09/21 21:27 02/12/21 05:25 Oxycodone /Acetaminophen 5-325mg Tab PO 1 tab Q6H PRN Administration Pain, Moderate (4-6) Sodium Chloride 10 ml 02/09/21 22:00 02/17/21 21:45 Sodium Chloride 0.9% 10 Ml Flush Syringe IV 10 ml BID MONICA Administration Sodium Chloride 10 ml 02/09/21 21:27 Sodium Chloride 0.9% 10 Ml Flush Syringe IV PRN PRN LINE FLUSH Valsartan 160 mg 02/09/21 22:00 02/17/21 21:42 Valsartan 160mg Tab PO 160 mg BID MONICA Administration
[2021-02-18] MEDS: hydrALAZINE 25 MG TAB PO SCH ×3 (10:00→23:18)
--- NOTE | 2021-02-18 10:47 | Progress Note ---
Assessment and Plan - Patient Problems (1) Hyperkalemia Current Visit: No Status: Acute Plan to address problem: Treat with dialysis. Counseled patient on the importance of low potassium diet (2) End-stage renal disease needing dialysis Current Visit: Yes Status: Chronic Plan to address problem: Cont TTS inpatient HD schedule. Pending OP HD placement. (3) Anemia Current Visit: Yes Status: Chronic Qualifiers: Anemia type: due to chronic kidney disease Chronic kidney disease stage: on chronic dialysis Qualified Code(s): N18.6 - End stage renal disease; D63.1 - Anemia in chronic kidney disease; Z99.2 - Dependence on renal dialysis Plan to address problem: DAVON therapy with HD (4) Hypertensive chronic kidney disease with stage 5 chronic kidney disease or end stage renal disease Current Visit: No Status: Acute Plan to address problem: IF BP remains uncontrolled on HD can restart valsartan 160 mg once a day. Subjective Date of service: 02/18/21 Principal diagnosis: ESRD Interval history: Pt seen and examined during HD, no acute distress Objective - Vital Signs Vital signs: Vital Signs - 12hr 02/17/21 02/18/21 23:00 04:17 Temperature 98.5 F Respiratory 17 16 Rate Blood Pressure 172/104 O2 Sat by Pulse 100 Oximetry - General Appearance General appearance: well-developed, well-nourished, appears stated age EENT: ATNC, PERRL, mucous membranes moist Neck: no JVD Respiratory: Present: Clear to Ascultation Cardiology: regular, S1S2 Gastrointestinal: normoactive bowel sounds Integumentary: no rash, other (no edema ) Neurologic: no focal deficit, alert and oriented x3, strength 5/5, CN 3-12 intact Psychiatric: mood/affect appropriate, cooperative - Lab 02/17/21 07:26 02/16/21 12:59 Most recent lab results Calcium 8.3 mg/dL (8.4-10.2) L 02/16/21 12:59 Magnesium 1.80 mg/dL (1.7-2.3) 02/14/21 20:53 Medications & Allergies - Medications Allergies/Adverse Reactions: Allergies No Known Allergies Allergy (Verified 02/05/21 10:49) Home Medications: Home Medications Medication Instructions Recorded Confirmed Last Taken Type Calcium Carbonate [Tums 500MG CHEW] 500 mg PO BID #60 tablet 02/03/21 02/11/21 Unknown Rx Famotidine [Pepcid] 10 mg PO BID #60 tablet 02/03/21 02/11/21 Unknown Rx Furosemide [Lasix TAB] 40 mg PO QDAY 30 Days #30 tablet 02/03/21 02/11/21 Unknown Rx Valsartan [Diovan] 160 mg PO BID #60 tablet 02/03/21 02/11/21 Unknown Rx calcitrioL [Rocaltrol] 0.5 mcg PO QDAY #30 capsule 02/03/21 02/11/21 Unknown Rx carvediloL [Coreg] 6.25 mg PO BID #60 tablet 02/03/21 02/11/21 Unknown Rx Active Medications: Generic Name Dose Route Start Last Admin Trade Name Tamara PRN Reason Stop Dose Admin Acetaminophen 650 mg 02/09/21 21:27 Acetaminophen 325 Mg Tab PO Q4H PRN Pain MILD(1-3)/Fever >100.5/MALCOLM Calcitriol 0.5 mcg 02/09/21 22:00 02/17/21 10:34 Calcitriol 0.5 Mcg Cap PO 0.5 mcg QDAY MONICA Administration Calcium Carbonate/Glycine 500 mg 02/09/21 22:00 02/17/21 21:42 Calcium Carbonate 500 Mg Tab Chew PO 500 mg BID MONICA Administration Carvedilol 6.25 mg 02/09/21 22:00 02/17/21 21:43 Carvedilol 6.25 Mg Tab PO 6.25 mg BID MONICA Administration Famotidine 10 mg 02/09/21 22:00 02/17/21 21:42 Famotidine 10 Mg Tab PO 10 mg BID MONICA Administration Fluconazole 100 mg 02/17/21 22:00 02/17/21 22:14 Fluconazole 100 Mg Tab PO 02/19/21 10:01 100 mg QDAY MONICA Administration Protocol Furosemide 40 mg 02/11/21 13:00 02/17/21 10:34 Furosemide 40 Mg Tab PO 40 mg QDAY MONICA Administration Heparin Sodium (Porcine) 5,000 unit 02/09/21 22:00 02/17/21 21:43 Heparin 5,000 Unit/1 Ml Vial SUB-Q 5,000 unit Q12HR MONICA Administration Hydralazine HCl 50 mg 02/18/21 09:30 Hydralazine 25 Mg Tab PO Q8HR MONICA Hydromorphone HCl 0.5 mg 02/09/21 21:27 Hydromorphone 1 Mg/1 Ml Inj IV Q3H PRN Pain , Severe (7-10) Sodium Chloride 100 mls @ 999 mls/hr 02/12/21 11:22 Nacl 0.9% IV HANNAH PRN Hypotension Ondansetron HCl 4 mg 02/09/21 21:27 02/09/21 22:15 Ondansetron 4 Mg/2 Ml Inj IV 4 mg Q8H PRN Administration Nausea And Vomiting Oxycodone/Acetaminophen 1 tab 02/09/21 21:27 02/12/21 05:25 Oxycodone /Acetaminophen 5-325mg Tab PO 1 tab Q6H PRN Administration Pain, Moderate (4-6) Sodium Chloride 10 ml 02/09/21 22:00 02/17/21 21:45 Sodium Chloride 0.9% 10 Ml Flush Syringe IV 10 ml BID MONICA Administration Sodium Chloride 10 ml 02/09/21 21:27 Sodium Chloride 0.9% 10 Ml Flush Syringe IV PRN PRN LINE FLUSH Valsartan 160 mg 02/09/21 22:00 02/17/21 21:42 Valsartan 160mg Tab PO 160 mg BID MONICA Administration
[2021-02-18] MEDS: CALCIUM CARBONATE 500 MG TAB CHEW PO SCH ×2 (14:57→23:19)
[2021-02-18] MEDS: FLUCONAZOLE 100 MG TAB PO SCH (14:57)
[2021-02-18] MEDS: CALCITRIOL 0.5 MCG CAP PO SCH (14:57)
[2021-02-18] MEDS: FUROSEMIDE 40 MG TAB PO SCH (14:57)
[2021-02-18] MEDS: FAMOTIDINE 10 MG TAB PO SCH ×2 (14:58→23:19)
[2021-02-18] MEDS: VALSARTAN 160MG TAB PO SCH ×2 (14:58→23:18)
[2021-02-18] MEDS: carvediloL 6.25 MG TAB PO SCH ×2 (14:59→23:19)
[2021-02-18] MEDS: HEPARIN 5,000 UNIT/1 ML VIAL SUB-Q SCH ×2 (14:59→23:23)
[2021-02-19] MEDS: hydrALAZINE 25 MG TAB PO SCH ×3 (05:45→22:04)
--- NOTE | 2021-02-19 08:38 | Progress Note ---
Assessment and Plan Assessment and plan: 55-year-old -[place] female with history of hypertension and GERD well- known to me from the previous admission and newly diagnosed end-stage renal disease comes in for shortness of breath and missed hemodialysis for 6 days. Patient was discharged home without any hemodialysis chair and patient was asked to come to the emergency room twice a week for hemodialysis till she gets her hemodialysis placement. Case management working on hemodialysis chair placement and patient is in communication with Social Security office and the case management. Patient has slightly increased shortness of breath but otherwise comfortable. Patient is compliant with her blood pressure medications. No fever or chills. 02/10: Patient seen and examined, resting in the ER, awaiting HD. Repeat renal function to ensure resolution of Hyperkalemia. Case management working on Outpatient placement for HD 02/11: Patient still does not have a dialysis place to go to outpatient and is therefore not a safe discharge considering electrolyte abnormalities. We will recheck BMP today. Patient also was recently diagnosed with Covid we will move the patient with isolation controlled. She is not hypoxic at this time but will monitor oxygen with every shift. She verbalized understanding to the treatment plan and have discussed this with case management also. 02/12: Patient seen and examined, COVID 19 NEGATIVE, AWAITING FOR Second negative test result to get assigned Chair time. 02/13: COVID TESTING NEGATIVE X 2. Case management working on placement. Patient otherwise clinically stable. No Encephalopathy 02/14: Patient continues to show improvements. Awaiting hemodialysis chair time so that she can be discharged home. 02/15: Patient with mild Hypomagnesemia, will replace, await cardiology, Anemia still persist, will monitor may benefit from 1 unit PRBC. 02/16: No acute events noted yesterday. Mild decrease in hemoglobin to 6.8. Will go ahead with transfusion of 1 unit packed red blood cell this has been discu ssed with the patient and she is agreeable to that. Cardiology input is noted patient did not have an SVT rhythm artifacts were noted. Continue awaiting chair time for discharge. 02/18; patient is pending outpatient dialysis chair. BP is uncontrolled and I added hydralazine 50 mg PO tid. 02/19; pending outpatient dialysis chair arrangement. BP is controlled and is on the low side of normal I will decrease hydralazine to 25 mg p.o. 3 times daily. (1) Volume overload Current Visit: Yes Status: Acute Plan to address problem: Needs hemodialysis at least twice a week Case management working on hemodialysis placement Patient following with Dr. April kimball (2) End-stage renal disease needing dialysis Current Visit: Yes Status: Chronic Plan to address problem: Patient needs emergent hemodialysis and possible discharge home after dialysis (3) Uremia Current Visit: Yes Status: Acute Plan to address problem: Hemodialysis requested (4) Hyperkalemia Current Visit: No Status: Acute Plan to address problem: Treated with Kayexalate and calcium gluconate (5) Hypertension Current Visit: No Status: Chronic Qualifiers: Hypertension type: primary hypertension Qualified Code(s): I10 - Essential (primary) hypertension Plan to address problem: Continue antihypertensives (6) Anemia Current Visit: Yes Status: Chronic Qualifiers: Anemia type: due to chronic kidney disease Plan to address problem: Secondary to chronic kidney disease Will defer to nephrology regarding Epogen (7) Metabolic Acidosis Except correction with Dialysis (8) COVID 19 (9) Hypomagnesia (10) Discharge planning issues Current Visit: Yes Status: Acute Plan to address problem: Case management to assess outpatient HD, the current system in place does not appear sustainable. Patient is working on [employer] Medicare and hemodialysis placement History Interval history: Patient was seen and evaluated this morning Patient does not have any complaints. Hospitalist Physical - Physical exam Narrative exam: Not in cardiopulmonary distress. The patient appeared well nourished and normally developed. Vital signs as documented. Head exam is unremarkable. No scleral icterus . Neck is without jugular venous distension, thyromegaly, or carotid bruits. Lungs are clear to auscultation. Cardiac exam reveals regular rate and Rhythm. Abdominal exam reveals normal bowel sounds, nontender, no organomegaly. Extremities are nonedematous and both femoral and pedal pulses are normal. 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 No focal weakness. - Constitutional Vitals: Temp Pulse Resp BP Pulse Ox 98.9 F 81 16 118/72 95 02/19/21 04:51 02/19/21 05:45 02/19/21 04:51 02/19/21 05:45 02/19/21 04:51 General appearance: Present: no acute distress Results - Labs CBC & Chem 7: 02/17/21 07:26 02/16/21 12:59 Labs: Laboratory Last Values WBC 7.1 K/mm3 (4.5-11.0) 02/17/21 07: RBC 3.26 M/mm3 (3.65-5.03) L 02/17/21 07:26 Hgb 8.3 gm/dl (10.1-14.3) L 02/17/21 07:26 Hct 26.2 % (30.3-42.9) L D 02/17/21 07:26 MCV 80 fl (79-97) 02/17/21 07:26 MCH 26 pg (28-32) L 02/17/21 07:26 MCHC 32 % (30-34) 02/17/21 07: RDW 16.6 % (13.2-15.2) H 02/17/21 07:26 Plt Count 270 K/mm3 (140-440) 02/17/21 07:26 Lymph % (Auto) 10.9 % (13.4-35.0) L 02/15/21 16:32 [place]man % (Auto) 7.4 % (0.0-7.3) H 02/15/21 16:32 Eos % (Auto) 1.1 % (0.0-4.3) 02/15/21 16:32 Baso % (Auto) 0.9 % (0.0-1.8) 02/15/21 16:32 Lymph # (Auto) 1.0 K/mm3 (1.2-5.4) L 02/15/21 16:32 Whitman # (Auto) 0.7 K/mm3 (0.0-0.8) 02/15/21 16:32 Eos # (Auto) 0.1 K/mm3 (0.0-0.4) 02/15/21 16:32 Baso # (Auto) 0.1 K/mm3 (0.0-0.1) 02/15/21 16:32 Seg Neutrophils % 79.7 % (40.0-70.0) H 02/15/21 16:32 Seg Neutrophils # 7.1 K/mm3 (1.8-7.7) 02/15/21 16:32 Sodium 135 mmol/L (137-145) L 02/16/21 12:59 Potassium 4.2 mmol/L (3.6-5.0) 02/16/21 12:59 Chloride 95.8 mmol/L (98-107) L 02/16/21 12:59 Carbon Dioxide 26 mmol/L (22-30) 02/16/21 12:59 Anion Gap 17 mmol/L 02/16/21 12:59 BUN 30 mg/dL (7-17) H 02/16/21 12:59 Creatinine 5.6 mg/dL (0.6-1.2) H 02/16/21 12:59 Estimated GFR 9 ml/min 02/16/21 12:59 BUN/Creatinine Ratio 5 % 02/16/21 12:59 Glucose 96 mg/dL (65-100) 02/16/21 12:59 Calcium 8.3 mg/dL (8.4-10.2) L 02/16/21 12:59 Magnesium 1.80 mg/dL (1.7-2.3) 02/14/21 20:53 Total Bilirubin 0.20 mg/dL (0.1-1.2) 02/16/21 12:59 AST 9 units/L (5-40) 02/16/21 12:59 ALT < 5 units/L (7-56) L 02/16/21 12:59 Alkaline Phosphatase 134 units/L (35-129) H 02/16/21 12:59 Total Creatine Kinase 81 units/L (30-135) 02/09/21 18:16 NT-Pro-B Natriuret Pep 4740 pg/mL (0-900) H 02/09/21 18:16 Total Protein 6.5 g/dL (6.3-8.2) 02/16/21 12:59 Albumin 3.1 g/dL (3.9-5) L 02/16/21 12:59 Albumin/Globulin Ratio 0.9 % 02/16/21 12:59 Coronavirus (PCR) Negative (Negative) 02/12/21 Unknown Blood Type O POSITIVE 02/16/21 13:02 Antibody Screen Negative 02/16/21 13:02 Crossmatch See Detail 02/16/21 13:02 Newman/IV: Voiding Method Toilet Active Medications - Current Medications Current Medications: Generic Name Dose Route Start Last Admin Trade Name Freq PRN Reason Stop Dose Admin Acetaminophen 650 mg 02/09/21 21:27 Acetaminophen 325 Mg Tab PO Q4H PRN Pain MILD(1-3)/Fever >100.5/MALCOLM Calcitriol 0.5 mcg 02/09/21 22:00 02/18/21 14:57 Calcitriol 0.5 Mcg Cap PO 0.5 mcg QDAY MONICA Administration Calcium Carbonate/Glycine 500 mg 02/09/21 22:00 02/18/21 23:19 Calcium Carbonate 500 Mg Tab Chew PO 500 mg BID MONICA Administration Carvedilol 6.25 mg 02/09/21 22:00 02/18/21 23:19 Carvedilol 6.25 Mg Tab PO 6.25 mg BID MONICA Administration Famotidine 10 mg 02/09/21 22:00 02/18/21 23:19 Famotidine 10 Mg Tab PO 10 mg BID MONICA Administration Fluconazole 100 mg 02/17/21 22:00 02/18/21 14:57 Fluconazole 100 Mg Tab PO 02/19/21 10:01 100 mg QDAY [facility] Administration Protocol Furosemide 40 mg 02/11/21 13:00 02/18/21 14:57 Furosemide 40 Mg Tab PO 40 mg QDAY [facility] Administration Heparin Sodium (Porcine) 5,000 unit 02/09/21 22:00 02/18/21 23:23 Heparin 5,000 Unit/1 Ml Vial SUB-Q 5,000 unit Q12HR MONICA Administration Hydralazine HCl 50 mg 02/18/21 09:30 02/19/21 05:45 Hydralazine 25 Mg Tab PO Not Given Q8HR [facility] Hydromorphone HCl 0.5 mg 02/09/21 21:27 Hydromorphone 1 Mg/1 Ml Inj IV Q3H PRN Pain , Severe (7-10) Sodium Chloride 100 mls @ 999 mls/hr 02/12/21 11:22 Nacl 0.9% IV HANNAH PRN Hypotension Ondansetron HCl 4 mg 02/09/21 21:27 02/09/21 22:15 Ondansetron 4 Mg/2 Ml Inj IV 4 mg Q8H PRN Administration Nausea And Vomiting Oxycodone/Acetaminophen 1 tab 02/09/21 21:27 02/12/21 05:25 Oxycodone /Acetaminophen 5-325mg Tab PO 1 tab Q6H PRN Administration Pain, Moderate (4-6) Sodium Chloride 10 ml 02/09/21 22:00 02/18/21 23:19 Sodium Chloride 0.9% 10 Ml Flush Syringe IV 10 ml BID MONICA Administration Sodium Chloride 10 ml 02/09/21 21:27 Sodium Chloride 0.9% 10 Ml Flush Syringe IV PRN PRN LINE FLUSH Valsartan 160 mg 02/09/21 22:00 02/18/21 23:18 Valsartan 160mg Tab PO 160 mg BID MONICA Administration Nutrition/Malnutrition Assess - Dietary Evaluation Nutrition/Malnutrition Findings: Nutrition Notes Start: 02/18/21 11:33 Freq: Status: Active Protocol: Document 02/18/21 11:33 (Rec: 02/18/21 11:33 [email or web address]) Nutrition Notes Need for Assessment generated from: LOS Initial or Follow up Brief Note Subjective/Other Information Screen for LOS. Pt at HD at time of visit. Nutrition Intervention Follow-Up By: 02/19/21 Additional Comments F/u: intakes
[2021-02-19] MEDS: VALSARTAN 160MG TAB PO SCH ×2 (10:08→22:04)
[2021-02-19] MEDS: CALCIUM CARBONATE 500 MG TAB CHEW PO SCH ×2 (10:09→22:05)
[2021-02-19] MEDS: carvediloL 6.25 MG TAB PO SCH ×2 (10:09→22:05)
[2021-02-19] MEDS: FAMOTIDINE 10 MG TAB PO SCH ×2 (10:09→22:04)
[2021-02-19] MEDS: HEPARIN 5,000 UNIT/1 ML VIAL SUB-Q SCH ×2 (10:09→22:06)
[2021-02-19] MEDS: FUROSEMIDE 40 MG TAB PO SCH (10:09)
[2021-02-19] MEDS: CALCITRIOL 0.5 MCG CAP PO SCH (10:11)
--- NOTE | 2021-02-19 10:40 | Progress Note ---
Assessment and Plan - Patient Problems (1) End-stage renal disease needing dialysis Current Visit: Yes Status: Chronic Plan to address problem: Cont TTS inpatient HD schedule. Pending OP HD placement. (2) Hyperkalemia Current Visit: No Status: Acute Plan to address problem: Treat with dialysis. Counseled patient on the importance of low potassium diet (3) Anemia Current Visit: Yes Status: Chronic Qualifiers: Anemia type: due to chronic kidney disease Chronic kidney disease stage: on chronic dialysis Qualified Code(s): N18.6 - End stage renal disease; D63.1 - Anemia in chronic kidney disease; Z99.2 - Dependence on renal dialysis Plan to address problem: DAVON therapy with HD (4) Hypertensive chronic kidney disease with stage 5 chronic kidney disease or end stage renal disease Current Visit: No Status: Acute Plan to address problem: IF BP remains uncontrolled on HD can restart valsartan 160 mg once a day. Subjective Date of service: 02/19/21 Principal diagnosis: ESRD Interval history: Pt awake, alert, in no acute distress Objective - Vital Signs Vital signs: Vital Signs - 12hr 02/18/21 02/18/21 02/19/21 23:18 23:19 03:00 Temperature Pulse Rate 89 89 Respiratory 17 Rate Blood Pressure 138/96 138/96 O2 Sat by Pulse 100 Oximetry 02/19/21 02/19/21 02/19/21 04:51 05:45 10:08 Temperature 98.9 F Pulse Rate 81 81 Respiratory 16 Rate Blood Pressure 118/72 118/72 117/81 O2 Sat by Pulse 95 Oximetry 02/19/21 10:09 Temperature Pulse Rate Respiratory Rate Blood Pressure 117/81 O2 Sat by Pulse Oximetry - General Appearance General appearance: well-developed, well-nourished, appears stated age EENT: ATNC, PERRL, mucous membranes moist Neck: no JVD Respiratory: Present: Clear to Ascultation Cardiology: regular, S1S2 Gastrointestinal: normoactive bowel sounds Integumentary: no rash, other (no edema ) Neurologic: no focal deficit, alert and oriented x3, strength 5/5, CN 3-12 intact Psychiatric: mood/affect appropriate, cooperative - Lab 02/17/21 07:26 02/16/21 12:59 Most recent lab results Calcium 8.3 mg/dL (8.4-10.2) L 02/16/21 12:59 Magnesium 1.80 mg/dL (1.7-2.3) 02/14/21 20:53 Medications & Allergies - Medications Allergies/Adverse Reactions: Allergies No Known Allergies Allergy (Verified 02/05/21 10:49) Home Medications: Home Medications Medication Instructions Recorded Confirmed Last Taken Type Calcium Carbonate [Tums 500MG CHEW] 500 mg PO BID #60 tablet 02/03/21 02/11/21 Unknown Rx Famotidine [Pepcid] 10 mg PO BID #60 tablet 02/03/21 02/11/21 Unknown Rx Furosemide [Lasix TAB] 40 mg PO QDAY 30 Days #30 tablet 02/03/21 02/11/21 Unknown Rx Valsartan [Diovan] 160 mg PO BID #60 tablet 02/03/21 02/11/21 Unknown Rx calcitrioL [Rocaltrol] 0.5 mcg PO QDAY #30 capsule 02/03/21 02/11/21 Unknown Rx carvediloL [Coreg] 6.25 mg PO BID #60 tablet 02/03/21 02/11/21 Unknown Rx Active Medications: Generic Name Dose Route Start Last Admin Trade Name Freq PRN Reason Stop Dose Admin Acetaminophen 650 mg 02/09/21 21:27 Acetaminophen 325 Mg Tab PO Q4H PRN Pain MILD(1-3)/Fever >100.5/MALCOLM Calcitriol 0.5 mcg 02/09/21 22:00 02/19/21 10:11 Calcitriol 0.5 Mcg Cap PO 0.5 mcg QDAY MONICA Administration Calcium Carbonate/Glycine 500 mg 02/09/21 22:00 02/19/21 10:09 Calcium Carbonate 500 Mg Tab Chew PO 500 mg BID MONICA Administration Carvedilol 6.25 mg 02/09/21 22:00 02/19/21 10:09 Carvedilol 6.25 Mg Tab PO 6.25 mg BID MONICA Administration Famotidine 10 mg 02/09/21 22:00 02/19/21 10:09 Famotidine 10 Mg Tab PO 10 mg BID MONICA Administration Furosemide 40 mg 02/11/21 13:00 02/19/21 10:09 Furosemide 40 Mg Tab PO 40 mg QDAY MONICA Administration Heparin Sodium (Porcine) 5,000 unit 02/09/21 22:00 02/19/21 10:09 Heparin 5,000 Unit/1 Ml Vial SUB-Q 5,000 unit Q12HR MONICA Administration Hydralazine HCl 25 mg 02/19/21 14:00 Hydralazine 25 Mg Tab PO Q8HR MONICA Hydromorphone HCl 0.5 mg 02/09/21 21:27 Hydromorphone 1 Mg/1 Ml Inj IV Q3H PRN Pain , Severe (7-10) Sodium Chloride 100 mls @ 999 mls/hr 02/12/21 11:22 Nacl 0.9% IV HANNAH PRN Hypotension Ondansetron HCl 4 mg 02/09/21 21:27 02/09/21 22:15 Ondansetron 4 Mg/2 Ml Inj IV 4 mg Q8H PRN Administration Nausea And Vomiting Oxycodone/Acetaminophen 1 tab 02/09/21 21:27 02/12/21 05:25 Oxycodone /Acetaminophen 5-325mg Tab PO 1 tab Q6H PRN Administration Pain, Moderate (4-6) Sodium Chloride 10 ml 02/09/21 22:00 02/18/21 23:19 Sodium Chloride 0.9% 10 Ml Flush Syringe IV 10 ml BID MONICA Administration Sodium Chloride 10 ml 02/09/21 21:27 Sodium Chloride 0.9% 10 Ml Flush Syringe IV PRN PRN LINE FLUSH Valsartan 160 mg 02/09/21 22:00 02/19/21 10:08 Valsartan 160mg Tab PO 160 mg BID MONICA Administration
[2021-02-19] MEDS: FLUCONAZOLE 100 MG TAB PO SCH (13:49)
[2021-02-19] MEDS: oxyCODONE /ACETAMINOPHEN 5-325MG TAB PO PRN (22:03)
[2021-02-20] MEDS: hydrALAZINE 25 MG TAB PO SCH ×3 (06:29→22:34)
--- NOTE | 2021-02-20 08:36 | Progress Note ---
Assessment and Plan Assessment and plan: 55-year-old -[place] female with history of hypertension and GERD well- known to me from the previous admission and newly diagnosed end-stage renal disease comes in for shortness of breath and missed hemodialysis for 6 days. Patient was discharged home without any hemodialysis chair and patient was asked to come to the emergency room twice a week for hemodialysis till she gets her hemodialysis placement. Case management working on hemodialysis chair placement and patient is in communication with Social Security office and the case management. Patient has slightly increased shortness of breath but otherwise comfortable. Patient is compliant with her blood pressure medications. No fever or chills. 02/10: Patient seen and examined, resting in the ER, awaiting HD. Repeat renal function to ensure resolution of Hyperkalemia. Case management working on Outpatient placement for HD 02/11: Patient still does not have a dialysis place to go to outpatient and is therefore not a safe discharge considering electrolyte abnormalities. We will recheck BMP today. Patient also was recently diagnosed with Covid we will move the patient with isolation controlled. She is not hypoxic at this time but will monitor oxygen with every shift. She verbalized understanding to the treatment plan and have discussed this with case management also. 02/12: Patient seen and examined, COVID 19 NEGATIVE, AWAITING FOR Second negative test result to get assigned Chair time. 02/13: COVID TESTING NEGATIVE X 2. Case management working on placement. Patient otherwise clinically stable. No Encephalopathy 02/14: Patient continues to show improvements. Awaiting hemodialysis chair time so that she can be discharged home. 02/15: Patient with mild Hypomagnesemia, will replace, await cardiology, Anemia still persist, will monitor may benefit from 1 unit PRBC. 02/16: No acute events noted yesterday. Mild decrease in hemoglobin to 6.8. Will go ahead with transfusion of 1 unit packed red blood cell this has been discu ssed with the patient and she is agreeable to that. Cardiology input is noted patient did not have an SVT rhythm artifacts were noted. Continue awaiting chair time for discharge. 02/18; patient is pending outpatient dialysis chair. BP is uncontrolled and I added hydralazine 50 mg PO tid. 02/19; pending outpatient dialysis chair arrangement. BP is controlled and is on the low side of normal I will decrease hydralazine to 25 mg p.o. 3 times daily. 02/20; awaiting outpatient dialysis chair arrangement. (1) Volume overload Current Visit: Yes Status: Acute Plan to address problem: Needs hemodialysis at least twice a week Case management working on hemodialysis placement Patient following with Dr. April kimball (2) End-stage renal disease needing dialysis Current Visit: Yes Status: Chronic Plan to address problem: Patient needs emergent hemodialysis and possible discharge home after dialysis (3) Uremia Current Visit: Yes Status: Acute Plan to address problem: Hemodialysis requested (4) Hyperkalemia Current Visit: No Status: Acute Plan to address problem: Treated with Kayexalate and calcium gluconate (5) Hypertension Current Visit: No Status: Chronic Qualifiers: Hypertension type: primary hypertension Qualified Code(s): I10 - Essential (primary) hypertension Plan to address problem: Continue antihypertensives (6) Anemia Current Visit: Yes Status: Chronic Qualifiers: Anemia type: due to chronic kidney disease Plan to address problem: Secondary to chronic kidney disease Will defer to nephrology regarding Epogen (7) Metabolic Acidosis Except correction with Dialysis (8) COVID 19 (9) Hypomagnesia (10) Discharge planning issues Current Visit: Yes Status: Acute Plan to address problem: Case management to assess outpatient HD, the current system in place does not appear sustainable. Patient is working on getting Medicare and hemodialysis placement History Interval history: Patient was seen and evaluated this morning Patient does not have any complaints. Hospitalist Physical - Physical exam Narrative exam: Not in cardiopulmonary distress. The patient appeared well nourished and normally developed. Vital signs as documented. Head exam is unremarkable. No scleral icterus . Neck is without jugular venous distension, thyromegaly, or carotid bruits. Lungs are clear to auscultation. Cardiac exam reveals regular rate and Rhythm. Abdominal exam reveals normal bowel sounds, nontender, no organomegaly. Extremities are nonedematous and both femoral and pedal pulses are normal. [employer]ATOR: Alert and oriented 3. No focal weakness. - Constitutional Vitals: Temp Pulse Resp BP Pulse Ox 98.0 F 75 17 128/73 97 02/20/21 06:23 02/20/21 06:23 02/20/21 06:23 02/20/21 06:29 02/20/21 06:23 General appearance: Present: no acute distress Results - Labs CBC & Chem 7: 02/17/21 07:26 02/16/21 12:59 Labs: Laboratory Last Values WBC 7.1 K/mm3 (4.5-11.0) 02/17/21 07:26 RBC 3.26 M/mm3 (3.65-5.03) L 02/17/21 07:26 Hgb 8.3 gm/dl (10.1-14.3) L 02/17/21 07:26 Hct 26.2 % (30.3-42.9) L D 02/17/21 07:26 MCV 80 fl (79-97) 02/17/21 07:26 MCH 26 pg (28-32) L 02/17/21 07:26 MCHC 32 % (30-34) 02/17/21 07:26 RDW 16.6 % (13.2-15.2) H 02/17/21 07:26 Plt Count 270 K/mm3 (140-440) 02/17/21 07:26 Lymph % (Auto) 10.9 % (13.4-35.0) L 02/15/21 16:32 [facility] % (Auto) 7.4 % (0.0-7.3) H 02/15/21 16:32 Eos % (Auto) 1.1 % (0.0-4.3) 02/15/21 16:32 Baso % (Auto) 0.9 % (0.0-1.8) 02/15/21 16:32 Lymph # (Auto) 1.0 K/mm3 (1.2-5.4) L 02/15/21 16:32 [facility] # (Auto) 0.7 K/mm3 (0.0-0.8) 02/15/21 16:32 Eos # (Auto) 0.1 K/mm3 (0.0-0.4) 02/15/21 16:32 Baso # (Auto) 0.1 K/mm3 (0.0-0.1) 02/15/21 16:32 Seg Neutrophils % 79.7 % (40.0-70.0) H 02/15/21 16:32 Seg Neutrophils # 7.1 K/mm3 (1.8-7.7) 02/15/21 16:32 Sodium 135 mmol/L (137-145) L 02/16/21 12:59 Potassium 4.2 mmol/L (3.6-5.0) 02/16/21 12:59 Chloride 95.8 mmol/L (98-107) L 02/16/21 12:59 Carbon Dioxide 26 mmol/L (22-30) 02/16/21 12:59 Anion Gap 17 mmol/L 02/16/21 12:59 BUN 30 mg/dL (7-17) H 02/16/21 12:59 Creatinine 5.6 mg/dL (0.6-1.2) H 02/16/21 12:59 Estimated GFR 9 ml/min 02/16/21 12:59 BUN/Creatinine Ratio 5 % 02/16/21 12:59 Glucose 96 mg/dL (65-100) 02/16/21 12:59 Calcium 8.3 mg/dL (8.4-10.2) L 02/16/21 12:59 Magnesium 1.80 mg/dL (1.7-2.3) 02/14/21 20:53 Total Bilirubin 0.20 mg/dL (0.1-1.2) 02/16/21 12:59 AST 9 units/L (5-40) 02/16/21 12:59 ALT < 5 units/L (7-56) L 02/16/21 12:59 Alkaline Phosphatase 134 units/L (35-129) H 02/16/21 12:59 Total Creatine Kinase 81 units/L (30-135) 02/09/21 18:16 NT-Pro-B Natriuret Pep 4740 pg/mL (0-900) H 02/09/21 18:16 Total Protein 6.5 g/dL (6.3-8.2) 02/16/21 12:59 Albumin 3.1 g/dL (3.9-5) L 02/16/21 12:59 Albumin/Globulin Ratio 0.9 % 02/16/21 12:59 Coronavirus (PCR) Negative (Negative) 02/12/21 Unknown Blood Type O POSITIVE 02/16/21 13:02 Antibody Screen Negative 02/16/21 13:02 Crossmatch See Detail 02/16/21 13:02 Newman/IV: Voiding Method Toilet Active Medications - Current Medications Current Medications: Generic Name Dose Route Start Last Admin Trade Name Freq PRN Reason Stop Dose Admin Acetaminophen 650 mg 02/09/21 21:27 Acetaminophen 325 Mg Tab PO Q4H PRN Pain MILD(1-3)/Fever >100.5/MALCOLM Calcitriol 0.5 mcg 02/09/21 22:00 02/19/21 10:11 Calcitriol 0.5 Mcg Cap PO 0.5 mcg QDAY MONICA Administration Calcium Carbonate/Glycine 500 mg 02/09/21 22:00 02/19/21 22:05 Calcium Carbonate 500 Mg Tab Chew PO 500 mg BID MONICA Administration Carvedilol 6.25 mg 02/09/21 22:00 02/19/21 22:05 Carvedilol 6.25 Mg Tab PO 6.25 mg BID MONICA Administration Famotidine 10 mg 02/09/21 22:00 02/19/21 22:04 Famotidine 10 Mg Tab PO 10 mg BID MONICA Administration Furosemide 40 mg 02/11/21 13:00 02/19/21 10:09 Furosemide 40 Mg Tab PO 40 mg QDAY MONICA Administration Heparin Sodium (Porcine) 5,000 unit 02/09/21 22:00 02/19/21 22:06 Heparin 5,000 Unit/1 Ml Vial SUB-Q 5,000 unit Q12HR MONICA Administration Hydralazine HCl 25 mg 02/19/21 14:00 02/20/21 06:29 Hydralazine 25 Mg Tab PO Not Given Q8HR [facility] Hydromorphone HCl 0.5 mg 02/09/21 21:27 Hydromorphone 1 Mg/1 Ml Inj IV Q3H PRN Pain , Severe (7-10) Sodium Chloride 100 mls @ 999 mls/hr 02/12/21 11:22 Nacl 0.9% IV HANNAH PRN Hypotension Ondansetron HCl 4 mg 02/09/21 21:27 02/09/21 22:15 Ondansetron 4 Mg/2 Ml Inj IV 4 mg Q8H PRN Administration Nausea And Vomiting Oxycodone/Acetaminophen 1 tab 02/09/21 21:27 02/19/21 22:03 Oxycodone /Acetaminophen 5-325mg Tab PO 1 tab Q6H PRN Administration Pain, Moderate (4-6) Sodium Chloride 10 ml 02/09/21 22:00 02/19/21 22:06 Sodium Chloride 0.9% 10 Ml Flush Syringe IV Not Given BID MONICA Sodium Chloride 10 ml 02/09/21 21:27 Sodium Chloride 0.9% 10 Ml Flush Syringe IV PRN PRN LINE FLUSH Valsartan 160 mg 02/09/21 22:00 02/19/21 22:04 Valsartan 160mg Tab PO 160 mg BID MONICA Administration Nutrition/Malnutrition Assess - Dietary Evaluation Nutrition/Malnutrition Findings: Nutrition Notes Start: 02/18/21 11:33 Freq: Status: Active Protocol: Document 02/19/21 12:41 MARISELA (Rec: 02/19/21 12:41 MARISELA [id number]) Nutrition Notes Need for Assessment generated from: LOS Initial or Follow up Brief Note Subjective/Other Information Pt eating 100% of meals. Nutrition Intervention Revisit per MD consult or patient Sign Off request:
[2021-02-20] MEDS: EPOETIN ALFA-EPBX 10,000 UNIT/1 ML VIAL IV PRN (12:09)
[2021-02-20] MEDS: VALSARTAN 160MG TAB PO SCH ×2 (12:38→22:34)
[2021-02-20] MEDS: carvediloL 6.25 MG TAB PO SCH ×2 (12:38→22:34)
[2021-02-20] MEDS: HEPARIN 5,000 UNIT/1 ML VIAL SUB-Q SCH ×2 (12:39→22:34)
[2021-02-20] MEDS: oxyCODONE /ACETAMINOPHEN 5-325MG TAB PO PRN (14:28)
[2021-02-20] MEDS: CALCIUM CARBONATE 500 MG TAB CHEW PO SCH ×2 (14:29→22:34)
[2021-02-20] MEDS: FUROSEMIDE 40 MG TAB PO SCH (14:29)
[2021-02-20] MEDS: CALCITRIOL 0.5 MCG CAP PO SCH (14:29)
[2021-02-20] MEDS: FAMOTIDINE 10 MG TAB PO SCH ×2 (14:29→22:33)
--- NOTE | 2021-02-20 16:45 | Progress Note ---
Assessment and Plan - Patient Problems (1) End-stage renal disease needing dialysis Current Visit: Yes Status: Chronic Plan to address problem: Cont TTS inpatient HD schedule. Pending OP HD placement. (2) Hyperkalemia Current Visit: No Status: Acute Plan to address problem: Treat with dialysis. Counseled patient on the importance of low potassium diet (3) Anemia Current Visit: Yes Status: Chronic Qualifiers: Anemia type: due to chronic kidney disease Chronic kidney disease stage: on chronic dialysis Qualified Code(s): N18.6 - End stage renal disease; D63.1 - Anemia in chronic kidney disease; Z99.2 - Dependence on renal dialysis Plan to address problem: DAVON therapy with HD (4) Hypertensive chronic kidney disease with stage 5 chronic kidney disease or end stage renal disease Current Visit: No Status: Acute Plan to address problem: IF BP remains uncontrolled on HD can restart valsartan 160 mg once a day. Subjective Date of service: 02/20/21 Principal diagnosis: ESRD Interval history: Pt awake, alert, in no acute distress Objective - Vital Signs Vital signs: Vital Signs - 12hr 02/20/21 02/20/21 02/20/21 06:23 06:29 08:30 Temperature 98.0 F 98.2 F Pulse Rate 75 83 Respiratory 17 18 Rate Blood Pressure 128/73 128/73 116/73 O2 Sat by Pulse 97 Oximetry O2 Sat by Pulse 98 Oximetry [ Anterior Bilateral Throughout] 02/20/21 02/20/21 02/20/21 09:25 09:30 09:45 Temperature Pulse Rate 78 89 81 Respiratory Rate Blood Pressure 128/82 105/62 117/69 O2 Sat by Pulse Oximetry O2 Sat by Pulse Oximetry [ Anterior Bilateral Throughout] 02/20/21 02/20/21 02/20/21 10:00 10:15 10:30 Temperature Pulse Rate 76 78 72 Respiratory Rate Blood Pressure 110/70 115/71 110/80 O2 Sat by Pulse Oximetry O2 Sat by Pulse Oximetry [ Anterior Bilateral Throughout] 02/20/21 02/20/21 02/20/21 10:45 11:00 11:15 Temperature Pulse Rate 92 H 84 77 Respiratory Rate Blood Pressure 109/61 115/68 116/65 O2 Sat by Pulse Oximetry O2 Sat by Pulse Oximetry [ Anterior Bilateral Throughout] 02/20/21 02/20/21 02/20/21 11:30 11:45 12:00 Temperature Pulse Rate 76 81 87 Respiratory Rate Blood Pressure 104/59 110/62 104/68 O2 Sat by Pulse Oximetry O2 Sat by Pulse Oximetry [ Anterior Bilateral Throughout] 02/20/21 02/20/21 02/20/21 12:15 12:30 14:28 Temperature 97.9 F Pulse Rate 83 85 Respiratory 18 Rate Blood Pressure 125/62 111/75 118/81 O2 Sat by Pulse Oximetry O2 Sat by Pulse 98 Oximetry [ Anterior Bilateral Throughout] - General Appearance General appearance: well-developed, well-nourished, appears stated age EENT: ATNC, PERRL, mucous membranes moist Neck: no JVD Respiratory: Present: Clear to Ascultation Cardiology: regular, S1S2 Gastrointestinal: normal Integumentary: no rash Neurologic: no focal deficit, alert and oriented x3, strength 5/5, CN 3-12 intact - Lab 02/17/21 07:26 02/16/21 12:59 Most recent lab results Calcium 8.3 mg/dL (8.4-10.2) L 02/16/21 12:59 Magnesium 1.80 mg/dL (1.7-2.3) 02/14/21 20:53 Medications & Allergies - Medications Allergies/Adverse Reactions: Allergies No Known Allergies Allergy (Verified 02/05/21 10:49) Home Medications: Home Medications Medication Instructions Recorded Confirmed Last Taken Type Calcium Carbonate [Tums 500MG CHEW] 500 mg PO BID #60 tablet 02/03/21 02/11/21 Unknown Rx Famotidine [Pepcid] 10 mg PO BID #60 tablet 02/03/21 02/11/21 Unknown Rx Furosemide [Lasix TAB] 40 mg PO QDAY 30 Days #30 tablet 02/03/21 02/11/21 Unknown Rx Valsartan [Diovan] 160 mg PO BID #60 tablet 02/03/21 02/11/21 Unknown Rx calcitrioL [Rocaltrol] 0.5 mcg PO QDAY #30 capsule 02/03/21 02/11/21 Unknown Rx carvediloL [Coreg] 6.25 mg PO BID #60 tablet 02/03/21 02/11/21 Unknown Rx Active Medications: Generic Name Dose Route Start Last Admin Trade Name Freq PRN Reason Stop Dose Admin Acetaminophen 650 mg 02/09/21 21:27 Acetaminophen 325 Mg Tab PO Q4H PRN Pain MILD(1-3)/Fever >100.5/MALCOLM Calcitriol 0.5 mcg 02/09/21 22:00 02/20/21 14:29 Calcitriol 0.5 Mcg Cap PO 0.5 mcg QDAY [facility] Administration Calcium Carbonate/Glycine 500 mg 02/09/21 22:00 02/20/21 14:29 Calcium Carbonate 500 Mg Tab Chew PO Not Given BID [facility] Carvedilol 6.25 mg 02/09/21 22:00 02/20/21 12:38 Carvedilol 6.25 Mg Tab PO Not Given BID MONICA Famotidine 10 mg 02/09/21 22:00 02/20/21 14:29 Famotidine 10 Mg Tab PO 10 mg BID MONICA Administration Furosemide 40 mg 02/11/21 13:00 02/20/21 14:29 Furosemide 40 Mg Tab PO 40 mg QDAY [facility] Administration Heparin Sodium (Porcine) 5,000 unit 02/09/21 22:00 02/20/21 12:39 Heparin 5,000 Unit/1 Ml Vial SUB-Q Not Given Q12HR [facility] Hydralazine HCl 25 mg 02/19/21 14:00 02/20/21 14:28 Hydralazine 25 Mg Tab PO 25 mg Q8HR [facility] Administration Hydromorphone HCl 0.5 mg 02/09/21 21:27 Hydromorphone 1 Mg/1 Ml Inj IV Q3H PRN Pain , Severe (7-10) Sodium Chloride 100 mls @ 999 mls/hr 02/12/21 11:22 Nacl 0.9% IV HANNAH PRN Hypotension Ondansetron HCl 4 mg 02/09/21 21:27 02/09/21 22:15 Ondansetron 4 Mg/2 Ml Inj IV 4 mg Q8H PRN Administration Nausea And Vomiting Oxycodone/Acetaminophen 1 tab 02/09/21 21:27 02/20/21 14:28 Oxycodone /Acetaminophen 5-325mg Tab PO 1 tab Q6H PRN Administration Pain, Moderate (4-6) Sodium Chloride 10 ml 02/09/21 22:00 02/20/21 14:35 Sodium Chloride 0.9% 10 Ml Flush Syringe IV Not Given BID MONICA Sodium Chloride 10 ml 02/09/21 21:27 Sodium Chloride 0.9% 10 Ml Flush Syringe IV PRN PRN LINE FLUSH Valsartan 160 mg 02/09/21 22:00 02/20/21 12:38 Valsartan 160mg Tab PO Not Given BID MONICA
[2021-02-21] MEDS: hydrALAZINE 25 MG TAB PO SCH ×2 (06:26→13:02)
--- NOTE | 2021-02-21 09:16 | Progress Note ---
Assessment and Plan Assessment and plan: 55-year-old -[place] female with history of hypertension and GERD well- known to me from the previous admission and newly diagnosed end-stage renal disease comes in for shortness of breath and missed hemodialysis for 6 days. Patient was discharged home without any hemodialysis chair and patient was asked to come to the emergency room twice a week for hemodialysis till she gets her hemodialysis placement. Case management working on hemodialysis chair placement and patient is in communication with Social Security office and the case management. Patient has slightly increased shortness of breath but otherwise comfortable. Patient is compliant with her blood pressure medications. No fever or chills. 02/10: Patient seen and examined, resting in the ER, awaiting HD. Repeat renal function to ensure resolution of Hyperkalemia. Case management working on Outpatient placement for HD 02/11: Patient still does not have a dialysis place to go to outpatient and is therefore not a safe discharge considering electrolyte abnormalities. We will recheck BMP today. Patient also was recently diagnosed with Covid we will move the patient with isolation controlled. She is not hypoxic at this time but will monitor oxygen with every shift. She verbalized understanding to the treatment plan and have discussed this with case management also. 02/12: Patient seen and examined, COVID 19 NEGATIVE, AWAITING FOR Second negative test result to get assigned Chair time. 02/13: COVID TESTING NEGATIVE X 2. Case management working on placement. Patient otherwise clinically stable. No Encephalopathy 02/14: Patient continues to show improvements. Awaiting hemodialysis chair time so that she can be discharged home. 02/15: Patient with mild Hypomagnesemia, will replace, await cardiology, Anemia still persist, will monitor may benefit from 1 unit PRBC. 02/16: No acute events noted yesterday. Mild decrease in hemoglobin to 6.8. Will go ahead with transfusion of 1 unit packed red blood cell this has been discu ssed with the patient and she is agreeable to that. Cardiology input is noted patient did not have an SVT rhythm artifacts were noted. Continue awaiting chair time for discharge. 02/18; patient is pending outpatient dialysis chair. BP is uncontrolled and I added hydralazine 50 mg PO tid. 02/19; pending outpatient dialysis chair arrangement. BP is controlled and is on the low side of normal I will decrease hydralazine to 25 mg p.o. 3 times daily. 02/20; awaiting outpatient dialysis chair arrangement. 02/21; outpatient hemodialysis arranged and patient will be discharged home. (1) Volume overload Current Visit: Yes Status: Acute Plan to address problem: Needs hemodialysis at least twice a week Case management working on hemodialysis placement Patient following with Dr. April kimball (2) End-stage renal disease needing dialysis Current Visit: Yes Status: Chronic Plan to address problem: Patient needs emergent hemodialysis and possible discharge home after dialysis (3) Uremia Current Visit: Yes Status: Acute Plan to address problem: Hemodialysis requested (4) Hyperkalemia Current Visit: No Status: Acute Plan to address problem: Treated with Kayexalate and calcium gluconate (5) Hypertension Current Visit: No Status: Chronic Qualifiers: Hypertension type: primary hypertension Qualified Code(s): I10 - Essential (primary) hypertension Plan to address problem: Continue antihypertensives (6) Anemia Current Visit: Yes Status: Chronic Qualifiers: Anemia type: due to chronic kidney disease Plan to address problem: Secondary to chronic kidney disease Will defer to nephrology regarding Epogen (7) Metabolic Acidosis Except correction with Dialysis (8) COVID 19 (9) Hypomagnesia (10) Discharge planning issues Current Visit: Yes Status: Acute Plan to address problem: Case management to assess outpatient HD, the current system in place does not appear sustainable. Patient is working on getting Medicare and hemodialysis placement History Interval history: Patient was seen and evaluated this morning Patient does not have any complaints. Hospitalist Physical - Physical exam Narrative exam: Not in cardiopulmonary distress. The patient appeared well nourished and normally developed. Vital signs as documented. Head exam is unremarkable. No scleral icterus . Neck is without jugular venous distension, thyromegaly, or carotid bruits. Lungs are clear to auscultation. Cardiac exam reveals regular rate and Rhythm. Abdominal exam reveals normal bowel sounds, nontender, no organomegaly. Extremities are nonedematous and both femoral and pedal pulses are normal. FINANCE PROFESSOR: Alert and oriented 3. No focal weakness. - Constitutional Vitals: Temp Pulse Resp BP Pulse Ox 98.7 F 83 19 123/87 97 02/21/21 05:25 02/21/21 05:25 02/21/21 05:25 02/21/21 05:25 02/21/21 05:25 General appearance: Present: no acute distress Results - Labs CBC & Chem 7: 02/17/21 07:26 02/16/21 12:59 Labs: Laboratory Last Values WBC 7.1 K/mm3 (4.5-11.0) 02/17/21 07:26 RBC 3.26 M/mm3 (3.65-5.03) L 02/17/21 07:26 Hgb 8.3 gm/dl (10.1-14.3) L 02/17/21 07:26 Hct 26.2 % (30.3-42.9) L D 02/17/21 07:26 MCV 80 fl (79-97) 02/17/21 07:26 MCH 26 pg (28-32) L 02/17/21 07:26 MCHC 32 % (30-34) 02/17/21 07:26 RDW 16.6 % (13.2-15.2) H 02/17/21 07:26 Plt Count 270 K/mm3 (140-440) 02/17/21 07:26 Lymph % (Auto) 10.9 % (13.4-35.0) L 02/15/21 16:32 Clay % (Auto) 7.4 % (0.0-7.3) H 02/15/21 16:32 Eos % (Auto) 1.1 % (0.0-4.3) 02/15/21 16:32 Baso % (Auto) 0.9 % (0.0-1.8) 02/15/21 16:32 Lymph # (Auto) 1.0 K/mm3 (1.2-5.4) L 02/15/21 16:32 Clay # (Auto) 0.7 K/mm3 (0.0-0.8) 02/15/21 16:32 Eos # (Auto) 0.1 K/mm3 (0.0-0.4) 02/15/21 16:32 Baso # (Auto) 0.1 K/mm3 (0.0-0.1) 02/15/21 16:32 Seg Neutrophils % 79.7 % (40.0-70.0) H 02/15/21 16:32 Seg Neutrophils # 7.1 K/mm3 (1.8-7.7) 02/15/21 16:32 Sodium 135 mmol/L (137-145) L 02/16/21 12:59 Potassium 4.2 mmol/L (3.6-5.0) 02/16/21 12:59 Chloride 95.8 mmol/L (98-107) L 02/16/21 12:59 Carbon Dioxide 26 mmol/L (22-30) 02/16/21 12:59 Anion Gap 17 mmol/L 02/16/21 12:59 BUN 30 mg/dL (7-17) H 02/16/21 12:59 Creatinine 5.6 mg/dL (0.6-1.2) H 02/16/21 12:59 Estimated GFR 9 ml/min 02/16/21 12:59 BUN/Creatinine Ratio 5 % 02/16/21 12:59 Glucose 96 mg/dL (65-100) 02/16/21 12:59 Calcium 8.3 mg/dL (8.4-10.2) L 02/16/21 12:59 Magnesium 1.80 mg/dL (1.7-2.3) 02/14/21 20:53 Total Bilirubin 0.20 mg/dL (0.1-1.2) 02/16/21 12:59 AST 9 units/L (5-40) 02/16/21 12:59 ALT < 5 units/L (7-56) L 02/16/21 12:59 Alkaline Phosphatase 134 units/L (35-129) H 02/16/21 12:59 Total Creatine Kinase 81 units/L (30-135) 02/09/21 18:16 NT-Pro-B Natriuret Pep 4740 pg/mL (0-900) H 02/09/21 18:16 Total Protein 6.5 g/dL (6.3-8.2) 02/16/21 12:59 Albumin 3.1 g/dL (3.9-5) L 02/16/21 12:59 Albumin/Globulin Ratio 0.9 % 02/16/21 12:59 Coronavirus (PCR) Negative (Negative) 02/12/21 Unknown Blood Type O POSITIVE 02/16/21 13:02 Antibody Screen Negative 02/16/21 13:02 Crossmatch See Detail 02/16/21 13:02 Newman/IV: Voiding Method Toilet Active Medications - Current Medications Current Medications: Generic Name Dose Route Start Last Admin Trade Name Freq PRN Reason Stop Dose Admin Acetaminophen 650 mg 02/09/21 21:27 Acetaminophen 325 Mg Tab PO Q4H PRN Pain MILD(1-3)/Fever >100.5/MALCOLM Calcitriol 0.5 mcg 02/09/21 22:00 02/20/21 14:29 Calcitriol 0.5 Mcg Cap PO 0.5 mcg QDAY MONICA Administration Calcium Carbonate/Glycine 500 mg 02/09/21 22:00 02/20/21 22:34 Calcium Carbonate 500 Mg Tab Chew PO 500 mg BID MONICA Administration Carvedilol 6.25 mg 02/09/21 22:00 02/20/21 22:34 Carvedilol 6.25 Mg Tab PO 6.25 mg BID MONICA Administration Famotidine 10 mg 02/09/21 22:00 02/20/21 22:33 Famotidine 10 Mg Tab PO 10 mg BID MONICA Administration Furosemide 40 mg 02/11/21 13:00 02/20/21 14:29 Furosemide 40 Mg Tab PO 40 mg QDAY MONICA Administration Heparin Sodium (Porcine) 5,000 unit 02/09/21 22:00 02/20/21 22:34 Heparin 5,000 Unit/1 Ml Vial SUB-Q 5,000 unit Q12HR MONICA Administration Hydralazine HCl 25 mg 02/19/21 14:00 02/21/21 06:26 Hydralazine 25 Mg Tab PO Not Given Q8HR MONICA Hydromorphone HCl 0.5 mg 02/09/21 21:27 Hydromorphone 1 Mg/1 Ml Inj IV Q3H PRN Pain , Severe (7-10) Sodium Chloride 100 mls @ 999 mls/hr 02/12/21 11:22 Nacl 0.9% IV HANNAH PRN Hypotension Ondansetron HCl 4 mg 02/09/21 21:27 02/09/21 22:15 Ondansetron 4 Mg/2 Ml Inj IV 4 mg Q8H PRN Administration Nausea And Vomiting Oxycodone/Acetaminophen 1 tab 02/09/21 21:27 02/20/21 14:28 Oxycodone /Acetaminophen 5-325mg Tab PO 1 tab Q6H PRN Administration Pain, Moderate (4-6) Sodium Chloride 10 ml 02/09/21 22:00 02/20/21 22:35 Sodium Chloride 0.9% 10 Ml Flush Syringe IV Not Given BID MONICA Sodium Chloride 10 ml 02/09/21 21:27 Sodium Chloride 0.9% 10 Ml Flush Syringe IV PRN PRN LINE FLUSH Valsartan 160 mg 02/09/21 22:00 02/20/21 22:34 Valsartan 160mg Tab PO 160 mg BID MONICA Administration Nutrition/Malnutrition Assess - Dietary Evaluation Nutrition/Malnutrition Findings: Nutrition Notes Start: 02/18/21 11:33 Freq: Status: Active Protocol: Document 02/19/21 12:41 MARISELA (Rec: 02/19/21 12:41 MARISELA [email or web address]) Nutrition Notes Need for Assessment generated from: LOS Initial or Follow up Brief Note Subjective/Other Information Pt eating 100% of meals. Nutrition Intervention Revisit per MD consult or patient Sign Off request:
[2021-02-21] MEDS: FUROSEMIDE 40 MG TAB PO SCH (09:28)
[2021-02-21] MEDS: VALSARTAN 160MG TAB PO SCH (09:28)
[2021-02-21] MEDS: FAMOTIDINE 10 MG TAB PO SCH (09:28)
[2021-02-21] MEDS: CALCIUM CARBONATE 500 MG TAB CHEW PO SCH (09:28)
[2021-02-21] MEDS: carvediloL 6.25 MG TAB PO SCH (09:28)
[2021-02-21] MEDS: HEPARIN 5,000 UNIT/1 ML VIAL SUB-Q SCH (09:28)
[2021-02-21] MEDS: CALCITRIOL 0.5 MCG CAP PO SCH (09:28)
--- NOTE | 2021-02-21 11:04 | Progress Note ---
Assessment and Plan - Patient Problems (1) End-stage renal disease needing dialysis Current Visit: Yes Status: Chronic Plan to address problem: Cont TTS inpatient HD schedule. Pending OP HD placement. (2) Hyperkalemia Current Visit: No Status: Acute Plan to address problem: Treat with dialysis. Counseled patient on the importance of low potassium diet (3) Anemia Current Visit: Yes Status: Chronic Qualifiers: Anemia type: due to chronic kidney disease Chronic kidney disease stage: on chronic dialysis Qualified Code(s): N18.6 - End stage renal disease; D63.1 - Anemia in chronic kidney disease; Z99.2 - Dependence on renal dialysis Plan to address problem: DAVON therapy with HD (4) Hypertensive chronic kidney disease with stage 5 chronic kidney disease or end stage renal disease Current Visit: No Status: Acute Plan to address problem: IF BP remains uncontrolled on HD can restart valsartan 160 mg once a day. Subjective Date of service: 02/21/21 Principal diagnosis: ESRD Interval history: Pt awake, alert, in no acute distress Objective - Vital Signs Vital signs: Vital Signs - 12hr 02/21/21 02/21/21 02/21/21 01:54 05:25 09:28 Temperature 98.7 F Pulse Rate 83 Respiratory 19 Rate Blood Pressure 123/87 119/79 O2 Sat by Pulse 96 97 Oximetry 02/21/21 09:39 Temperature Pulse Rate Respiratory Rate Blood Pressure O2 Sat by Pulse 97 Oximetry - General Appearance General appearance: well-developed, well-nourished, appears stated age EENT: ATNC, PERRL, mucous membranes moist Neck: no JVD Respiratory: Present: Clear to Ascultation Cardiology: regular, S1S2 Gastrointestinal: normoactive bowel sounds Integumentary: no rash - Lab 02/17/21 07:26 02/16/21 12:59 Most recent lab results Calcium 8.3 mg/dL (8.4-10.2) L 02/16/21 12:59 Magnesium 1.80 mg/dL (1.7-2.3) 02/14/21 20:53 Medications & Allergies - Medications Allergies/Adverse Reactions: Allergies No Known Allergies Allergy (Verified 02/05/21 10:49) Home Medications: Home Medications Medication Instructions Recorded Confirmed Last Taken Type Calcium Carbonate [Tums 500MG CHEW] 500 mg PO BID #60 tablet 02/03/21 02/11/21 Unknown Rx Famotidine [Pepcid] 10 mg PO BID #60 tablet 02/03/21 02/11/21 Unknown Rx Furosemide [Lasix TAB] 40 mg PO QDAY 30 Days #30 tablet 02/03/21 02/11/21 Unknown Rx Valsartan [Diovan] 160 mg PO BID #60 tablet 02/03/21 02/11/21 Unknown Rx calcitrioL [Rocaltrol] 0.5 mcg PO QDAY #30 capsule 02/03/21 02/11/21 Unknown Rx carvediloL [Coreg] 6.25 mg PO BID #60 tablet 02/03/21 02/11/21 Unknown Rx Active Medications: Generic Name Dose Route Start Last Admin Trade Name Freq PRN Reason Stop Dose Admin Acetaminophen 650 mg 02/09/21 21:27 Acetaminophen 325 Mg Tab PO Q4H PRN Pain MILD(1-3)/Fever >100.5/MALCOLM Calcitriol 0.5 mcg 02/09/21 22:00 02/21/21 09:28 Calcitriol 0.5 Mcg Cap PO 0.5 mcg QDAY MONICA Administration Calcium Carbonate/Glycine 500 mg 02/09/21 22:00 02/21/21 09:28 Calcium Carbonate 500 Mg Tab Chew PO 500 mg BID MONICA Administration Carvedilol 6.25 mg 02/09/21 22:00 02/21/21 09:28 Carvedilol 6.25 Mg Tab PO 6.25 mg BID MONICA Administration Famotidine 10 mg 02/09/21 22:00 02/21/21 09:28 Famotidine 10 Mg Tab PO 10 mg BID MONICA Administration Furosemide 40 mg 02/11/21 13:00 02/21/21 09:28 Furosemide 40 Mg Tab PO 40 mg QDAY MONICA Administration Heparin Sodium (Porcine) 5,000 unit 02/09/21 22:00 02/21/21 09:28 Heparin 5,000 Unit/1 Ml Vial SUB-Q 5,000 unit Q12HR MONICA Administration Hydralazine HCl 25 mg 02/19/21 14:00 02/21/21 06:26 Hydralazine 25 Mg Tab PO Not Given Q8HR MONICA Hydromorphone HCl 0.5 mg 02/09/21 21:27 Hydromorphone 1 Mg/1 Ml Inj IV Q3H PRN Pain , Severe (7-10) Sodium Chloride 100 mls @ 999 mls/hr 02/12/21 11:22 Nacl 0.9% IV HANNAH PRN Hypotension Ondansetron HCl 4 mg 02/09/21 21:27 02/09/21 22:15 Ondansetron 4 Mg/2 Ml Inj IV 4 mg Q8H PRN Administration Nausea And Vomiting Oxycodone/Acetaminophen 1 tab 02/09/21 21:27 02/20/21 14:28 Oxycodone /Acetaminophen 5-325mg Tab PO 1 tab Q6H PRN Administration Pain, Moderate (4-6) Sodium Chloride 10 ml 02/09/21 22:00 02/21/21 09:29 Sodium Chloride 0.9% 10 Ml Flush Syringe IV 10 ml BID MONICA Administration Sodium Chloride 10 ml 02/09/21 21:27 Sodium Chloride 0.9% 10 Ml Flush Syringe IV PRN PRN LINE FLUSH Valsartan 160 mg 02/09/21 22:00 02/21/21 09:28 Valsartan 160mg Tab PO 160 mg BID MONICA Administration
[2021-02-21] MEDS ORDERED: diphenhydrAMINE 25 MG CAP PO PRN (11:30)
--- NOTE | 2021-02-21 12:12 | Discharge Summary ---
Providers - Providers Date of Admission: 02/11/21 12:17 Date of discharge: 02/21/21 Attending physician: ELSY FLETCHER MD 02/09/21 16:28 Consult to Physician [CONS] Urgent Comment: Consulting Provider: BRANDEN MARTÍNEZ Physician Instructions: Reason For Exam: esrd 02/09/21 17:15 Consult to Case Management [CONS] Urgent Services Needed at Discharge: Load Blocker Notified:: yes 02/14/21 16:16 Consult to Cardiology [CONS] Routine Consulting Provider: DEMARIO ROGERS Reason For Exam: 8 beat run of vta Primary care physician: STRAWHAT BLOCKING OPERATOR Hospitalization Reason for admission: End-stage renal disease on hemodialysis, hypertension Condition: Stable Hospital course: 55-year-old -[place] Citizen female with history of hypertension and GERD well- known to me from the previous admission and newly diagnosed end-stage renal disease comes in for shortness of breath and missed hemodialysis for 6 days. Patient was discharged home without any hemodialysis chair and patient was asked to come to the emergency room twice a week for hemodialysis till she gets her hemodialysis placement. Case management working on hemodialysis chair placement and patient is in communication with Social Security office and the case management. Patient has slightly increased shortness of breath but otherwise comfortable. Patient is compliant with her blood pressure medications. No fever or chills. 2: Patient seen and examined, resting in the ER, awaiting HD. Repeat renal function to ensure resolution of Hyperkalemia. Case management working on Outpatient placement for HD 02/11: Patient still does not have a dialysis place to go to outpatient and is therefore not a safe discharge considering electrolyte abnormalities. We will recheck BMP today. Patient also was recently diagnosed with Covid we will move the patient with isolation controlled. She is not hypoxic at this time but will monitor oxygen with every shift. She verbalized understanding to the treatment plan and have discussed this with case management also. 02/12: Patient seen and examined, COVID 19 NEGATIVE, AWAITING FOR Second negative test result to get assigned Chair time. 02/13: COVID TESTING NEGATIVE X 2. Case management working on placement. Patient otherwise clinically stable. No Encephalopathy 02/14: Patient continues to show improvements. Awaiting hemodialysis chair time so that she can be discharged home. 02/15: Patient with mild Hypomagnesemia, will replace, await cardiology, Anemia still persist, will monitor may benefit from 1 unit PRBC. 02/16: No acute events noted yesterday. Mild decrease in hemoglobin to 6.8. Will go ahead with transfusion of 1 unit packed red blood cell this has been discussed with the patient and she is agreeable to that. Cardiology input is noted patient did not have an SVT rhythm artifacts were noted. Continue awaiting chair time for discharge. 02/18; patient is pending outpatient dialysis chair. BP is uncontrolled and I added hydralazine 50 mg PO tid. 02/19; pending outpatient dialysis chair arrangement. BP is controlled and is on the low side of normal I will decrease hydralazine to 25 mg p.o. 3 times daily. 02/20; awaiting outpatient dialysis chair arrangement. 02/21; awaiting outpatient dialysis chair arrangement (1) Volume overload Current Visit: Yes Status: Acute Plan to address problem: Needs hemodialysis at least twice a week Case management working on hemodialysis placement Patient following with Dr. April kimball (2) End-stage renal disease needing dialysis Current Visit: Yes Status: Chronic Plan to address problem: Patient needs emergent hemodialysis and possible discharge home after dialysis (3) Uremia Current Visit: Yes Status: Acute Plan to address problem: Hemodialysis requested (4) Hyperkalemia Current Visit: No Status: Acute Plan to address problem: Treated with Kayexalate and calcium gluconate (5) Hypertension Current Visit: No Status: Chronic Qualifiers: Hypertension type: primary hypertension Qualified Code(s): I10 - Essential (primary) hypertension Plan to address problem: Continue antihypertensives (6) Anemia Current Visit: Yes Status: Chronic Qualifiers: Anemia type: due to chronic kidney disease Plan to address problem: Secondary to chronic kidney disease Will defer to nephrology regarding Epogen (7) Metabolic Acidosis Except correction with Dialysis (8) COVID 19 (9) Hypomagnesia (10) Discharge planning issues Current Visit: Yes Status: Acute Plan to address problem: Case management to assess outpatient HD, the current system in place does not appear sustainable. Patient is working on [employer] Medicare and hemodialysis placement 02/21/2021; patient was complianing generalized itching otherwise she does not have any other complaints. Patient was given Benadryl and advised not to drive after Benadryl. Discussed with case management and case management told me outpatient dialysis chair is arranged. Appropriate medications were reconciled and discharged home. Patient was hemodynamically stable at the time of discharge. Management plan was discussed in detail and patient's questions and concerns were addressed at the bedside. Disposition: 01 HOME / SELF CARE / HOMELESS Final Discharge Diagnosis (Prints w/discharge instructions): End-stage renal disease on hemodialysis. Hypertension Time spent for discharge: 35 minutes - Discharge Diagnoses (1) End-stage renal disease on hemodialysis Status: Acute (2) Metabolic acidosis Status: Acute (3) Uremia Status: Acute (4) Volume overload Status: Acute (5) Hypertension Status: Chronic Qualifiers: Hypertension type: primary hypertension Qualified Code(s): I10 - Essential (primary) hypertension Core Measure Documentation - Palliative Care Palliative Care/ Comfort Measures: Not Applicable - Core Measures Any of the following diagnoses?: none Exam - Physical Exam Narrative exam: Not in cardiopulmonary distress. The patient appeared well nourished and normally developed. Vital signs as documented. Head exam is unremarkable. No scleral icterus . Neck is without jugular venous distension, thyromegaly, or carotid bruits. Lungs are clear to auscultation. Cardiac exam reveals regular rate and Rhythm. Abdominal exam reveals normal bowel sounds, nontender, no organomegaly. Extremities are nonedematous and both femoral and pedal pulses are normal. SR. MANAGER: Alert and oriented 3. No focal weakness. - Constitutional Vitals: Temp Pulse Resp BP Pulse Ox 98.7 F 83 19 119/79 97 02/21/21 05:25 02/21/21 05:25 02/21/21 05:25 02/21/21 09:28 02/21/21 09:39 Plan Activity: no restrictions Weight Bearing Status: Full Weight Bearing Diet: low salt, renal Follow up with: ADRIAN SMALLS MD [Staff Physician] - 7 Days PRIMARY CARE, [Primary Care Provider] - 3-5 Days Prescriptions: hydrALAZINE [Apresoline TAB] 25 mg PO Q8HR #90 tablet diphenhydrAMINE [Benadryl CAP] 25 mg PO Q6H PRN #20 capsule PRN Reason: Itching
[2021-02-21 13:03] VITALS: BP 150/101
== END 2021-02-21 17:55 | disposition home or self-care (01) | DRG 640 ==
LOC: ED 18:28 → 3A 02-09 23:40 → OBSVTOIN 02-11 12:17 → 3A 02-12 09:02
PROVIDERS: ADMIT Internal Medicine; ATTEND Internal Medicine
PROC: 5A1D70Z Performance of Urinary Filtration, Intermittent, Less than 6 Hours Per Day (ICD-10-PCS; principal; 2021-02-10)
PROC: 5A1D70Z Performance of Urinary Filtration, Intermittent, Less than 6 Hours Per Day (ICD-10-PCS; 2021-02-13)
PROC: 5A1D70Z Performance of Urinary Filtration, Intermittent, Less than 6 Hours Per Day (ICD-10-PCS; 2021-02-15)
PROC: 5A1D70Z Performance of Urinary Filtration, Intermittent, Less than 6 Hours Per Day (ICD-10-PCS; 2021-02-18)
PROC: 5A1D70Z Performance of Urinary Filtration, Intermittent, Less than 6 Hours Per Day (ICD-10-PCS; 2021-02-20)
DX: E87.5 Hyperkalemia (principal); N18.6 End stage renal disease; I12.0 Hypertensive chronic kidney disease with stage 5 chronic kidney disease or end stage renal disease; E87.2 Acidosis; E87.70 Fluid overload, unspecified; K21.9 Gastro-esophageal reflux disease without esophagitis; Z20.822 Contact with and (suspected) exposure to COVID-19; E83.42 Hypomagnesemia; D63.1 Anemia in chronic kidney disease; Z79.899 Other long term (current) drug therapy; Z79.891 Long term (current) use of opiate analgesic; Z99.2 Dependence on renal dialysis; Z79.01 Long term (current) use of anticoagulants
CPT/HCPCS: 36415; 80048; 80053; 82550; 83735; 83880; 85025; 85027; 86850; 86900; 86901; 86920; 93005; G0378; J0610; J0885; J1170; J1644; J2405; J3475; J7040; P9016; U0003